=== PATIENT | female | born 1985 | race Caucasian/White ===

== ENCOUNTER 2019-12-15 17:44 | Emergency (ER) | payer MEDICARE ==
[~2019-12-15] VITALS: Ht 172.7 cm; Wt 62.8 kg
[2019-12-15] MEDS ORDERED: NAPR-885 PO (17:53)
[2019-12-15] MEDS ORDERED: CYCL-707 PO ×2 (17:53→19:42)
--- NOTE | 2019-12-15 19:26 | REPVR ---
PROCEDURE INFORMATION: Exam: CT Thoracic Spine Without Contrast Exam date and time: 12/15/2019 6:40 PM Age: 34 years old Clinical indication: Pain; Other: PT tender; Additional info: PT tender x 2mo, no miguel, neg XR initially TECHNIQUE: Imaging protocol: Computed tomography images of the thoracic spine without contrast. Radiation optimization: All CT scans at this facility use at least one of these dose optimization techniques: automated exposure control; mA and/or kV adjustment per patient size (includes targeted exams where dose is matched to clinical indication); or iterative reconstruction. COMPARISON: No relevant prior studies available. FINDINGS: Vertebrae: No acute fracture. Normal alignment. T1-T2: No significant disc protrusion. No severe spinal canal stenosis. No significant neural foraminal narrowing. T2-T3: No significant disc protrusion. No severe spinal canal stenosis. No significant neural foraminal narrowing. T3-T4: No significant disc protrusion. No severe spinal canal stenosis. No significant neural foraminal narrowing. T4-T5: No significant disc protrusion. No severe spinal canal stenosis. No significant neural foraminal narrowing. T5-T6: No significant disc protrusion. No severe spinal canal stenosis. No significant neural foraminal narrowing. T6-T7: No significant disc protrusion. No severe spinal canal stenosis. No significant neural foraminal narrowing. T7-T8: No significant disc protrusion. No severe spinal canal stenosis. No significant neural foraminal narrowing. T8-T9: No significant disc protrusion. No severe spinal canal stenosis. No significant neural foraminal narrowing. T9-T10: No significant disc protrusion. No severe spinal canal stenosis. No significant neural foraminal narrowing. T10-T11: No significant disc protrusion. No severe spinal canal stenosis. No significant neural foraminal narrowing. T11-T12: No significant disc protrusion. No severe spinal canal stenosis. No significant neural foraminal narrowing. T12-L1: No significant disc protrusion. No severe spinal canal stenosis. No significant neural foraminal narrowing. IMPRESSION: Unremarkable thoracic spine. Electronically signed by: Linnette Iglesias On 12/15/2019 19:25:51 PM
[2019-12-15 19:49] VITALS: BP 116/68
[2019-12-15] MEDS ORDERED: CYCLOBENZAPRINE 10MG TABLET PO ONE (20:00)
== END 2019-12-15 19:52 | disposition home or self-care (01) ==
LOC: M ED 17:44
DX: M54.6 Pain in thoracic spine (principal); R29.898 Other symptoms and signs involving the musculoskeletal system; M54.32 Sciatica, left side; Z88.2 Allergy status to sulfonamides; Z88.8 Allergy status to other drugs, medicaments and biological substances

== ENCOUNTER → 2020-01-07 | Outpatient (REF) | payer MEDICARE, OTHER ==
[~2020-01-07] MED LIST: AMIT24CA7; BUSP10TA PO; CYCL-707 PO; DULO1CAP4 PO; ESCITALOPRAM; HYDR50TA70; KETO10TAB PO; LINZ290C PO; MIDO5TA PO; NAPR-885 PO; TIZA4CAP PO; TIZA4TAB4; ZOLP5TAB PO
[2020-02-02 21:50] LABS: BASO % 0.3 % (0.0-1.0); EOS # 0.4 10^3/uL (0.0-0.5); EOS % 6.1 % (0.0-3.0); HEMATOCRIT 38.8 % (36.0-47.0); HEMOGLOBIN 13.1 g/dl (12.0-15.5); LYMPH # 1.4 10^3/uL (1.5-5.0); LYMPH % 23.3 % (24.0-44.0); MEAN CORPUSCULAR HEMOGLOBIN 29.7 pg (27.0-33.0); MEAN CORPUSCULAR HGB CONC 33.8 g/dl (32.0-36.5); MONO # 0.4 10^3/uL (0.0-0.8); MONO % 6.6 % (0.0-5.0); NEUTROPHILS # 3.8 10^3/uL (1.5-8.5); NEUTROPHILS % 63.2 % (36.0-66.0); PLATELET COUNT, AUTOMATED 217 10^3/uL (150-450); RED BLOOD COUNT 4.41 10^6/uL (4.00-5.40); WHITE BLOOD COUNT 5.9 10^3/uL (4.0-10.0)
[2020-02-03 10:56] LABS: BLOOD UREA NITROGEN 6 MG/DL (7-18); GLUCOSE, FASTING 75 MG/DL (70-100)
[2020-02-03 10:57] LABS: ALT/SGPT 13 IU/L (0-32); BILIRUBIN,TOTAL 0.5 MG/DL (0.2-1.0); CARBON DIOXIDE LEVEL 26 mmol/L (20-29); CHLORIDE LEVEL 106 MEQ/L (98-107); CHOLESTEROL LEVEL 174 MG/DL (<200); CHOLESTEROL RISK RATIO 3.052 (<5); CREATININE FOR GFR 0.78 MG/DL (0.55-1.30); GLOMERULAR FILTRATION RATE > 60.0 (>60); HDL CHOLESTEROL 57 MG/DL (>40); LDL CHOLESTEROL 102.6 MG/DL (<100); NON-HDL-C 117 MG/DL; SODIUM LEVEL 141 MEQ/L (136-145); TRIGLYCERIDES LEVEL 72 MG/DL (<150)
[2020-02-03 10:58] LABS: ALBUMIN 4.1 GM/DL (3.2-5.2); MAGNESIUM LEVEL 1.9 MG/DL (1.8-2.4); TOTAL PROTEIN 7.1 GM/DL (6.4-8.2)
== END ==
LOC: M LAB REF 06:35
PROVIDERS: ATTEND Nurse Practitioner Family
DX: Z79.899 Other long term (current) drug therapy (principal)

== ENCOUNTER 2020-01-10 08:50 | Emergency (ER) | payer MEDICARE, OTHER ==
[~2020-01-10 08:50] MED LIST changes: -AMIT24CA7; -BUSP10TA PO; -DULO1CAP4 PO; -ESCITALOPRAM; -HYDR50TA70; -KETO10TAB PO; -LINZ290C PO; -MIDO5TA PO; -TIZA4CAP PO; -TIZA4TAB4; -ZOLP5TAB PO
[2020-02-18 10:59] LABS: BASO % 0.4 % (0.0-1.0); EOS # 0.6 10^3/uL (0.0-0.5); EOS % 5.7 % (0.0-3.0); HEMATOCRIT 37.2 % (36.0-47.0); HEMOGLOBIN 12.9 g/dl (12.0-15.5); LYMPH # 1.6 10^3/uL (1.5-5.0); LYMPH % 14.8 % (24.0-44.0); MEAN CORPUSCULAR HEMOGLOBIN 30.1 pg (27.0-33.0); MEAN CORPUSCULAR HGB CONC 34.7 g/dl (32.0-36.5); MEAN CORPUSCULAR VOLUME 86.7 fl (80.0-96.0); MONO # 0.6 10^3/uL (0.0-0.8); MONO % 5.5 % (0.0-5.0); NEUTROPHILS # 7.7 10^3/uL (1.5-8.5); NEUTROPHILS % 73.2 % (36.0-66.0); PLATELET COUNT, AUTOMATED 231 10^3/uL (150-450); RED BLOOD COUNT 4.29 10^6/uL (4.00-5.40); WHITE BLOOD COUNT 10.5 10^3/uL (4.0-10.0)
[2020-02-18 11:11] LABS: INR 1.03; PARTIAL THROMBOPLASTIN TIME 30.3 SECONDS (25.0-38.4); PROTHROMBIN TIME 13.7 SECONDS (11.8-14.0)
[2020-02-18 11:16] LABS: APPEARANCE, URINE CLEAR (CLEAR); BACTERIA, URINE AUTO NEGATIVE (NEGATIVE); BILIRUBIN, URINE AUTO NEGATIVE (NEGATIVE); BLOOD, URINE BLOOD NEGATIVE (NEGATIVE); COLOR, URINE STRAW (YELLOW); GLUCOSE, URINE (UA) AUTO NEGATIVE (NEGATIVE); KETONE, URINE AUTO NEGATIVE (NEGATIVE); LEUKOCYTE ESTERASE, URINE AUTO NEGATIVE (NEGATIVE); NITRITE, URINE AUTO NEGATIVE (NEGATIVE); PROTEIN, URINE AUTO NEGATIVE (NEGATIVE); RBC, URINE AUTO 0 /HPF (0-3); SPECIFIC GRAVITY URINE AUTO 1.004 (1.002-1.035); SQUAMOUS EPITHELIAL CELL UR AU 4 /HPF (0-6); UROBILINOGEN, URINE AUTO 0.2 mg/dL (0.0-2.0); WBC, URINE AUTO 0 /HPF (0-3)
--- NOTE | 2020-02-24 10:18 | ECGEPIP ---
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
--- NOTE | 2020-03-02 16:02 | REP ---
CT OF THE HEAD WITHOUT CONTRAST: HISTORY: Dizziness. TECHNIQUE: Axial noncontrast images from the skull base to the vertex with coronal reformations. FINDINGS: The ventricles, sulci and cisterns are symmetric and normal. Mccoy-white differentiation is maintained. No acute intracranial hemorrhage, mass or mass effect. No extra-axial fluid collection. The calvarium is intact. The paranasal sinuses and mastoid air cells are clear. IMPRESSION: Negative noncontrast head CT. MTDD
--- NOTE | 2020-03-02 16:09 | REP ---
CONTRAST-ENHANCED CHEST CT USING ANGIOGRAPHIC TECHNIQUE: HISTORY: Chest pain. TECHNIQUE: Axial contrast-enhanced images from the thoracic inlet to the upper 0728material (followed by CT of the abdomen and pelvis). FINDINGS: The thoracic aorta is normal and without aneurysm or dissection. The pulmonary vasculature is normal and without embolus. The heart and pericardium appear normal. The bilateral lung corea are clear. No consolidation, effusion or pneumothorax. The tracheobronchial tree is patent. No adenopathy. Surrounding musculoskeletal structures are intact. IMPRESSION: Normal contrast-enhanced chest CT. Normal thoracic aorta. No acute mediastinal or pleuroparenchymal process. MTDD
--- NOTE | 2020-03-02 16:11 | REP ---
CONTRAST-ENHANCED CT OF THE ABDOMEN AND PELVIS USING ANGIOGRAPHIC TECHNIQUE: HISTORY: History of mesenteric artery repair with abdominal pain. TECHNIQUE: Axial contrast-enhanced images from the lung bases to the pubic symphysis using 100 cc Isovue 370 intravenous contrast material with multiplanar reformations. FINDINGS: The abdominal aorta and branch vessels appear relatively normal and without evidence for aneurysm or dissection. No perivascular fluid or significant inflammatory changes are appreciated. Small surgical clips in the region of the celiac axis and mesenteric artery are identified and consistent with given history of mesenteric artery repair. The liver, spleen, pancreas, bilateral adrenal glands and kidneys are normal. Evidence for prior cholecystectomy noted. The enteric system is without obstruction or acute inflammatory process. A normal terminal ileum and appendix are identified in the right lower quadrant. The pelvis demonstrates normal bladder and age appropriate uterus/left adnexa. 5.3 cm complex cystic changes to the right ovary likely physiologic and related to menstrual cycle. No pelvic free fluid or ascites. No free air. No adenopathy. Surrounding musculoskeletal structures without acute osseous abnormality. IMPRESSION: 1. Relatively normal appearance of the thoracic aorta and branch vessels without evidence for aneurysm or dissection. 2. Complex cystic changes to the right adnexa, likely physiologic and related to menstrual cycle. 3. No further acute abdominopelvic pathology appreciated. 4. No ascites, focal inflammatory stranding or adenopathy. MTDD
[2020-03-25 08:08] LABS: ACETAMINOPHEN LEVEL < 2.0 UG/ML (10.0-30.0); ALBUMIN 3.7 GM/DL (3.2-5.2); ALT/SGPT 14 U/L (12-78); BILIRUBIN,DIRECT < 0.1 MG/DL (0.0-0.2); BILIRUBIN,TOTAL 0.3 MG/DL (0.2-1.0); BLOOD UREA NITROGEN 11 MG/DL (7-18); CALCIUM LEVEL 8.8 MG/DL (8.5-10.1); CARBON DIOXIDE LEVEL 26 MEQ/L (21-32); CHLORIDE LEVEL 107 MEQ/L (98-107); CK-MB VALUE MASS < 1.0 NG/ML (<3.6); CPK CREATINE PHOSPHOKINASE 68 U/L (26-192); CREATININE FOR GFR 0.75 MG/DL (0.55-1.30); ETHYL ALCOHOL (ETHANOL) < 0.003 % (0.000-0.010); FREE T4 1.13 NG/DL (0.76-1.46); GLOMERULAR FILTRATION RATE > 60.0 (>60); GLUCOSE, FASTING 105 MG/DL (70-100); MB/CK RELATIVE INDEX 1.47 (< OR =4); POTASSIUM SERUM 4.6 MEQ/L (3.5-5.1); SALICYLATE LEVEL < 1.7 MG/DL (5.0-30.0); SODIUM LEVEL 141 MEQ/L (136-145); TOTAL PROTEIN 7.1 GM/DL (6.4-8.2); TROPONIN I < 0.02 NG/ML (< 0.10)
[2020-03-25 08:11] LABS: AMPHETAMINES LEVEL URINE NEGATIVE (NEGATIVE); BARBITURATES URINE NEGATIVE (NEGATIVE); BENZODIAZEPINES URINE POSITIVE (NEGATIVE); CANNABINOIDS URINE NEGATIVE (NEGATIVE); COCAINE METABOLITE URINE NEGATIVE (NEGATIVE); HCG, SERUM QUALITATIVE NEGATIVE (NEGATIVE); METHADONE URINE NEGATIVE (NEGATIVE); OPIATES URINE NEGATIVE (NEGATIVE); PHENCYCLIDINE URINE NEGATIVE (NEGATIVE)
[2020-03-25 08:12] LABS: CK-MB VALUE MASS < 1.0 NG/ML (<3.6); CPK CREATINE PHOSPHOKINASE 62 U/L (26-192); MB/CK RELATIVE INDEX 1.61 (< OR =4); TROPONIN I < 0.02 NG/ML (< 0.10)
== END 2020-01-10 22:14 | disposition left against medical advice (07) ==
LOC: M ED 08:50
DX: I95.1 Orthostatic hypotension (principal); F33.9 Major depressive disorder, recurrent, unspecified; F41.9 Anxiety disorder, unspecified; N80.9 Endometriosis, unspecified; K58.1 Irritable bowel syndrome with constipation; R63.0 Anorexia; F50.2 Bulimia nervosa; G89.29 Other chronic pain; M54.6 Pain in thoracic spine; Z79.899 Other long term (current) drug therapy; Z79.2 Long term (current) use of antibiotics; Z88.1 Allergy status to other antibiotic agents; Z88.2 Allergy status to sulfonamides; Z88.8 Allergy status to other drugs, medicaments and biological substances
CPT/HCPCS: 70450; 71275; 74174; 80048; 80076; 80307; 81001; 82550; 82553; 83605; 84439; 84443; 84484; 84703; 85025; 85610; 85730; 87040; 87086; 93005; 96361; 96374; 96375; 99284; G0480

== ENCOUNTER → 2020-01-27 | Outpatient (CLI) | payer MEDICARE, OTHER ==
[~2020-01-27] MED LIST changes: +AMIT24CA7; +BUSP10TA PO; +DULO1CAP4 PO; +ESCITALOPRAM; +HYDR50TA70; +KETO10TAB PO; +LINZ290C PO; +MIDO5TA PO; +PROHANCE 279.3MG/ML 15ML VIAL As Ordered ONE; +TIZA4CAP PO; +TIZA4TAB4; +ZOLP5TAB PO
== END ==
LOC: M RAD 10:30
PROVIDERS: ATTEND Orthopaedic Surgery
DX: M51.44 Schmorl's nodes, thoracic region (principal)
CPT/HCPCS: 72157; A9576

== ENCOUNTER 2020-02-25 12:58 | Emergency (ER) | payer MEDICARE, OTHER ==
[~2020-02-25] VITALS: Ht 172.7 cm; Wt 61.4 kg
[~2020-02-25 12:58] MED LIST changes: -AMIT24CA7; -BUSP10TA PO; -DULO1CAP4 PO; -ESCITALOPRAM; -HYDR50TA70; -KETO10TAB PO; -LINZ290C PO; -MIDO5TA PO; -PROHANCE 279.3MG/ML 15ML VIAL As Ordered ONE; -TIZA4CAP PO; -TIZA4TAB4; -ZOLP5TAB PO
[2020-02-25] MEDS ORDERED: BUSP10TA PO (13:09)
[2020-02-25] MEDS ORDERED: TIZA4TAB4 (13:09)
[2020-02-25] MEDS ORDERED: AMIT24CA7 (13:09)
[2020-02-25] MEDS ORDERED: ESCITALOPRAM (13:09)
[2020-02-25] MEDS ORDERED: HYDR50TA70 (13:09)
[2020-02-25] MEDS ORDERED: NS 1,000 ML IV ONE ×2 (13:30)
[2020-02-25 14:31] LABS: BASO % 0.5 % (0.0-1.0); EOS # 0.2 10^3/uL (0.0-0.5); EOS % 3.1 % (0.0-3.0); HEMATOCRIT 40.9 % (36.0-47.0); LYMPH # 1.5 10^3/uL (1.5-5.0); LYMPH % 23.7 % (24.0-44.0); MEAN CORPUSCULAR HEMOGLOBIN 29.4 pg (27.0-33.0); MEAN CORPUSCULAR HGB CONC 34.2 g/dl (32.0-36.5); MEAN CORPUSCULAR VOLUME 85.9 fl (80.0-96.0); MONO # 0.4 10^3/uL (0.0-0.8); NEUTROPHILS # 4.1 10^3/uL (1.5-8.5); NEUTROPHILS % 66.4 % (36.0-66.0); PLATELET COUNT, AUTOMATED 308 10^3/uL (150-450); RED BLOOD COUNT 4.76 10^6/uL (4.00-5.40); WHITE BLOOD COUNT 6.2 10^3/uL (4.0-10.0)
[2020-02-25 15:03] LABS: ALBUMIN 4.1 GM/DL (3.2-5.2); ALT/SGPT 15 U/L (12-78); BILIRUBIN,TOTAL 0.5 MG/DL (0.2-1.0); BLOOD UREA NITROGEN 16 MG/DL (7-18); CALCIUM LEVEL 9.6 MG/DL (8.5-10.1); CARBON DIOXIDE LEVEL 28 MEQ/L (21-32); CHLORIDE LEVEL 106 MEQ/L (98-107); CREATININE FOR GFR 0.72 MG/DL (0.55-1.30); GLOMERULAR FILTRATION RATE > 60.0 (>60); GLUCOSE, FASTING 86 MG/DL (70-100); POTASSIUM SERUM 3.8 MEQ/L (3.5-5.1); SODIUM LEVEL 137 MEQ/L (136-145); TOTAL PROTEIN 7.7 GM/DL (6.4-8.2)
[2020-02-25 15:09] LABS: HCG, SERUM QUALITATIVE NEGATIVE (NEGATIVE)
[2020-02-25] MEDS ORDERED: ACETAMINOPHEN 325 MG TAB PO ONE (15:30)
[2020-02-25 17:19] VITALS: BP 126/64
--- NOTE | 2020-02-27 08:45 | ECGEPIP ---
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
== END 2020-02-25 17:41 | disposition home or self-care (01) ==
LOC: M ED 12:58
DX: I95.1 Orthostatic hypotension (principal); Z86.79 Personal history of other diseases of the circulatory system; N80.9 Endometriosis, unspecified; Z88.2 Allergy status to sulfonamides; Z88.8 Allergy status to other drugs, medicaments and biological substances; Z88.0 Allergy status to penicillin; Z79.899 Other long term (current) drug therapy

== ENCOUNTER → 2020-03-21 | Outpatient (REF) ==
[~2020-03-21] MED LIST changes: +AMIT24CA7; +BUSP10TA PO; +DULO1CAP4 PO; +ESCITALOPRAM; +HYDR50TA70; +KETO10TAB PO; +LINZ290C PO; +MIDO5TA PO; +TIZA4CAP PO; +TIZA4TAB4; +ZOLP5TAB PO
== END ==
LOC: M LAB 09:23 → M EMPSKH 09:23
PROVIDERS: ATTEND Nurse Practitioner Adult Health
DX: Z00.00 Encounter for general adult medical examination without abnormal findings (principal)

== ENCOUNTER 2020-03-24 10:50 | Emergency (ER) | payer MEDICARE, OTHER ==
[~2020-03-24] VITALS: Ht 172.7 cm; Wt 61.0 kg
[~2020-03-24 10:50] MED LIST changes: -DULO1CAP4 PO; -KETO10TAB PO; -LINZ290C PO; -MIDO5TA PO; -TIZA4CAP PO; -ZOLP5TAB PO
[2020-03-24] MEDS ORDERED: DULO1CAP4 PO (10:57)
[2020-03-24] MEDS ORDERED: ZOLP5TAB PO (10:57)
[2020-03-24] MEDS ORDERED: LINZ290C PO (10:57)
[2020-03-24] MEDS ORDERED: MIDO5TA PO (10:57)
[2020-03-24] MEDS ORDERED: NS 1,000 ML IV ONE (11:15)
[2020-03-24 12:10] LABS: BASO % 0.3 % (0.0-1.0); EOS # 0.2 10^3/uL (0.0-0.5); EOS % 1.9 % (0.0-3.0); HEMATOCRIT 40.5 % (36.0-47.0); HEMOGLOBIN 14.1 g/dl (12.0-15.5); LYMPH # 1.6 10^3/uL (1.5-5.0); LYMPH % 20.7 % (24.0-44.0); MEAN CORPUSCULAR HEMOGLOBIN 29.3 pg (27.0-33.0); MEAN CORPUSCULAR HGB CONC 34.8 g/dl (32.0-36.5); MONO # 0.6 10^3/uL (0.0-0.8); MONO % 6.9 % (0.0-5.0); NEUTROPHILS # 5.6 10^3/uL (1.5-8.5); NEUTROPHILS % 69.9 % (36.0-66.0); PLATELET COUNT, AUTOMATED 294 10^3/uL (150-450); RED BLOOD COUNT 4.82 10^6/uL (4.00-5.40); WHITE BLOOD COUNT 7.9 10^3/uL (4.0-10.0)
--- NOTE | 2020-03-24 12:15 | ECGEPIP ---
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
[2020-03-24] MEDS ORDERED: METOCLOPRAMIDE INJ 10MG/2ML VIAL (J2765 PER 1) IV ONE (12:30)
[2020-03-24] MEDS ORDERED: KETOROLAC 30 MG/ML 1ML VIAL IV ONE (12:30)
[2020-03-24 12:37] LABS: ALBUMIN 3.9 GM/DL (3.2-5.2); BILIRUBIN,DIRECT 0.1 MG/DL (0.0-0.2); BILIRUBIN,TOTAL 0.6 MG/DL (0.2-1.0); FREE THYROXINE INDEX 2.5 % (1.3-4.8); THYROID STIMULATING HORMONE 2.69 uIU/ML (0.358-3.740); TOTAL PROTEIN 7.6 GM/DL (6.4-8.2)
[2020-03-24] MEDS ORDERED: NORCO, ANEXSIA 5/325MG TABLET (HYDROcodone/ACETAMINOPHEN) PO ONE (13:15)
--- NOTE | 2020-03-24 14:16 | REPVR ---
PROCEDURE INFORMATION: Exam: CT Abdomen And Pelvis Without Contrast Exam date and time: 03/24/2020 12:52 PM Age: 35 years old Clinical indication: Abdominal pain; Flank; Left; Additional info: Flank pain TECHNIQUE: Imaging protocol: Computed tomography of the abdomen and pelvis without contrast. Radiation optimization: All CT scans at this facility use at least one of these dose optimization techniques: automated exposure control; mA and/or kV adjustment per patient size (includes targeted exams where dose is matched to clinical indication); or iterative reconstruction. COMPARISON: CT ANGIO ABD/PEL 01/10/2020 3:47 PM FINDINGS: Lungs: The lung bases are unremarkable. Liver: There are no focal liver lesions. Gallbladder and bile ducts: Cholecystectomy. Pancreas: The pancreas is normal. Spleen: The spleen is normal. Adrenals: The adrenal glands are unremarkable. Kidneys and ureters: The kidneys are unremarkable. Stomach and bowel: There is no evidence of intestinal obstruction. Appendix: The appendix is unremarkable. Intraperitoneal space: There is a small volume of free fluid in the cul-de-sac. Vasculature: Surgical clips are again seen in the region of the celiac axis, superior mesenteric and left renal arteries but they are poorly evaluated on this noncontrast examination. Lymph nodes: Unremarkable. No enlarged lymph nodes. Urinary bladder: The bladder is unremarkable. Reproductive: There is a 4.1 x 4.5 x 4.6 cm cystic structure in the left adnexa. The previously noted large cystic structures in the right adnexa on the prior study are no longer apparent. Bones/joints: No acute fracture. Probable Schmorl's nodes in multiple lower thoracic vertebral body endplates. Soft tissues: Unremarkable. IMPRESSION: 1. No evidence of urinary tract obstruction or bowel obstruction. There is no evidence of inflammation. 2. The previous cystic structures in the right adnexa have resolved in the interim but there is now a 4.1 x 4.5 x 4.6 cm probable left ovarian cyst. There is also free fluid in the cul-de-sac which may be due to cyst rupture among other etiologies. No further imaging is recommended. (Reference: Renaldo) References: Renaldo et al. Management of Incidental Adnexal Findings on CT and MRI: A White Paper of the ACR Incidental Findings Committee, J Am Bridget Radiol. 2019;17(2):248-254. Electronically signed by: Dennise Wheeler On 03/24/2020 14:16:14 PM
[2020-03-24] MEDS ORDERED: KETO10TAB PO (14:36)
[2020-03-24 14:50] VITALS: BP 126/78
== END 2020-03-24 15:17 | disposition home or self-care (01) ==
LOC: M ED 10:50
DX: R10.11 Right upper quadrant pain (principal); R11.0 Nausea; N83.202 Unspecified ovarian cyst, left side; R94.31 Abnormal electrocardiogram [ECG] [EKG]; K58.9 Irritable bowel syndrome, unspecified; G43.909 Migraine, unspecified, not intractable, without status migrainosus; F41.9 Anxiety disorder, unspecified; Z88.1 Allergy status to other antibiotic agents; Z88.2 Allergy status to sulfonamides; Z88.8 Allergy status to other drugs, medicaments and biological substances; Z79.899 Other long term (current) drug therapy
CPT/HCPCS: 74176; 80047; 80076; 81001; 83690; 84436; 84443; 84479; 84702; 85025; 93005; 96361; 96374; 96375; 99284; J1885; J2765

== ENCOUNTER 2020-03-29 09:31 | Observation (INO) | payer MEDICARE, OTHER ==
[~2020-03-29] VITALS: Ht 172.7 cm; Wt 60.0 kg
[~2020-03-29 09:31] MED LIST changes: +DULO1CAP4 PO; +KETO10TAB PO; +LINZ290C PO; +MIDO5TA PO; +ZOLP5TAB PO
[2020-03-29] MEDS ORDERED: NS 1,000 ML IV ONE (09:45)
--- NOTE | 2020-03-29 10:21 | REPVR ---
PROCEDURE INFORMATION: Exam: XR Chest, 1 View Exam date and time: 03/29/2020 10:00 AM Age: 35 years old Clinical indication: Chest pain TECHNIQUE: Imaging protocol: XR of the chest Views: 1 view. COMPARISON: CT ANGIO CHEST 01/10/2020 3:47 PM FINDINGS: Lungs: Hyperinflation, without acute airspace disease. Pleural space: No pleural effusion. Heart/Mediastinum: No cardiomegaly. Bones/joints: Unremarkable. IMPRESSION: Hyperinflation, without acute airspace or pleural disease. Electronically signed by: Edmar Navarrete On 03/29/2020 10:21:00 AM
[2020-03-29 10:44] LABS: BASO % 0.3 % (0.0-1.0); EOS # 0.2 10^3/uL (0.0-0.5); EOS % 2.4 % (0.0-3.0); HEMATOCRIT 38.2 % (36.0-47.0); LYMPH # 1.6 10^3/uL (1.5-5.0); LYMPH % 21.1 % (24.0-44.0); MEAN CORPUSCULAR HEMOGLOBIN 28.8 pg (27.0-33.0); MEAN CORPUSCULAR VOLUME 84.7 fl (80.0-96.0); MONO # 0.4 10^3/uL (0.0-0.8); MONO % 4.9 % (0.0-5.0); NEUTROPHILS # 5.3 10^3/uL (1.5-8.5); PLATELET COUNT, AUTOMATED 250 10^3/uL (150-450); RED BLOOD COUNT 4.51 10^6/uL (4.00-5.40); WHITE BLOOD COUNT 7.5 10^3/uL (4.0-10.0)
[2020-03-29 11:27] LABS: ALBUMIN 3.7 GM/DL (3.2-5.2); BILIRUBIN,DIRECT 0.1 MG/DL (0.0-0.2); BILIRUBIN,TOTAL 0.4 MG/DL (0.2-1.0); THYROID STIMULATING HORMONE 4.53 uIU/ML (0.358-3.740); TOTAL PROTEIN 7.2 GM/DL (6.4-8.2)
[2020-03-29] MEDS ORDERED: TIZA4CAP PO (12:15)
[2020-03-29] MEDS ORDERED: KETOROLAC 30 MG/ML 1ML VIAL IV ONE (12:30)
[2020-03-29] MEDS ORDERED: tiZANidine 4 MG TAB PO PRN (14:00)
[2020-03-29] MEDS ORDERED: ACETAMINOPHEN TAB 650MG DOSE (2X325MG) PO PRN (14:00)
[2020-03-29] MEDS ORDERED: POTASSIUM CHLORIDE 10 MEQ SR TABLET PO ONE (15:30)
[2020-03-29 15:40] VITALS: BP 126/82
[2020-03-29 15:42] LABS: FREE T4 0.97 NG/DL (0.76-1.46)
--- NOTE | 2020-03-29 16:11 | HPEPDOC ---
General Date of Admission Mar 29, 2020 at 13:38 Date of Service: Mar 29, 2020 Attending Physician: GRZEGORZ STERN MD Chief Complaint The patient is a 35-year-old female admitted with a reason for visit of Syncope. Source: Patient, RN/MD Exam Limitations: No limitations Timing/Duration: Getting worse Associated Symptoms: Syncope History of Present Illness 35 yo woman with an official diagnosis of POTS on midodrine who presented to the ED reporting 3 episodes of syncope in the last 24h, in the setting of recently having been evaluated in the ED for postural symptoms +/- abdominal pain three times in the last two weeks. At that time, she was hydrated, and for the abdomin al pain, imaging showed known L ovarian simple cyst and she was discharged home. Today she returned reporting 3 syncopal episodes over the last 24h without head trauma. While in the ED, she was hemodynamically stable, afebrile, breathing comfortably on room air and complaining for LLQ pain that remitted with Ketoralac. Studies showed WBC 7.5, hgb 13, platelets 250, na 140, K 3.4, BUN 5, Cr 0.6, glucose of 90, lipase 79, TSH of 4.53, negative ddimer, EKG with NSR without evidence of ischemia, negative troponin and normal CXR without evidence of disease. She was given 1L of NS and is now being admitted to medicine under observation for syncope. On ROS she denied recent fever, chills, upper res piratory congestion, rhinorrhea, sick contacts, travel, diarrhea, constipation, chest pain or palpitations. She did report that she feels cold all the time and that sometimes her finger tips and tips of her toes are very cold and bluish. She also get episodic facial flushing and non tender, non pruritic erythematous patches of her skin without clear etiology. ROS: 10 point ROS was reviewed and negative except as noted above Home Medications Scheduled Buspirone HCl (Buspirone HCl) 10 Mg Tablet, 10 MG PO TID, (Reported) Duloxetine Hcl (Duloxetine HCl) 20 Mg Capsule.dr, 40 MG PO DAILY, (Reported) Linaclotide (Linzess) 290 Mcg Capsule, 290 MCG PO DAILY, (Reported) Midodrine HCl (Midodrine HCl) 5 Mg Tablet, 5 MG PO TID, (Reported) Zolpidem Tartrate (Zolpidem Tartrate) 5 Mg Tablet, 5 MG PO QHS, (Reported) Scheduled PRN Tizanidine HCl (Tizanidine HCl) 4 Mg Capsule, 4 MG PO Q6H PRN for SPASMS, (Reported) Allergies Coded Allergies: Sulfa (Sulfonamide Antibiotics) (Verified Allergy, Severe, swelling/anaph, 12/15/19) promethazine (Verified Allergy, Severe, anaph, 12/15/19) paroxetine (Verified Adverse Reaction, Intermediate, altered mental, 12/15/19) amoxicillin (Verified Adverse Reaction, Unknown, UNKNOWN, 03/29/20) PATIENT DOES NOT RECALL WHAT HAPPENS WHEN SHE TAKES THIS MEDICATION clavulanic acid (Verified Adverse Reaction, Unknown, UNKNOWN, 03/29/20) PATIENT DOES NOT RECALL WHAT HAPPENS WHEN SHE TAKES THIS MEDICATION Past Medical History Medical History POTS Surgical History 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 for which she had abdominal surgery cholecystectomy Family History Significant Family History: No pertinent family hx Social History * Smoker: Denies Alcohol: Denies Drugs: denies Recent Travel/Sick Contacts: Denies: Recent travel, Recent sick contacts Psychosocial History: Anxiety, Depression A-FIB/CHADSVASC A-FIB History Current/History of A-Fib/PAF?: No Current PO Anticoag Therapy: No Age/Risk Factor Scoring CHADSVASC: CHADSVASC Response (Comments) Value Age Risk Factor Age < 65 years old 0 Gender Risk Factor Female 1 Hx of CHF No 0 Hx of HTN No 0 Hx of Stroke/TIA/or VTE No 0 Hx of Diabetes No 0 Hx of Vascular Disease No 0 Total 1 Treatment Treatment ordered: NONE Reason Anticoagulant not given: Not indicated/[id number] Physical Examination General Exam: Positive: Alert, No Acute Distress, Other (flushed face) Eye Exam: Positive: PERRLA, Conjunctiva & lids normal, EOMI; Negative: Sclera icteric ENT Exam: Positive: Atraumatic, Mucous membr. moist/pink, Pharynx Normal Neck Exam: Positive: Supple; Negative: JVD, thyromegaly Chest Exam: Positive: Clear to auscultation, Normal air movement Heart Exam: Positive: Rate Normal, Regular Rhythm, Normal S1, Normal S2; Negative: Murmurs, Rubs Telemetry: Positive: No significant arrhythmia Abdomen Exam: Positive: Normal bowel sounds, Soft, Tenderness (LLQ with TTP, no reboung no guarding); Negative: Hepatospenomegaly Extremity Exam: Positive: Normal pulses; Negative: Clubbing, Cyanosis, Edema Skin Exam: Positive: Other skin issue (she has patchy erythematous regions without clear etiology or history of trauma. her face is flushed, worse centrally and spreads out, dry); Negative: Breakdown, Lesion Neuro Exam: Positive: Normal Gait, Normal Speech, Cranial Nerves 3-12 NL, Reflexes 2+ Psych Exam: Positive: Mental status NL, Oriented x 3; Negative: Mood NL (labile, at times becomes teary ) Vital Signs Vital Signs Date Time Temp Pulse Resp B/P (MAP) Pulse Ox O2 Delivery O2 Flow Rate FiO2 03/29/20 14:00 90 114/65 (81) 100 03/29/20 12:30 97.9 03/29/20 09:49 18 Room Air Laboratory Data Labs 24H Laboratory Tests 2 03/29/20 09:43: Immature Granulocyte % (Auto) 0.3, Neutrophils (%) (Auto) 71.0H, Lymphocytes (%) (Auto) 21.1L, Monocytes (%) (Auto) 4.9, Eosinophils (%) (Auto) 2.4, Basophils (%) (Auto) 0.3, Neutrophils # (Auto) 5.3, Lymphocytes # (Auto) 1.6, Monocytes # (Auto) 0.4, Eosinophils # (Auto) 0.2, Basophils # (Auto) 0.0, Nucleated Red Blood Cells % (auto) 0.0, Total Bilirubin 0.4, Direct Bilirubin 0.1, Aspartate Amino Transf (AST/SGOT) 10, Alanine Aminotransferase (ALT/SGPT) 12, Alkaline Phosphatase 81, XL-Mtl-E-Type Natriuretic Peptide 183H, Total Protein 7.2, Albumin 3.7, Albumin/Globulin Ratio 1.1L, Lipase 79, Thyroid Stimulating Hormone (TSH) 4.530H 03/29/20 09:45: D-Dimer, Quantitative < 270 03/29/20 10:32: POC Glucose (Misc Panel) 90, POC Sodium (Misc Panel) 140, POC Potassium (Misc Panel) 3.4L, POC Chloride (Misc Panel) 101, POC Total CO2 (Misc Panel) 25.0, POC Blood Urea Nitrogen (Misc Panel 5L, POC Ionized Calcium (Misc Panel) 5.0, POC Creatinine (Misc Panel) 0.6, POC Hematocrit (Misc Panel) 39.0 03/29/20 10:34: POC Beta HCG, Quantitative < 5.0 03/29/20 10:38: POC Troponin I (Misc) 0.00 CBC/BMP Laboratory Tests 03/29/20 09:43 Assessment/Plan 35 yo W with POTS on midodrine who represents to the ED reporting persistent postural orthostasis with 3 episodes of syncope in the last 24h. Syncope: -Most likely exacerbation of POTS by dehydration -s/p 1L NS bolus in the ED -c/w NS at 125cc/hr for now -telemetry -TTE -orthostatic vitals with AM vitals after hydration -PT/OT for assessment tomorrow -Nonfocal neurological exam without history of head trauma, will defer head imaging for now -For now will continue home psychotropes while giving fluids, to reduce confounders Abdominal pain with known L ovarian cyst -toradol 30mg Q8HP Depression and chronic back paun -continue home cymbalta and buspar -continue tizanidine DVT ppx: lovenox and TEDs Dispo: Obs, medsurg with tele Plan / VTE VTE Prophylaxis Ordered?: Yes GRZEGORZ STERN MD Mar 29, 2020 16:10
[2020-03-29] MEDS: MIDODRINE 5 MG TAB PO SCH ×2 (16:30→20:15)
[2020-03-29] MEDS: busPIRone 10 MG TAB PO SCH ×2 (16:31→20:13)
[2020-03-29] MEDS: NS 1,000 ML IV SCH (16:32)
[2020-03-29] MEDS ORDERED: hydrOXYzine 25 MG TAB PO PRN (16:45)
[2020-03-29] MEDS: ENOXAPARIN 40MG/0.4ML SYRINGE (J1650 PER 10MG) SC SCH (16:45)
[2020-03-29] MEDS ORDERED: ONDANSETRON 4MG/2ML VIAL IV PRN (16:45)
[2020-03-29] MEDS ORDERED: KETOROLAC 30 MG/ML 1ML VIAL IV PRN (19:00)
--- NOTE | 2020-03-29 19:29 | ECGEPIP ---
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
[2020-03-29] MEDS ORDERED: zolPIDEM TARTRATE 5 MG TAB PO SCH (21:00)
[2020-03-29 22:00] VITALS: BP 126/80
[2020-03-30] MEDS: NS 1,000 ML IV SCH (00:20)
[2020-03-30] MEDS ORDERED: RAMELTEON 8 MG TAB (ROZEREM) PO ONE (00:45)
[2020-03-30] MEDS ORDERED: ONDANSETRON 4 MG TAB PO ONE (00:45)
[2020-03-30 06:00] VITALS: BP_SYST 126; BP_SYST 128; BP_SYST 129; BP_DIAS 82; BP_DIAS 85; BP_DIAS 86
[2020-03-30 07:42] LABS: HEMATOCRIT 38.1 % (36.0-47.0); HEMOGLOBIN 12.6 g/dl (12.0-15.5); MEAN CORPUSCULAR HEMOGLOBIN 28.2 pg (27.0-33.0); MEAN CORPUSCULAR HGB CONC 33.1 g/dl (32.0-36.5); MEAN CORPUSCULAR VOLUME 85.2 fl (80.0-96.0); PLATELET COUNT, AUTOMATED 232 10^3/uL (150-450); RED BLOOD COUNT 4.47 10^6/uL (4.00-5.40); WHITE BLOOD COUNT 6.9 10^3/uL (4.0-10.0)
[2020-03-30 08:07] LABS: BLOOD UREA NITROGEN 4 MG/DL (7-18); CALCIUM LEVEL 8.5 MG/DL (8.5-10.1); CARBON DIOXIDE LEVEL 24 MEQ/L (21-32); CHLORIDE LEVEL 110 MEQ/L (98-107); CREATININE FOR GFR 0.61 MG/DL (0.55-1.30); GLOMERULAR FILTRATION RATE > 60.0 (>60); GLUCOSE, FASTING 87 MG/DL (70-100); POTASSIUM SERUM 3.8 MEQ/L (3.5-5.1); SODIUM LEVEL 140 MEQ/L (136-145)
[2020-03-30] MEDS ORDERED: LINZESS 290 MCG PO SCH (09:00)
[2020-03-30] MEDS: MIDODRINE 5 MG TAB PO SCH (09:00)
[2020-03-30] MEDS ORDERED: DULoxetine 20 MG CAP (CYMBALTA) PO SCH (09:00)
[2020-03-30] MEDS: busPIRone 10 MG TAB PO SCH (09:46)
[2020-03-30] MEDS: ENOXAPARIN 40MG/0.4ML SYRINGE (J1650 PER 10MG) SC SCH (09:46)
--- NOTE | 2020-03-30 11:19 | IPNPDOC ---
Text Note Date of Service The patient was seen on 03/30/20. NOTE General: Alert, No Acute Distress Eye: PERRLA, Conjunctiva & lids normal, EOMI, anicteric ENT: Atraumatic, Mucous membr. moist/pink, Pharynx Normal Neck: Supple, no JVD or palpable thyromegaly Chest: Clear to auscultation, Normal air movement Heart: Rate Normal, Regular Rhythm, Normal S1, Normal S2, no mrg Telemetry: No significant arrhythmia, sinus Abdomen: Normal bowel sounds, soft, mild LLQ with TTP, no rebound no guarding Extremities: Normal pulses, no edema, WWP Skin: continues to have facial flushing, mildly improved from yesterday. Dry facial skin with mild forehead skin flaking Neuro: Normal Speech, Cranial Nerves 3-12 NL, grossly nonfocal Psych: AO x 3 Laboratory Data Pending AM Assessment: 35 yo W with POTS on midodrine who represents to the ED reporting persistent postural orthostasis with 3 episodes of syncope in the last 24h. Syncope: -Most likely exacerbation of POTS by dehydration -s/p 1L NS bolus in the ED -DC NS at 125cc/hr -telemetry -TTE pending -f/u orthostatic vitals this AM vitals after hydration -PT/OT for safe home discharge -Nonfocal neurological exam without history of head trauma, will defer head imaging for now -For now will continue home psychotropes Abdominal pain with known L ovarian cyst -toradol 30mg Q8HP -K pad Depression and chronic back pain -continue home cymbalta and buspar -continue tizanidine DVT ppx: lovenox and TEDs Dispo: Obs, medsurg with tele, likely to discharge home later today VS,Fishbone, I+O VS, Fishbone, I+O Laboratory Tests 03/29/20 09:43 Vital Signs Date Time Temp Pulse Resp B/P (MAP) Pulse Ox O2 Delivery O2 Flow Rate FiO2 03/29/20 22:00 98.9 72 18 126/80 (95) 98 Room Air I&O- Last 24 Hours up to 6 AM 03/30/20 06:00 Intake Total 2055 ml Output Total 0 ml Balance 2055 ml GRZEGORZ STERN MD Mar 30, 2020 07:23
--- NOTE | 2020-03-30 11:20 | DS.PDOC ---
Discharge Summary General Date of Admission Mar 29, 2020 at 13:38 Date of Discharge 03/30/2020 Attending Physician: GRZEGORZ STERN MD Discharge Summary PROCEDURES PERFORMED DURING STAY: None ADMITTING DIAGNOSES: 1. Syncope DISCHARGE DIAGNOSES: 1. Syncope 2/2 exacerbation of POTS in the setting of dehydration 2. Dehydration 3. POTS 4. Chronic abdominal pain from L ovarian cyst COMPLICATIONS/CHIEF COMPLAINT: Syncope. HISTORY OF PRESENT ILLNESS: 35 yo woman with an official diagnosis of POTS on midodrine who presented to the ED reporting 3 episodes of syncope in 24h, in the setting of recently having been evaluated in the ED for postural symptoms +/- abdominal pain three times in the last two weeks. At that time, she was hydrated, and for the abdominal pain, imaging showed known L ovarian simple cyst and she was discharged home. During this encounter, she returned reporting 3 syncopal episodes over a 24h period without head trauma. HOSPITAL COURSE: While in the ED, she was hemodynamically stable, afebrile, breathing comfortably on room air and complaining for LLQ pain that remitted with ketoralac. Studies showed WBC 7.5, hgb 13, platelets 250, na 140, K 3.4, BUN 5, Cr 0.6, glucose of 90, lipase 79, TSH of 4.53, negative ddimer, EKG with NSR without evidence of ischemia, negative troponin and normal CXR without evidence of disease. She was given 1L of NS and admitted to medicine under observation for syncope. On ROS she denied recent fever, chills, upper respiratory congestion, rhinorrhea, sick contacts, travel, diarrhea, constipation, chest pain or palpitations. She did report that she feels cold all the time and that sometimes her finger tips and tips of her toes are very cold and bluish. She also get episodic facial flushing and non tender, non pruritic erythematous patches of her skin without clear etiology. While inpatient, I continued fluids and by day 2 AM orthostatic vitals were normal, worked with PT and cleared for home discharge with outpatient PT, while telemetry was stable and labs were stable. 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 Of note, I have also discussed with the patient, that she should discuss her cold intolerance with what sounds c/w be Raynaud's phenomenon of episodic bluish finger tips, as well as episodic flushing. She might warrant a rheumatologic workup. DISCHARGE MEDICATIONS: Please see below. ALLERGIES: Please see below. PHYSICAL EXAMINATION ON DISCHARGE: VITAL SIGNS: Please see below. General: Alert, No Acute Distress Eye: PERRLA, Conjunctiva & lids normal, EOMI, anicteric ENT: Atraumatic, Mucous membr. moist/pink, Pharynx Normal Neck: Supple, no JVD or palpable thyromegaly Chest: Clear to auscultation, Normal air movement Heart: Rate Normal, Regular Rhythm, Normal S1, Normal S2, no mrg Telemetry: No significant arrhythmia, sinus Abdomen: Normal bowel sounds, soft, mild LLQ with TTP, no rebound no guarding Extremities: Normal pulses, no edema, WWP Skin: continues to have facial flushing, mildly improved from yesterday. Dry facial skin with mild forehead skin flaking Neuro: Normal Speech, Cranial Nerves 3-12 NL, grossly nonfocal Psych: AO x 3 LABORATORY DATA: Please see below. IMAGING: CXR: Hyperinflation, without acute airspace or pleural disease. PROGNOSIS: Good ACTIVITY: As tolerated DIET: Regular. DISCHARGE PLAN: Home with PCP and cardiology follow up DISPOSITION: Home DISCHARGE INSTRUCTIONS: 1. Please remember to adequately hydrate yourself as dehydration will exacerbate POTS symptoms ITEMS TO FOLLOWUP ON ON OUTPATIENT: 1. POTS 2. Recent syncope episodes 3. Cold intolerance with history c/w episodic Raynaud's phenomenon DISCHARGE CONDITION: Stable TIME SPENT ON DISCHARGE: 36 minutes. Vital Signs/I&Os Vital Signs Date Time Temp Pulse Resp B/P (MAP) Pulse Ox O2 Delivery O2 Flow Rate FiO2 03/29/20 22:00 98.9 72 18 126/80 (95) 98 Room Air I&O- Last 24 Hours up to 6 AM 03/30/20 06:00 Intake Total 2055 ml Output Total 0 ml Balance 2055 ml Laboratory Data Labs 24H Laboratory Tests 2 03/29/20 09:43: Immature Granulocyte % (Auto) 0.3, Neutrophils (%) (Auto) 71.0H, Lymphocytes (%) (Auto) 21.1L, Monocytes (%) (Auto) 4.9, Eosinophils (%) (Auto) 2.4, Basophils (%) (Auto) 0.3, Neutrophils # (Auto) 5.3, Lymphocytes # (Auto) 1.6, Monocytes # (Auto) 0.4, Eosinophils # (Auto) 0.2, Basophils # (Auto) 0.0, Nucleated Red Blood Cells % (auto) 0.0, Total Bilirubin 0.4, Direct Bilirubin 0.1, Aspartate Amino Transf (AST/SGOT) 10, Alanine Aminotransferase (ALT/SGPT) 12, Alkaline Phosphatase 81, IE-Irt-W-Type Natriuretic Peptide 183H, Total Protein 7.2, Albumin 3.7, Albumin/Globulin Ratio 1.1L, Lipase 79, Thyroid Stimulating Hormone (TSH) 4.530H, Free Thyroxine 0.97 03/29/20 09:45: D-Dimer, Quantitative < 270 03/29/20 10:32: POC Glucose (Misc Panel) 90, POC Sodium (Misc Panel) 140, POC Potassium (Misc Panel) 3.4L, POC Chloride (Misc Panel) 101, POC Total CO2 (Misc Panel) 25.0, POC Blood Urea Nitrogen (Misc Panel 5L, POC Ionized Calcium (Misc Panel) 5.0, POC Creatinine (Misc Panel) 0.6, POC Hematocrit (Misc Panel) 39.0 03/29/20 10:34: POC Beta HCG, Quantitative < 5.0 03/29/20 10:38: POC Troponin I (Misc) 0.00 CBC/BMP Laboratory Tests 03/29/20 09:43 Discharge Medications Scheduled Buspirone HCl (Buspirone HCl) 10 Mg Tablet, 10 MG PO TID, (Reported) Duloxetine Hcl (Duloxetine HCl) 20 Mg Capsule.dr, 40 MG PO DAILY, (Reported) Linaclotide (Linzess) 290 Mcg Capsule, 290 MCG PO DAILY, (Reported) Midodrine HCl (Midodrine HCl) 5 Mg Tablet, 5 MG PO TID, (Reported) Zolpidem Tartrate (Zolpidem Tartrate) 5 Mg Tablet, 5 MG PO QHS, (Reported) Scheduled PRN Tizanidine HCl (Tizanidine HCl) 4 Mg Capsule, 4 MG PO Q6H PRN for SPASMS, (Reported) Allergies Coded Allergies: Sulfa (Sulfonamide Antibiotics) (Verified Allergy, Severe, swelling/anaph, 12/15/19) promethazine (Verified Allergy, Severe, anaph, 12/15/19) paroxetine (Verified Adverse Reaction, Intermediate, altered mental, 12/15/19) amoxicillin (Verified Adverse Reaction, Unknown, UNKNOWN, 03/29/20) PATIENT DOES NOT RECALL WHAT HAPPENS WHEN SHE TAKES THIS MEDICATION clavulanic acid (Verified Adverse Reaction, Unknown, UNKNOWN, 03/29/20) PATIENT DOES NOT RECALL WHAT HAPPENS WHEN SHE TAKES THIS MEDICATION GRZEGORZ STERN MD Mar 30, 2020 07:39
--- NOTE | 2020-04-02 13:46 | ECHO ---
DATE OF PROCEDURE: 03/29/2020 Age: 35 Gender: Female Height: 172 cm Weight: 60 kg REFERRING PHYSICIAN: Dr. Paul INDICATION: Syncope MEASUREMENTS: IVS 0.8 LV 4.1 LVPW 1.1 LA 3.0 Aorta 2.7 IVC 1.4 Mitral E wave velocity 73, A wave 66 E prime septal 5.8 E prime lateral 11.2 FINDINGS: This study is of good technical quality, even though apical views were somewhat limited. The patient is in sinus rhythm. Normal LV size with preserved left ventricular systolic function. Estimated left ventricular ejection fraction (LVEF) around 65%. Right ventricle is also normal size and systolic function. Both atria appear normal. All four cardiac valves are reasonably well seen and appear normal. No pericardial effusion is noted. Inferior vena cava is of normal size. Aortic root, aortic arch and visualized segment of abdominal aorta all appear normal. Doppler interrogation reveals competent aortic valve. There is trace mitral and trace tricuspid insufficiency. Calculated pulmonary artery pressure was in high 20s corresponding to normal values. Pulmonic valve is functionally competent. Mitral inflow pattern and tissue Doppler imaging of mitral annulus reveal normal diastolic function. CONCLUSIONS: 1. Study is of good quality. The patient is in sinus rhythm. 2. Normal LV size, systolic and diastolic function. 3. Normal RV size and systolic function. 4. No significant valvular disease. 5. Normal central venous pressure and likely normal pulmonary artery present. 6. Essentially normal echocardiogram. [facility]
== END 2020-03-30 12:08 | disposition home or self-care (01) ==
LOC: EDBD 09:31 → M ED 09:31 → M ED INP 13:38 → ENRESERV 14:42 → M MSPAV 15:39
PROVIDERS: ADMIT Internal Medicine; ATTEND Internal Medicine
DX: R55 Syncope and collapse (principal); E86.0 Dehydration; I49.8 Other specified cardiac arrhythmias; R10.9 Unspecified abdominal pain; N83.202 Unspecified ovarian cyst, left side; Z79.899 Other long term (current) drug therapy; Z88.0 Allergy status to penicillin; Z88.2 Allergy status to sulfonamides; Z88.8 Allergy status to other drugs, medicaments and biological substances; F32.9 Major depressive disorder, single episode, unspecified; M54.5 Low back pain
CPT/HCPCS: 36415; 71045; 80047; 80048; 80076; 83690; 83880; 84439; 84443; 84484; 84702; 85025; 85027; 85379; 93005; 93041; 93306; 94760; 96361; 96372; 96374; 96375; 96376; 97110; 97161; 97165; 99285; G0378; J1650; J1885; J2405

== ENCOUNTER → 2020-04-09 | Outpatient (CLI) | payer MEDICARE, OTHER ==
[~2020-04-09] MED LIST changes: +TIZA4CAP PO
[2020-04-10 13:11] LABS: ANTINUCLEAR ANTIBODIES DIRECT Negative (Negative)
== END ==
LOC: M WUC 08:28
PROVIDERS: ATTEND Nurse Practitioner Family
DX: R53.83 Other fatigue (principal)

== ENCOUNTER → 2020-04-26 | Outpatient (CLI) | payer SELFPAY | LOC: M LABSMTC 12:04 | PROVIDERS: ATTEND Pediatrics | DX: Z20.828 Contact with and (suspected) exposure to other viral communicable diseases (principal) ==

== ENCOUNTER → 2020-04-26 | Outpatient (CLI) | payer MEDICARE, OTHER ==
--- NOTE | 2020-04-26 15:29 | REP ---
INDICATION: ACUTE RESPIRATORY INFECTION PT IS IN CAR CELL. COMPARISON: Comparison portable chest x-ray March 29, 2020. TECHNIQUE: Two views.. FINDINGS: The lungs are well inflated and free of infiltrate. The pleural angles are sharp. The heart size is normal. Pulmonary vasculature is not increased. No significant bony abnormality is seen. There is a mild pectus visible on lateral radiograph. IMPRESSION: Negative chest x-ray. <Electronically signed by Tommy Samaniego > 04/26/20 [id number]
== END ==
LOC: M RAD 12:19
PROVIDERS: ATTEND Nurse Practitioner Family
DX: J06.9 Acute upper respiratory infection, unspecified (principal)

== ENCOUNTER 2020-05-03 16:09 | Emergency (ER) | payer MEDICARE, OTHER ==
[~2020-05-03] VITALS: Ht 172.7 cm; Wt 66.1 kg
[2020-05-03] MEDS ORDERED: NS 1,000 ML IV ONE (17:15)
[2020-05-03] MEDS ORDERED: MORPHINE 2 MG/ML 1ML VIAL (J2270) IV ONE ×2 (17:15→19:00)
[2020-05-03] MEDS ORDERED: ONDANSETRON 4MG/2ML VIAL IV ONE (17:15)
[2020-05-03 18:14] LABS: BASO % 0.3 % (0.0-1.0); EOS # 0.3 10^3/uL (0.0-0.5); EOS % 2.9 % (0.0-3.0); HEMATOCRIT 41.5 % (36.0-47.0); HEMOGLOBIN 13.9 g/dl (12.0-15.5); LYMPH % 20.2 % (24.0-44.0); MEAN CORPUSCULAR HGB CONC 33.5 g/dl (32.0-36.5); MEAN CORPUSCULAR VOLUME 86.5 fl (80.0-96.0); MONO # 0.5 10^3/uL (0.0-0.8); MONO % 5.4 % (0.0-5.0); NEUTROPHILS # 6.9 10^3/uL (1.5-8.5); NEUTROPHILS % 70.9 % (36.0-66.0); PLATELET COUNT, AUTOMATED 288 10^3/uL (150-450); WHITE BLOOD COUNT 9.7 10^3/uL (4.0-10.0)
[2020-05-03 18:42] LABS: BILIRUBIN,DIRECT 0.1 MG/DL (0.0-0.2); BILIRUBIN,TOTAL 0.3 MG/DL (0.2-1.0); TOTAL PROTEIN 7.8 GM/DL (6.4-8.2)
[2020-05-03] MEDS ORDERED: ISOVUE-370 76% 100ML VIAL As Ordered ONE (18:59)
[2020-05-03] MEDS ORDERED: METOCLOPRAMIDE INJ 10MG/2ML VIAL (J2765 PER 1) IV ONE (19:30)
--- NOTE | 2020-05-03 20:13 | REPVR ---
PROCEDURE INFORMATION: Exam: CT Abdomen And Pelvis With Contrast Exam date and time: 05/03/2020 7:42 PM Age: 35 years old Clinical indication: Abdominal pain; Localized; Right; Additional info: Right sided abd pain R/O infectious process TECHNIQUE: Imaging protocol: Computed tomography of the abdomen and pelvis with intravenous contrast. Radiation optimization: All CT scans at this facility use at least one of these dose optimization techniques: automated exposure control; mA and/or kV adjustment per patient size (includes targeted exams where dose is matched to clinical indication); or iterative reconstruction. Contrast material: ISOVUE 370; Contrast volume: 100 ml; Contrast route: INTRAVENOUS (IV); COMPARISON: CT ABD PELVIS W/O CONTRAST 03/24/2020 12:47 PM FINDINGS: Liver: There is heterogeneous hepatic attenuation, nonspecific. Gallbladder and bile ducts: Previous cholecystectomy with intrahepatic and extrahepatic biliary dilatation. Common bile duct measures up to 9 mm. Pancreas: Normal. No ductal dilation. Spleen: Normal. No splenomegaly. Adrenal glands: Normal. No mass. Kidneys and ureters: Normal. No hydronephrosis. Stomach and bowel: Unremarkable. No obstruction. No mucosal thickening. Appendix: Normal appendix. Intraperitoneal space: Unremarkable. No free air. No significant fluid collection. Vasculature: Aortic calcification. Lymph nodes: Unremarkable. No enlarged lymph nodes. Urinary bladder: Unremarkable as visualized. Reproductive: Left adnexal cystic lesion measures 3 cm. Bones/joints: Unremarkable. No acute fracture. Soft tissues: Small fat containing periumbilical hernia. IMPRESSION: 1. No acute inflammatory abnormality. 2. 3 cm left adnexal cystic lesion, decreased in size from prior examination. 3. Additional findings as above. Electronically signed by: Edu Maldonado On 05/03/2020 20:13:24 PM
[2020-05-03] MEDS ORDERED: GI COCKTAIL 50ML BTL(HYOSCYAMINE/MAALOX/LIDOCAINE VISCOUS)(1:3:1) PO ONE (20:30)
[2020-05-03 21:14] VITALS: BP 133/84
== END 2020-05-03 21:28 | disposition home or self-care (01) ==
LOC: M ED 16:09
DX: R10.9 Unspecified abdominal pain (principal); R11.2 Nausea with vomiting, unspecified; R50.9 Fever, unspecified; R19.7 Diarrhea, unspecified; R63.0 Anorexia; N80.9 Endometriosis, unspecified; I49.8 Other specified cardiac arrhythmias; M32.9 Systemic lupus erythematosus, unspecified; Z88.2 Allergy status to sulfonamides; Z88.0 Allergy status to penicillin; Z88.5 Allergy status to narcotic agent; Z88.8 Allergy status to other drugs, medicaments and biological substances; Z79.899 Other long term (current) drug therapy
CPT/HCPCS: 74177; 80047; 80076; 81001; 83690; 84702; 85025; 96361; 96374; 96375; 96376; 99284; J2270; J2405; J2765; Q9967

== ENCOUNTER → 2020-05-04 | Outpatient (REF) | payer MEDICARE, OTHER | LOC: M LAB REF 09:02 | PROVIDERS: ATTEND Nurse Practitioner Family | DX: R19.7 Diarrhea, unspecified (principal) ==

== ENCOUNTER → 2020-05-18 | Outpatient (CLI) | payer MEDICARE, OTHER | LOC: M WUC 15:55 | PROVIDERS: ATTEND Nurse Practitioner Family | DX: Z13.89 Encounter for screening for other disorder (principal) ==

== ENCOUNTER → 2020-06-02 | Outpatient (CLI) | payer MEDICARE, OTHER ==
[2020-06-02 13:20] LABS: ALT/SGPT 13 U/L (12-78); AMYLASE 22 U/L (25-115); BILIRUBIN,TOTAL 0.6 MG/DL (0.2-1.0); BLOOD UREA NITROGEN 7 MG/DL (7-18); CALCIUM LEVEL 9.3 MG/DL (8.5-10.1); CARBON DIOXIDE LEVEL 29 MEQ/L (21-32); CHLORIDE LEVEL 105 MEQ/L (98-107); CREATININE FOR GFR 0.72 MG/DL (0.55-1.30); GLOMERULAR FILTRATION RATE > 60.0 (>60); GLUCOSE, FASTING 74 MG/DL (70-100); LIPASE 72 U/L (73-393); SODIUM LEVEL 139 MEQ/L (136-145); TOTAL PROTEIN 7.5 GM/DL (6.4-8.2)
[2020-06-02 13:30] LABS: HEMATOCRIT 40.1 % (36.0-47.0); MEAN CORPUSCULAR HEMOGLOBIN 28.1 pg (27.0-33.0); MEAN CORPUSCULAR HGB CONC 32.4 g/dl (32.0-36.5); MEAN CORPUSCULAR VOLUME 86.6 fl (80.0-96.0); PLATELET COUNT, AUTOMATED 302 10^3/uL (150-450); RED BLOOD COUNT 4.63 10^6/uL (4.00-5.40); WHITE BLOOD COUNT 6.2 10^3/uL (4.0-10.0)
== END ==
LOC: M WUC 08:44
PROVIDERS: ATTEND Internal Medicine Gastroenterology
DX: R10.10 Upper abdominal pain, unspecified (principal)

== ENCOUNTER → 2020-06-04 | Outpatient (REF) | payer MEDICARE, OTHER | LOC: M LAB REF 16:35 | PROVIDERS: ATTEND Internal Medicine Gastroenterology | DX: R10.10 Upper abdominal pain, unspecified (principal) ==

== ENCOUNTER → 2020-06-16 | Outpatient (CLI) | payer MEDICARE, OTHER ==
[2020-06-16 18:47] LABS: BILIRUBIN,DIRECT 0.1 MG/DL (0.0-0.2); BILIRUBIN,TOTAL 0.3 MG/DL (0.2-1.0); TOTAL PROTEIN 7.2 GM/DL (6.4-8.2)
== END ==
LOC: M WUC 11:40
PROVIDERS: ATTEND Nurse Practitioner Family
DX: R10.11 Right upper quadrant pain (principal); R93.2 Abnormal findings on diagnostic imaging of liver and biliary tract; R19.4 Change in bowel habit; R63.4 Abnormal weight loss

== ENCOUNTER → 2020-06-19 | Outpatient (REF) | payer MEDICARE, OTHER | LOC: M LAB REF 16:12 | PROVIDERS: ATTEND Nurse Practitioner Family | DX: R10.11 Right upper quadrant pain (principal); R11.2 Nausea with vomiting, unspecified; R93.2 Abnormal findings on diagnostic imaging of liver and biliary tract; R19.4 Change in bowel habit; R63.4 Abnormal weight loss ==

== ENCOUNTER 2020-08-14 11:36 | Emergency (ER) | payer MEDICARE, OTHER ==
[~2020-08-14] VITALS: Ht 172.7 cm; Wt 63.6 kg
[2020-08-14] MEDS ORDERED: TIZA2TA (11:53)
[2020-08-14] MEDS ORDERED: SOMA350T PO (11:53)
[2020-08-14] MEDS ORDERED: BUPR150T5 PO (11:53)
[2020-08-14] MEDS ORDERED: NS 1,000 ML IV ONE (12:10)
[2020-08-14] MEDS ORDERED: ALPRAZolam 0.25 MG TAB PO ONE (12:10)
[2020-08-14] MEDS ORDERED: IBUPROFEN 600MG TAB PO ONE (13:00)
--- NOTE | 2020-08-14 13:39 | REP ---
INDICATION: tachycardia, eval for cardiomyopathy COMPARISON: 04/26/2020 TECHNIQUE: PA and lateral. FINDINGS: The mediastinum and cardiac silhouette are normal. The lung corea are clear and without acute consolidation, effusion, or pneumothorax. The skeletal structures are intact and normal. IMPRESSION: No acute cardiopulmonary process. <Electronically signed by Tristan Coy > 08/14/20 1310
[2020-08-14 14:28] LABS: HEMATOCRIT 36.1 % (36.0-47.0); HEMOGLOBIN 11.9 g/dl (12.0-15.5); MEAN CORPUSCULAR HEMOGLOBIN 27.9 pg (27.0-33.0); MEAN CORPUSCULAR VOLUME 84.7 fl (80.0-96.0); PLATELET COUNT, AUTOMATED 199 10^3/uL (150-450); RED BLOOD COUNT 4.26 10^6/uL (4.00-5.40); WHITE BLOOD COUNT 6.3 10^3/uL (4.0-10.0)
[2020-08-14] MEDS ORDERED: hydrOXYzine 50 MG TAB PO STA (14:52)
[2020-08-14 15:05] LABS: HCG, SERUM QUALITATIVE NEGATIVE (NEGATIVE)
[2020-08-14 15:22] LABS: ALBUMIN 3.9 GM/DL (3.2-5.2); ALT/SGPT 16 U/L (12-78); BILIRUBIN,DIRECT 0.2 MG/DL (0.0-0.2); BILIRUBIN,TOTAL 0.6 MG/DL (0.2-1.0); BLOOD UREA NITROGEN 13 MG/DL (7-18); CALCIUM LEVEL 8.5 MG/DL (8.5-10.1); CARBON DIOXIDE LEVEL 26 MEQ/L (21-32); CHLORIDE LEVEL 110 MEQ/L (98-107); CK-MB VALUE MASS < 1.0 NG/ML (<3.6); CPK CREATINE PHOSPHOKINASE 74 U/L (26-192); CREATININE FOR GFR 0.71 MG/DL (0.55-1.30); GLOMERULAR FILTRATION RATE > 60.0 (>60); GLUCOSE, FASTING 83 MG/DL (70-100); MAGNESIUM LEVEL 1.8 MG/DL (1.8-2.4); MB/CK RELATIVE INDEX 1.35 (< OR =4); POTASSIUM SERUM 3.5 MEQ/L (3.5-5.1); SODIUM LEVEL 141 MEQ/L (136-145); TOTAL PROTEIN 7.1 GM/DL (6.4-8.2); TROPONIN I < 0.02 NG/ML (< 0.10)
[2020-08-14 16:02] LABS: AMPHETAMINES LEVEL URINE NEGATIVE (NEGATIVE); BARBITURATES URINE NEGATIVE (NEGATIVE); BENZODIAZEPINES URINE POSITIVE (NEGATIVE); CANNABINOIDS URINE NEGATIVE (NEGATIVE); COCAINE METABOLITE URINE NEGATIVE (NEGATIVE); METHADONE URINE NEGATIVE (NEGATIVE); OPIATES URINE NEGATIVE (NEGATIVE); PHENCYCLIDINE URINE NEGATIVE (NEGATIVE)
[2020-08-14 16:16] VITALS: BP 135/74
--- NOTE | 2020-08-15 14:21 | ECGEPIP ---
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
== END 2020-08-14 16:47 | disposition home or self-care (01) ==
LOC: M ED 11:36
DX: F41.0 Panic disorder [episodic paroxysmal anxiety] (principal); F41.1 Generalized anxiety disorder; J45.909 Unspecified asthma, uncomplicated; R63.0 Anorexia; I49.8 Other specified cardiac arrhythmias; Z79.899 Other long term (current) drug therapy; Z88.0 Allergy status to penicillin; Z88.1 Allergy status to other antibiotic agents; Z88.2 Allergy status to sulfonamides; Z88.8 Allergy status to other drugs, medicaments and biological substances

== ENCOUNTER → 2020-11-10 | Outpatient (CLI) | payer MEDICARE, OTHER ==
[~2020-11-10] MED LIST changes: +BUPR150T5 PO; +SOMA350T PO; +TIZA2TA
--- NOTE | 2020-11-10 16:29 | REPVR ---
PROCEDURE INFORMATION: Exam: MR Lumbar Spine Without Contrast Exam date and time: 11/10/2020 4:17 PM Age: 35 years old Clinical indication: Condition or disease; Disc displacement; Lumbar region; Additional info: Intervertebral disc degeneration, R/O stenosis TECHNIQUE: Imaging protocol: Multiplanar magnetic resonance images of the lumbar spine without intravenous contrast. COMPARISON: No relevant prior studies available. FINDINGS: Lumbar vertebral body heights are maintained. No abnormal marrow signal. No cord compression. No abnormal cord signal. Conus medullaris terminates at the L1 level. Disc space heights are preserved. No significant areas of canal or foraminal narrowing. Paravertebral soft tissues are unremarkable. IMPRESSION: No acute findings in the lumbar spine. Electronically signed by: Balta Salamanca On 11/10/2020 16:29:15 PM
== END ==
LOC: M RAD 15:02
PROVIDERS: ATTEND Physician Assistant Surgical
DX: M51.36 Other intervertebral disc degeneration, lumbar region (principal)

== ENCOUNTER → 2020-12-24 | Outpatient (CLI) | payer MEDICARE, OTHER ==
--- NOTE | 2020-12-24 12:05 | REP ---
INDICATION: ABD PAIN ATTN: SMA,RAVINDER,CELIAC ART'S. Visceral arterial Doppler assessment. Epigastric abdominal pain and bloating. COMPARISON: None. TECHNIQUE: Color and pulse wave Doppler assessment of the celiac axis and SMA is performed with postprandial challenge velocities recorded. FINDINGS: Baseline resting celiac axis, proximal SMA, and mid SMA systolic velocities are all elevated. The mid and proximal SMA velocities increase 10 minutes post meal challenge and taper at 20 and 30 minutes post challenge as expected. Mesenteric arterial velocity chart: Baseline: Celiac axis PSV 243 cm/S EDV 59 cm/S, proximal SMA 285/28, mid SMA 224 10 minutes post meal challenge: Proximal SMA PSV 372 cm/S EDV 101, mid SMA 316/101 20 minutes post meal challenge: Proximal SMA PSV 267/EDV 75, mid SMA PSV 267/EDV 79 30 minutes post meal challenge: Proximal SMA PSV 256 is/EDV 73, mid SMA PSV 255/EDV 75 IMPRESSION: Baseline, resting peak systolic velocities in the celiac axis and the proximal and mid SMA are higher than normal. Etiology uncertain. Fasting peak systolic velocity greater than 200 cm/S is considered elevated in the celiac artery. Fasting SMA peak systolic velocity greater than 275 cm/S are considered elevated. Normal physiologic velocity response to meal challenge. <Electronically signed by Tommy Samaniego > 12/24/20 4200
== END ==
LOC: M RAD 09:02
PROVIDERS: ATTEND Internal Medicine Gastroenterology
DX: R10.13 Epigastric pain (principal); R14.3 Flatulence; K44.9 Diaphragmatic hernia without obstruction or gangrene; K59.00 Constipation, unspecified

== ENCOUNTER 2021-01-01 18:41 | Emergency (ER) | payer MEDICARE, OTHER ==
[~2021-01-01] VITALS: Ht 172.7 cm; Wt 61.1 kg
[2021-01-01] MEDS ORDERED: METO25TA4 (18:51)
[2021-01-01] MEDS ORDERED: DICY10CA13 (18:51)
[2021-01-01] MEDS ORDERED: LEVS0.123 PO (18:51)
[2021-01-01] MEDS ORDERED: METO5TAB2 (18:51)
[2021-01-01] MEDS ORDERED: HYDR200T3 (18:51)
[2021-01-01] MEDS ORDERED: TIZA4CAP6 PO (18:51)
[2021-01-01] MEDS ORDERED: ONDA-83 (18:51)
[2021-01-01] MEDS ORDERED: LINZ290C PO (18:51)
[2021-01-01] MEDS ORDERED: NS 1,000 ML IV ONE (20:40)
[2021-01-01] MEDS ORDERED: MORPHINE 4 MG/ML 1ML VIAL/SYRINGE (J2270) IV ONE (20:40)
[2021-01-01] MEDS ORDERED: METOCLOPRAMIDE INJ 10MG/2ML VIAL (J2765 PER 1) IV ONE (20:40)
[2021-01-01 21:07] LABS: BASO % 0.4 % (0.0-1.0); EOS # 0.2 10^3/uL (0.0-0.5); EOS % 1.9 % (0.0-3.0); HEMATOCRIT 41.2 % (36.0-47.0); HEMOGLOBIN 13.9 g/dl (12.0-15.5); LYMPH # 1.7 10^3/uL (1.5-5.0); MEAN CORPUSCULAR HEMOGLOBIN 28.5 pg (27.0-33.0); MEAN CORPUSCULAR HGB CONC 33.7 g/dl (32.0-36.5); MEAN CORPUSCULAR VOLUME 84.4 fl (80.0-96.0); MONO # 0.6 10^3/uL (0.0-0.8); MONO % 6.5 % (2.0-8.0); NEUTROPHILS # 6.9 10^3/uL (1.5-8.5); NEUTROPHILS % 72.8 % (36.0-66.0); PLATELET COUNT, AUTOMATED 274 10^3/uL (150-450); RED BLOOD COUNT 4.88 10^6/uL (4.00-5.40); WHITE BLOOD COUNT 9.5 10^3/uL (4.0-10.0)
[2021-01-01 21:36] LABS: ALBUMIN 4.4 GM/DL (3.2-5.2); BILIRUBIN,DIRECT 0.1 MG/DL (0.0-0.2); BILIRUBIN,TOTAL 0.5 MG/DL (0.2-1.0); TOTAL PROTEIN 7.8 GM/DL (6.4-8.2)
[2021-01-01] MEDS ORDERED: ISOVUE-370 76% 100ML VIAL As Ordered ONE (21:48)
--- NOTE | 2021-01-01 23:01 | REPVR ---
PROCEDURE INFORMATION: Exam: CTA Abdomen and Pelvis With Contrast Exam date and time: 01/01/2021 9:53 PM Age: 35 years old Clinical indication: Abdominal pain; Generalized; Prior surgery; Additional info: Severe abdominal pain; HX of artery stenosis TECHNIQUE: Imaging protocol: Computed tomographic angiography of the abdomen and pelvis with contrast material. 3D rendering (Not supervised by radiologist): MIP and/or 3D reconstructed images were created by the technologist. Radiation optimization: All CT scans at this facility use at least one of these dose optimization techniques: automated exposure control; mA and/or kV adjustment per patient size (includes targeted exams where dose is matched to clinical indication); or iterative reconstruction. Contrast material: ISOVUE 370; Contrast volume: 100 ml; Contrast route: INTRAVENOUS (IV); COMPARISON: CT ANGIO ABD/PEL 01/10/2020 3:47 PM FINDINGS: Aorta: Abdominal aorta is normal in caliber. No evidence of dissection or aneurysm. Linear 1 mm diameter intraluminal filling defect in the infrarenal aorta posteriorly is unchanged compared with the prior CT angiogram. Celiac trunk and mesenteric arteries: Celiac trunk and major branches and SMA and major branches are normal in luminal caliber with normal enhancement and the RAVINDER enhances normally. There are surgical clips around the celiac trunk and SMA origins, with similar appearance compared to the prior exam. Renal arteries: Right main and accessory renal arteries show normal luminal caliber and enhancement. Left main renal artery shows normal enhancement and luminal caliber. Accessory left renal artery supplying the lower pole shows normal luminal caliber and enhancement Right iliac arteries: No occlusion or significant stenosis. Left iliac arteries: No occlusion or significant stenosis. Liver: Liver appears normal with no focal abnormality. Gallbladder and bile ducts: Gallbladder is surgically absent. Prominent central bile ducts, likely postcholecystectomy capacitance effect. Pancreas: Pancreas appears normal. No focal mass or peripancreatic inflammation. Spleen: Spleen appears homogeneous without focal mass. Adrenal glands: Adrenal glands are normal in appearance. Kidneys and ureters: Kidneys appear normal, with no stone, solid mass or hydronephrosis. Stomach and bowel: No evidence of small bowel obstruction. Large volume of stool is seen throughout the colon. Appendix: Normal caliber appendix is identified, with no adjacent inflammation. Intraperitoneal space: No pneumoperitoneum. Lymph nodes: No enlarged lymph nodes. Urinary bladder: Urinary bladder appears normal. Reproductive: Right ovarian cyst measuring 4 cm is present. Uterus and left ovary are normal in size. Bones/joints: Bony structures show no acute fracture or destructive process. Soft tissues: No concerning focal abnormality of the extra-abdominal and pelvic soft tissues. IMPRESSION: 1. No evidence of aortic aneurysm, dissection or stenosis of the abdominal aortic branch vessels. 2. No concerning solid organ or bowel abnormality. 3. Right ovarian cyst measuring 4 cm without evidence of rupture. Electronically signed by: Igor Horn On 01/01/2021 23:01:02 PM
[2021-01-01 23:15] VITALS: BP 130/76
--- NOTE | 2021-01-02 05:24 | ECGEPIP ---
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
== END 2021-01-01 23:48 | disposition home or self-care (01) ==
LOC: M ED 18:41
DX: N83.201 Unspecified ovarian cyst, right side (principal); J45.909 Unspecified asthma, uncomplicated; Z87.442 Personal history of urinary calculi; F41.9 Anxiety disorder, unspecified; F33.9 Major depressive disorder, recurrent, unspecified; Z88.1 Allergy status to other antibiotic agents; Z88.2 Allergy status to sulfonamides; Z88.8 Allergy status to other drugs, medicaments and biological substances; Z79.899 Other long term (current) drug therapy
CPT/HCPCS: 74174; 80047; 80076; 83605; 83690; 84702; 85025; 93005; 96361; 96374; 96375; 99284; J2270; J2765; Q9967

== ENCOUNTER → 2021-02-14 | Outpatient (CLI) | payer MEDICARE, OTHER ==
[~2021-02-14] MED LIST changes: +DICY10CA13; +HYDR200T3; +LEVS0.123 PO; +METO25TA4; +METO5TAB2; +ONDA-83; +TIZA4CAP6 PO
[2021-02-14 12:24] LABS: BASO % 0.4 % (0.0-1.0); EOS # 0.2 10^3/uL (0.0-0.5); EOS % 2.9 % (0.0-3.0); HEMOGLOBIN 13.9 g/dl (12.0-15.5); LYMPH # 1.6 10^3/uL (1.5-5.0); LYMPH % 21.8 % (24.0-44.0); MEAN CORPUSCULAR HEMOGLOBIN 28.5 pg (27.0-33.0); MEAN CORPUSCULAR HGB CONC 33.9 g/dl (32.0-36.5); MEAN CORPUSCULAR VOLUME 84.2 fl (80.0-96.0); MONO # 0.5 10^3/uL (0.0-0.8); MONO % 6.5 % (2.0-8.0); PLATELET COUNT, AUTOMATED 262 10^3/uL (150-450); RED BLOOD COUNT 4.87 10^6/uL (4.00-5.40); WHITE BLOOD COUNT 7.3 10^3/uL (4.0-10.0)
[2021-02-14 12:34] LABS: INR 1.07; PROTHROMBIN TIME 14.3 SECONDS (12.7-14.5)
[2021-02-14 12:42] LABS: BLOOD UREA NITROGEN 10 MG/DL (7-18); CALCIUM LEVEL 9.6 MG/DL (8.5-10.1); CARBON DIOXIDE LEVEL 28 MEQ/L (21-32); CHLORIDE LEVEL 105 MEQ/L (98-107); CREATININE FOR GFR 0.86 MG/DL (0.55-1.30); GLOMERULAR FILTRATION RATE > 60.0 (>60); GLUCOSE, FASTING 84 MG/DL (70-100); POTASSIUM SERUM 3.9 MEQ/L (3.5-5.1); SODIUM LEVEL 137 MEQ/L (136-145)
== END ==
LOC: M LAB 11:07
PROVIDERS: ATTEND Surgery Vascular Surgery
DX: K55.1 Chronic vascular disorders of intestine (principal)

== ENCOUNTER → 2021-02-15 | Outpatient (CLI) | payer MEDICARE, OTHER | LOC: M LABSMTC 11:49 | PROVIDERS: ATTEND Surgery Vascular Surgery | DX: Z11.52 Encounter for screening for COVID-19 (principal) ==

== ENCOUNTER → 2021-03-20 | Outpatient (REF) | payer MEDICARE, OTHER ==
[2021-03-20 14:17] LABS: HEMATOCRIT 31.2 % (36.0-47.0); HEMOGLOBIN 10.6 g/dl (12.0-15.5); MEAN CORPUSCULAR VOLUME 85.2 fl (80.0-96.0); PLATELET COUNT, AUTOMATED 135 10^3/uL (150-450); RED BLOOD COUNT 3.66 10^6/uL (4.00-5.40); WHITE BLOOD COUNT 4.6 10^3/uL (4.0-10.0)
[2021-03-20 16:21] LABS: ALBUMIN 3.1 GM/DL (3.2-5.2); ALT/SGPT 16 U/L (12-78); BILIRUBIN,TOTAL 0.2 MG/DL (0.2-1.0); BLOOD UREA NITROGEN 14 MG/DL (7-18); CALCIUM LEVEL 8.6 MG/DL (8.5-10.1); CARBON DIOXIDE LEVEL 25 MEQ/L (21-32); CHLORIDE LEVEL 109 MEQ/L (98-107); GLOMERULAR FILTRATION RATE > 60.0 (>60); GLUCOSE, FASTING 94 MG/DL (70-100); PHOSPHORUS LEVEL 3.7 MG/DL (2.5-4.9); POTASSIUM SERUM 4.2 MEQ/L (3.5-5.1); SODIUM LEVEL 139 MEQ/L (136-145); TOTAL PROTEIN 6.1 GM/DL (6.4-8.2); TRIGLYCERIDES LEVEL 161 MG/DL (<150)
== END ==
LOC: M SHH 13:33
DX: R10.9 Unspecified abdominal pain (principal); R63.4 Abnormal weight loss; I49.8 Other specified cardiac arrhythmias

== ENCOUNTER → 2021-03-25 | Outpatient (REF) | payer MEDICARE, OTHER ==
[2021-03-25 11:48] LABS: HEMATOCRIT 32.8 % (36.0-47.0); HEMOGLOBIN 11.3 g/dl (12.0-15.5); MEAN CORPUSCULAR HEMOGLOBIN 29.2 pg (27.0-33.0); MEAN CORPUSCULAR HGB CONC 34.5 g/dl (32.0-36.5); MEAN CORPUSCULAR VOLUME 84.8 fl (80.0-96.0); PLATELET COUNT, AUTOMATED 199 10^3/uL (150-450); RED BLOOD COUNT 3.87 10^6/uL (4.00-5.40); WHITE BLOOD COUNT 6.2 10^3/uL (4.0-10.0)
[2021-03-25 12:14] LABS: ALBUMIN 3.2 GM/DL (3.2-5.2); ALT/SGPT 16 U/L (12-78); BILIRUBIN,TOTAL 0.3 MG/DL (0.2-1.0); BLOOD UREA NITROGEN 17 MG/DL (7-18); CALCIUM LEVEL 8.8 MG/DL (8.5-10.1); CARBON DIOXIDE LEVEL 27 MEQ/L (21-32); CHLORIDE LEVEL 109 MEQ/L (98-107); CREATININE FOR GFR 0.56 MG/DL (0.55-1.30); GLOMERULAR FILTRATION RATE > 60.0 (>60); GLUCOSE, FASTING 84 MG/DL (70-100); MAGNESIUM LEVEL 2.1 MG/DL (1.8-2.4); PHOSPHORUS LEVEL 3.9 MG/DL (2.5-4.9); POTASSIUM SERUM 4.3 MEQ/L (3.5-5.1); SODIUM LEVEL 139 MEQ/L (136-145); TOTAL PROTEIN 6.4 GM/DL (6.4-8.2)
== END ==
LOC: M SHH 10:27
DX: R10.9 Unspecified abdominal pain (principal); R63.4 Abnormal weight loss; I49.8 Other specified cardiac arrhythmias

== ENCOUNTER → 2021-04-01 | Outpatient (REF) | payer MEDICARE, OTHER ==
[2021-04-01 15:21] LABS: HEMATOCRIT 33.9 % (36.0-47.0); HEMOGLOBIN 11.5 g/dl (12.0-15.5); MEAN CORPUSCULAR HEMOGLOBIN 28.8 pg (27.0-33.0); MEAN CORPUSCULAR HGB CONC 33.9 g/dl (32.0-36.5); MEAN CORPUSCULAR VOLUME 84.8 fl (80.0-96.0); PLATELET COUNT, AUTOMATED 201 10^3/uL (150-450); WHITE BLOOD COUNT 6.4 10^3/uL (4.0-10.0)
[2021-04-01 15:49] LABS: ALBUMIN 3.7 GM/DL (3.2-5.2); ALT/SGPT 14 U/L (12-78); BILIRUBIN,TOTAL 0.4 MG/DL (0.2-1.0); BLOOD UREA NITROGEN 15 MG/DL (7-18); CALCIUM LEVEL 8.7 MG/DL (8.5-10.1); CARBON DIOXIDE LEVEL 25 MEQ/L (21-32); CHLORIDE LEVEL 109 MEQ/L (98-107); CREATININE FOR GFR 0.74 MG/DL (0.55-1.30); GLOMERULAR FILTRATION RATE > 60.0 (>60); GLUCOSE, FASTING 75 MG/DL (70-100); MAGNESIUM LEVEL 1.9 MG/DL (1.8-2.4); PHOSPHORUS LEVEL 3.6 MG/DL (2.5-4.9); POTASSIUM SERUM 3.8 MEQ/L (3.5-5.1); SODIUM LEVEL 140 MEQ/L (136-145); TRIGLYCERIDES LEVEL 118 MG/DL (<150)
== END ==
LOC: M SHH 14:49
PROVIDERS: ATTEND Physician Assistant
DX: R10.9 Unspecified abdominal pain (principal); R63.4 Abnormal weight loss; I49.8 Other specified cardiac arrhythmias

== ENCOUNTER → 2021-04-08 | Outpatient (REF) | payer MEDICARE, OTHER ==
[2021-04-08 14:47] LABS: HEMATOCRIT 34.8 % (36.0-47.0); HEMOGLOBIN 11.7 g/dl (12.0-15.5); MEAN CORPUSCULAR HEMOGLOBIN 28.7 pg (27.0-33.0); MEAN CORPUSCULAR HGB CONC 33.6 g/dl (32.0-36.5); MEAN CORPUSCULAR VOLUME 85.3 fl (80.0-96.0); PLATELET COUNT, AUTOMATED 219 10^3/uL (150-450); RED BLOOD COUNT 4.08 10^6/uL (4.00-5.40); WHITE BLOOD COUNT 6.2 10^3/uL (4.0-10.0)
[2021-04-08 15:15] LABS: ALBUMIN 3.9 GM/DL (3.2-5.2); ALT/SGPT 19 U/L (12-78); BILIRUBIN,TOTAL 0.5 MG/DL (0.2-1.0); BLOOD UREA NITROGEN 10 MG/DL (7-18); CALCIUM LEVEL 9.2 MG/DL (8.5-10.1); CARBON DIOXIDE LEVEL 23 MEQ/L (21-32); CHLORIDE LEVEL 108 MEQ/L (98-107); GLOMERULAR FILTRATION RATE > 60.0 (>60); GLUCOSE, FASTING 92 MG/DL (70-100); MAGNESIUM LEVEL 1.9 MG/DL (1.8-2.4); PHOSPHORUS LEVEL 3.1 MG/DL (2.5-4.9); SODIUM LEVEL 138 MEQ/L (136-145); TOTAL PROTEIN 7.2 GM/DL (6.4-8.2); TRIGLYCERIDES LEVEL 107 MG/DL (<150)
== END ==
LOC: M SHH 14:24
PROVIDERS: ATTEND Physician Assistant
DX: R10.9 Unspecified abdominal pain (principal); R63.4 Abnormal weight loss; I49.8 Other specified cardiac arrhythmias

== ENCOUNTER 2021-04-11 18:10 | Emergency (ER) | payer MEDICARE, OTHER ==
[~2021-04-11] VITALS: Ht 172.7 cm; Wt 57.0 kg
--- OUTSIDE RECORDS SUMMARY | 2021-04-11 18:20 | CCD ---
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 Name Role Phone Angela, Abeba Unavailable PROBLEMS Type Condition ICD9-CM Code [id number] Code Onset Dates Condition S tatus W/U Status Risk SNOMED Code Notes Problem Chronic pain disorder G89.4 Active confirmed 437891310 Problem Attention deficit hyperactivity disorder (ADHD), unspecified ADHD type F90.9 Active confirmed 640839583 Problem Inflammatory arthritis M19.90 Active confirmed 8478913 Problem Median arcuate ligament syndrome I77.4 Active conf irmed 7557013 Problem Anxiety with depression F41.8 Active confirmed 937248751 Problem Anxiety F41.9 Active confirmed 58042671 Problem Gastroparesis K31.84 Active confirmed 349405 006 Problem Mesenteric artery stenosis K55.1 Active confirmed 413021354 Problem POTS (postural orthostatic tachycardia syndrome) I 49.8 Active confirmed 658669580 ALLERGIES Allergen (clinical drug ingredient) Drug/Non Drug Allergy do cumented on EMR Reaction Allergy Type Onset Date Status ketorolac Ketorolac Tromethamine(ND Code:[address]-45) Unknown Drug Allergy Active Latex latex Unknown Non Drug Allergy Active amoxicillin / clavulanate Augmentin(NDC Code:[address]-39) Unkn own Drug Allergy Active paroxetine Paxil(ND Code:[address]-61) Unknown Drug Allergy Active Sulfacet-R Unknown Drug Allergy Active ENCOUNTERS from 1986 to 2021-03-29 Encounter Location Date Provider Diagnosis [address] [id number] Mar, Abeba Angela Anxiety with depression F41. 8 IMMUNIZATIONS No Information SOCIAL HISTORY Tobacco Use: Social History Observation Description Date Details (start date - stop date) Never Smoker Sex Assigned At : Social History Observation Description Sex Assigned At Unknown Tobacco Use/Smoking Question Answer Notes Are you a never smoker REASON FOR REFERRAL No Information VITAL SIGNS No information MEDICATIONS Medication SIG (Take, Route, Frequency, Duration) Notes Start Da te End Date Status HYDROcodone-Acetaminophen 7.5-325 MG 1 tablet as needed Orally e very 6 hrs PRN Active Ketoconazole 2 % 1 application Externally Once a day for 30 days Jan, Active ALPRAZolam 1 MG 1 tablet Orally every 8 hours as needed for 30 d ays MDD #3 Mar, Active Corlanor 5 MG 1 tablet with meals Orally three times a day Active Hydroxychloroquine Sulfate 200 MG as directed Orally Active Metoclopramide HCl 5 MG 1 tablet before meals Orally threentimes a d ay Active Ondansetron 4 MG 1 tablet on the tongue and a llow to dissolve Orally Once a day for 30 day(s) Active Dicyclomine HCl 10 MG 1 capsule Orally Three times a day Active Levsin 0.125 MG 1 tablet as needed Orally three times a day Active Narcan 4 MG/0.1ML as directed Nasally once for 1 days 2020 Active Midodrine HCl 5 MG 1 tablet Orally Three times a day for 30 day(s) Active Linzess 290 MCG 1 capsule at least 30 minute s before the first meal of the day on an empty stomach Orally Once a day for 30 day(s) Active Metoprolol Tartrate 25 MG 1 tablet with food Orally Twice a day for 30 day(s) Active buPROPion HCl ER (XL) 150 MG 1 tablet in the morning O rally Once a day for 30 day(s) Feb, Active tiZANidine HCl 6 MG 1 capsule as needed Orally Three times a day 8mg Active hydrOXYzine HCl 25 MG 1 tablet as needed Orally three times a day PRN Active PROCEDURES No Information RESULTS No Results REASON FOR VISIT Refill MEDICAL (GENERAL) HISTORY Type Description Date Medical History MALS Medical History POTS Medical History Anxiety Medical History Gastroparesis Medical History ADHD Medical History Inflammatory arthritis Medical History history of anorexia Surgical History Mesenteric Artery Ligament repair- Dr. Deshaun YOUNGER 08/2007 Surgical History Cholecystectomy 2009 Surgical History Laparoscopic surgery- 6 or 7 surgeries S tage 4 Endometriosis 2011,2012,2013,2014.2015,2016 Surgical History Oral surgery Hospitalization History Abdominal Pain/Abdominal Surgeries Hospitalization History mental health-panic attacks Goals Section No Information Health Concerns No Information MEDICAL EQUIPMENT No Information MENTAL STATUS No Information FUNCTIONAL STATUS No Information ASSESSMENTS Encounter Date Diagnosis Assessment Notes Treatment Notes Treatm ent Clinical Notes Mar, Anxiety with depression (ICD-10 - F41.8) PLAN OF TREATMENT Medication Medication Name Sig Start Date Stop Date ALPRAZolam 1 MG 1 tablet Orally every 8 hours as needed for 30 days Mar, buPROPion HCl ER (XL) 150 MG 1 tablet in the morning O rally Once a day for 30 day(s) Feb, Next Appt Details Provider Name:Janell Bustamante, 2021-03- 9 08:30:00 AM, [address] [place] [address], [phone], Insurance Providers Payer Name Payer Address Payer Phone Insured Name Patient Relati onship to Insured Coverage Start Date Coverage End Date [facility] [employer] [address] [facility] [id number] [place] GALAERENS,VICKIE self -[facility] c o [facility] [employer] [address] [facility] [id number] DE LAMERENS,VICKIE self [employer] [address] [facility] [id number] DE LAMERENS,VICKIE self
--- OUTSIDE RECORDS SUMMARY | 2021-04-11 18:20 | CCD ---
Author Author [facility] Organization [facility] Address Unknown Phone Unavailable Care Team Providers Care Furnace Helper Name Role Phone Janell Bustamante Unavailable PROBLEMS Type Condition ICD9-CM Code [id number] Code Onset Dates Condition S tatus W/U Status Risk SNOMED Code Notes Problem Chronic pain disorder G89.4 Active confirmed 667837514 Problem Attention deficit hyperactivity disorder (ADHD), unspecified ADHD type F90.9 Active confirmed 857581946 Problem Inflammatory arthritis M19.90 Active confirmed 5304562 Problem Median arcuate ligament syndrome I77.4 Active conf irmed 4311173 Problem Anxiety with depression F41.8 Active confirmed 430598222 Problem Anxiety F41.9 Active confirmed 36766762 Problem Gastroparesis K31.84 Active confirmed 514471 006 Problem Mesenteric artery stenosis K55.1 Active confirmed 719161312 Problem POTS (postural orthostatic tachycardia syndrome) I 49.8 Active confirmed 373323837 ALLERGIES Allergen (clinical drug ingredient) Drug/Non Drug Allergy do cumented on EMR Reaction Allergy Type Onset Date Status ketorolac Ketorolac Tromethamine(ND Code:[address]-11) Unknown Drug Allergy Active Latex latex Unknown Non Drug Allergy Active amoxicillin / clavulanate Augmentin(ND Code:[address]-54) Unkn own Drug Allergy Active paroxetine Paxil(ND Code:[address]-72) Unknown Drug Allergy Active Sulfacet-R Unknown Drug Allergy Active ENCOUNTERS from 1986 to 2021-03-21 Encounter Location Date Provider Diagnosis [address] [address] Mar, Janell Bustamante IMMUNIZATIONS No Information SOCIAL HISTORY Tobacco Use: [...] a day for 30 days Jan, Active Linzess 290 MCG 1 capsule at least 30 minute s before the first meal of the day on an empty stomach Orally Once a day for 30 day(s) Active Metoclopramide HCl 5 MG 1 tablet before meals Orally threentimes a d ay Active Ondansetron 4 MG 1 tablet on the tongue and a llow to dissolve Orally Once a day for 30 day(s) Active Hydroxychloroquine Sulfate 200 MG as directed Orally Active ALPRAZolam 1 MG 1 tablet Orally every 8 hours as needed for 30 d ays MDD #3 Feb, Active Dicyclomine HCl 10 MG 1 capsule Orally Three times a day Active Levsin 0.125 MG 1 tablet as needed Orally three times a day Active Corlanor 5 MG 1 tablet with meals Orally three times a day Active Midodrine HCl 5 MG 1 tablet Orally Three times a day for 30 day(s) Active tiZANidine HCl 6 MG 1 capsule as needed Orally Three times a day 8mg Active Metoprolol Tartrate 25 MG 1 tablet with food Orally Twice a day for 30 day(s) Active buPROPion HCl ER (XL) 150 MG 1 tablet in the morning O rally Once a day for 30 day(s) Feb, Active Narcan 4 MG/0.1ML as directed Nasally once for 1 days 2020 Active hydrOXYzine HCl 25 MG 1 tablet as needed Orally three times a day PRN Active PROCEDURES No Information RESULTS No Results REASON FOR VISIT Report MEDICAL (GENERAL) HISTORY Type Description Date Medical History MALS Medical History POTS Medical History Anxiety Medical History Gastroparesis Medical History ADHD Medical History Inflammatory arthritis Medical History history of anorexia Surgical History Mesenteric Artery Ligament repair- Dr. Deshaun calles [place] 08/2007 Surgical History Cholecystectomy 2009 Surgical History Laparoscopic surgery- 6 or 7 surgeries S tage 4 Endometriosis 2011,2012,2013,2014.2015,2016 Surgical History Oral surgery Hospitalization History Abdominal Pain/Abdominal Surgeries Hospitalization History mental health-panic attacks Goals Section No Information Health Concerns No Information MEDICAL EQUIPMENT No Information MENTAL STATUS No Information FUNCTIONAL STATUS No Information ASSESSMENTS No Information PLAN OF TREATMENT Medication Medication Name Sig Start Date Stop Date ALPRAZolam 1 MG 1 tablet Orally every 8 hours as needed for 30 days Feb, buPROPion HCl ER (XL) 150 MG 1 tablet in the morning O rally Once a day for 30 day(s) Feb, Next Appt Details Provider Name:Janell Bustamante, 2021-03- 9 08:30:00 AM, [address] [place] [address], [phone], Insurance Providers Payer Name Payer Address Payer Phone Insured Name Patient Relati onship to Insured Coverage Start Date Coverage End Date -[employer] [facility] c o PGBA [facility] TRICA RE [address] [facility] [address] DE GEOVANNY,VICKIE self [facility] - [place]IC[place] [address] [place] [address] [phone] DE GALAERENS,VICKIE self [facility] [employer] [address] [facility] 1390 DE LAMERENS,VICKIE self
--- OUTSIDE RECORDS SUMMARY | 2021-04-11 18:20 | CCD | Continuity of Care Document ---
Author Author Dee JERNIGAN Organization Unknown Address [address] [place] [address] Phone [phone] Care Team Providers Care Inspector Wire Products Name Role Phone True Pinedo M.D. AUTM [phone] Tamera Whitt M.D. AUTM [phone] [facility] Care Everywhere AUTM [facility] AUTM Janlel Bustamante N.P. AUTM [phone] Problems Active Problems Provider Date Anxiety state Dinh Jernigan M.D. Onset: 01/22/2021 Disorder of thyroid gland Dinh Jernigan M.D. Onset: 021 Social History Type Date Description Comments Sex Unknown ETOH Use Denies alcohol use Tobacco Use Reviewed: 03/06/21 Patient has never smoked Smoking Status Reviewed: 03/06/21 Patient has never smoked Allergies and adverse reactions Active Allergies Criticality Reaction | Severity Comments Date Augmentin Unable to assess criticality Anaphylaxis 01/22/2021 Duloxetine Unable to assess criticality 01/22/2021 Ketorolac Unable to assess criticality Hives 01/22/2021 Latex Unable to assess criticality Hives 01/22/2021 Paxil Unable to assess criticality Psychological impact 01/22/2021 Sulfa Unable to assess criticality Hives 01/22/2021 Ketorolac Tromethamine Unable to assess criticality 01/28/2021 Medications Active Medications SIG Qnty Indications Ordering Provide r Date Hydrocodone-Acetaminophen 7.5-325mg Tablets 1 tablet by mouth every 8 hours as needed for pain. 15tabs Dinh Jernigan M.D. 02/06/2021 Bupropion Hydrochloride ER (XL) 300mg Tablets ER 24HR 1 tab by mouth every day Unknown Dicyclomine HCL 10mg Capsules 1 by mouth 4 times a day as needed for pain Unknown 0 Hyoscyamine Sulfate 0.125mg Tablet s take one tablet by mouth every day if needed Unknown Linzess 290mcg Capsules 1 cap by mouth every day Unknown Metoprolol Tartrate 25mg Tablets tid Unknown Midodrine HCL 2.5mg Tablets 1 tab by mouth three times a day as needed Unknown Omeprazole 40mg Capsules DR 1 cap by mouth every day Unknown Ondansetron HCL 4mg Tablets take 1 tablet by mouth four times a day as needed for nausea U nknown Tizanidine HCL 4mg Tablets 1 tab by mouth every 6 to 8 hours as needed Unknown Metoclopramide HCL 5mg Tablets Dis pers tid Unknown Hydroxyzine HCL 25mg Tablets tid Unknown Hydroxychloroquine Sulfate 200mg T ablets every day Unknown Ensure Clear Liquid bid Unknown Immunizations Description No Information Available Vital Signs Date Vital Result Comment 03/06/2021 9:04am BP Systolic Left Arm 120 mmHg BP Diastolic Left Arm 80 mmHg Heart Rate 68 /min Body Temperature 96.8 F Height 68 inches 5'8" Weight 123.00 lb Weight 55.793 kg BMI (Body Mass Index) 18.7 kg/m2 01/28/2021 8:25am BP Systolic Right Arm 120 mmHg BP Diastolic Right Arm 120 mmHg BP Systolic Left Arm 108 mmHg BP Diastolic Left Arm 108 mmHg Heart Rate 60 /min Body Temperature 97.7 F Height 68 inches 5'8" Weight 126.00 lb Weight 57.154 kg BMI (Body Mass Index) 19.2 kg/m2 Results Description No Information Available Procedures Date Code Description Status 01/28/2021 47016 Office/Outpatient New Moderate M DM 45-59 Minutes Completed Medical Devices Description No Information Available Encounters Type Date Location Provider Dx Diagnosis Office Visit 01/28/2021 8:45a Main Office Dinh Jernigan M.D. K55.1 Chronic vascular disorders of intestine Assessments Date Code Description Provider 01/28/2021 K55.1 Chronic vascular disorders of in testine Dinh Jernigan M.D. Plan of Treatment 03/06/2021 - Dinh Jernigan M.D.* * New Orders:* General Surgery Referral, Ordered: 03/06/21 Functional Status Description No Information Available Mental Status Description No Information Available Referrals Description No Information Available
--- OUTSIDE RECORDS SUMMARY | 2021-04-11 18:20 | CCD | Continuity of Care Document ---
Author Author Dee JERNIGAN Organization Unknown Address [address] [place] [address] Phone [phone] Care Team Providers Care Spring Maker Name Role Phone True Pinedo M.D. AUTM [phone] Tamera Whitt M.D. AUTM [phone] [facility] Care Everywhere AUTM [phone] [facility] AUTM Janell Bustamante N.P. AUTM [phone] Elisabeth Correa M.D. AUTM Problems Active Problems Provider Date Anxiety state [...] Information Available Procedures Date Code Description Status 03/06/2021 98546 Office/Outpatient Established Mo d MDM 30-39 Min Completed 01/28/2021 33088 Office/Outpatient New Moderate M DM 45-59 Minutes Completed Medical Devices Description No Information Available Encounters Type Date Location Provider Dx Diagnosis Office Visit 03/06/2021 9:15a Main Office Dinh Jernigan M.D. R10.84 Generalized abdominal pain I77.4 Celiac artery compression sy ndrome Office Visit 01/28/2021 8:45a Main Office Dinh Jernigan M.D. 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 03/06/2021 I77.4 Celiac artery compression syndro me Dinh Jernigan M.D. 01/28/2021 K55.1 Chronic vascular disorders of in testine Dinh Jernigan M.D. Plan of Treatment No Information Available Functional Status Description No Information Available Mental Status Description No Information Available Referrals Refer to Dr Reason for Referral Status Appt Date Elisabeth Correa M.D. Dr Kumar Abdominal pain Sent [address] [place] [address] [phone]
--- OUTSIDE RECORDS SUMMARY | 2021-04-11 18:20 | CCD ---
Author Author [facility] Organization [facility] Address Unknown Phone Unavailable Care Team Providers Care Air Conditioning Insulation Installer Name Role Phone Janell Bustamante Unavailable PROBLEMS Type Condition ICD9-CM Code [id number] Code Onset Dates Condition S tatus W/U Status Risk SNOMED Code Notes Problem Chronic pain disorder G89.4 Active confirmed 147414653 Problem Attention deficit hyperactivity disorder (ADHD), unspecified ADHD type F90.9 Active confirmed 700399899 Problem Inflammatory arthritis M19.90 Active confirmed 8537434 Problem Median arcuate ligament syndrome I77.4 Active conf irmed 6444677 Problem Anxiety with depression F41.8 Active confirmed 385285313 Problem Anxiety F41.9 Active confirmed 95766728 Problem Gastroparesis K31.84 Active confirmed 384093 006 Problem Mesenteric artery stenosis K55.1 Active confirmed 921617503 Problem POTS (postural orthostatic tachycardia syndrome) I 49.8 Active confirmed 934880273 ALLERGIES Allergen (clinical drug ingredient) Drug/Non Drug Allergy do cumented on EMR Reaction Allergy Type Onset Date Status ketorolac Ketorolac Tromethamine(ND Code:[address]-05) Unknown Drug Allergy Active Latex latex Unknown Non Drug Allergy Active amoxicillin / clavulanate Augmentin(ND Code:[address]-63) Unkn own Drug Allergy Active paroxetine Paxil(ND Code:[address]-00) Unknown Drug Allergy Active Sulfacet-R Unknown Drug Allergy Active ENCOUNTERS from 1986 to 2021-03-06 Encounter Location Date Provider Diagnosis [address] [address] 16 Feb, 2021 Janell Bustamante Gastroparesis K31.84 and Anx iety with depression F41.8 IMMUNIZATIONS No Information SOCIAL HISTORY Tobacco Use: Social History Observation Description Date Details (start date - stop date) Never Smoker Sex Assigned At : Social History Observation Description Sex Assigned At Unknown Tobacco Use/Smoking Question Answer Notes Are you a never smoker REASON FOR REFERRAL from 1986 to 2021-03-06 Reason Patient with history of berry roparesis. Pending consult with [facility] in July for gastric stimulator. Currently on liquid diet. Patient interested in G-tube at this time. Previously seen by [facility] Diagnosis 1 Gastroparesis (K31.84) Referral Organization [facility] Referring Provider First Name Janell Referring Provider Last Name Robby Referring Provider Specialty Family Medicine Referred Provider [facility] Referral Priority Routine General Notes Tegan Galindo LPN 02/28 10:13:44 AM > Faxed to above provider at [phone], phone number [phone] Es Flores LPN 03/06/2021 8:48:07 AM > Reason Patient with significant his tory of anxiety and depression. Has tried multiple medications. Does well with bupropion. Has struggled with anti-anxiety medications. Has tried multiples without benefit. Complicated history of POTS and Gastroparesis Diagnosis 1 Anxiety with depression (F41 .8) Referral Organization [facility] Referring Provider First Name Janell Referring Provider Last Name Robby Referring Provider Specialty Family Medicine Referred Provider KATHY RICHARDSON Referred Provider Specialty Psychiatry Referral Priority Routine General Notes Tegan Galindo LPN 02/28 9:09:26 AM > referral faxed. VITAL SIGNS Height 68 in Feb, Weight 130.2 lbs Feb, BMI 19.79 kg/m2 Feb, Temperature 97.6 degrees Fahrenheit Feb, Heart Rate 80 /min Feb, Respiratory Rate 18 /min Feb, Oximetry 99 % Feb, Blood pressure systolic 138 mmHg Feb, Blood pressure diastolic 88 mmHg Feb, MEDICATIONS Medication SIG (Take, Route, Frequency, Duration) [...] Information RESULTS No Results REASON FOR VISIT Follow up/Medications MEDICAL (GENERAL) HISTORY Type Description Date Medical History MALS Medical History POTS Medical History Anxiety Medical History Gastroparesis Medical History ADHD Medical History Inflammatory arthritis Medical History history of anorexia Surgical History Mesenteric Artery Ligament repair- Dr. Deshaun calles [place] 08/2007 Surgical History Cholecystectomy 2009 Surgical History Laparoscopic surgery- 6 or 7 surgeries S tage 4 Endometriosis 2011,2013,2014,2015.2015,2016 Surgical History Oral surgery Hospitalization History Abdominal Pain/Abdominal Surgeries Hospitalization History mental health-panic attacks Goals Section No Information Health Concerns No Information MEDICAL EQUIPMENT No Information MENTAL STATUS No Information FUNCTIONAL STATUS No Information ASSESSMENTS Encounter Date Diagnosis Assessment Notes Treatment Notes Treatm ent Clinical Notes Feb, Gastroparesis (ICD-10 - K31.84) The patient is currently on liquid diet. She is interested in G-tube at this time. Referral sent to another GI office for further management. Weight is currently stable Feb, Anxiety with depression (ICD-10 - F41.8) Today, her PHQ-2 score is 6 which revealed mild depression and HEMA-7 score is 21 which revealed severe anxiety. Increased the dosage of alprazolam and bupropion today. Referral sent to Behavioral Health. Encouraged to find family and friend support to talk to. Pt to report to the ED immediately with any thoughts of self-harm and/or harm to others. Pt v/u and agree. Reference #[id number] Feb, Other All questions an d concerns addressed, patient understanding and agreeable to plan. Patient encouraged to follow up at the clinic for any additional or new questions or concerns. Time spent includes face to face time with patient and review of any pertinent laboratory results, consult documentation/hospital notes and diagnostic imaging. Time spent:30 mins Nohemi Chavis, scribing the following service on behalf of Janell Bustamante NP on 02/28/2021. PLAN OF TREATMENT Medication Medication Name Sig Start Date Stop Date ALPRAZolam 1 MG 1 tablet Orally every 8 hours as needed for 30 days Feb, buPROPion HCl ER (XL) 150 MG 1 tablet in the morning O rally Once a day for 30 day(s) Feb, Treatment Notes Assessment Notes Clinical Notes Gastroparesis The patient is curre ntly on liquid diet. She is interested in G- tube at this time. Referral sent to another GI office for further management.Weight is currently stable Anxiety with depression Today, her PHQ-2 score is 6 which revealed mild depression and HEMA-7 score is 21 which revealed severe anxiety. Increased the dosage of alprazolam and bupropion today. Referral sent to Behavioral Health. Encouraged to find family and friend support to talk to. Pt to report to the ED immediately with any thoughts of self-harm and/or harm to others. Pt v/u and agree. Reference #[id number] Referrals Referral Date Details Patient with history of berry roparesis. Pending consult with [facility] in July for gastric stimulator. Currently on liquid diet. Patient interested in G-tube at this time. Previously [facility] Patient with significant his tory of anxiety and depression. Has tried multiple medications. Does well with bupropion. Has struggled with anti-anxiety medications. Has tried multiples without benefit. Complicated history of POTS and Gastroparesis, KATHY RICHARDSON Next Appt Details 4 Weeks Reason:Meds Provider Name:Janell Bustamante, 2021-03-15 9 08:30:00 AM, [address] [place] [address], [phone], Follow Up:4 WeeksMeds Insurance Providers Payer Name Payer Address Payer Phone Insured Name Patient Relati onship to Insured Coverage Start Date Coverage End Date [facility] [employer] c o PGBA [facility] TRICA [address] [facility] [phone] DE LAMERENS,VICKIE self [employer] - MEDIC[place] [address] [facility] [id number] [phone] DE LAMERENS,VICKIE self [employer] [address] [facility] 1390 DE LAMERENS,VICKIE self
--- OUTSIDE RECORDS SUMMARY | 2021-04-11 18:20 | CCD ---
Author Author [facility] Organization [facility] Address Unknown Phone Unavailable Care Team Providers Care Classroom Coordinator Name Role Phone Janell Bustamante Unavailable PROBLEMS Type Condition ICD9-CM Code UMO98-BD Code Onset Dates Condition S tatus W/U Status Risk SNOMED Code Notes Problem Chronic pain disorder G89.4 Active confirmed 196505868 Problem Attention deficit hyperactivity disorder (ADHD), unspecified ADHD type F90.9 Active confirmed 237491137 Problem Inflammatory arthritis M19.90 Active confirmed 6584116 Problem Median arcuate ligament syndrome I77.4 Active conf irmed 4430505 Problem Anxiety with depression F41.8 Active confirmed 585051223 Problem Anxiety F41.9 Active confirmed 28161738 Problem Gastroparesis K31.84 Active confirmed 975651 006 Problem Mesenteric artery stenosis K55.1 Active confirmed 698149074 Problem POTS (postural orthostatic tachycardia syndrome) I 49.8 Active confirmed 505190086 ALLERGIES Allergen (clinical drug ingredient) Drug/Non Drug Allergy do cumented on EMR Reaction Allergy Type Onset Date Status ketorolac Ketorolac Tromethamine(ND Code:[address]-43) Unknown Drug Allergy Active Latex latex Unknown Non Drug Allergy Active amoxicillin / clavulanate Augmentin(ND Code:[address]-18) Unkn own Drug Allergy Active paroxetine Paxil(ND Code:[address]-36) Unknown Drug Allergy Active Sulfacet-R Unknown Drug Allergy Active ENCOUNTERS from 1986 to 2021-04-08 Encounter Location Date Provider Diagnosis [address] [address] Mar, Janell Bustamante IMMUNIZATIONS No Information SOCIAL [...] Notes Start Da te End Date Status Dicyclomine HCl 10 MG 1 capsule Orally Three times a day Active Levsin 0.125 MG 1 tablet as needed Orally three times a day Active buPROPion HCl ER (XL) 150 MG 1 tablet in the morning O rally Once a day for 30 day(s) Feb, Active ALPRAZolam 1 MG 1 tablet Orally every 8 hours as needed for 30 days M DD #3 Active tiZANidine HCl 6 MG 1 capsule as needed Orally Three times a day 8mg Active buPROPion HCl ER (XL) 450 MG 1 tablet in the morning O rally Once a day for 30 day(s) Active HYDROcodone-Acetaminophen 7.5-325 MG 1 tablet as needed Orally e very 6 hrs PRN Active hydrOXYzine HCl 25 MG 1 tablet as needed Orally three times a day PRN Not-Taking Ketoconazole 2 % 1 application Externally Once a day for 30 days Jan, Active Promethazine HCl 12.5 MG 1 tablet as needed Orally every 6 h rs for 30 day(s) 5mg tablet Active Ondansetron 4 MG 1 tablet on the tongue and a llow to dissolve Orally Once a day for 30 day(s) Active Midodrine HCl 5 MG 1 tablet Orally Three times a day for 30 day(s) Active Metoprolol Tartrate 25 MG 1 tablet with food Orally Twice a day for 30 day(s) Active Narcan 4 MG/0.1ML as directed Nasally once for 1 days 2020 Active Linzess 290 MCG 1 capsule at least 30 minute s before the first meal of the day on an empty stomach Orally Once a day for 30 day(s) Active Hydroxychloroquine Sulfate 200 MG as directed Orally Active PROCEDURES No Information RESULTS No Results REASON FOR VISIT No Information MEDICAL (GENERAL) HISTORY Type Description Date Medical History MALS Medical History POTS Medical History Anxiety Medical History Gastroparesis Medical History ADHD Medical History Inflammatory arthritis Medical History history of anorexia Surgical History Mesenteric Artery Ligament repair- Dr. Deshaun calles [place] 08/2007 Surgical History Cholecystectomy 2009 Surgical History Laparoscopic surgery- 6 or 7 surgeries S tage 4 Endometriosis 2011,2012,2013,2014.2015 Surgical History Oral surgery Surgical History PIC line placement Hospitalization History Abdominal Pain/Abdominal Surgeries Hospitalization History mental health-panic attacks Goals Section No Information Health Concerns No Information MEDICAL EQUIPMENT No Information MENTAL STATUS No Information FUNCTIONAL STATUS No Information ASSESSMENTS No Information PLAN OF TREATMENT Medication Medication Name Sig Start Date Stop Date ALPRAZolam 1 MG 1 tablet Orally every 8 hours as needed for 30 d ays buPROPion HCl ER (XL) 450 MG 1 tablet in the morning O rally Once a day for 30 day(s) Next Appt Details Provider Name:Janell Bustamante, 2020-12-2 0 08:30:00 AM, [address] [place] [address], [phone], Insurance Providers Payer Name Payer Address Payer Phone Insured Name Patient Relati onship to Insured Coverage Start Date Coverage End Date [employer] - [place]IC[place] [address] [facility] [address] DE GEOVANNYVICKIE self [facility] c o PGBA [facility] [address] [facility] [address] [place]BI[place]ICKIE self [employer] [address] [facility] 139[address] DE GEOVANNYVICKIE self
--- OUTSIDE RECORDS SUMMARY | 2021-04-11 18:20 | CCD ---
Author Author [facility] Organization [facility] Address Unknown Phone Unavailable Care Team Providers Care Commercial Cleaner Name Role Phone Janell Bustamante Unavailable PROBLEMS Type Condition ICD9-CM Code [id number] Code Onset Dates Condition S tatus W/U Status Risk SNOMED Code Notes Problem Chronic pain disorder G89.4 Active confirmed 522123283 Problem Attention deficit hyperactivity disorder (ADHD), unspecified ADHD type F90.9 Active confirmed 217099836 Problem Inflammatory arthritis M19.90 Active confirmed 6392945 Problem Median arcuate ligament syndrome I77.4 Active conf irmed 7475899 Problem Anxiety with depression F41.8 Active confirmed 654613080 Problem Anxiety F41.9 Active confirmed 54175318 Problem Gastroparesis K31.84 Active confirmed 970461 006 Problem Mesenteric artery stenosis K55.1 Active confirmed 908401447 Problem POTS (postural orthostatic tachycardia syndrome) I 49.8 Active confirmed 890653879 ALLERGIES Allergen (clinical drug ingredient) Drug/Non Drug Allergy do cumented on EMR Reaction Allergy Type Onset Date Status ketorolac Ketorolac Tromethamine(ND Code:[address]-02) Unknown Drug Allergy Active Latex latex Unknown Non Drug Allergy Active amoxicillin / clavulanate Augmentin(ND Code:[address]-63) Unkn own Drug Allergy Active paroxetine Paxil(ND Code:[address]-64) Unknown Drug Allergy Active Sulfacet-R Unknown Drug Allergy Active ENCOUNTERS from 1986 to 2021-02-28 Encounter Location Date Provider Diagnosis [address] [address] Feb, Janell Bustamante IMMUNIZATIONS No Information SOCIAL HISTORY [...] Once a day for 30 day(s) Active buPROPion HCl ER (XL) 450 MG [...] Twice a day for 30 day(s) Active ALPRAZolam 1 MG 1 tablet Orally every 8 hours as needed for 30 d ays MDD #3 Feb, Active Narcan 4 MG/0.1ML as directed Nasally once for 1 days 2020 Active hydrOXYzine HCl 25 MG 1 tablet as needed Orally three times a day PRN Active PROCEDURES No Information RESULTS No Results REASON FOR VISIT duplicate referral MEDICAL (GENERAL) HISTORY Type Description Date Medical [...] Medication Name Sig Start Date Stop Date buPROPion HCl ER (XL) 450 MG 1 tablet in the morning O rally Once a day for 30 day(s) ALPRAZolam 1 MG 1 tablet Orally every 8 hours as needed for 30 days Feb, Next Appt Details Provider Name:Janell Bustamante, 2021-03-1 9 08:30:00 AM, [address] [place] [address], [phone], Insurance Providers Payer Name Payer Address Payer Phone Insured Name Patient Relati onship to Insured Coverage Start Date Coverage End Date [employer] - [place] [address] [facility] [address] VICKIE TOBI[place] [facility] c o [facility] [address] [facility] [address] VICKIE TOBIAS [employer] - [employer] [address] [facility] [address] VICKIE TOBIAS self
--- OUTSIDE RECORDS SUMMARY | 2021-04-11 18:20 | CCD ---
Author Author [facility] Organization [facility] Address Unknown Phone Unavailable Care Team Providers Care [employer] Law Clerk Name Role Phone Janell Bustamante Unavailable PROBLEMS Type Condition ICD9-CM Code [id number] Code Onset Dates Condition S tatus W/U Status Risk SNOMED Code Notes Problem Chronic pain disorder G89.4 Active confirmed 975898177 Problem Attention deficit hyperactivity disorder (ADHD), unspecified ADHD type F90.9 Active confirmed 625626950 Problem Inflammatory arthritis M19.90 Active confirmed 3039885 Problem Median arcuate ligament syndrome I77.4 Active conf irmed 8875451 Problem Anxiety with depression F41.8 Active confirmed 513147594 Problem Anxiety F41.9 Active confirmed 59063411 Problem Gastroparesis K31.84 Active confirmed 882823 006 Problem Mesenteric artery stenosis K55.1 Active confirmed 793332519 Problem POTS (postural orthostatic tachycardia syndrome) I 49.8 Active confirmed 208648101 ALLERGIES Allergen (clinical drug ingredient) Drug/Non Drug Allergy do cumented on EMR Reaction Allergy Type Onset Date Status ketorolac Ketorolac Tromethamine(ND Code:[address]-18) Unknown Drug Allergy Active Latex latex Unknown Non Drug Allergy Active amoxicillin / clavulanate Augmentin(ND Code:[address]-25) Unkn own Drug Allergy Active paroxetine Paxil(ND Code:[address]-18) Unknown Drug Allergy Active Sulfacet-R Unknown Drug Allergy Active ENCOUNTERS from 1986 to 2021-03-06 Encounter Location Date Provider Diagnosis [address] [address] Feb, Janell Bustamante Anxiety with depression F41. 8 IMMUNIZATIONS No [...] Information RESULTS No Results REASON FOR VISIT medication conerns MEDICAL (GENERAL) HISTORY Type Description Date Medical [...] Treatment Notes Treatm ent Clinical Notes Feb, Anxiety with depression (ICD-10 - F41.8) PLAN OF TREATMENT Medication Medication Name Sig Start Date Stop Date ALPRAZolam 1 MG 1 tablet Orally every 8 hours as needed for 30 days Feb, buPROPion HCl ER (XL) 150 MG 1 tablet in the morning O rally Once a day for 30 day(s) Feb, Next Appt Details Provider Name:Janell Bustamante, 2021-03- 9 08:30:00 AM, [address] [place] [address], [phone], Insurance Providers Payer Name Payer Address Payer Phone Insured Name Patient Relati onship to Insured Coverage Start Date Coverage End Date [facility] - [employer] [address] [facility] [address] [place] GALAEREDENNY,VICKIE self -[facility] c o PG[facility] [address] [facility] [address] DE LAMERENS,VICKIE self [employer] - [place] [address] [facility] [id number] [phone] DE LAMERENS,VICKIE self
--- OUTSIDE RECORDS SUMMARY | 2021-04-11 18:20 | CCD | Continuity of Care Document ---
Author Author Dee MENDOZA MD Organization Unknown Address [address] [place] [address] Phone [phone] Care Team Providers Care Plasma Specialist Name Role Phone True Pinedo M.D. AUTM [phone] Tamera Whitt M.D. AUTM [phone] [facility] Care Everywhere AUTM [phone] [facility] AUTM [phone] Janell Bustamante N.P. AUTM [phone] Elisabeth Correa M.D. AUTM Problems Active Problems Provider Date Anxiety state Dinh Fu M.D. Onset: 01/22/2021 Disorder of thyroid gland Dinh Fu M.D. Onset: 021 Social History Type Date [...] hours as needed for pain. 15tabs Dinh Fu M.D. 02/06/2021 Bupropion Hydrochloride ER (XL) 300mg [...] Information Available Procedures Date Code Description Status 03/14/2021 83061 Hospital Initial Care Level 1 Co mpleted 03/06/2021 86200 Office/Outpatient Established Mo d MDM 30-39 Min Completed 02/20/2021 98822 Moderate Sedation Se rvices; Same Phys Intl 15 Mins; PT >= 5 Years Completed 02/20/2021 88354 Angiogram-Adominal S&I Completed 02/20/2021 89712 Catheter Introduction Aorta Comp leted 01/28/2021 69111 Office/Outpatient New Moderate M DM 45-59 Minutes Completed Medical Devices Description No Information Available Encounters Type Date Location Provider Dx Diagnosis Office Visit 03/06/2021 9:15a Main Office Dinh Fu M.D. 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 03/06/2021 R10.84 Generalized abdominal pain Dinh Fu M.D. 03/06/2021 I77.4 Celiac artery compression syndro me Dinh Fu M.D. 02/20/2021 K55.1 Chronic vascular disorders of in gina Mendoza M.D. 01/28/2021 K55.1 Chronic vascular disorders of in testine Dinh Fu M.D. Plan of Treatment No Information Available Functional Status Description No Information Available Mental Status Description No Information Available Referrals Refer to Reason for Referral Status Appt Date Elisabeth Correa M.D. Dr Kumar Abdominal pain Closed 03/25/[address] [place] [address] [phone]
--- OUTSIDE RECORDS SUMMARY | 2021-04-11 18:20 | CCD ---
Author Organization Unknown Address [address] [place] [address] Phone [phone] Care Team Providers Care Salon Professional Name Role Phone [facility] 3 [phone] Allergies Code Code System Name Reaction Severity Status Onset Toradol Rash Moderate to Severe Active 04/15/2020 806423 RxNorm Augmentin Hives Mild to Moderate Active 5396755 RxNorm Latex Hives Mild to Moderate Active 524919 RxNorm Paxil Hives Mild to Moderate Active Sulfa (Sulfonamide Antibiotics) Hives Mild to Moderate Active Medications Name Status Start Date Stop Date acetaminophen 300 mg-codeine 30 mg tablet Completed 09/11/2020 albuterol sulfate HFA 90 mcg/actuation aerosol inhaler Completed 02/14/2020 alprazolam 0.5 mg disintegrating tablet Completed 03/11/2021 alprazolam 0.5 mg tablet TAKE 1 TABLET BY MOUTH EVERY 8 HOURS NEEDED MAXIMUM DAILY DOSE IS 3 TABLETS Completed 03/11/2021 alprazolam 1 mg tablet TAKE 1 TABLET BY MOUTH EVERY 8 HOURS NEEDED MAXIMUM DAILY DOSE IS 3 TABLETS Active Not available Amitiza 24 mcg capsule 1tab BID Completed 02/14/2020 04/12/2020 Amitiza 8 mcg capsule Completed 02/14/2020 amitriptyline 10 mg tablet TAKE 1 TABLET BY MOUTH AT BEDTIME Completed 02/13 amitriptyline 25 mg tablet TAKE 1 TABLET BY MOUTH EVERY DAY Completed 2020 amoxicillin 500 mg capsule Completed 02/13 amoxicillin 500 mg tablet TAKE 1 TABLET BY MOUTH THREE TIMES DAILY Completed 09/11/2020 baclofen 10 mg tablet TAKE 1 TABLET BY MOUTH THREE TIMES DAILY Completed 10/30/2020 benzonatate 100 mg capsule Completed 02/13 bupropion HCl SR 150 mg tablet,12 hr rosalinda tained-release Take 1 tablet twice a day by oral route. Active Not available bupropion HCl XL 150 mg 24 hr tablet, ex tended release TAKE 1 TABLET BY MOUTH EVERY DAY IN THE MORNING Completed 03/11/2021 bupropion HCl XL 300 mg 24 hr tablet, ex tended release TAKE 1 TABLET BY MOUTH EVERY DAY IN THE MORNING Active Not available buspirone 10 mg tablet TK 1 T PO TID Completed 05/24/2020 carisoprodol 250 mg tablet Completed 03/09 carisoprodol 350 mg tablet TAKE ONE TABLET BY MOUTH THREE TIMES A DAY NEEDED MAXIMUM DAILY DOSE 3 TABLETS Completed 10/30/2020 clindamycin HCl 300 mg capsule TK 1 C PO QID FOR 7 DAYS Completed 02/14/2020 Corlanor 5 mg tablet Take 1 tablet twice a day by oral route. Active Not available cyclobenzaprine 10 mg tablet TAKE 1 TABLET BY MOUTH AT BEDTIME FOR 14 DAYS Completed 10/30/2020 diazepam 5 mg tablet Completed 09/11/2020 diclofenac 1 % topical gel Completed 02/13 dicyclomine 10 mg capsule TAKE 1 CAPSULE BY MOUTH FOUR TIMES DAILY NEEDED FOR PAIN Completed 12/19/2020 doxycycline hyclate 100 mg tablet Completed 02/14/2020 duloxetine 20 mg capsule,delayed release TK 1 C PO BID Completed 05/24/2020 duloxetine 30 mg capsule,delayed release Completed 02/14/2020 duloxetine 60 mg capsule,delayed release Completed 02/14/2020 escitalopram 5 mg tablet TK 1 T PO D Completed 04/12/2020 hydrocodone 5 mg-acetaminophen 300 mg tablet Completed 09/11/2020 hydrocodone 5 mg-acetaminophen 325 mg tablet Completed 02/13/2021 hydrocodone 7.5 mg-acetaminophen 325 mg tablet Take 1 tablet 3 times a day by oral route as needed. Active Not available hydroxychloroquine 200 mg tablet TAKE 1 TABLET BY MOUTH DAILY Active Not availa ble hydroxyzine HCl 25 mg tablet TAKE 1 TABLET BY MOUTH EVERY 6 HOURS FOR UP TO 10 DAYS NEEDED FOR ANXIETY Active Not available hydroxyzine HCl 50 mg tablet TK 1 T PO TID Completed 04/12/2020 ibuprofen 800 mg tablet TAKE 1 TABLET BY MOUTH EVERY 8 HOURS WITH FOOD NEEDED FOR PAIN. DO NOT TAKE FOR MORE THAN 10 CONSECUTIVE DAYS. Active Not a vailable ketoconazole 2 % topical cream APPLY TOPICALLY TO THE AFFECTED AREA EVERY DAY Active Not available ketorolac 10 mg tablet Completed 0 lactulose 10 gram/15 mL oral solution TAKE 15 ML BY MOUTH THREE TIMES DAILY DIRECTED Completed 09/11/2020 Levsin 0.125 mg tablet TAKE 1 TABLET BY MOUTH FOUR TIMES DAILY NEEDED FOR PAIN Active Not available Lidocaine Viscous 2 % mucosal solution TK 1 ML TO MUCOUS MEMBRANE BID FOR 5 DAYS Completed 02/14/2020 Linzess 290 mcg capsule Active Not avai lable meloxicam 7.5 mg tablet TAKE 1 TABLET BY MOUTH EVERY DAY FOR 20 DAYS Active Not available metaxalone 800 mg tablet Completed 020 methocarbamol 500 mg tablet TAKE 1 TABLET BY MOUTH THREE TIMES DAILY NEEDED Completed 11/15/2020 metoclopramide 5 mg tablet TAKE 1 TO 2 TABLETS BY MOUTH FOUR TIMES DAILY BEFORE MEALS NEEDED Active Not available metoprolol succinate ER 25 mg tablet,extended release 24 hr Comp leted 02/14/2020 metoprolol tartrate 25 mg tablet Active Not available metronidazole 250 mg tablet TAKE 1 TABLET BY MOUTH EVERY 8 HOURS Active No t available midodrine 10 mg tablet Take 1 tablet 3 times a day by oral route. Completed 04/12/2020 midodrine 2.5 mg tablet TK 1 T PO THREE TIMES A DAY Completed 03/09/2020 midodrine 5 mg tablet TAKE 1 TABLET BY MOUTH THREE TIMES A DAY Active Not available naproxen 500 mg tablet Completed 0 Narcan 4 mg/actuation nasal spray USE DIRECTED ONCE Active Not available zlnpwzyn-llxbegxao-viqgqukrt 3.5 mg/mL-1 0,000 unit/mL-1 % ear solution INSTILL 4 DROPS IN RIGHT EAR 4 TIMES A DAY FOR 5 DAYS Completed 05/24/2020 nitrofurantoin monohydrate/macrocrystals 100 mg capsule Complete d 02/14/2020 omeprazole 40 mg capsule,delayed release Active Not available ondansetron 8 mg disintegrating tablet Completed 05/24/2020 ondansetron HCl 4 mg tablet TAKE 1 TABLET BY MOUTH FOUR TIMES DAILY NEEDED Active Not available oxycodone-acetaminophen 5 mg-325 mg tabl et TAKE 1 TO 2 TABLETS BY MOUTH THREE TIMES DAILY NEEDED FOR PAIN MAXIMUM DAILY DOSE IS 6 TABLETS Completed 09/11/2020 penicillin V potassium 500 mg tablet TAKE 1 TABLET BY MOUTH FOUR TIMES DAILY FOR 10 DAYS Completed 09/11/2020 potassium chloride ER 20 mEq tablet,exte nded release(part/cryst) TAKE 2 TABLETS BY MOUTH TWICE DAILY FOR 2 DOSES Completed 09/11/2020 prednisone 10 mg tablet Completed 02/14/20 20 prednisone 50 mg tablet Completed 07/20/19 21 quetiapine 25 mg tablet TAKE 1 TABLET BY MOUTH TWICE DAILY NEEDED Completed 12/19/2020 quetiapine 50 mg tablet Completed 02/14/20 20 quetiapine ER 50 mg tablet,extended release 24 hr Completed 02/14/2020 ramelteon 8 mg tablet TK 1 T PO QHS FOR SLEEP Completed 05/24/2020 sucralfate 1 gram tablet TAKE 1 TABLET BY MOUTH THREE TIMES DAILY Completed 09/11/2020 sumatriptan 25 mg tablet TAKE 1 TABLET BY MOUTH NEEDED WHEN HEADACHE STARTS. MAY REPEAT EVERY 2 HOURS NEEDED IF HEADACHE CONTINUES. MAXIMUM DAILY DOSE IS 8 TAB Completed 12/19/2020 tizanidine 2 mg tablet Completed tizanidine 4 mg tablet TAKE 1 TO 2 TABLETS BY MOUTH THREE TIMES DAILY NEEDED Active Not available tramadol 50 mg tablet TAKE 1 TABLET BY MOUTH TWICE DAILY WITH FOOD. MAXIMUM DAILY DOSE IS 2 Completed 11/15/2020 trazodone 100 mg tablet Completed 02/14/20 venlafaxine ER 37.5 mg capsule,extended release 24 hr TAKE 1 CAPSULE BY MOUTH DAILY FOR 2 WEEKS THEN TAKE 2 CAPSULES BY MOUTH DAILY Completed 09/11/2020 zaleplon 5 mg capsule Completed 02/14/2020 zolpidem 5 mg tablet Completed 04/12/2020 Problems None recorded. Procedures Date Name Performed by Laparoscopic Excision of Pel narciso Endometriosis Notes: x5 Information not available Repair of Mesentery Notes: x6 in 2007 Information not available Cholecystectomy Notes: 2005 Information not available 09/11/2020 MRI, Lumbar Spine, W/o Contrast [facility] Radiology Dept [address] [place] [address] [phone] (Work [address]) Results Lab Results Date Name Specimen Result Interpretation Description Value Range Status Address 02/13/2021 [employer] Pdf Report UR No observation recorded. [employer]: [address] [place] [address] 02/13/2021 Drug Screen, Urine Urine No observation recorde d. [employer]: [address] [place] [address] 02/13/2021 Drug Screen, Urine Urine Amphetamines: negati ve Main Office: [address] [facility] [address] [facility] Urine Thc negative Main Off ice: [address], [place] Urine Cocaine: negative Main Office: [address] [place] Urine Opiates: positive Main Office: [address] [place] Urine Benzodiazepines: positive Main Office: [address], [place] Urine Barbiturates: negative Main Office: [address], [place] Urine Methamphetamine negative Main Office: [address], [place] Urine Pcp negative Main Off ice: [address] [place] Urine Mtd negative Main Off ice: [address] [place] Urine Oxy negative Main Off ice: [address], [place] 02/13/2021 Bupropion, QN, Urine U Bupropion Ur Ql Cfm >=50 NG/mL >=50 NG/mL Final [employer]: [address] [place] [address] U Bupropion Ur Cfm-mcnc 419 NG/mL >=50 NG/mL Final [employer]: [address] [place] [address] 02/13/2021 Drug Screen, Urine U Buprenorphine Ur Ql Cfm <1 NG/mL >=1 NG/mL Final [employer]: [address] [place] [address] U Alcohol Metabolites Ur Ql Cfm <200 N G/mL >=200 NG/mL Final [employer] [facility]: [address] [place] [address] U Ethyl Glucuronide Ur Cfm-mcnc <500 N G/mL >=500 NG/mL Final [employer]: [address] [place] [address] U Ethyl Sulfate Ur Cfm-mcnc <200 NG/mL >=200 NG/mL Final [employer] [facility]: [address] [place] [address] U Tapentadol Ur Ql Cfm <100 NG/mL >=10 0 NG/mL Final [employer]: [address] [place] [address] U Amphetamines Ur Ql Cfm <0 NG/mL >=0 NG/mL Final [employer] [facility]: [address] [place] [address] U Benzodiaz Ur Ql Cfm >=50 NG/mL >=50 NG/mL Final [employer] [facility]: [address] [place] [address] U A-oh Alpraz Ur Cfm-mcnc 650 NG/mL >= 50 NG/mL Final [employer] [facility]: [address] [place] [address] U Nordiazepam Ur Cfm-mcnc 119 NG/mL >= 50 NG/mL Final [employer] [facility]: [address] [place] [address] U Oxazepam Ur Cfm-mcnc 234 NG/mL >=50 NG/mL Final [employer] [facility]: [address] [place] [address] U Temazepam Ur Cfm-mcnc 219 NG/mL >=50 NG/mL Final [employer] [facility]: [address] [place] [address] U Alpraz Ur Cfm-mcnc 473 NG/mL >=50 NG /mL Final [employer] [facility]: [address] [place] [address] U Gabapentinpregabalin Ur Ql Cfm <5 mc g/mL >=5 mcg/mL Final [employer] [facility]: [address] [place] [address] U Bze Ur Ql Cfm <50 NG/mL >=50 NG/mL F inal [employer] [facility]: [address] [place] [address] U Opiates Ur Ql Cfm >=100 NG/mL >=100 NG/mL Final [employer] [facility]: [address] [place] [address] U Dhc Ur Cfm-mcnc 181 NG/mL >=100 NG/m L Final [employer] [facility]: [address] [place] [address] U Hydrocodone Ur Cfm-mcnc 193 NG/mL >= 100 NG/mL Final [employer] [facility]: [address] [place] [address] U Norhydrocodone Ur Cfm-mcnc 874 NG/mL >=100 NG/mL Final [employer] [facility]: [address] [place] [address] U 6Mam Ur Ql Cfm <10 NG/mL >=10 NG/mL Final [employer]: [address] [place] [address] U Methadone Ur Ql Cfm <200 NG/mL >=200 NG/mL Final [employer]: [address] [place] [address] U Meperidine Ur Ql Cfm <100 NG/mL >=10 0 NG/mL Final [employer] [facility]: [address] [place] [address] U Fentanyl+norfentanyl Ur Ql Cfm <5 NG /mL >=5 NG/mL Final [employer] [facility]: [address] [place] [address] U Carisoprodol+meprob Ur Ql Scn <200 N G/mL >=200 NG/mL Final [employer] [facility]: [address] [place] [address] U Tramadol Ur Ql Cfm <100 NG/mL >=100 NG/mL Final [employer] [facility]: [address] [place] [address] U Cotinine Ur Ql Cfm <125 NG/mL >=125 NG/mL Final [employer] [facility]: [address] [place] [address] U Normal pH Ur 7.18 4.5 - 9.0 Final [employer] [facility]: [address] [place] [address] U Normal Creat Ur-mcnc 124.2 mg/dL 20 - 370 m g/dL Final [employer] [facility]: [address] [place] [address] 02/13/2021 Urinary Biomarkers U Normal Biodetect expected Final [employer]: [address] [place] [address] 02/13/2021 Drug Screen, Urine UR Normal Bupropion Ur CMP 419 NG/mL >=50 NG/mL Final [employer]: [address] [place] [address] UR Normal Hydrocodone Ur CMP 1250 NG/mL >=100 NG/mL Final [employer] [facility]: [address] [place] [address] UR Normal Alpraz Ur CMP 1120 NG/mL >=50 NG/mL Final [employer] [facility]: [address] [place] [address] UR ABNORMAL Benzodiaz Ur CMP 573 NG/mL >=50 NG /mL Final [employer] [facility]: [address] [place] [address] Past Encounters 03/11/2021 Thoracic Spondylosis without Myelopathy; Myofascial Pain; Lumbosacral Spondylosis without Myelopathy; Inflammation of Sacroiliac Joint Chantal Brown, ENGINE HOUSE HELPER: [id number] [address], Ph. 02/13/2021 Thoracic Spondylosis without Myelopathy; Myofascial Pain; Lumbosacral Spondylosis without Myelopathy; Inflammation of Sacroiliac Joint; Long-term Drug Therapy Chantal Brown ENGINE HOUSE HELPER: [address] [facility], [place] [address], Ph. 12/19/2020 Thoracic Spondylosis without Myelopathy; Myofascial Pain; Lumbosacral Spondylosis without Myelopathy; Inflammation of Sacroiliac Joint Chantal Kyle Brown, ENGINE HOUSE HELPER: [address] [facility] [address] [place] [address], Ph. 11/15/2020 Thoracic Spondylosis without Myelopathy; Myofascial Pain; Lumbosacral Spondylosis without Myelopathy; Inflammation of Sacroiliac Joint; Lumbar Radiculopathy Chantal Brown, ENGINE HOUSE HELPER: [address] [facility] [address] , [place] [address], Ph. 10/15/2020 Thoracic Spondylosis without Myelopathy; Myofascial Pain; Lumbosacral Spondylosis without Myelopathy; Inflammation of Sacroiliac Joint; Lumbar Radiculopathy Chantal Brown, ENGINE HOUSE HELPER: [address] [facility] [address] , [place] [address], Ph. 09/11/2020 Thoracic Spondylosis without Myelopathy; Myofascial Pain; Lumbosacral Spondylosis without Myelopathy; Inflammation of Sacroiliac Joint; Lumbar Radiculopathy Chantal Brown, ENGINE HOUSE HELPER: [address] [address], Ph. 08/13/2020 Thoracic Spondylosis without Myelopathy; Myofascial Pain; Lumbosacral Spondylosis without Myelopathy; Inflammation of Sacroiliac Joint Chantal Kyle Vargason, ENGINE HOUSE HELPER: [address] [address], Ph. 07/20/2020 Thoracic Spondylosis without Myelopathy; Myofascial Pain; Lumbosacral Spondylosis without Myelopathy; Inflammation of Sacroiliac Joint Chantal Kyle Vargason, ENGINE HOUSE HELPER: [address] [address], [place] [address], Ph. 06/19/2020 Thoracic Spondylosis without Myelopathy; Myofascial Pain; Lumbosacral Spondylosis without Myelopathy; Inflammation of Sacroiliac Joint Chantal Eduardosong Jumalon, ENGINE HOUSE HELPER: [address] [address], [place] [address], Ph. 05/24/2020 Thoracic Spondylosis without Myelopathy; Myofascial Pain; Lumbosacral Spondylosis without Myelopathy; Inflammation of Sacroiliac Joint Chantal Brown, ENGINE HOUSE HELPER: [address] [address], [place] [address], Ph. 04/12/2020 Thoracic Spondylosis without Myelopathy; Myofascial Pain; Lumbosacral Spondylosis without Myelopathy Chantal Brown, ENGINE HOUSE HELPER: [address] [address], [place] [address], Ph. 03/09/2020 Thoracic Spondylosis without Myelopathy; Myofascial Pain; Lumbosacral Spondylosis without Myelopathy Stephen Tavarez MD: [address] [address], [place] [address], Ph. 02/14/2020 Thoracic Spondylosis without Myelopathy; Myofascial Pain Stephen Tavarez MD: [address] [address], [place] [address], Ph. Social History Tobacco Smoking Status Never Smoker Vaccine List None recorded. Plan of Care Reminders Provider Appointments None recorded. Lab None recorded. Referral None recorded. Procedures None recorded. Surgeries None recorded. Imaging None recorded. Vitals 03/11/2021 02:30PM FOLLOW-UP Height Blood Pressure 5 ft 8 in 109/59 mm[Hg] 02/13/2021 09:00AM FOLLOW-UP Height Blood Pressure 5 ft 8 in 116/89 mm[Hg] 12/19/2020 04:15PM FOLLOW-UP Height Blood Pressure 5 ft 8 in 116/75 mm[Hg] 11/15/2020 04:30PM FOLLOW-UP Height Blood Pressure 5 ft 8 in 121/77 mm[Hg] 10/15/2020 04:30PM FOLLOW-UP Height Blood Pressure 5 ft 8 in 120/84 mm[Hg] 09/11/2020 04:30PM FOLLOW-UP Height Blood Pressure 5 ft 8 in 135/79 mm[Hg] 07/20/2020 09:00AM FOLLOW-UP Height Blood Pressure 5 ft 8 in 126/75 mm[Hg] 06/19/2020 11:00AM Telehealth Height 5 ft 8 in 05/24/2020 10:30AM FOLLOW-UP Height Blood Pressure 5 ft 8 in 126/83 mm[Hg] 04/12/2020 11:00AM FOLLOW-UP Height Blood Pressure 5 ft 8 in 110/73 mm[Hg] 03/09/2020 01:00PM FOLLOW-UP Height Blood Pressure 5 ft 8 in 132/81 mm[Hg] 02/14/2020 04:30PM NEW PATIENT Height Weight BMI Blood Pressure 5 ft 8 in 136 lbs 20.7 kg/m2 119/78 mm[Hg]
--- OUTSIDE RECORDS SUMMARY | 2021-04-11 18:20 | CCD | Continuity of Care Document ---
Author Author Dee MENDOZA MD Organization Unknown Address [address] [place] [address] Phone [phone] Care Team Providers Care Roller Die Cutting Machine Operator Name Role Phone True Pinedo M.D. AUTM [phone] Tamera Whitt M.D. AUTM [phone] [facility] Care Everywhere AUTM [facility] AUTM [phone] Janell Bustamante N.P. AUTM [phone] Elisabeth Correa M.D. AUTM [phone] Problems Active Problems Provider Date Anxiety state [...] Available Procedures Date Code Description Status 03/14/2021 68058 Hospital Initial Care Level 1 Co mpleted 03/06/2021 98925 Office/Outpatient Established Mo d MDM 30-39 Min Completed 02/20/2021 27209 Moderate Sedation Se rvices; Same Phys Intl 15 Mins; PT >= 5 Years Completed 02/20/2021 09261 Angiogram-Adominal S&I Completed 02/20/2021 85440 Catheter Introduction Aorta Comp leted 01/28/2021 79865 Office/Outpatient New Moderate M DM 45-59 Minutes Completed Medical Devices Description No Information Available Encounters Type Date Location Provider Dx Diagnosis Office Visit 03/14/2021 5:00p Main Office Berry Mendoza M.D. 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 03/06/2021 R10.84 Generalized abdominal pain [...] 03/25/[address] [place] [address] [phone]
--- OUTSIDE RECORDS SUMMARY | 2021-04-11 18:21 | CCD ---
Author Organization Unknown Address [address] [place] [address] Phone [phone] Care Team Providers Care Block Operator Name Role Phone HOWIE CRUM MD 3 [phone] Allergies Code Code System Name Reaction Severity Status Onset Toradol Rash Moderate to Severe Active 1 06/15/2019 802429 RxNorm Augmentin Hives Mild to Moderate Active 4739623 RxNorm Latex Hives Mild to Moderate Active 508081 RxNorm Paxil Hives Mild to Moderate Active Sulfa (Sulfonamide Antibiotics) Hives Mild to Moderate Active Medications Name Status Start Date Stop Date acetaminophen 300 mg-codeine 30 mg tablet Completed 09/11/2020 albuterol sulfate HFA 90 mcg/actuation aerosol inhaler Completed 02/14/2020 alprazolam 0.5 mg disintegrating tablet Active Not available Amitiza 24 mcg capsule [...] 100 mg capsule Completed 02/13 bupropion HCl XL 150 mg 24 hr tablet, ex tended release once a day Completed 02/14/2020 03/09/2020 bupropion HCl XL 300 mg 24 hr [...] spray USE DIRECTED ONCE Active Not available tanymikt-wlnapoiri-bidikwvee 3.5 mg/mL-1 0,000 unit/mL-1 % ear solution [...] available 09/11/2020 MRI, Lumbar Spine, W/o Contrast [facility] Radiology Dept [address] [place] [address] (Work [address]) Results Lab Results None recorded. Past Encounters 02/13/2021 Thoracic Spondylosis without Myelopathy; Myofascial Pain; Lumbosacral Spondylosis without Myelopathy; Inflammation of Sacroiliac Joint; Long-term Drug Therapy Chantal Brown, BOAT PAINTER: [address] [address], [place] [address], Ph. 12/19/2020 Thoracic Spondylosis without Myelopathy; Myofascial Pain; Lumbosacral Spondylosis without Myelopathy; Inflammation of Sacroiliac Joint Chantal Brown, BOAT PAINTER: [address] [facility], [place] [address], Ph. 11/15/2020 Thoracic Spondylosis without Myelopathy; Myofascial Pain; Lumbosacral Spondylosis without Myelopathy; Inflammation of Sacroiliac Joint; Lumbar Radiculopathy Chantal Brown, BOAT PAINTER: [address] [address], Ph. 10/15/2020 Thoracic Spondylosis without Myelopathy; Myofascial Pain; Lumbosacral Spondylosis without Myelopathy; Inflammation of Sacroiliac Joint; Lumbar Radiculopathy Chantal Kyle Vargason, BOAT PAINTER: [address] [facility] [address] , [place] [address], Ph. 09/11/2020 Thoracic Spondylosis without Myelopathy; Myofascial Pain; Lumbosacral Spondylosis without Myelopathy; Inflammation of Sacroiliac Joint; Lumbar Radiculopathy Chantal Brown, BOAT PAINTER: [address] [address], Ph. 08/13/2020 Thoracic Spondylosis without Myelopathy; Myofascial Pain; Lumbosacral Spondylosis without Myelopathy; Inflammation of Sacroiliac Joint Chantal Kyle Vargason, BOAT PAINTER: [address] [address], Ph. 07/20/2020 Thoracic Spondylosis without Myelopathy; Myofascial Pain; Lumbosacral Spondylosis without Myelopathy; Inflammation of Sacroiliac Joint Chantal Kyle Vargason, BOAT PAINTER: [address] [address], Ph. 06/19/2020 Thoracic Spondylosis without Myelopathy; Myofascial Pain; Lumbosacral Spondylosis without Myelopathy; Inflammation of Sacroiliac Joint Chantal Kyle Vargason, BOAT PAINTER: [address] [address], Ph. 05/24/2020 Thoracic Spondylosis without Myelopathy; Myofascial Pain; Lumbosacral Spondylosis without Myelopathy; Inflammation of Sacroiliac Joint Chantal Brown, BOAT PAINTER: [address] [facility], [place] [address], Ph. 04/12/2020 Thoracic Spondylosis without Myelopathy; Myofascial Pain; Lumbosacral Spondylosis without Myelopathy Chantal Brown, BOAT PAINTER: [address] [facility] [address], [facility] [place] [address], Ph. 03/09/2020 Thoracic Spondylosis without Myelopathy; Myofascial Pain; Lumbosacral Spondylosis without Myelopathy Stephen Tavarez MD: [address] [facility] [address], [facility] [place] [address], Ph. 02/14/2020 Thoracic Spondylosis without Myelopathy; Myofascial Pain Stephen Tavarez MD: [address] [address], [place] [address], Ph. Social History Tobacco Smoking Status Never Smoker Vaccine List None recorded. Plan of Care Reminders Provider Appointments None recorded. Lab None recorded. Referral None recorded. Procedures None recorded. Surgeries None recorded. Imaging None recorded. Vitals 02/13/2021 09:00AM FOLLOW-UP Height Blood Pressure 5 [...]
--- OUTSIDE RECORDS SUMMARY | 2021-04-11 18:21 | CCD ---
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 Active confirmed 589065963 Problem POTS (postural orthostatic tachycardia syndrome) I 49.8 Active confirmed 994123657 Problem Attention deficit hyperactivity disorder (ADHD), unspecified ADHD type F90.9 Active confirmed 138461374 Problem Inflammatory arthritis M19.90 Active confirmed 9041655 ALLERGIES Allergen (clinical drug ingredient) Drug/Non Drug Allergy do cumented on EMR Reaction Allergy Type Onset Date Status latex Unknown Non Drug Allergy Active Sulfacet-R Unknown Drug Allergy Active amoxicillin / clavulanate Augmentin([facility] Code:[address]-17) Unkn own Drug Allergy Active paroxetine Paxil([facility] Code:[address]-32) Unknown Drug Allergy Active ketorolac Ketorolac Tromethamine([facility] Code:[address]-05) Unknown Drug Allergy Active ENCOUNTERS from 1985 to 2021-02-07 Encounter Location Date Provider Diagnosis [address] [address] Jan, Janellquentin Bustamante Anxiety F41.9 IMMUNIZATIONS No Information SOCIAL HISTORY Tobacco Use: [...] capsule Orally Three times a day Active Narcan 4 MG/0.1ML as directed Nasally once for 1 days 2020 Active Ketoconazole 2 % 1 application Externally Once a day for 30 days Jan, Active tiZANidine HCl 6 MG 1 capsule as needed Orally Three times a day Active hydrOXYzine HCl 25 MG 1 tablet as needed Orally three times a day Active Corlanor 5 MG 1 tablet with meals Orally three times a day Active Metoprolol Tartrate 25 MG 1 tablet with food Orally Twice a day for 30 day(s) Active buPROPion HCl ER (XL) 300 MG 1 tablet in the morning O rally Once a day for 30 day(s) Active Metoclopramide HCl 5 MG 1 tablet before meals Orally threentimes a d ay Active Midodrine HCl 5 MG 1 tablet Orally Three times a day for 30 day(s) Active Linzess 290 MCG 1 capsule at least 30 minute s before the first meal of the day on an empty stomach Orally Once a day for 30 day(s) Active Hydroxychloroquine Sulfate 200 MG as directed Orally Active Levsin 0.125 MG 1 tablet as needed Orally three times a day Active ALPRAZolam 0.5 MG 1 tablet Orally every 8 hours as needed for 14 days Jan, Active HYDROcodone-Acetaminophen 7.5-325 MG 1 tablet as needed Orally ever y 6 hrs Active Ondansetron 4 MG 1 tablet on the tongue and a llow to dissolve Orally Once a day for 30 day(s) Active PROCEDURES No Information RESULTS No Results REASON FOR VISIT script MEDICAL (GENERAL) HISTORY Type Description Date Medical [...] Notes Treatment Notes Treatm ent Clinical Notes Jan, Anxiety (ICD-10 - F41.9) PLAN OF TREATMENT Medication Medication Name Sig Start Date Stop Date Ketoconazole 2 % 1 application Externally Once a day for 30 days Jan, ALPRAZolam 0.5 MG 1 tablet Orally every 8 hours as needed for 14 days Jan, Narcan 4 MG/0.1ML as directed Nasally once for 1 days Jan, buPROPion HCl ER (XL) 300 MG 1 tablet in the morning O rally Once a day for 30 day(s) Next Appt Details Provider Name:Janell Bustamante, 2021-02- 7 07:50:00 AM, [address] [place] [address], [phone], Insurance Providers Payer Name Payer Address Payer Phone Insured Name Patient Relati onship to Insured Coverage Start Date Coverage End Date [facility] [employer] [address] [facility] [address] [place] GEOVANNY,VICKIE self [employer] - [place]IC[place] [address] [facility] [address] [address] GEOVANNY,VICKIE self -[facility] c o [employer] [facility] [place] [address] [facility] [address] DE LAMERENS,VICKIE self
--- OUTSIDE RECORDS SUMMARY | 2021-04-11 18:21 | CCD ---
Continuity of Care Document (CCD) Created on: 01/28/2021 Dee Byrd External Reference #: [id number] : 1985 Sex: Female Author Author Dee JERNIGAN Organization Unknown Address [address] [place] [address] Phone [phone] Care Team Providers Care Hoop Punch Operator Helper Name Role Phone True Pinedo M.D. AUTM [phone] Tamera Whitt M.D. AUTM [phone] Problems Active Problems Provider Date Anxiety state Dinh Jernigan M.D. Onset: 01/22/2021 Disorder of thyroid gland Dinh Jernigan M.D. Onset: 021 Social History Type Date Description Comments Sex Unknown ETOH Use Denies alcohol use Tobacco Use Reviewed: 01/28/21 Patient has never smoked Smoking Status Reviewed: 01/28/21 Patient has never smoked Allergies, Adverse Reactions, Alerts Active Allergies Reaction Severity Comments Date Augmentin Anaphylaxis 01/22/2021 Duloxetine 01/22/2021 Ketorolac Hives 01/22/2021 Latex Hives 01/22/2021 Paxil Psychological impact 021 Sulfa Hives 01/22/2021 Ketorolac Tromethamine 01/28 Medications Active Medications SIG Qnty Indications Ordering Provide r Date Bupropion Hydrochloride ER (XL) 300mg Tablets ER [...] Sulfate 200mg T ablets every day Unknown Hydrocodone-Acetaminophen 5-325mg Tablets prn Unknown Ensure Clear Liquid bid Unknown Immunizations Description No Information Available Vital Signs Date Vital Result Comment 01/28/2021 8:25am BP Systolic Right Arm 120 mmHg BP Diastolic Right Arm 120 mmHg BP Systolic Left Arm 108 mmHg BP Diastolic Left Arm 108 mmHg Heart Rate 60 /min Body Temperature 97.7 F Height 68 inches 5'8" Weight 126.00 lb Weight 57.154 kg BMI (Body Mass Index) 19.2 kg/m2 Results Description No Information Available Procedures Description No Information Available Medical Devices Description No Information Available Encounters Description No Information Available Assessments Description No Information Available Plan of Treatment 01/28/2021 - Dinh Jernigan M.D.* * Follow up:* will call pt Functional Status Description No Information Available Mental Status Description No Information Available Referrals Description No Information Available
--- OUTSIDE RECORDS SUMMARY | 2021-04-11 18:21 | CCD ---
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 Active conf irmed 7797268 Problem Chronic pain disorder G89.4 Active confirmed 871225424 Problem Attention deficit hyperactivity disorder (ADHD), unspecified ADHD type F90.9 Active confirmed 704126597 Problem Inflammatory arthritis M19.90 Active confirmed 5030565 ALLERGIES Allergen (clinical drug ingredient) Drug/Non Drug Allergy do cumented on EMR Reaction Allergy Type Onset Date Status ketorolac Ketorolac Tromethamine([facility] Code:[address]-60) Unknown Drug Allergy Active Latex latex Unknown Non Drug Allergy Active amoxicillin / clavulanate Augmentin([facility] Code:[address]-52) Unkn own Drug Allergy Active paroxetine Paxil([facility] Code:[address]-38) Unknown Drug Allergy Active Sulfacet-R Unknown Drug Allergy Active ENCOUNTERS from 1985 to 2021-02-12 Encounter Location Date Provider Diagnosis [address] [address] Jan, Abeba Ashton IMMUNIZATIONS No Information SOCIAL HISTORY Tobacco Use: [...] Orally three times a day PRN Active Corlanor 5 MG 1 tablet with [...] 8 hours as needed for 14 days MDD #3 Jan, Active HYDROcodone-Acetaminophen 7.5-325 MG 1 tablet as needed Orally e very 6 hrs PRN Active Ondansetron 4 MG 1 tablet on the tongue and a llow to dissolve Orally Once a day for 30 day(s) Active PROCEDURES No Information RESULTS No Results REASON FOR VISIT Questions MEDICAL (GENERAL) HISTORY Type Description Date Medical History MALS Medical History POTS Medical History Anxiety Medical History Gastroparesis Medical History ADHD Medical History Inflammatory arthritis Medical History history of anorexia Surgical History Mesenteric Artery Ligament repair- Dr. Deshaun YOUNGER 08/2007 Surgical History Cholecystectomy 2009 Surgical History Laparoscopic surgery- 6 or 7 surgeries S tage 4 Endometriosis 2011,2012,2013,2015.2015,2016 Surgical History Oral surgery Hospitalization History Abdominal [...] day(s) Next Appt Details Provider Name:Janell Bustamante, 2021-02-13 6 08:30:00 AM, [address] [place] [address], [phone], Insurance Providers Payer Name Payer Address Payer Phone Insured Name Patient Relati onship to Insured Coverage Start Date Coverage End Date [employer] - [place]IC[place] [address] [facility] [address] VICKIE TOBIAS self [facility] [employer] [address] [facility] [address] VICKIE [facility] c o [facility] [place] [address] [facility] [address] VICKIE TOBIAS self
--- OUTSIDE RECORDS SUMMARY | 2021-04-11 18:21 | CCD | Continuity of Care Document ---
Author Author Dee JERNIGAN Organization Unknown Address [address] [place] [address] Phone [phone] Care Team Providers Care Personal Loan Specialist Name Role Phone True Pinedo M.D. AUTM [phone] Tamera Whitt M.D. AUTM [phone] [facility] Care Everywhere AUTM [phone] Problems Active Problems Provider Date Anxiety state [...] 1 tab by mouth every day Unknown 00 Dicyclomine HCL 10mg Capsules 1 by mouth [...] testine Dinh Jernigan M.D. Plan of Treatment Future Appointment(s):* 03/06/2021 9:15 am - Dinh Jernigan M.D. 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
--- OUTSIDE RECORDS SUMMARY | 2021-04-11 18:21 | CCD ---
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 Name Role Phone [place], Janell Unavailable PROBLEMS Type Condition ICD9-CM Code BEV38-JK Code Onset Dates Condition S tatus W/U Status Risk SNOMED Code Notes Problem Mesenteric artery stenosis K55.1 Active confirmed 191808462 Problem POTS (postural orthostatic tachycardia syndrome) I 49.8 Active confirmed 010762424 Problem Anxiety F41.9 Active confirmed 96388951 Problem Gastroparesis K31.84 Active confirmed 511076 006 Problem Median arcuate ligament syndrome I77.4 Active conf irmed 5271717 Problem Chronic pain disorder G89.4 Active confirmed 819441355 Problem Attention deficit hyperactivity disorder (ADHD), unspecified ADHD type F90.9 Active confirmed 252898778 Problem Inflammatory arthritis M19.90 Active confirmed 2559275 ALLERGIES Allergen (clinical drug ingredient) Drug/Non Drug Allergy do cumented on EMR Reaction Allergy Type Onset Date Status ketorolac Ketorolac Tromethamine([facility] Code:[address]-87) Unknown Drug Allergy Active Latex latex Unknown Non Drug Allergy Active amoxicillin / clavulanate Augmentin(ND Code:[address]-28) Unkn own Drug Allergy Active paroxetine Paxil(ND Code:[address]-43) Unknown Drug Allergy Active Sulfacet-R Unknown Drug Allergy Active ENCOUNTERS from 1986 to 2021-02-20 Encounter Location Date Provider Diagnosis [address] [address] Jan, Janell Bustamante Encounter to establish care Z76.89 ; Anxiety F41.9 ; Attention deficit hyperactivity disorder (ADHD), unspecified ADHD type F90.9 ; POTS (postural orthostatic tachycardia syndrome) I49.8 ; Median arcuate ligament syndrome I77.4 ; Inflammatory arthritis M19.90 ; Gastroparesis K31.84 ; Tinea versicolor B36.0 ; Medication refill Z76.0 ; At risk for substance overdose Z91.89 ; Controlled substance agreement signed Z79.899 and Chronic pain disorder G89.4 IMMUNIZATIONS No Information SOCIAL HISTORY Tobacco Use: Social History Observation Description Date Details (start date - stop date) Never Smoker Sex Assigned At : Social History Observation Description Sex Assigned At Unknown Tobacco Use/Smoking Question Answer Notes Are you a never smoker REASON FOR REFERRAL from 1986 to 2021-02-20 Reason The patient is a 35-year-old female with a history of anxiety. Her PHQ-9 score is 27 which revealed severe depression and HEMA-7 score is 21 which revealed severe anxiety. [facility]. Please evaluate and treat as needed. Thank you. Diagnosis 1 Anxiety (F41.9) Referral Organization [facility] Referring Provider First Name Janell Referring Provider Last Name Robby Referring Provider Specialty Family Medicine Referred Organization [facility] Pro gram Referred Provider Vickie Mary Referred Address [address] [place] [address],[place],[address] Referred Provider Specialty Psychiatry Referral Priority Routine General Notes Tegan Galindo LPN 02/07 11:48:29 AM >Es King LPN 02/07/2021 2:09:00 PM > Please update office with appt date/time. Thanks! VITAL SIGNS Height 68 in Jan, Weight 130 lbs Jan, BMI 19.76 kg/m2 Jan, Temperature 97.8 degrees Fahrenheit Jan, Heart Rate 80 /min Jan, Respiratory Rate 18 /min Jan, Oximetry 98 % Jan, Blood pressure systolic 100 mmHg Jan, Blood pressure diastolic 60 mmHg Jan, MEDICATIONS Medication SIG (Take, Route, Frequency, Duration) [...] as needed for 14 days MDD #3 Feb, Active HYDROcodone-Acetaminophen 7.5-325 MG 1 tablet as needed Orally e very 6 hrs PRN Active Ondansetron 4 MG 1 tablet on the tongue and a llow to dissolve Orally Once a day for 30 day(s) Active PROCEDURES No Information RESULTS No Results REASON FOR VISIT EST.CARE MEDICAL (GENERAL) HISTORY Type Description Date Medical History MALS Medical History POTS Medical History Anxiety Medical History Gastroparesis Medical History ADHD Medical History Inflammatory arthritis Medical History history of anorexia Surgical History Mesenteric Artery Ligament repair- Dr. Deshaun calles [place] 08/2007 Surgical History Cholecystectomy 2008 Surgical History Laparoscopic surgery- 6 or 7 surgeries S tage 4 Endometriosis 2011,2012,2013,2015.2015,2016 Surgical History Oral surgery Hospitalization History Abdominal Pain/Abdominal Surgeries Hospitalization History mental health-panic attacks Goals Section No Information Health Concerns No Information MEDICAL EQUIPMENT No Information MENTAL STATUS No Information FUNCTIONAL STATUS No Information ASSESSMENTS Encounter Date Diagnosis Assessment Notes Treatment Notes Treatm ent Clinical Notes Jan, Encounter to establish care (ICD-10 - Z76.89) - Follow up yearly for annual PE - Follow up as directed for routine condition monitoring - Follow up as needed for acute injury/illness/questions/concerns Health Maintenance: - Ensure diet high in fruits, vegetables, lean protein - Moderate alcohol, caffiene - Avoid tobacco - Obtain at least 120 mins of heart raising physical activity a week - Wear seatbelt - Use CO and smoke detectors in home Screenings: - Start colonoscopy at age 50 unless otherwise directed - Obtain yearly fasting labs - Start yearly mammograms at age 40 unless otherwise directed - Obtain yearly pelvic exams and every 3 years pap smear starting at age 21 unless otherwise directed Jan, Anxiety (ICD-10 - F41.9) Today, her PHQ-9 score is 27 which revealed severe depression and HEMA-7 score is 21 which revealed severe anxiety. Referral entered for [facility] today. Alprazolam restarted, but at lower dose than previous experience. Encouraged to find family and friend support to talk to. Pt to report to the ED immediately with any thoughts of self-harm and/or harm to others. Pt v/u and agree. Reviewed medication with patient including dose, administration, frequency and possible side effects. Reviewed warning s/s that warrant follow up with clinic v. when to seek ED evaluation. Psychiatric records requested from previous provided. Patient reports she was previous on 2mg of Xanax TID. Discussed priorities in her treatment from a primary care standpoint and controlling her anxiety was her main concern. Restarted Alprazolam, but at much lower dose. A prescription for Narcan also provided due to also being on opoids at this time and the associated risk of being on both a benzodiazepam and a opoid narcotic. She will have close follow up until seen by [facility].Spent 30 mins discussing case scenario w/[facility] provider and RN. Patient provided resource information from [facility] RN during this appointment Jan, Attention deficit hyperactiv ity disorder (ADHD), unspecified ADHD type (ICD-10 - F90.9) Discussed with her that her combination of physical health problems and mental well being that I would defer this to psychiatric provider to determine the need and appropriateness for her to go back on a ADHD medication Jan, POTS (postural orthostatic tachycardia s yndrome) (ICD-10 - I49.8) Keep appointments with Dr. Pinedo, Cardiology. Records release signed for this office Jan, Median arcuate ligament syndrome (ICD-10 - I77.4 ) Keep appointments with Dr. Fu Records requested from this office Jan, Inflammatory arthritis (ICD-10 - M19.90) Keep appointments with Rheumatology Records requested from this office Jan, Gastroparesis (ICD-10 - K31.84) Keep appointments with Dr. Tamera Whitt, GI Patient reports pending appointment with [facility] to assess possibility of gastric stimulator. Records requested from GI Jan, Tinea versicolor (ICD-10 - B36.0) She had previously used this. Refill provided today Jan, Medication refill (ICD-10 - Z76.0) Refill provided today Jan, At risk for substance overdose (ICD-10 - Z91.89) Provided Narcan prescription today due to associated risks. [facility] drug screen completed Jan, Controlled substance agreement signed (ICD-10 - Z79.899) Completed the controlled substance agreement. Provided short supply as we assess how she is doing. Will review prior records and result from [facility]. Confidential Drug Utilization Report Search Terms: vickie tobias, 1985Search Date: 02/07/2021 11:34:42 AMSearching on behalf of: [id number] Eleazar Rangel Drug Utilization Report below displays all of the controlled substance prescriptions, if any, that your patient has filled in the last twelve months. The information displayed on this report is compiled from pharmacy submissions to the Department, and accurately reflects the information as submitted by the pharmacies. This report was requested by: Tegan Galindo | Reference #: [id number] Others' Prescriptions Patient Name: Vickie ByrdBirth Date: 1985Address: [address] [place], [place] [address]Nhv: FemaleRx WrittenRx DispensedDrugQuantityDays SupplyPrescriber NamePrescriber Rosalva #Payment MethodDispenser /arisoprodol 350 mg npdwzv397Tldzeik, AdejjfXY6080684RbxryteufLkfslb Drugs #30 Patient Name: Vickie ByrdBirth Date: 1985Address: [address] [place], [place] [address]Zie: FemaleRx WrittenRx DispensedDrugQuantityDays SupplyPrescriber NamePrescriber Rosalva #Payment MethodDispenser /hydrocodone-acetaminophen 5-325 mg kinmlh753Ekzld, Heather XPE5963989BligcmwevZeqqygajf #82787 /10/2020hydrocodone-acetaminophen 5-325 mg phtjbz27Yjuh-YcwmqzyzLevy CastorenaVnfbufxCA9847606ZmiidvtjjNpxcmumjb #73867 /tramadol hcl 50 mg tnfeji035Kdylflm, Douglas Balbir SRF7599185Dv suranceWalgreens #63493 /hydrocodone-acetaminophen 5-325 mg uyxmnu681Rsqkiu, PveylEQ9204357MudqmrfqeAtmstsiee #45853 /04/2021oxycodone-acetaminophen 5-325 mg owb842OxecfkqvTamera Whitt M, YDS8015539JzptevocnSnilxkqmu #00994 /arisoprodol 350 mg ocvhlh477Pyvrmel, SizaauWX4378191FpxuysvwdMlskdmgwq #73843 /iazepam 5 mg bkrmmn83Qudslm, ZpbwdyahqpnOH7903253ZfaeuqcnbZgwlrxduf #28400 /10/2020hydrocodone-acetaminophen 5-300 mg jurnmf667Aernwn, Itagegnehou (DMD)CI4986495PffarfyciSakjztddz #43957 /cetaminophen-cod #3 enrppf450Lxjmrz, Edious, K DMDFE67 28835VaepgxztmTpidhrxpe #20225 /cetaminophen-cod #3 ljhutc491Vvitpf, Bilal (DMD)MD5030070GwsarfrefDgpwfdoxm #45078 /1diazepam 5 mg oggpjo68Npokfy, Itagegnehou (DMD)BB6028340YjafsmrkjQinvqiikd #96115 oxycodone-acetaminophen 5-325 mg ozo1596WrxypllgTamera Whitt M, VZVV8140670HsmyjoylhTfdjnlmah #65630 zolpidem tartrate 5 mg gggrcw6560AxbtjanzzElias MIC3681086EkvbiwoyeHbmyadrsg #47155 carisoprodol 250 mg pbdive816Jvbbl, Edmar LIMMFO7557448IthqhyavyRuhkzknym #64155 carisoprodol 250 mg iifiqw503Kswkz, Edmar LIMMTW1481764JxyooeyjdAuwnrgqds #62662 Jan, Chronic pain disorder (ICD-10 - G89.4) Discussed I would not be taking this over. Records requested from Pain Management. Review of [facility] SPECIALIST raises some concerns over multiple providers prescribing Jan, Other All questions an d concerns addressed, patient understanding and agreeable to plan. Patient encouraged to follow up at the clinic for any additional or new questions or concerns. Time spent includes face to face time with patient and review of any pertinent laboratory results, consult documentation/hospital notes and diagnostic imaging. Time spent: 60 mins Nohemi Chavis, scribing the following service on behalf of Janell Bustamante NP on 02/06/2021. PLAN OF TREATMENT Medication Medication Name Sig Start Date Stop Date Ketoconazole 2 % 1 application Externally Once a day for 30 days Jan, ALPRAZolam 0.5 MG 1 tablet Orally every 8 hours as needed for 14 days Feb, Narcan 4 MG/0.1ML as directed Nasally once for 1 days Jan, buPROPion HCl ER (XL) 300 MG 1 tablet in the morning O rally Once a day for 30 day(s) Treatment Notes Assessment Notes Clinical Notes Encounter to establish care - Follow up yearly for [facility] PE - Follow up as directed for routine condition monitoring - Follow up as needed for acute injury/illness/questions/concerns Health Maintenance: - Ensure diet high in frui ts, vegetables, lean protein - Moderate alcohol, caffiene - Avoid tobacco - Obtain at least 120 mins of heart raising physical activity a week - Wear seatbelt - Use CO and smoke detectors in home Screenings: - Start colonoscopy at age 50 unless otherwise directed - Obtain yearly fasting labs - Start yearly mammograms at age 40 unless otherwise directed - Obtain yearly pelvic exams and every 3 years pap smear starting at age 21 unless otherwise directed Anxiety Today, her PHQ-9 score is 27 which revealed severe depression and HEMA-7 score is 21 which revealed severe anxiety.Referral entered for [facility] today. Alprazolam restarted, but at lower dose than previous experience.Encouraged to find family and friend support to talk to. Pt to report to the ED immediately with any thoughts of self-harm and/or harm to others. Pt v/u and agree.Reviewed medication with patient including dose, administration, frequency and possible side effects. Reviewed warning s/s that warrant follow up with clinic v. when to seek ED evaluation. Psychiatric records requested from previ ous provided. Patient reports she was previous on 2mg of Xanax TID. Discussed priorities in her treatment from a primary care standpoint and controlling her anxiety was her main concern. Restarted Alprazolam, but at much lower dose. A prescription for Narcan also provided due to also being on opoids at this time and the associated risk of being on both a benzodiazepam and a opoid narcotic. She will have close follow up until seen by [facility].Spent 30 mins discussing case scenario w/[facility] provider and RN. Patient provided resource information from [facility] RN during this appointment Attention deficit hyperactivity disorder (ADHD), unspecified ADHD type Discussed with her that her combination of physical health problems and mental well being that I would defer this to psychiatric provider to determine the need and appropriateness for her to go back on a ADHD medication POTS (postural orthostatic tachycardia syndrome) Keep appointments with Dr. Pinedo, Cardiology. Records release signed for this office Median arcuate ligament syndrome Keep appointments with Dr. Fu Records requested from this office Inflammatory arthritis Keep appointments with Rheumatology R ecords requested from this office Gastroparesis Keep appointments with Dr. Tamera Whitt , GI Patient reports pending appointment with [facility] to assess possibility of gastric stimulator. Records requested from GI Tinea versicolor She had previously u sed this. Refill provided today Medication refill Refill provided today At risk for substance overdose Provided Narcan prescri ption today due to associated risks.[facility] drug screen completed Chronic pain disorder Discussed I would not be taking this over. Records requested from Pain Management. Review of [facility] SPECIALIST raises some concerns over multiple providers prescribing Controlled substance agreement signed Completed the co ntrolled substance agreement. Provided short supply as we assess how she is doing. Will review prior records and result from [facility]. Confidential Drug Utilization ReportSear ch Terms: vickie tobias, 1985Search Date: 02/07/2021 11:34:42 AMSearching on behalf of: [id number] Eleazar Rangel Drug Utilization Report below displays all of the controlled substance prescriptions, if any, that your patient has filled in the last twelve months. The information displayed on this report is compiled from pharmacy submissions to the Department, and accurately reflects the information as submitted by the pharmacies.This report was requested by: Tegan Galindo | Reference #: [id number]' PrescriptionsPatient Name: Vickie ByrdBirth Date: 1985Address: [address] [place], [place] [address]Rny: FemaleRx WrittenRx DispensedDrugQuantityDays SupplyPrescriber NamePrescriber Rosalva #Payment WumvvfSbkvvwknp47/03//arisoprodol 350 mg vumshg920Umqhpgn, GooqqrAU6975334BgyhehupuOlynrq Drugs #30Patient Name: Vickie ByrdBirth Date: 1985Address: [address] [place], [place] [address]Gmg: Fema leRx WrittenRx DispensedDrugQuantity SupplyPrescriber NamePrescriber Rosalva #Payment WcdhbyIvacrbque80/16/202108/hydrocodone-acetaminophen 5-325 mg lukpkv771PnrpgKaroline gonzalez AMVPB4920516DwrlpfkghQjrmmaegz #9062637/10/2020hydrocodone-acetaminophen 5-325 mg ptijqc62YoocLevy SiuRbqjuilKF0174976KgokquiqpBgmcbuaqr #2355096/26//tramadol hcl 50 mg dalhzs247JzruwbaDouglas Steven TNQ9483761RkqelfxrkIurjfojtz #8511967/25//hydrocodone-acetaminophen 5-325 mg uaurkj920Osasyf, ApfmfUM0224357IbqknmmhyBqwixrixf #3818408/04/2021oxycodone- acetaminophen 5-325 mg qsm344VhvhfrkoTamera Whitt M, WOI8504631HejkpisdqYtwzyocyx #8255828//097954/arisoprodol 350 mg ackfsz321DthpsffChaseUhypqtGH5393867LzaungcgwDadmgdbxk #9575589//278573//1diazepam 5 mg jqhffr29Cvkgcy, EyhaodkmjbiXQ5872765UsbrzlmocKyiaehueb #2205460///10/2020hydrocodone-acetaminophen 5-300 mg tcylyq206Ibogdq, Montrell (DMD)CX5526485FzuqnpoakSzqevhuau #1690138///1acetaminophen-cod #3 tisrnz220SevgrsElmerAlban zambrano LBFFW2512450VjwryoghnYjkvkmppl #7643006//1acetaminophen-cod #3 ujtvpt378Vfgspd, Bilal (DMD)ZU3892367PquditxgkBrhqxlqfl #7565796/923045//1diazepam 5 mg iysjem92Nnyagr, Itdeb (DMD)WN0494621GunallwbtGzouumaou #8512451/20190616//2019oxycodone- acetaminophen 5-325 mg opj4328YrotfeosTamera Whitt M, SOKZ2539789OrdoxoiecIqkvfefnh #1465442//147421/12/2019zolpidem tartrate 5 mg tcrkeb4603Hxnmdihti, John BKP8946216MeknuisldUawubdvgn #2671418//04/2020carisoprodol 250 mg tkrmjc942LmqgjEdmarYUS6765834YtptlyodrRzkxneljd #6655273///carisoprodol 250 mg nmngsk980Iazar, Edmar SHAHHTT5773780UgdwjyfglHotqpjzzw #51818 Treatment Notes Test Name Order Date Urine toxicology-Aeg 2021-02-07 Referrals Referral Date Details The patient is a 35-year-old female with a history of anxiety. Her PHQ-9 score is 27 which revealed severe depression and HEMA-7 score is 21 which revealed severe anxiety. Referral sent to [facility] for further management. Please evaluate and treat as needed. Thank you., Vickie Mary, [address] [place], [address], Next Appt Details 2 Weeks Reason:Meds/Anxiety/Record Revie w Provider Name:Janell Bustamante, 2021-02-13 6 08:30:00 AM, [address] [place] [address], [phone], Follow Up:2 WeeksMeds/Anxiety/Record Review Insurance Providers Payer Name Payer Address Payer Phone Insured Name Patient Relati onship to Insured Coverage Start Date Coverage End Date [employer] - [place]IC[place] [address] [facility] [id number] [place],VICKIE self [employer] - [place] [employer] [address] [facility] [address],VICKIE self [facility] c o [employer] [facility] [place] [address] [facility] [phone] [place] LAMERENS,VICKIE self"
--- OUTSIDE RECORDS SUMMARY | 2021-04-11 18:21 | CCD ---
Author Author [facility] Organization [facility] Address Unknown Phone Unavailable Care Team Providers Care Managed Care Provider Name Role Phone Abeba Ashton Unavailable PROBLEMS Type Condition ICD9-CM Code PPE88-FZ Code Onset Dates Condition S tatus W/U Status Risk SNOMED Code Notes Problem Mesenteric artery stenosis K55.1 Active confirmed 905639758 Problem POTS (postural orthostatic tachycardia syndrome) I 49.8 Active confirmed 167984016 Problem Anxiety F41.9 Active confirmed 89980102 Problem Gastroparesis K31.84 Active confirmed 716790 006 Problem Median arcuate ligament syndrome I77.4 Active conf irmed 2730264 Problem Chronic pain disorder G89.4 Active confirmed 775490913 Problem Attention deficit hyperactivity disorder (ADHD), unspecified ADHD type F90.9 Active confirmed 244901279 Problem Inflammatory arthritis M19.90 Active confirmed 9883777 ALLERGIES Allergen (clinical drug ingredient) Drug/Non Drug Allergy do cumented on EMR Reaction Allergy Type Onset Date Status ketorolac Ketorolac Tromethamine(ND Code:[address]-50) Unknown Drug Allergy Active Latex latex Unknown Non Drug Allergy Active amoxicillin / clavulanate Augmentin(ND Code:[address]-51) Unkn own Drug Allergy Active paroxetine Paxil(ND Code:[address]-62) Unknown Drug Allergy Active Sulfacet-R Unknown Drug Allergy Active ENCOUNTERS from 1985 to 2021-02-19 Encounter Location Date Provider Diagnosis [address] [address] Feb, Abeba Ashton Anxiety F41.9 IMMUNIZATIONS No Information SOCIAL HISTORY [...] Information RESULTS No Results REASON FOR VISIT refill MEDICAL (GENERAL) HISTORY Type Description Date Medical [...] Notes Treatm ent Clinical Notes Feb, Anxiety (ICD-10 - F41.9) PLAN OF TREATMENT [...] Provider Name:Janell Bustamante, 2021-02-13 6 08:30:00 AM, [address] [place] [address], [phone], Insurance Providers Payer Name Payer Address Payer Phone Insured Name Patient Relati onship to Insured Coverage Start Date Coverage End Date [facility] [employer] [employer] [address] [facility] [address] [place]ERENS,VICKIE self [employer] [place]IC[place] [address] [facility] [id number] [address] [place]ER[place],VICKIE self [facility] c o [employer] [facility] [place] [address] [facility] [phone] [place] LAMERENS,VICKIE self
--- OUTSIDE RECORDS SUMMARY | 2021-04-11 18:21 | CCD | Summary of Care ---
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 Name Role Phone Pcp, No PCP Unavailable Reason for Visit * Reason Comments Abdominal Pain * Auth/Cert Referred By Contact Referred To Contact Status Reason Specialty Diagnoses / Procedures Diagnoses Abdominal pain Encounter Details Care Team Description Date Type Department Xavi Christie MD [address] [place] [address] [phone] Bruce Navarrete MD [address] [place] [address] [phone] 01/17/2021 Emergency [address] [place] [address] Allergies Comments Active Allergy Reactions Severity Noted Date Amoxicillin-Pot Anaphylaxis High 01/11/2020 Clavulanate Duloxetine 05/24/2020 Latex Anaphylaxis High 01/11/2020 Paroxetine Hcl 01/11/2020 Sulfa Antibiotics Anaphylaxis High 01/11/2020 Ketorolac Tromethamine Rash High 020 Sertraline Hcl 05/24/2020 documented as of this encounter (statuses as of 01/17/2021) Medications End Date Status Medication Sig Dispensed Refills Start Date Active Albuterol Sulfate HFA 108 Inhale 1-2 0 (90 Base) MCG/ACT puffs into Inhalation Aerosol the lungs Solution (PROVENTIL HFA) every 4 (four) hours as needed for Wheezing Active Midodrine HCl 2.5 MG Oral Take 5 mg by 0 01/13 Tablet (PROAMATINE) mouth After 0 Meals In 8 am 5 -10 mg, depending on bp, At noon 5 mg and 4pm 2.5mg Active linaCLOtide 290 MCG Oral Take by mouth 0 Capsule (LINZESS) Daily Active Ibuprofen 800 MG Oral Take 800 mg 0 04/30/20 2 Tablet (MOTRIN) by mouth 0 every 8 (eight) hours as needed Active Ondansetron HCl 4 MG Oral 4 mg 0 04/16 Tablet (ZOFRAN) 0 Active tiZANidine HCl 4 MG Oral Take by mouth 0 05/22 Tablet (ZANAFLEX) Four times 0 daily Taking 4 or 8 mg Active Omeprazole 40 MG Oral Take 40 mg by 0 Capsule Delayed Release mouth daily (PRILOSEC) Active Hyoscyamine Sulfate 0.125 Take 0.125 mg 0 MG Sublingual Tablet by mouth Sublingual (LEVSIN/SL) every 4 (four) hours as needed for Cramping Active QUEtiapine Fumarate Take by mouth 0 (SEROQUEL PO) Active buPROPion HCl ER (XL) 300 TAKE 1 TABLET 0 08/14 MG Oral Tablet Extended BY MOUTH 1 Release 24 Hour EVERY (WELLBUTRIN XL) MORNING. START AM OF 3.27.202009/25/2021 Active Hydroxychloroquine Take 1 tablet 30 tablet 11 09/26 Sulfate 200 MG Oral by mouth 1 Tablet daily (Plaquenil)Indications: SLE (systemic lupus erythematosus related syndrome) Active Ondansetron 4 MG Oral Take 4 mg by 0 Tablet Disintegrating mouth every 8 (ZOFRAN-ODT) (eight) hours as needed for Nausea Active Metoclopramide HCl 10 MG Take 10 mg by 0 Oral Tablet (REGLAN) mouth Four times daily Active Hyoscyamine Sulfate 0.125 Take 0.125 mg 0 MG Sublingual Tablet by mouth Sublingual (LEVSIN/SL) every 4 (four) hours as needed for Cramping 01/20/2021 Active HYDROcodone-Acetaminophen Take 1 tablet 9 tablet 0 5-325 MG Oral Tablet by mouth 1 (LORTAB) every 8 (eight) hours as needed for up to 3 days, Max Daily Dose: 3 tablets 01/27/2021 Active hydrOXYzine HCl 25 MG Take 1 tablet 30 tablet 0 Oral Tablet (ATARAX) by mouth 1 every 6 (six) hours as needed for Anxiety for up to 10 days 02/14/2021 Active Ensure Clear Oral Liquid Take 198 mLs 31139 mL 1 by mouth Four 1 times daily as needed (nutritional supplementati on) documented as of this encounter (statuses as of 01/17/2021) Active Problems Patient Care Coordination Note No show letter #1 sent 08/22/20 Problem Noted Date Abdominal pain 01/17/2021 Anorexia 05/25/2020 Anxiety 05/25/2020 Insomnia 05/25/2020 Endometriosis 05/24/2020 POTS (postural orthostatic tachycardia syndrome) 06/2019 Tachycardia 01/11/2020 Hypotension 01/11/2020 documented as of this encounter (statuses as of 01/17/2021) Social History Date Tobacco Use Types Packs/Day Years Used Never Smoker Smokeless Tobacco: Never Used Comments Alcohol Use Standard Drinks/Week Never 0 (1 standard drink = 0.6 o z pure alcohol) Alcohol Habits Answer Date Recorded How often do you have a drink containing alcohol? Never 05/24/2020 How many drinks containing alcohol do you have on Not aske d 05/24/2020 a typical day when you are drinking? How often do you have six or more drinks on one Never 05/24/2020 occasion? Sex Assigned at Date Recorded Not on file Date Recorded COVID-19 Exposure Response 01/16/2021 1:25 PM EDT In the last month, have you been in contact with No / Unsure someone who was confirmed or suspected to have Coronavirus / COVID-19? documented as of this encounter Last Filed Vital Signs Reading Time Taken Comments Vital Sign 122/73 01/17/2021 3:21 PM EDT Blood Pressure 89 01/17/2021 3:21 PM EDT Pulse 36.7 C (98.1 F) 01/17/2021 3:21 PM EDT Temperature 16 01/17/2021 3:21 PM EDT Respiratory Rate 97% 01/17/2021 3:21 PM EDT Oxygen Saturation - - Inhaled Oxygen Concentration 56.7 kg (125 lb) 01/16/2021 1:53 PM EDT Weight 172.7 cm (5' 8") 01/16/2021 1:53 PM EDT Height 19.01 01/16/2021 1:53 PM EDT Body Mass Index documented in this encounter Discharge Instructions * Instructions* Annie Castorena NP - 01/17/2021 3:32 PM EDT Make your healthcare team aware of this hospitalization. Call the GI office from which you receive care and make them aware of this hospi talization. You were prescribed an opiate pain medication side effects include constipation. Be sure you are having formed regular bowel movements while taking this medicat ion. Do not drive or operate machinery while taking this medication. documented in this encounter Progress Notes * Stefanie Byrnes, SEBASTIÁN - 01/17/2021 5:15 PM EDT Discharge paperwork given and reviewed. Pt. Has no questions at this time. [facility] band waiting in [place] to take pt. Home. Pt. Taken out via wheelchair and pt. Ambulated into 's truck with no issues. documented in this encounter H&P Notes * Brad Sánchez MC - 01/17/2021 5:58 AM EDT History & Physical Patient Dee Byrd PCP No Pcp Admission Date 01/17/2021 Chief Complaint/Reason for Admission: Dee is coming in today from home , for nausea and vomit Subjective History of Presenting Illness 35-year-old female with PMH most significant for anorexia, chronic abdominal nash n, inflammatory arthtritis, SMA sp surgery, POTS, denies drug use Endometriosis . Coming in today with abdominal pain. Complains of abdominal pain since April 2020 however for the last 4 to 5 week s he has been progressively worsening and is associated with nausea and vomit. At the ED she has received ondansetron metoclopramide 1 L IVF, fentanyl 75 MCG. She is not tolerating p.o. CT A abdomen does not show any evidence of bowel ischemia vascular compromise or any acute abnormality Active Ambulatory Problems Diagnosis Date Noted Tachycardia 01/11/2020 Hypotension 01/11/2020 Endometriosis 05/24/2020 Anorexia 05/25/2020 Anxiety 05/25/2020 Insomnia 05/25/2020 POTS (postural orthostatic tachycardia syndrome) 02/14/2020 Resolved Ambulatory Problems Diagnosis Date Noted No Resolved Ambulatory Problems Past Medical History: Diagnosis Date Allergy Asthma Low back pain Lupus Thyroid disease Vision abnormalities Past Surgical History CHOLECYSTECTOMY mesentaric artery ERCP Social History She is . She lives with their family. She reports that she has never smo ked. She has never used smokeless tobacco. She reports that she does not drink a lcohol and does not use drugs. Travel: No recent history of long distance travel. Family History Her family history includes Asthma in her maternal grandmother; COPD in her mate rnal grandmother; Heart disease in her maternal grandfather and mother; Hyperten fredrick in her mother; No Known Problems in her brother, father, sister, and sister . Home Medications Medication Sig Hyoscyamine Sulfate 0.125 MG Sublingual Tablet Sublingual (LEVSIN/SL) Take 0.125 mg by mouth every 4 (four) hours as needed for Cramping Metoclopramide HCl 10 MG Oral Tablet (REGLAN) Take 10 mg by mouth Four times he ly Ondansetron 4 MG Oral Tablet Disintegrating (ZOFRAN-ODT) Take 4 mg by mouth ever y 8 (eight) hours as needed for Nausea Albuterol Sulfate HFA 108 (90 Base) MCG/ACT Inhalation Aerosol Solution (PROVENT IL HFA) Inhale 1-2 puffs into the lungs every 4 (four) hours as needed for Whee zing buPROPion HCl ER (XL) 300 MG Oral Tablet Extended Release 24 Hour (WELLBUTRIN XL ) TAKE 1 TABLET BY MOUTH EVERY MORNING. START AM OF 3.27.2020 Hydroxychloroquine Sulfate 200 MG Oral Tablet (Plaquenil) Take 1 tablet by mouth daily Hyoscyamine Sulfate 0.125 MG Sublingual Tablet Sublingual (LEVSIN/SL) Take 0.125 mg by mouth every 4 (four) hours as needed for Cramping Patient not taking: Reported on 09/26/2020 Ibuprofen 800 MG Oral Tablet (MOTRIN) Take 800 mg by mouth every 8 (eight) hours as needed linaCLOtide 290 MCG Oral Capsule (LINZESS) Take by mouth Daily Midodrine HCl 2.5 MG Oral Tablet (PROAMATINE) Take 5 mg by mouth After Meals In 8 am 5 -10 mg, depending on bp, At noon 5 mg and 4pm 2.5mg Omeprazole 40 MG Oral Capsule Delayed Release (PRILOSEC) Take 40 mg by mouth he ly Ondansetron HCl 4 MG Oral Tablet (ZOFRAN) 4 mg QUEtiapine Fumarate (SEROQUEL PO) Take by mouth tiZANidine HCl 4 MG Oral Tablet (ZANAFLEX) Take by mouth Four times daily Taking 4 or 8 mg Allergies: Augmentin [amoxicillin-pot clavulanate], Latex, Sulfa antibiotics, To radol [ketorolac tromethamine], Duloxetine, Paxil [paroxetine hcl], and Zoloft [ sertraline hcl] Review of Systems Constitutional: Negative for activity change, appetite change and fever. HENT: Negative for sore throat. Eyes: Negative for discharge and redness. Respiratory: Negative for apnea, cough, chest tightness and shortness of breath. Cardiovascular: Negative for chest pain and palpitations. Gastrointestinal: Positive for abdominal distention, abdominal pain, diarrhea, n ausea and vomiting. Musculoskeletal: Negative for arthralgias and back pain. Skin: Negative for color change and pallor. Neurological: Negative for dizziness and facial asymmetry. Psychiatric/Behavioral: Negative for agitation and behavioral problems. Objective Temp: [36.8 C (98.2 F)-37.5 C (99.5 F)] 36.8 C (98.2 F) Pulse: [85-106] 93 Resp: [16-19] 18 BP: (108-142)/(66-91) 108/66 SpO2: [97 %-100 %] 97 % O2 Therapy: Room air Physical Exam Constitutional: She is oriented to person, place, and time. HENT: Head: Normocephalic and atraumatic. Nose: Nose normal. Mouth/Throat: Mucous membranes are dry. Oropharynx is clear. Eyes: Pupils are equal, round, and reactive to light. Conjunctivae are normal. Cardiovascular: Normal rate, regular rhythm, normal heart sounds and normal puls es. Pulmonary/Chest: Effort normal and breath sounds normal. Abdominal: Normal appearance. Musculoskeletal: General: Normal range of motion. Cervical back: Normal range of motion and neck supple. Neurological: She is alert and oriented to person, place, and time. Skin: Skin is warm and dry. Psychiatric: Her behavior is normal. Mood normal. Nursing note and vitals reviewed. Laboratory Data (Most Recent over Past 3 Years) Lab 03/04/04 120208/22/20 12009/04/2075509/04/2075501/17/2156 WBC 8.1 < > 7.6 < > 10.3* HGB 12.7 < > 13.5 < > 13.2 HCT 38.0 < > 40.6 < > 38.6 MCV 84.6 < > 83.6 < > 82.9 PLT 368 -- 317 -- 295 < > = values in this interval not displayed. Lab 08/22/20120108/22/20120109/04/206 09/04/206 01/17/2156 NA 136 < > 141 < > 138 K 2.9* < > 3.4 < > 3.2* CL 98 < > 109* < > 104 BICARBONATE 26 < > 21* < > 19* GLUCOSE 91 < > 99 < > 89 BUN 7 < > 9 < > 6 CREATININE 0.65 -- 0.74 -- 0.68 < > = values in this interval not displayed. Lab 01/17/2156 LIPASE 16 Lab 08/22/20120108/22/20 12009/04/20 0756 09/04/2075501/17/21 005 NEUTOPHILPCT 77 < > 76 < > 80 LYMPHOPCT 17 < > 16 < > 12 MONOPCT 5 < > 6 < > 7 EOSPCT 1 -- 2 -- 1 < > = values in this interval not displayed. Lab 08/22/20120108/22/20 12009/04/206 09/04/2075501/17/21 005 PROT 7.5 < > 7.6 < > 7.6 ALBUMIN 4.7 < > 4.7 < > 4.5 AST 13 < > 13 < > 15 ALT 8 < > 7 < > 22 TBILI 0.5 < > 0.3 < > 0.5 ALKPHOS 88 -- 76 -- 83 < > = values in this interval not displayed. Lab 01/11/20 115 INR 1.03 Lab 01/11/20 1156 08/22/20 1202 01/17/21 005 TSH 6.100* < > 3.660 [id number] 7.6 -- -- < > = values in this interval not displayed. CT Angiography Abdomen and Pelvis ; Emergent exam: waive labs Result Date: 01/17/2021 PROCEDURE INFORMATION: Exam: CTA Abdomen and Pelvis Without And With Contrast Ex am date and time: 01/17/2021 2:05 AM Age: 35 years old Clinical indication: Other: HX sma syndrome, concern for mesenteric ischemia TECHNIQUE: Imaging protocol: C omputed tomographic angiography of the abdomen and pelvis without and with contr ast. 3D rendering (Not supervised by radiologist): MIP and/or 3D reconstructed i mages were created by the technologist. Radiation optimization: All CT scans at this facility use at least one of these dose optimization techniques: automated exposure control; mA and/or kV adjustment per patient size (includes targeted ex ams where dose is matched to clinical indication); or iterative reconstruction. Contrast material: 350; Contrast volume: 100 ml; Contrast route: INTRAVENOUS (IV ); COMPARISON: CT ABDOMEN PELVIS WITH CONTRAST [id number] 09/04/2020 8:28 AM FINDINGS : Aorta: No aortic aneurysm. No aortic dissection. Celiac trunk and mesenteric a rteries: No occlusion or significant stenosis. Renal arteries: No occlusion or s ignificant stenosis. Right iliac arteries: No occlusion or significant stenosis. Left iliac arteries: No occlusion or significant stenosis. Liver: No mass. Gall bladder and bile ducts: The patient is status post cholecystectomy. There is pro minence of the common bile duct measuring 9 mm. Pancreas: Unremarkable. No mass. No ductal dilation. Spleen: Unremarkable. No splenomegaly. Adrenal glands: Unre markable. No mass. Kidneys and ureters: Unremarkable. No solid mass. No hydronep hrosis. Stomach and bowel: Unremarkable. No obstruction. No mucosal thickening. Appendix: No evidence of appendicitis. Intraperitoneal space: Unremarkable. No f ree air. No significant fluid collection. Retroperitoneal space: Multiple surgic al clips are seen in the upper retroperitoneum. Lymph nodes: Unremarkable. No en larged lymph nodes. Urinary bladder: Unremarkable. No mass. Reproductive: Unrema rkable as visualized. Bones/joints: No acute fracture. No dislocation. Soft tiss ues: Unremarkable. IMPRESSION: 1. No evidence of bowel ischemia, vascular compro mise or other acute abnormality. 2. Postsurgical changes in the upper retroperit oneum. THIS DOCUMENT HAS BEEN ELECTRONICALLY SIGNED BY IMAN RAM MD Assessment & Plan 35-year-old female with PMH most significant for anorexia, chronic abdominal nash n, inflammatory arthtritis, SMA sp surgery, POTS, endometriosis.coming in today with abdominal pain. Vomit diarrhea can teat cant keep anything down since April, past 4 days no eat anuything Pain is RUQ, sharp stabing,constat, worsened by eating and drinki ng, 2-02/22. Abdominal pain Intractable vomit - Unsure of etiology, could be SMA, endometriosis - Present since April 2020 however for the last 4 to 5 weeks he has been pro gressively worsening and is associated with nausea and vomit. Denied drugs, Alcohol, tobacco use - CTA abdomen unremarkable - s/p metoclopramide, zofra, droperidol, morphine - has received two different anti dopaminergic will abstain from further use to avoid toxicity - Will try IV benadryl - IV omeprazole - Pain managemetn with tylenol standing, as needed fentanyl 12.5 - IVF -Utox Inflammatory arthritis - c/w plaquenil POTS - C/w midodrine Depression ?? Anorexia??? - pt on bupropion, generally contraindicated in anorexia pts - will hold for now DVT Prophylaxis: SCD's while in bed GI Prophylaxis: PPi Reason: GERD Disposition: Will place her under observation. Code Status: Full Code The patient was discussed with Dr. Byrd who agrees with the assessment an d plan as noted above. Signature: Brad Sánchez Date/Time: January 17, 2021 5:58 AM Associated attestation - Bruce Navarrete MD - 01/17/2021 4:07 PM EDT Hospitalist Attending: Admission Note Dee was seen and examined on admission date at bedside. I discussed the patient's health issues with the resident. I agree with the findings and plan as outlined in the resident note. I independently reviewed all data, notes and orders as well as the overall manag ement and care plan. Principal Problem: Abdominal pain Active Problems: Endometriosis POTS (postural orthostatic tachycardia syndrome) History of chronic abdominal pain Evaluated for vascular anomaly Appointment next week Came in with acute worsening from [place] On IV fluids with minimal relief Unable to take p.o. adequately for discharge Acute issues noted Begin support on acute floor Therapy & plan per resident provider Discussed with staff Total Time of Visit: 50 mins ++++++++++++++++++++++++++++ Bruce Navarrete MD Hospitalist Service, Observation Team [facility] @ [facility] documented in this encounter ED Notes * Socorro Frost, RN - 01/16/2021 1:51 PM EDT To ED for abd pain x 3 days. States she has a history of celiac and mesenteric a rtery stenosis, surgery completed on 2007. Over past few days she reports nausea , vomiting and increased pain. Denies blood in stool. GI told her to come to ED documented in this encounter Miscellaneous Notes * [place] Patient Instructions - Annie Castorena NP - 01/17/2021 3:32 PM EDT 3726 Hydrocodone-APAP Oral Tablet 5 mg/325 mg Uses For pain. Instructions This medicine may be taken with or without food. Keep the medicine at room temperature. Avoid heat and direct light. To reduce constipation, eat high fiber foods, drink plenty of water and exercise . Please tell your doctor and pharmacist about all the medicines you take. Include both prescription and [id number] medicines. Also tell them about any harper mins, herbal medicines, or anything else you take for your health. It is very important that you follow your doctor's instructions for all blood te sts. Do not take more than 8 pills in a day. Cautions This medicine contains an opioid. Though it helps many people, this medicine may sometimes cause addiction, especially if it is used for a long time. This risk for addiction may be higher if you have a substance use disorder - such as overu se of or addiction to drugs or alcohol. Speak with your doctor about the benefit s and risks of using this medicine. Ask your doctor or pharmacist if you should have naloxone on hand to treat opioi d overdose. Teach your family or household members about the signs of an opioid overdose and how to treat it. Tell your doctor and pharmacist if you ever had an allergic reaction to a medici ne. Symptoms of an allergic reaction can include trouble breathing, skin rash, i tching, swelling, or severe dizziness. Do not use the medication any more than instructed. If possible, avoid using with marijuana or other medicines that can cause dizzin ess or drowsiness. These include allergy/cold products, muscle relaxers, sleep a ids, and pain relievers. Your ability to stay alert or to react quickly may be impaired by this medicine. Do not operate machinery or drive while on this medicine. Do not drink beverages with alcohol while on this medicine. Tell the doctor or pharmacist if you are , planning to be , or b reastfeeding. This medicine can hurt a new baby in the womb. If you become while on t his medicine, tell your doctor immediately. Your doctor may switch you to a diff erent medicine. Ask your pharmacist if this medicine can interact with any of your other medicin es. Be sure to tell them about all the medicines you take. Please tell all your doctors and dentists that you are on this medicine before t hey provide care. Do not start or stop any other medicines without first speaking to your doctor o r pharmacist. This medicine should be used with caution in patients with breathing difficultie s. Call your doctor right away if you notice slow or shallow breathing. Do not share this medicine with anyone who has not been prescribed this medicine . This medicine contains acetaminophen. There are many medicines with acetaminophe n. Taking these medicines together can cause you to get too much acetaminophen. This can cause serious liver problems. Look carefully on the package of all your medicines to see if acetaminophen is included. Ask your pharmacist which medici willis you can take safely. Side Effects The following is a list of some common side effects from this medicine. Please s peak with your doctor about what you should do if you experience these or other side effects. constipation dizziness drowsiness or sedation lack of energy and tiredness itching liver problems nausea skin irritation such as redness, itching, rash, or burning stomach upset or abdominal pain sweating vomiting If you have any of the following side effects, you may be getting too much medic ine. Please contact your doctor to let them know about these side effects. changes in memory, mood, or thinking difficulty concentrating confusion fainting slow heartbeat low blood pressure muscle weakness cold, moist skin blurring or changes of vision Call your doctor or get medical help right away if you notice any of these more serious side effects: decreased awareness or responsiveness breathing interruption during sleep shallow, irregular breathing chest pain hallucinations (unusual thoughts, seeing or hearing things that are not re al) symptoms of liver damage (such as yellowing of skin or eyes, dark urine, u nusual tiredness or weakness; severe stomach or back pain) pale or blue skin, lips or fingernails seizures shortness of breath light colored stool difficulty or discomfort urinating severe or persistent vomiting A few people may have an allergic reaction to this medicine. Symptoms can includ e difficulty breathing, skin rash, itching, swelling, or severe dizziness. If yo u notice any of these symptoms, seek medical help quickly. Extra Please speak with your doctor, nurse, or pharmacist if you have any questions ab out this medicine. [email or web address] IMPORTANT NOTE: This document tells you briefly how to take your medicine, but i t does not tell you all there is to know about it.Your doctor or pharmacist may give you other documents about your medicine. Please talk to them if you have an y questions.Always follow their advice. There is a more complete description of this medicine available in [place].Scan this code on your smartphone or tablet o r use the web address below. You can also ask your pharmacist for a printout. If you have any questions, please ask your pharmacist. 2020 [employer]. * Plan of Care - Suzan Rudd RN - 01/17/2021 7:05 AM EDT Problem: Pain Goal: Pain is controlled to patient's desired goal Outcome: Progressing documented in this encounter Plan of Treatment Care Team Description Date Type Specialty Sharon Lee MBBS [address] [facility] 2nd Floor [address] [place] [address] [phone] 03/27/2021 Office Visit Rheumatology Order Schedule Name Type Priority Associated Diag noses AM Draw for 2 Occurrences starting 01/18 until 01/19/2021 Basic Metabolic Panel Lab Routine AM Draw for 1 Occurrences starting 01/18 until 01/18/2021 Magnesium Level Lab Routine AM Draw for 1 Occurrences starting 01/18 until 01/18/2021 Phosphorus Level Lab Routine AM Draw for 2 Occurrences starting 01/18 until 01/19/2021 CBC and Differential Lab Routine Health Maintenance Due Date Last Done Comments MMR Vaccines (1 of 1 - 1987 Standard series) Varicella Vaccines (1 of 1987 2 - 2-dose childhood series) DTaP,Tdap,and Td Vaccines 1993 (1 - Tdap) Cervical Cancer Screening 2007 5 years Influenza Vaccine 03/15/2021 Pneumococcal Vaccine: 65+ 2051 Years (1 of 1 - PPSV23) HIV Screening Completed 01/12/2020 HIB Vaccines Aged Out No longer eligible based on patient's age to complete this topic Hepatitis A Vaccines Aged Out No longer eligibl e based on patient's age to complete this topic Hepatitis B Vaccines Aged Out No longer eligibl e based on patient's age to complete this topic IPV Vaccines Aged Out No longer eligible based on patient's age to complete this topic Pneumococcal Vaccine: Aged Out No longer eligib le based on patient's age to Pediatrics (0 to 5 Years) complete this topic and At-Risk Patients (6 to 64 Years) documented as of this encounter Procedures Comments Procedure Name Priority Date/Time Associated Diag nosis POTASSIUM Routine 01/17/2021 1:35 PM EDT DRUGS OF ABUSE, URINE Routine 01/17/2021 4:24 AM EDT URINALYSIS WITH STAT 01/17/2021 MICROSCOPIC 4:[address] ANGIOGRAPHY ABDOMEN CODE 01/17/2021 AND PELVIS [id number] 2:24 AM EDT POCT ISTAT BHCG Routine 01/17/2021 1:02 AM EDT RESPIRATORY PATHOGEN Routine 01/17/2021 PANEL 12:58 AM EDT COVID-19 PCR Routine 01/17/2021 12:58 AM EDT CBC AND DIFFERENTIAL Routine 01/17/2021 12:57 AM EDT TSH Routine 01/17/2021 12:57 AM EDT LIPASE LEVEL STAT 01/17/2021 12:57 AM EDT BILIRUBIN, DIRECT Routine 01/17/2021 12:57 AM EDT COMPREHENSIVE METABOLIC STAT 01/17/2021 PANEL 12:57 AM EDT documented in this encounter Results * Potassium (01/17/2021 1:35 PM EDT) Potassium 3.7 3.4 - 5.1 mmol/L [facility] Clin Pathology Specimen Plasma Performing Organization Address City/State/ZIP Code P aramis Number [facility] [address] [place], [place] [address] PATHOLOGY [facility] [address] [place], [place] [address] Clin Pathology * Drugs Of Abuse, Urine (01/17/2021 4:24 AM EDT) Amphetamine Negative Negative Cutoff [facility] Benzodiazepine Negative Negative Cutoff 300 [facility] Cannabinoids Negative Negative Cutoff 50 [facility] Cocaine Negative Negative Cutoff 300 [facility] Methadone Negative Negative Cutoff 300 [facility] (Doloph[facility]) [facility]ology Opiates Negative Negative Cutoff 300 [facility] Oxycodone Negative Negative Cutoff 100 [facility] Fentanyl Positive (A) Negative Cutoff 1 [facility] Comment: [facility] (NOTE) Pathology Positive results are presumptive and unconfirmed;confirmatory testing can be ordered at the [facility] at [phone] or [facility] at [phone] within 5 days of collection. Drug (NOTE) [facility] Interpretation Comment: [facility] Results below the indicated Pathology cutoff (ng/mL), are reported as "Negative." Note: for medical purposes only; not valid for legal or employment testing. Specimen Urine Performing Organization Address City/State/ZIP Code P aramis Number [facility] [address] [place], [place] [address] [address] Clin Pathology * Urinalysis with microscopic (01/17/2021 4:24 AM EDT) Color Colorless [facility] Pathology Clarity Clear [facility] Pathology Specific 1.055 (H) 1.003 - 1.030 [facility] Gum Spring [facility] Univ Clin Pathology PH Urine 7.0 5.0 - 8.0 [facility] Pathology Total Protein Negative Negative mg/dL [facility] Clin Pathology Glucose UA Negative Negative mg/dL [facility] Pathology Ketone Urine 5 (A) Negative mg/dL [facility] Pathology Bilirubin Negative Negative [facility] Pathology Hemoglobin, Negative Negative [facility] Urine [facility] Clin Pathology Leukocyte Negative Negative Matheus/uL [facility] Esterase [facility] Clin Pathology Nitrite Negative Negative [facility] Pathology WBC <1 0 - 5 /HPF [facility] Pathology RBC 1 0 - 3 /HPF [facility] Pathology Squam Epithel, 1 (A) None /HPF [facility] Clin Pathology Specimen Urine Performing Organization Address City/[facility]/ZIP Code P aramis Number [facility] [address] [place], [place] [address] [address] Clin Pathology * CT Angiography Abdomen and Pelvis ; Emergent exam: waive labs (01/17/2021 2:24 AM EDT) Specimen Narrative Performed At PROCEDURE INFORMATION: [facility] Exam: CTA Abdomen and Pelvis Without An d With Contrast Exam date and time: 01/17/2021 2:05 AM Age: 35 years old Clinical indication: Other: HX sma synd filiberto, concern for mesenteric ischemia TECHNIQUE: Imaging protocol: Computed tomographic angiography of the abdomen and pelvis without and with contrast. 3D rendering (Not supervised by radiolo gist): MIP and/or 3D reconstructed images were created by the technologist . Radiation optimization: All CT scans at this facility use at least one of these dose optimization techniques: automated exposure control; mA and/or kV adjustment per patient size (includes t argeted exams where dose is matched to clinical indication); or iterative nelson nstruction. Contrast material: 350; Contrast volume : 100 ml; Contrast route: INTRAVENOUS (IV); COMPARISON: CT ABDOMEN PELVIS WITH CONTRAST [id number] 8:28 AM FINDINGS: Aorta: No aortic aneurysm. No aortic di ssection. Celiac trunk and mesenteric arteries: N o occlusion or significant stenosis. Renal arteries: No occlusion or signifi cant stenosis. Right iliac arteries: No occlusion or s ignificant stenosis. Left iliac arteries: No occlusion or si gnificant stenosis. Liver: No mass. Gallbladder and bile ducts: The patient is status post cholecystectomy. There is prominence of the common bile duct m easuring 9 mm. Pancreas: Unremarkable. No mass. No avel lexii dilation. Spleen: Unremarkable. No splenomegaly. Adrenal glands: Unremarkable. No mass. Kidneys and ureters: Unremarkable. No s olid mass. No hydronephrosis. Stomach and bowel: Unremarkable. No obs truction. No mucosal thickening. Appendix: No evidence of appendicitis. Intraperitoneal space: Unremarkable. No free air. No significant fluid collection. Retroperitoneal space: Multiple surgica l clips are seen in the upper retroperitoneum. Lymph nodes: Unremarkable. No enlarged lymph nodes. Urinary bladder: Unremarkable. No mass. Reproductive: Unremarkable as visualize d. Bones/joints: No acute fracture. No dis location. Soft tissues: Unremarkable. IMPRESSION: 1. No evidence of bowel ischemia, vascu lar compromise or other acute abnormality. 2. Postsurgical changes in the upper re troperitoneum. THIS DOCUMENT HAS BEEN ELECTRONICALLY S IGNED BY IMAN RAM MD Procedure Note Interface, Received Via [facility] - 01/17/2021 4:19 AM EDT PROCEDURE INFORMATION: Exam: CTA Abdomen and Pelvis Without And With Contrast Exam date and time: 01/17/2021 2:05 AM Age: 35 years old Clinical indication: Other: HX sma syndrome, concern for mesenteric ischemia TECHNIQUE: Imaging protocol: Computed tomographic angiography of the abdomen and pelvis without and with contrast. 3D rendering (Not supervised by radiolog ist): MIP and/or 3D reconstructed images were created by the technologist. Radiation optimization: All CT scans at this facility use at least one of these dose optimization techniques: automated exposure control; mA and/or kV adjustment per patient size (includes targeted exams where dose is matched to clinical indication); or iterative reconstruction. Contrast material: 350; Contrast volume: 100 ml; Contrast route: INTRAVENOUS (IV); COMPARISON: CT ABDOMEN PELVIS WITH CONTRAST [id number] 09/04/2020 8:28 AM FINDINGS: Aorta: No aortic aneurysm. No aortic dissection. Celiac trunk and mesenteric arteries: No occlusion or significant stenosis. Renal arteries: No occlusion or significant stenosis. Right iliac arteries: No occlusion or significant stenosis. Left iliac arteries: No occlusion or significant stenosis. Liver: No mass. Gallbladder and bile ducts: The patient is status post cholecystectomy. There is prominence of the common bile duct measuring 9 mm. Pancreas: Unremarkable. No mass. No ductal dilation. Spleen: Unremarkable. No splenomegaly. Adrenal glands: Unremarkable. No mass. Kidneys and ureters: Unremarkable. No solid mass. No hydronephrosis. Stomach and bowel: Unremarkable. No obstruction. No mucosal thickening. Appendix: No evidence of appendicitis. Intraperitoneal space: Unremarkable. No free air. No significant fluid collection. Retroperitoneal space: Multiple surgical clips are seen in the upper retroperitoneum. Lymph nodes: Unremarkable. No enlarged lymph nodes. Urinary bladder: Unremarkable. No mass. Reproductive: Unremarkable as visualized. Bones/joints: No acute fracture. No dislocation. Soft tissues: Unremarkable. IMPRESSION: 1. No evidence of bowel ischemia, vascul ar compromise or other acute abnormality. 2. Postsurgical changes in the upper ret roperitoneum. THIS DOCUMENT HAS BEEN ELECTRONICALLY SIGNED BY IMAN RAM MD Performing Organization Address City/[facility]/ZIP Code P aramis Number [facility] [address] [place] [address] * POCT i-STAT BHCG (01/17/2021 1:02 AM EDT) i-STAT BHCG <5 <5 [IU]/L [facility] Comment: Hospital POC (NOTE) Levels between 5 and 25 [IU]/L may indicate early and should be repeated after 48 hours. Specimen Whole Blood Performing Organization Address [place]/[facility] P aramis Number POINT OF CARE TEST [address] POC [address] [place] [address] * Respiratory Pathogen Panel (01/17/2021 12:58 AM EDT) Special Request None [facility] CLINICAL PATHOLOGY Respiratory PCR PCR Results [facility] Panel CLINICAL PATHOLOGY Culture/Results See Labs Tab for 2019 nCoV [facility] te RT-PCR results [facility] Pathology Adenovirus Not Detected [facility] Clin Pathology Coronavirus Not Detected [facility] 229E [facility] Pathology Coronavirus Not Detected [facility] HKU1 [facility] Pathology Coronavirus Not Detected [facility] NL63 [facility] Pathology Coronavirus Not Detected [facility] OC43 [facility] Pathology Human Not Detected [facility] Metapneumovirus [facility] Pathology Rhinovirus/ Not Detected [facility] Enterovirus [facility] Pathology Influenza A Not Detected [facility] Clin Pathology Influenza B Not Detected [facility] Clin Pathology Parainfluenza Not Detected [facility] virus 1 [facility] Pathology Parainfluenza Not Detected [facility] virus 2 [facility] Pathology Parainfluenza Not Detected [facility] virus 3 [facility] Pathology Parainfluenza Not Detected [facility] virus 4 [facility] Pathology RSV Not Detected [facility] Pathology Bordetella Not Detected [facility] pertussis [facility] Pathology Chlamydia Not Detected [facility] pneumoniae [facility] Pathology Mycoplasma Not Detected [facility] pneumoniae [facility] Pathology Bordetella Not Detected [facility] parapertussis [facility] Clin Pathology Specimen Nasopharyngeal Swab Performing Organization Address City/State/ZIP Code P aramis Number [facility] [address] [place], [place] [address] PATHOLOGY [facility] [address] [place], [place] [address] Clin Pathology * COVID-19 PCR (01/17/2021 12:58 AM EDT) Specimen Nasopharyngeal Swab [facility] Description CLINICAL PATHOLOGY SARS CoV-2 2019 nCoV Real-Time RT-PCR: 2019 nCoV Real-Victorino e [facility] NOT DETECTED RT-PCR: NOT DETECTED [facility] Clin Pathology Assay performed Test performed using [facility] Res[facility]. Med [facility] Clin Pathology First COVID-19 UNKNOWN [facility] Test? CLINICAL PATHOLOGY Employed in UNKNOWN [facility] CLINICAL setting? PATHOLOGY Symptomatic for UNKNOWN [facility] COVID-19 as CLINICAL defined by CDC? PATHOLOGY Date of symptom UNKNOWN [facility] onset? CLINICAL ([id number]) PATHOLOGY Hospitalized UNKNOWN [facility] for COVID-19? CLINICAL PATHOLOGY Admitted to ICU UNKNOWN [facility] for COVID-19? CLINICAL PATHOLOGY Resident in a UNKNOWN [facility] CLINICAL (group) care PATHOLOGY setting? ? UNKNOWN [facility] CLINICAL PATHOLOGY Specimen Nasopharyngeal Swab Performing Organization Address [place]/[facility]/ZIP Code P aramis Number [address] [address] Clin Pathology * Bilirubin, direct (01/17/2021 12:57 AM EDT) Bilirubin, <0.2 <0.3 mg/dL [facility] Direct [facility] Clin Pathology Specimen Plasma Performing Organization Address [place]/[facility]/ZIP Code P aramis Number [address] [address] Clin Pathology * TSH (01/17/2021 12:57 AM EDT) TSH 3.660 0.27 - 4.20 u[IU]/mL [facility] Pathology Specimen Plasma Performing Organization Address City/[facility]/ZIP [facility] P aramis Number [address] [address] Clin Pathology * Lipase Level (01/17/2021 12:57 AM EDT) Lipase 16 13 - 60 U/L [facility] Pathology Specimen Plasma Performing Organization Address [facility] P aramis Number [address] [address] Clin Pathology * Comprehensive Metabolic Panel (01/17/2021 12:57 AM EDT) Albumin 4.5 3.5 - 5.2 g/dL [facility] Pathology Bilirubin, 0.5 <1.2 mg/dL [facility] Total [facility] Clin Pathology Calcium 9.3 8.6 - 10.0 mg/dL [facility] Pathology Chloride 104 98 - 107 mmol/L [facility] Pathology Creatinine 0.68 0.50 - 0.90 mg/dL [facility] Pathology Glucose 89 70 - 140 mg/dL [facility] Pathology Alkaline 83 35 - 104 U/L [facility] Clin Pathology Potassium 3.2 (L) 3.4 - 5.1 mmol/L [facility] Pathology Total Protein 7.6 6.4 - 8.3 g/dL [facility] Pathology Sodium 138 136 - 145 mmol/L [facility] Pathology AST/SGO 15 <32 U/L [facility] Pathology Blood Urea 6 6 - 20 mg/dL [facility] Nitrogen [facility] Clin Pathology Osmolality, Roger 283 275.0 - 300.0 [facility] mosm/kg [facility] Pathology BUN/Cre Ratio 9 [facility] Pathology Bicarbonate 19 (L) 22 - 29 mmol/L [facility] Pathology ALT/SGP 22 <33 U/L [facility] Pathology Anion Gap 15 8 - 15 mmol/L [facility] Pathology GFR Non >90 >60 mL/min/1.73m2 [facility] e Kazakh 2008 [facility] Clin CDK-EPI Pathology GFR >90 >60 mL/min/1.73m2 [facility] 2008 [facility] CKD-EPI Pathology Specimen Plasma Performing Organization Address City/State/ZIP Code P aramis Number [facility] [address] [place] [address] PATHOLOGY [facility] [address] [place], [place] [address] Clin Pathology * CBC and Differential (01/17/2021 12:57 AM EDT) White Blood 10.3 (H) 4.00 - 10.00 10*3/uL [facility] ate Cell [facility] Clin Pathology Red Blood Cell 4.66 4.10 - 5.30 10*6/uL [facility] te [facility] Clin Pathology Hemoglobin 13.2 11.5 - 15.5 g/dL [facility] Pathology Hematocrit 38.6 36.0 - 45.0 % [facility] Pathology Mean Cell 82.9 80.0 - 96.0 fL [facility] Volume [facility] Univ Clin Pathology Mean Cell 28.4 27.0 - 33.0 pg [facility] Hemoglobin [facility] Clin Pathology Mean Cell Hgb 34.3 32 - 36 g/dL [facility] Clin Pathology Red Cell Dist 13.5 11.5 - 14.5 % [facility] Width [facility] Clin Pathology Platelet Count 295 150 - 400 10*3/uL [facility] Pathology Differential Automated Diff [facility] Type [facility] Pathology Neutrophil 80 % [facility] Pathology Lymphocyte 12 % [facility] Pathology Monocyte 7 % [facility] Pathology Eosinophil 1 % [facility] Pathology Basophil 0 % [facility] Pathology Abs Neutrophil 8.19 (H) 1.80 - 7.00 10*3/uL [facility] Clin Pathology Abs Lymphocyte 1.28 1.20 - 4.00 10*3/uL [facility] Clin Pathology Abs Monocyte 0.76 0.00 - 0.80 10*3/uL [facility] Clin Pathology Abs Eosinophil 0.09 0.00 - 0.50 10*3/uL [facility] Clin Pathology Abs Basophil 0.02 0.00 - 0.20 10*3/uL [facility] Clin Pathology Nucleated Red 0 0 - 0 /100{WBCs} [facility] Blood Cells [facility] Clin Pathology Specimen EDTA Whole Blood Performing Organization Address City/State/ZIP Code P aramis Number [facility] [address] [place], [place] 1321 PATHOLOGY [facility] [address] [place], [place] [address] Clin Pathology documented in this encounter Visit Diagnoses Diagnosis Abdominal pain - Primary Abdominal pain, unspecified site Endometriosis Endometriosis, site unspecified POTS (postural orthostatic tachycardia syndrome) Tachycardia, unspecified documented in this encounter Administered Medications Action Date Dose Rate Site Medication Order MAR Action 01/17/2021 1:32 PM EDT 650 mg acetaminophen (TYLENOL) tablet 650 mg Given 650 mg, Oral, Four Times Daily Standard, First dose on Kathy 01/17/21 at 0900, For 30 days, Maximum daily dose o f acetaminophen is 3,000 mg from all sources in 24 hours. 650 mg Given 01/17/2021 8:41 AM EDT 01/17/2021 2:03 PM EDT 0.5 tablets HYDROcodone-acetaminophen (LORTAB) 5-325 Given MG per tablet 0.5 tablet 0.5 tablet, Oral, Every 4 hours PRN, Moderate Pain (Pain Scale Score 4-6), Starting on Kathy 01/17/21 at 1345, For 71 hours, Maximum daily dose of acetaminophen is 3,000 mg from all sources in 24 hours. 01/17/2021 8:42 AM EDT 200 mg hydroxychloroquine (PLAQUENIL) tablet Given 200 mg 200 mg, Oral, Daily Standard, First dose on Kathy 01/17/21 at 0900, For 30 days 01/17/2021 2:03 PM EDT 25 mg hydrOXYzine (ATARAX) tablet 25 mg Given 25 mg, Oral, Every 6 hours PRN, Anxiety, Starting on Kathy 01/17/21 at 1334 , For 30 days 01/17/2021 8:44 AM EDT 40 mg pantoprazole (PROTONIX) injection 40 mg Given by IV 40 mg, Intravenous, Daily Standard, push First dose on Kathy 01/17/21 at 0900, For 3 0 days Action Date Dose Rate Site Medication Order MAR Action 01/17/2021 5:17 AM EDT 1.25 mg droperidol (INAPSINE) injection 1.25 mg New Bag 1.25 mg, Intravenous, Once, On Kathy 01/17/21 at 0515, For 1 dose 01/17/2021 8:42 AM EDT 12.5 mcg fentaNYL (SUBLIMAZE) (PF) injection 12.5 Given by IV mcg push 12.5 mcg, Intravenous, Every 3 hours PRN, Severe Pain (Pain Scale Score 7-10), Starting on Kathy 01/17/21 at 0629, For 1 day 01/17/2021 5:20 AM EDT 25 mcg fentaNYL (SUBLIMAZE) (PF) injection 25 Given by IV mcg push 25 mcg, Intravenous, Once, On Kathy 1 at 0515, For 1 dose 01/17/2021 1:07 AM EDT 50 mcg fentaNYL (SUBLIMAZE) (PF) injection 50 New Bag mcg 50 mcg, Intravenous, Once, On Kathy at 0100, For 1 dose fentaNYL (SUBLIMAZE) 100 MCG/2ML (PF) injection Starting on Kathy 01/17/21 at 0510, For 1 dose, Domenica Lobato: bouchra override 01/17/2021 2:14 AM EDT 100 mLs iohexol (OMNIPAQUE) 350 MG/ML contrast Given injection 100 mL 100 mL, Given by IV, 1 TIME IMAGING, On Kathy 01/17/21 at 0215, For 1 dose 01/17/2021 1:08 AM EDT 1,000 mLs 999 mL/hr lactated ringers bolus 1,000 mL New Bag 1,000 mL, Intravenous, Once, On Kathy 01/17/21 at 0100, For 1 dose 01/17/2021 4:47 AM EDT 1,000 mLs 999 mL/hr lactated ringers bolus 1,000 mL New Bag 1,000 mL, Intravenous, Once, On Kathy 01/17/21 at 0445, For 1 dose 01/17/2021 5:58 AM EDT 0.5 mg LORazepam (ATIVAN) injection 0.5 mg New Bag 0.5 mg, Intravenous, Once, On [facility] 1 at 0600, For 1 dose 01/17/2021 4:22 AM EDT 10 mg metoclopramide (REGLAN) injection 10 mg New Bag 10 mg, Intravenous, Once, On Kathy 01/17/21 at 0345, For 1 dose 01/17/2021 7:03 AM EDT 100 mL/hr NaCl infusion 0.9 % New Bag at 100 mL/hr, Intravenous, Continuous, Starting on Kathy 01/17/21 at 0645, For 12 hours 01/17/2021 1:06 AM EDT 4 mg ondansetron (ZOFRAN) injection 4 mg Given 4 mg, Given by IV, Once, On Kathy 01/17/21 at 0100, For 1 dose 01/17/2021 10:56 AM EDT 10 mEq 100 mL/hr potassium chloride 10 mEq in 100 mL IVPB New Bag (premix) 10 mEq, Intravenous, Administer over 60 Minutes, Every 1 hour, First dose on Kathy 01/17/21 at 0815, For 4 doses 10 mEq 100 mL/hr New Bag 01/17/2021 10:00 AM EDT 10 mEq 100 mL/hr New Bag 01/17/2021 8:49 AM EDT documented in this encounter Active and Recently Administered Medications Times are shown in EDT. 01/16/2021 01/17/2021 Medication Order 01/15/2021 0841 (Given - Provider: Molly elliott RN)1332 (Given - Provider: Molly Dobbs RN)1700 (Due)2100 (Due) acetaminophen (TYLENOL) tablet 650 mg 650 mg, Oral, Four Times Daily Standard, First dose on Kathy 01/17/21 at 0900, For 30 days, Maximum daily dose o f acetaminophen is 3,000 mg from all sources in 24 hours. 0635 (Not Given - Provider: Domenica drew RN - Reason: Contraindicated) diphenhydrAMINE (BENADRYL) injection 25 mg 25 mg, Intravenous, Once, On Kathy 01/17/21 at 0615, For 1 dose 0517 (New Bag - Provider: Domenica Lobato RN)0538 (Stopped - All Meds - Provider: Domenica Lobato RN) droperidol (INAPSINE) injection 1.25 mg (COMPLETED) 1.25 mg, Intravenous, Once, On Kathy 01/17/21 at 0515, For 1 dose 0520 (Given by IV push - Provider: Domenica Lobato RN) fentaNYL (SUBLIMAZE) (PF) injection 25 mcg (COMPLETED) 25 mcg, Intravenous, Once, On Kathy 1 at 0515, For 1 dose 0107 (New Bag - Provider: Domenica Lobato RN)0112 (Stopped - All Meds - Provider: Domenica Lobato RN) fentaNYL (SUBLIMAZE) (PF) injection 50 mcg (COMPLETED) 50 mcg, Intravenous, Once, On Kathy 1 at 0100, For 1 dose 0501 (Not Given - Provider: Domenica drew RN - Reason: Nausea/Vomitting) HYDROcodone-acetaminophen (LORTAB) 5-32 5 MG per tablet 1 tablet 1 tablet, Oral, Once, On Kathy 01/17/21 at 0415, For 1 dose, Maximum daily dose of acetaminophen is 3,000 mg from all sources in 24 hours. 0842 (Given - Provider: Molly elliott RN) hydroxychloroquine (PLAQUENIL) tablet 200 mg 200 mg, Oral, Daily Standard, First dose on Kathy 01/17/21 at 0900, For 30 days 0214 (Given - Provider: Morris salinas, RT) iohexol (OMNIPAQUE) 350 MG/ML contrast injection 100 mL (COMPLETED) 100 mL, Given by IV, 1 TIME IMAGING, On Kathy 01/17/21 at 0215, For 1 dose 0108 (New Bag - Provider: Domenica Lobato RN)0217 (Stopped - All Meds - Provider: Domenica Lobato RN) lactated ringers bolus 1,000 mL (COMPLETED) 1,000 mL, Intravenous, Once, On Kathy 01/17/21 at 0100, For 1 dose 0447 (New Bag - Provider: Domenica Lobato RN)0559 (Stopped - All Meds - Provider: Domenica Lobato RN) lactated ringers bolus 1,000 mL (COMPLETED) 1,000 mL, Intravenous, Once, On Kathy 01/17/21 at 0445, For 1 dose 0558 (New Bag - Provider: Domenica Lobato RN)0621 (Stopped - All Meds - Provider: Domenica Lobato RN) LORazepam (ATIVAN) injection 0.5 mg (COMPLETED) 0.5 mg, Intravenous, Once, On Kathy 1 at 0600, For 1 dose 0422 (New Bag - Provider: Domenica Lobato RN)0441 (Stopped - All Meds - Provider: Domenica Lobato RN) metoclopramide (REGLAN) injection 10 mg (COMPLETED) 10 mg, Intravenous, Once, On Kathy 01/17/21 at 0345, For 1 dose 0851 (Not Given - Provider: Molly higuera RN - Reason: Patient/family refused)1331 (Not Given - Provider: Molly Dobbs RN - Reason: Patient/family refused)1800 (Due) midodrine (PROAMATINE) tablet 5 mg 5 mg, Oral, Three Times Daily - Midodrine, First dose on Kathy 01/17/21 at 0900, For 30 days 0106 (Given - Provider: Domenica Lobato RN) ondansetron (ZOFRAN) injection 4 mg (COMPLETED) 4 mg, Given by IV, Once, On Kathy 01/17/21 at 0100, For 1 dose 0844 (Given by IV push - Provider: Osbaldo Dobbs RN) pantoprazole (PROTONIX) injection 40 mg 40 mg, Intravenous, Daily Standard, First dose on Kathy 01/17/21 at 0900, For 3 0 days 0849 (New Bag - Provider: Molly rangel RN)0949 (Stopped - All Meds - Provider: Marietta Colmenares RN)1000 (New Bag - Provider: Molly Dobbs RN)1055 (Stopped - All Meds - Provider: Marietta Colmenares, SEBASTIÁN)1056 (New Bag - Provider: Marietta Colmenares RN)1224 (Not Given - Provider: Molly Dobbs RN - Reason: Other - Comment: per Creamjenny do not give at this time if pt tolerating PO)1225 (Stopped - All Meds - Provider: Molly Dobsb RN) potassium chloride 10 mEq in 100 mL IVP B (premix) (CANCELED) 10 mEq, Intravenous, Administer over 60 Minutes, Every 1 hour, First dose on Kathy 01/17/21 at 0815, For 4 doses 01/16/2021 01/17/2021 Medication Order 01/15/2021 0703 (New Bag - Provider: Suzan castellanos RN)1419 (Stopped - All Meds - Provider: Molly Dobbs RN) NaCl infusion 0.9 % (CANCELED) at 100 mL/hr, Intravenous, Continuous, Starting on Kathy 01/17/21 at 0645, For 12 hours 01/16/2021 01/17/2021 Medication Order 01/15/2021 0842 (Given by IV push - Provider: Osbaldo Dobbs RN) fentaNYL (SUBLIMAZE) (PF) injection 12. 5 mcg (CANCELED) 12.5 mcg, Intravenous, Every 3 hours PRN, Severe Pain (Pain Scale Score 7-10), Starting on Kathy 01/17/21 at 0629, For 1 day 1403 (Given - Provider: Molly elliott RN) HYDROcodone-acetaminophen (LORTAB) 5-32 5 MG per tablet 0.5 tablet 0.5 tablet, Oral, Every 4 hours PRN, Moderate Pain (Pain Scale Score 4-6), Starting on Kathy 01/17/21 at 1345, For 71 hours, Maximum daily dose of acetaminophen is 3,000 mg from all sources in 24 hours. 1403 (Given - Provider: Molly elliott RN) hydrOXYzine (ATARAX) tablet 25 mg 25 mg, Oral, Every 6 hours PRN, Anxiety, Starting on Kathy 01/17/21 at 1334 , For 30 days hyoscyamine (LEVSIN/SL) SL tablet 125 mcg 125 mcg, Oral, Every 4 hours PRN, Cramping, Starting on Kathy 01/17/21 at 0609, For 30 days documented in this encounter Additional Health Concerns Last Indicated Resolved Time Infection Onset Date 01/17/2021 01/17/2021 2:57 AM EDT COVID-19 Rule-Out 01/17/2021 01/17/2021 01/17/2021 2:57 AM EDT Respiratory Rule-Out 01/17/2021 documented as of this encounter
[2021-04-11] MEDS ORDERED: MORPHINE 4 MG/ML 1ML VIAL/SYRINGE (J2270) IV ONE ×2 (21:30→23:00)
[2021-04-11] MEDS ORDERED: ONDANSETRON 4MG/2ML VIAL IV ONE (21:30)
[2021-04-11] MEDS ORDERED: NS 1,000 ML IV ONE (21:55)
[2021-04-11 22:07] LABS: BASO % 0.2 % (0.0-1.0); EOS # 0.1 10^3/uL (0.0-0.5); EOS % 1.5 % (0.0-3.0); HEMATOCRIT 33.1 % (36.0-47.0); HEMOGLOBIN 11.2 g/dl (12.0-15.5); LYMPH # 1.3 10^3/uL (1.5-5.0); LYMPH % 21.6 % (24.0-44.0); MEAN CORPUSCULAR HEMOGLOBIN 30.4 pg (27.0-33.0); MEAN CORPUSCULAR HGB CONC 33.8 g/dl (32.0-36.5); MEAN CORPUSCULAR VOLUME 89.9 fl (80.0-96.0); MONO # 0.5 10^3/uL (0.0-0.8); MONO % 8.8 % (2.0-8.0); NEUTROPHILS # 4.2 10^3/uL (1.5-8.5); NEUTROPHILS % 67.7 % (36.0-66.0); PLATELET COUNT, AUTOMATED 211 10^3/uL (150-450); RED BLOOD COUNT 3.68 10^6/uL (4.00-5.40); WHITE BLOOD COUNT 6.2 10^3/uL (4.0-10.0)
--- NOTE | 2021-04-11 22:10 | REPVR ---
PROCEDURE INFORMATION: Exam: XR Chest Exam date and time: 04/11/2021 9:41 PM Age: 36 years old Clinical indication: Other: Fever uko TECHNIQUE: Imaging protocol: XR of the chest. Views: 1 view. COMPARISON: CR Chest, 2 view PA, Lat 08/14/2020 1:21 PM FINDINGS: Tubes, catheters and devices: PICC line demonstrated on the right with the tip of the catheter in the right atrium. Lungs: Unremarkable. No consolidation. Pleural spaces: Unremarkable. No pleural effusion. No pneumothorax. Heart/Mediastinum: Unremarkable. No cardiomegaly. Bones/joints: Unremarkable. IMPRESSION: No acute findings. Electronically signed by: Varun Jenkins On 04/11/2021 22:09:46 PM
[2021-04-11 22:20] LABS: INR 1.27; PROTHROMBIN TIME 16.4 SECONDS (12.7-14.5)
[2021-04-11 22:21] LABS: PARTIAL THROMBOPLASTIN TIME 37.9 SECONDS (25.9-37.0)
[2021-04-11 22:23] LABS: D-DIMER QUANT 616.29 ng/ml (<500)
[2021-04-11 22:27] LABS: ERYTHROCYTE SEDIMENTATION RATE 12 mm/hr (0-20)
[2021-04-11 22:46] LABS: ACETONE/KETONE 0.47 MG/DL (<2.81); ALBUMIN 1.3 GM/DL (3.2-5.2); ALT/SGPT 10 U/L (12-78); BILIRUBIN,DIRECT < 0.1 MG/DL (0.0-0.2); BILIRUBIN,TOTAL 0.3 MG/DL (0.2-1.0); BLOOD UREA NITROGEN 5 MG/DL (7-18); CARBON DIOXIDE LEVEL 12 MEQ/L (21-32); CHLORIDE LEVEL 130 MEQ/L (98-107); CREATININE FOR GFR 0.19 MG/DL (0.55-1.30); GLOMERULAR FILTRATION RATE > 60.0 (>60); GLUCOSE, FASTING 379 MG/DL (70-100); LIPASE 30 U/L (73-393); POTASSIUM SERUM 2.4 MEQ/L (3.5-5.1); SODIUM LEVEL 148 MEQ/L (136-145)
[2021-04-11 22:48] LABS: CALCIUM LEVEL < 5.0 MG/DL (8.5-10.1)
[2021-04-11 23:56] LABS: VENOUS BASE EXCESS -4.5 (-2.0-2.0); VENOUS HCO3 22.6 MEQ/L (23.0-27.0); VENOUS O2 SATURATION 39.4 % (60.0-80.0); VENOUS PARTIAL PRESSURE CO2 49.4 mmHg (38.0-50.0); VENOUS PARTIAL PRESSURE O2 23.3 mmHg (30.0-50.0); VENOUS PH 7.278 UNITS (7.330-7.430); VENOUS STANDARD HCO3 19.5 MEQ/L; VENOUS TOTAL CO2 24.1 MEQ/L (24.0-28.0)
[2021-04-12 00:32] LABS: BLOOD UREA NITROGEN 9 MG/DL (7-18); CARBON DIOXIDE LEVEL 29 MEQ/L (21-32); CHLORIDE LEVEL 110 MEQ/L (98-107); CREATININE FOR GFR 0.74 MG/DL (0.55-1.30); GLOMERULAR FILTRATION RATE > 60.0 (>60); GLUCOSE, FASTING 110 MG/DL (70-100); POTASSIUM SERUM 3.9 MEQ/L (3.5-5.1); SODIUM LEVEL 140 MEQ/L (136-145)
--- NOTE | 2021-04-12 00:42 | REPVR ---
PROCEDURE INFORMATION: Exam: US Duplex Lower Extremity Veins, Bilateral Exam date and time: 04/11/2021 11:34 PM Age: 36 years old Clinical indication: Pain; Leg, lower; Bilateral; Additional info: Bilat leg pain, elev d dimer TECHNIQUE: Imaging protocol: Real-time duplex ultrasound of the extremities with 2-D randall scale, color Doppler flow and spectral waveform analysis with image documentation. Complete exam focused on the bilateral lower extremity veins. COMPARISON: No relevant prior studies available. FINDINGS: There is spontaneous, phasic color flow and compressibility of the deep veins. Augmentation to flow is noted. There is no evidence of DVT in the evaluated bilateral lower extremities. The visualized proximal greater saphenous veins are patent. No perivenous soft tissue fluid collection seen within the visualized field of view. IMPRESSION: No evidence of DVT in either lower extremity. Findings discussed above in detail. Electronically signed by: Jean Blanco On 04/12/2021 00:42:09 AM
--- NOTE | 2021-04-12 00:51 | REPVR ---
PROCEDURE INFORMATION: Exam: US Duplex Right Upper Extremity Veins, Limited Exam date and time: 04/11/2021 11:34 PM Age: 36 years old Clinical indication: Pain; Arm, upper; Right; Additional info: Swelling, picc line, pain TECHNIQUE: Imaging protocol: Real-time Duplex ultrasound of the Right Upper Extremity with 2-D randall scale, color Doppler flow and spectral waveform analysis with image documentation. Limited exam focused on the right upper extremity veins. COMPARISON: CT ANGIO CHEST 01/10/2020 3:47 PM FINDINGS: DEEP The visualized right internal jugular vein is compressible and demonstrates unremarkable color flow and spectral waveforms. The visualized right subclavian vein demonstrates unremarkable color flow and spectral waveforms. Intraluminal linear echoes are seen within the subclavian vein, consistent with PICC line catheter. Positioning of the catheter and catheter tip are not evaluated by this technique. The right axillary vein is compressible and demonstrates unremarkable color flow and spectral waveforms. The right brachial veins are patent with unremarkable color flow and spectral waveforms. SUPERFICIAL Intraluminal linear echogenicity is seen within the basilic vein, consistent with the patient's PICC line catheter. The proximal to mid basilic vein is incompressible and demonstrates intraluminal echogenicity with slight vessel expansion, and absent color flow consistent with occlusive thrombosis. The distal basilic vein is compressible and demonstrates unremarkable color flow. The right cephalic vein is not identified. SOFT TISSUES No perivenous soft tissue fluid collections seen within the visualized field of view. IMPRESSION: A PICC line catheter is partially visualized within the right basilic vein and right subclavian vein. There is occlusive superficial venous thrombosis of the basilic vein. The cephalic vein could not be identified. No evidence of deep venous thrombosis is seen. Electronically signed by: Jean Blanco On 04/12/2021 00:51:12 AM
[2021-04-12] MEDS ORDERED: PERCOCET 5MG/325MG TAB PO ONE (01:20)
[2021-04-12 01:33] LABS: ABG BASE EXCESS -3.5 (-2.0-2.0); ABG O2 SATURATION 96.9 % (95.0-99.0); ABG PARTIAL PRESSURE CO2 36.1 mmHg (35.0-45.0); ABG PARTIAL PRESSURE O2 95.2 mmHg (75.0-100.0); ABG STANDARD HCO3 21.5 MEQ/L (22.0-26.0); ABG TOTAL CO2 22.1 MEQ/L (22.0-29.0); ABG pH (ARTERIAL) 7.382 UNITS (7.350-7.450)
[2021-04-12 03:00] VITALS: BP 126/77
== END 2021-04-12 03:06 | disposition home or self-care (01) ==
LOC: M ED 18:10
DX: I82.611 Acute embolism and thrombosis of superficial veins of right upper extremity (principal); J45.909 Unspecified asthma, uncomplicated; N80.9 Endometriosis, unspecified; Z79.899 Other long term (current) drug therapy; Z88.1 Allergy status to other antibiotic agents; Z88.2 Allergy status to sulfonamides; Z88.0 Allergy status to penicillin; Z88.8 Allergy status to other drugs, medicaments and biological substances
CPT/HCPCS: 36415; 71045; 80047; 80048; 80076; 81001; 82010; 82550; 82803; 83036; 83605; 83690; 85025; 85379; 85610; 85652; 85730; 86140; 87040; 87077; 87186; 87798; 93970; 93971; 96361; 96374; 96375; 96376; 99284; J2270; J2405

== ENCOUNTER → 2021-04-16 | Outpatient (REF) | payer MEDICARE, OTHER ==
[2021-04-16 15:59] LABS: HEMATOCRIT 31.2 % (36.0-47.0); MEAN CORPUSCULAR HEMOGLOBIN 29.7 pg (27.0-33.0); MEAN CORPUSCULAR HGB CONC 35.3 g/dl (32.0-36.5); MEAN CORPUSCULAR VOLUME 84.3 fl (80.0-96.0); PLATELET COUNT, AUTOMATED 169 10^3/uL (150-450); WHITE BLOOD COUNT 5.3 10^3/uL (4.0-10.0)
[2021-04-16 16:27] LABS: ALBUMIN 3.7 GM/DL (3.2-5.2); ALT/SGPT 16 U/L (12-78); BILIRUBIN,TOTAL 0.4 MG/DL (0.2-1.0); BLOOD UREA NITROGEN 14 MG/DL (7-18); CALCIUM LEVEL 8.8 MG/DL (8.5-10.1); CARBON DIOXIDE LEVEL 25 MEQ/L (21-32); CHLORIDE LEVEL 109 MEQ/L (98-107); CREATININE FOR GFR 0.74 MG/DL (0.55-1.30); GLOMERULAR FILTRATION RATE > 60.0 (>60); GLUCOSE, FASTING 105 MG/DL (70-100); IRON (FE) 23 UG/DL (50-170); MAGNESIUM LEVEL 1.9 MG/DL (1.8-2.4); PERCENT SATURATION 6.3 % (13.2-45.0); PHOSPHORUS LEVEL 2.5 MG/DL (2.5-4.9); POTASSIUM SERUM 4.5 MEQ/L (3.5-5.1); SODIUM LEVEL 138 MEQ/L (136-145); TOTAL IRON BINDING CAPACITY 367 UG/DL (250-450); TOTAL PROTEIN 6.8 GM/DL (6.4-8.2); TRIGLYCERIDES LEVEL 111 MG/DL (<150)
[2021-04-16 16:42] LABS: TOTAL 25(OH) VITAMIN D 12.6 NG/ML (30.0-100.0)
== END ==
LOC: M SHH 15:09 → M LAB REF 15:09
PROVIDERS: ATTEND Internal Medicine Gastroenterology
DX: I49.8 Other specified cardiac arrhythmias (principal); R10.9 Unspecified abdominal pain; R63.4 Abnormal weight loss

== ENCOUNTER 2021-04-18 15:32 | Inpatient (IN) | payer MEDICARE, OTHER ==
[~2021-04-18] VITALS: Ht 172.7 cm; Wt 59.5 kg
[~2021-04-18 15:32] MED LIST changes: +TIZA10TA; -TIZA4TAB4
[2021-04-18] MEDS ORDERED: MORPHINE 2 MG/ML 1ML VIAL (J2270) IV PRN (16:15)
[2021-04-18] MEDS ORDERED: ACETAMINOPHEN 500 MG TAB PO ONE (16:15)
[2021-04-18] MEDS ORDERED: NS 1,000 ML IV SCH (16:15)
[2021-04-18 16:36] LABS: VENOUS BASE EXCESS -3.3 (-2.0-2.0); VENOUS HCO3 20.2 MEQ/L (23.0-27.0); VENOUS O2 SATURATION 89.4 % (60.0-80.0); VENOUS PARTIAL PRESSURE CO2 31.5 mmHg (38.0-50.0); VENOUS PARTIAL PRESSURE O2 53.8 mmHg (30.0-50.0); VENOUS PH 7.424 UNITS (7.330-7.430); VENOUS STANDARD HCO3 21.5 MEQ/L; VENOUS TOTAL CO2 21.1 MEQ/L (24.0-28.0)
[2021-04-18] MEDS ORDERED: ONDANSETRON 4MG/2ML VIAL IV ONE (16:40)
[2021-04-18 16:44] LABS: BASO % 0.1 % (0.0-1.0); HEMOGLOBIN 11.5 g/dl (12.0-15.5); LYMPH # 0.3 10^3/uL (1.5-5.0); MEAN CORPUSCULAR HGB CONC 34.8 g/dl (32.0-36.5); MEAN CORPUSCULAR VOLUME 83.3 fl (80.0-96.0); MONO # 0.4 10^3/uL (0.0-0.8); MONO % 4.9 % (2.0-8.0); NEUTROPHILS # 7.6 10^3/uL (1.5-8.5); NEUTROPHILS % 90.6 % (36.0-66.0); PLATELET COUNT, AUTOMATED 126 10^3/uL (150-450); RED BLOOD COUNT 3.96 10^6/uL (4.00-5.40); WHITE BLOOD COUNT 8.3 10^3/uL (4.0-10.0)
[2021-04-18 17:01] LABS: ERYTHROCYTE SEDIMENTATION RATE 31 mm/hr (0-20)
[2021-04-18 17:13] LABS: ALBUMIN 3.6 GM/DL (3.2-5.2); ALT/SGPT 26 U/L (12-78); BILIRUBIN,DIRECT 0.2 MG/DL (0.0-0.2); BILIRUBIN,TOTAL 0.7 MG/DL (0.2-1.0); BLOOD UREA NITROGEN 16 MG/DL (7-18); C REACTIVE PROTEIN QUANTITATIV 2.44 MG/DL (0.00-0.30); CALCIUM LEVEL 8.9 MG/DL (8.5-10.1); CARBON DIOXIDE LEVEL 22 MEQ/L (21-32); CHLORIDE LEVEL 103 MEQ/L (98-107); CK-MB VALUE MASS < 1.0 NG/ML (<3.6); CPK CREATINE PHOSPHOKINASE 44 U/L (26-192); CREATININE FOR GFR 0.96 MG/DL (0.55-1.30); GLOMERULAR FILTRATION RATE > 60.0 (>60); GLUCOSE, FASTING 115 MG/DL (70-100); MB/CK RELATIVE INDEX 2.27 (< OR =4); POTASSIUM SERUM 3.6 MEQ/L (3.5-5.1); SODIUM LEVEL 134 MEQ/L (136-145); TOTAL PROTEIN 7.2 GM/DL (6.4-8.2); TROPONIN I < 0.02 NG/ML (< 0.10)
[2021-04-18 17:17] LABS: HCG, SERUM QUALITATIVE NEGATIVE (NEGATIVE)
[2021-04-18] MEDS ORDERED: ALPR1TAB3 PO (17:18)
[2021-04-18] MEDS ORDERED: ONDA-84 PO (17:18)
[2021-04-18] MEDS ORDERED: ASPI81TA26 PO (17:18)
[2021-04-18] MEDS ORDERED: MIDO5TA PO (17:18)
[2021-04-18] MEDS ORDERED: TIZA10TA PO (17:18)
[2021-04-18] MEDS ORDERED: HYDR200T3 PO (17:18)
[2021-04-18] MEDS ORDERED: BUPR300T92 PO (17:18)
[2021-04-18] MEDS ORDERED: HEPA1INJ8 IV (17:18)
[2021-04-18] MEDS ORDERED: HYDR-4517 PO (17:18)
[2021-04-18] MEDS ORDERED: TPNINJ3 IV (17:18)
[2021-04-18] MEDS ORDERED: PROM25TA12 PO (17:18)
[2021-04-18] MEDS ORDERED: METO25TA4 PO (17:18)
[2021-04-18] MEDS ORDERED: BUPR150T12 PO (17:18)
[2021-04-18] MEDS ORDERED: HOME MED LIST COMPLETE! XX SCH (17:20)
[2021-04-18] MEDS ORDERED: MOM 30ML SUSPENSION UDC PO PRN (17:20)
[2021-04-18] MEDS ORDERED: VANCOMYCIN HCL 500 MG in D5W MINI-BAG PLUS 100 ML IV SCH (17:20)
[2021-04-18] MEDS ORDERED: MAALOX 30 ML SUSP *UDC PO PRN (17:20)
[2021-04-18] MEDS ORDERED: MIDODRINE 5 MG TAB PO PRN (17:20)
[2021-04-18] MEDS ORDERED: ISOVUE-370 76% 100ML VIAL As Ordered ONE (18:24)
[2021-04-18] MEDS ORDERED: CEFEPIME HCL 1 GM in D5W MINI-BAG PLUS 50 ML IV SCH (20:00)
[2021-04-18] MEDS: DOCUSATE SODIUM 100MG CAPSULE PO SCH (21:00)
[2021-04-18] MEDS: MORPHINE 2 MG/ML 1ML VIAL (J2270) IV PRN (21:40)
[2021-04-18] MEDS: ONDANSETRON 4MG/2ML VIAL IV PRN (21:41)
[2021-04-18] MEDS: HEPARIN SOD (PORCINE) 5000UNITS/ML 1ML VIAL/SYRINGE SC SCH (22:00)
[2021-04-18] MEDS ORDERED: VANCOMYCIN HCL 750 MG, VIAL MATE ADAPTER 1 EACH in NS 250 ML IV ONE (22:00)
[2021-04-18] MEDS: NS 1,000 ML IV SCH (22:06)
[2021-04-18] MEDS ORDERED: VANCOMYCIN HCL 750 MG, VIAL MATE ADAPTER 1 EACH in NS 250 ML IV SCH (23:00)
[2021-04-18] MEDS ORDERED: [UNRECOGNIZED DRUG - OTHER] IV SCH (23:00)
[2021-04-18] MEDS: METOPROLOL TART 25 MG TABLET PO SCH (23:01)
[2021-04-19] MEDS: ACETAMINOPHEN TAB 650MG DOSE (2X325MG) PO PRN ×2 (00:01→17:12)
[2021-04-19] MEDS: ALPRAZolam 0.5 MG TAB PO PRN ×3 (00:02→18:37)
[2021-04-19] MEDS: PANTOPRAZOLE 40MG VIAL (C9113 PER 1) IV SCH ×2 (00:03→20:47)
[2021-04-19] MEDS: metroNIDAZOLE 500 MG in IV 1 EA IV SCH ×2 (00:04→05:50)
[2021-04-19] MEDS: tiZANidine 4 MG TAB PO PRN ×2 (00:23→18:37)
[2021-04-19] MEDS: MORPHINE 2 MG/ML 1ML VIAL (J2270) IV PRN ×5 (02:21→21:20)
[2021-04-19] MEDS: NS 1,000 ML IV SCH ×3 (03:20→23:50)
[2021-04-19] MEDS ORDERED: diphenhydrAMINE 50MG/ML VIAL (J1200) IV ONE (05:45)
[2021-04-19] MEDS: CEFEPIME HCL 1 GM in D5W MINI-BAG PLUS 50 ML IV SCH ×3 (07:47→20:47)
[2021-04-19] MEDS: ONDANSETRON 4MG/2ML VIAL IV PRN ×2 (07:47→17:30)
[2021-04-19] MEDS: HEPARIN SOD (PORCINE) 5000UNITS/ML 1ML VIAL/SYRINGE SC SCH ×3 (07:49→20:48)
[2021-04-19] MEDS ORDERED: buPROPion **XL** TABLET 150MG (WELLBUTRIN XL) PO SCH (09:00)
[2021-04-19] MEDS: buPROPion **XL** TABLET 150MG (WELLBUTRIN XL) PO SCH (09:00)
[2021-04-19] MEDS: METOPROLOL TART 25 MG TABLET PO SCH ×2 (09:38→20:48)
[2021-04-19] MEDS: DOCUSATE SODIUM 100MG CAPSULE PO SCH ×2 (09:38→20:48)
[2021-04-19] MEDS: ASPIRIN 81MG ENTERIC TABLET PO SCH (09:38)
[2021-04-19] MEDS: HYDROXYCHLOROQUINE 200 MG TAB PO SCH (09:40)
[2021-04-19 11:46] LABS: HEMATOCRIT 30.6 % (36.0-47.0); HEMOGLOBIN 10.3 g/dl (12.0-15.5); MEAN CORPUSCULAR HEMOGLOBIN 28.6 pg (27.0-33.0); MEAN CORPUSCULAR HGB CONC 33.7 g/dl (32.0-36.5); PLATELET COUNT, AUTOMATED 128 10^3/uL (150-450); WHITE BLOOD COUNT 4.7 10^3/uL (4.0-10.0)
[2021-04-19] MEDS: VANCOMYCIN HCL 750 MG, VIAL MATE ADAPTER 1 EACH in NS 250 ML IV SCH ×4 (12:00→23:50)
[2021-04-19 12:04] LABS: BLOOD UREA NITROGEN 10 MG/DL (7-18); C REACTIVE PROTEIN QUANTITATIV 6.38 MG/DL (0.00-0.30); CALCIUM LEVEL 8.3 MG/DL (8.5-10.1); CARBON DIOXIDE LEVEL 22 MEQ/L (21-32); CHLORIDE LEVEL 110 MEQ/L (98-107); CREATININE FOR GFR 0.66 MG/DL (0.55-1.30); GLOMERULAR FILTRATION RATE > 60.0 (>60); GLUCOSE, FASTING 123 MG/DL (70-100); MAGNESIUM LEVEL 1.9 MG/DL (1.8-2.4); POTASSIUM SERUM 3.7 MEQ/L (3.5-5.1); SODIUM LEVEL 140 MEQ/L (136-145)
[2021-04-19 12:56] LABS: ATYPICAL LYMPH 1 % (0-5); EOSINOPHILS 2 % (0-3); LYMPHOCYTES 13 % (16-44); MONOCYTES 6 % (0-5); NEUTROPHILS 78 % (28-66)
[2021-04-19] MEDS: [UNRECOGNIZED DRUG - OTHER] IV SCH (12:56)
[2021-04-19 12:57] LABS: PLATELET ESTIMATE DECREASED (NORMAL)
[2021-04-19 15:50] VITALS: BP 114/62
[2021-04-19 20:00] VITALS: BP 90/54
[2021-04-19] MEDS: DAPTOmycin 500 MG in NS 50 ML IV SCH (23:49)
[2021-04-20] VITALS: BP 123/64
[2021-04-20] MEDS: HEPARIN SOD (PORCINE) 5000UNITS/ML 1ML VIAL/SYRINGE SC SCH ×3 (01:12→22:12)
[2021-04-20] MEDS: ONDANSETRON 4MG/2ML VIAL IV PRN ×3 (01:39→18:35)
[2021-04-20] MEDS: MORPHINE 2 MG/ML 1ML VIAL (J2270) IV PRN (01:40)
[2021-04-20 04:00] VITALS: BP 122/65
[2021-04-20] MEDS: tiZANidine 4 MG TAB PO PRN ×2 (04:18→19:47)
[2021-04-20] MEDS: ACETAMINOPHEN TAB 650MG DOSE (2X325MG) PO PRN ×3 (04:19→22:31)
[2021-04-20] MEDS: ALPRAZolam 0.5 MG TAB PO PRN ×2 (04:19→19:48)
[2021-04-20 05:30] LABS: BASO % 0.2 % (0.0-1.0); EOS % 0.5 % (0.0-3.0); HEMOGLOBIN 10.2 g/dl (12.0-15.5); LYMPH # 0.7 10^3/uL (1.5-5.0); LYMPH % 11.2 % (24.0-44.0); MEAN CORPUSCULAR HEMOGLOBIN 28.7 pg (27.0-33.0); MEAN CORPUSCULAR VOLUME 84.5 fl (80.0-96.0); MONO # 0.6 10^3/uL (0.0-0.8); MONO % 9.4 % (2.0-8.0); NEUTROPHILS # 4.7 10^3/uL (1.5-8.5); NEUTROPHILS % 78.4 % (36.0-66.0); PLATELET COUNT, AUTOMATED 142 10^3/uL (150-450); RED BLOOD COUNT 3.55 10^6/uL (4.00-5.40)
[2021-04-20] MEDS: CEFEPIME HCL 1 GM in D5W MINI-BAG PLUS 50 ML IV SCH ×3 (05:31→22:23)
[2021-04-20 05:53] LABS: BLOOD UREA NITROGEN 9 MG/DL (7-18); C REACTIVE PROTEIN QUANTITATIV 3.64 MG/DL (0.00-0.30); CALCIUM LEVEL 8.4 MG/DL (8.5-10.1); CARBON DIOXIDE LEVEL 23 MEQ/L (21-32); CHLORIDE LEVEL 109 MEQ/L (98-107); GLOMERULAR FILTRATION RATE > 60.0 (>60); GLUCOSE, FASTING 119 MG/DL (70-100); MAGNESIUM LEVEL 2.1 MG/DL (1.8-2.4); POTASSIUM SERUM 3.5 MEQ/L (3.5-5.1); SODIUM LEVEL 140 MEQ/L (136-145)
[2021-04-20 08:00] VITALS: BP 98/54
[2021-04-20] MEDS: METOPROLOL TART 25 MG TABLET PO SCH ×2 (09:00→20:35)
[2021-04-20] MEDS: buPROPion **XL** TABLET 150MG (WELLBUTRIN XL) PO SCH (10:00)
[2021-04-20] MEDS: HYDROXYCHLOROQUINE 200 MG TAB PO SCH (10:00)
[2021-04-20] MEDS: DOCUSATE SODIUM 100MG CAPSULE PO SCH ×2 (10:49→20:35)
[2021-04-20] MEDS: ASPIRIN 81MG ENTERIC TABLET PO SCH (10:50)
[2021-04-20 12:00] VITALS: BP 119/63
[2021-04-20] MEDS: NS 1,000 ML IV SCH (13:08)
[2021-04-20] MEDS: MORPHINE 4 MG/ML 1ML VIAL/SYRINGE (J2270) IV PRN ×3 (13:11→22:29)
[2021-04-20] MEDS: [UNRECOGNIZED DRUG - OTHER] IV SCH (13:55)
[2021-04-20 16:00] VITALS: BP 121/71
[2021-04-20 19:35] VITALS: BP 132/61
[2021-04-20] MEDS: PANTOPRAZOLE 40MG VIAL (C9113 PER 1) IV SCH (19:47)
[2021-04-20] MEDS: DAPTOmycin 500 MG in NS 50 ML IV SCH (23:25)
[2021-04-21] VITALS: BP 106/58
[2021-04-21] MEDS: ONDANSETRON 4MG/2ML VIAL IV PRN ×3 (01:11→17:38)
[2021-04-21] MEDS: NS 1,000 ML IV SCH ×3 (01:35→16:57)
[2021-04-21] MEDS: MORPHINE 4 MG/ML 1ML VIAL/SYRINGE (J2270) IV PRN ×4 (02:43→18:36)
[2021-04-21] MEDS: ALPRAZolam 0.5 MG TAB PO PRN ×3 (03:50→20:26)
[2021-04-21] MEDS: tiZANidine 4 MG TAB PO PRN ×3 (03:50→20:26)
[2021-04-21 04:00] VITALS: BP 105/60
[2021-04-21] MEDS: ACETAMINOPHEN TAB 650MG DOSE (2X325MG) PO PRN ×2 (05:46→14:10)
[2021-04-21] MEDS: HEPARIN SOD (PORCINE) 5000UNITS/ML 1ML VIAL/SYRINGE SC SCH ×3 (05:47→22:00)
[2021-04-21] MEDS: CEFEPIME HCL 1 GM in D5W MINI-BAG PLUS 50 ML IV SCH (05:47)
[2021-04-21 06:55] LABS: BASO % 0.2 % (0.0-1.0); EOS % 0.5 % (0.0-3.0); HEMATOCRIT 27.4 % (36.0-47.0); HEMOGLOBIN 9.3 g/dl (12.0-15.5); LYMPH # 0.7 10^3/uL (1.5-5.0); LYMPH % 12.4 % (24.0-44.0); MEAN CORPUSCULAR HEMOGLOBIN 28.9 pg (27.0-33.0); MEAN CORPUSCULAR HGB CONC 33.9 g/dl (32.0-36.5); MEAN CORPUSCULAR VOLUME 85.1 fl (80.0-96.0); MONO # 0.6 10^3/uL (0.0-0.8); MONO % 11.3 % (2.0-8.0); NEUTROPHILS # 4.3 10^3/uL (1.5-8.5); NEUTROPHILS % 75.2 % (36.0-66.0); PLATELET COUNT, AUTOMATED 121 10^3/uL (150-450); RED BLOOD COUNT 3.22 10^6/uL (4.00-5.40); WHITE BLOOD COUNT 5.7 10^3/uL (4.0-10.0)
[2021-04-21 07:23] LABS: BLOOD UREA NITROGEN 10 MG/DL (7-18); CARBON DIOXIDE LEVEL 24 MEQ/L (21-32); CHLORIDE LEVEL 109 MEQ/L (98-107); CREATININE FOR GFR 0.66 MG/DL (0.55-1.30); GLOMERULAR FILTRATION RATE > 60.0 (>60); GLUCOSE, FASTING 111 MG/DL (70-100); MAGNESIUM LEVEL 1.9 MG/DL (1.8-2.4); POTASSIUM SERUM 3.6 MEQ/L (3.5-5.1); SODIUM LEVEL 138 MEQ/L (136-145)
[2021-04-21 07:42] VITALS: BP 114/57
[2021-04-21] MEDS: DOCUSATE SODIUM 100MG CAPSULE PO SCH ×2 (08:53→20:33)
[2021-04-21] MEDS: buPROPion **XL** TABLET 150MG (WELLBUTRIN XL) PO SCH (08:55)
[2021-04-21] MEDS: ASPIRIN 81MG ENTERIC TABLET PO SCH (09:03)
[2021-04-21] MEDS: METOPROLOL TART 25 MG TABLET PO SCH ×2 (09:05→20:33)
[2021-04-21] MEDS: HYDROXYCHLOROQUINE 200 MG TAB PO SCH (09:05)
[2021-04-21 12:00] VITALS: BP 121/69
[2021-04-21] MEDS: [UNRECOGNIZED DRUG - OTHER] IV SCH (12:00)
[2021-04-21 16:00] VITALS: BP 109/57
[2021-04-21 20:00] VITALS: BP 115/59
[2021-04-21] MEDS: PANTOPRAZOLE 40MG VIAL (C9113 PER 1) IV SCH (20:28)
[2021-04-22] VITALS (7 sets, daily range): BP systolic 84–128; BP diastolic 44–71
[2021-04-22] MEDS: DAPTOmycin 500 MG in NS 50 ML IV SCH ×2 (00:52→23:24)
[2021-04-22] MEDS: ACETAMINOPHEN TAB 650MG DOSE (2X325MG) PO PRN (01:00)
[2021-04-22] MEDS: MORPHINE 4 MG/ML 1ML VIAL/SYRINGE (J2270) IV PRN ×5 (01:01→20:05)
[2021-04-22] MEDS: NS 1,000 ML IV SCH (01:08)
[2021-04-22] MEDS: ALPRAZolam 0.5 MG TAB PO PRN ×3 (04:51→21:40)
[2021-04-22] MEDS: tiZANidine 4 MG TAB PO PRN ×3 (04:51→21:40)
[2021-04-22] MEDS: HEPARIN SOD (PORCINE) 5000UNITS/ML 1ML VIAL/SYRINGE SC SCH ×3 (05:03→20:04)
[2021-04-22 05:46] LABS: HEMATOCRIT 28.8 % (36.0-47.0); HEMOGLOBIN 9.8 g/dl (12.0-15.5); MEAN CORPUSCULAR HEMOGLOBIN 28.6 pg (27.0-33.0); PLATELET COUNT, AUTOMATED 129 10^3/uL (150-450); RED BLOOD COUNT 3.43 10^6/uL (4.00-5.40); WHITE BLOOD COUNT 3.4 10^3/uL (4.0-10.0)
[2021-04-22 05:54] LABS: BLOOD UREA NITROGEN 8 MG/DL (7-18); C REACTIVE PROTEIN QUANTITATIV 3.27 MG/DL (0.00-0.30); CARBON DIOXIDE LEVEL 25 MEQ/L (21-32); CHLORIDE LEVEL 110 MEQ/L (98-107); GLOMERULAR FILTRATION RATE > 60.0 (>60); GLUCOSE, FASTING 95 MG/DL (70-100); MAGNESIUM LEVEL 1.8 MG/DL (1.8-2.4); POTASSIUM SERUM 3.3 MEQ/L (3.5-5.1); SODIUM LEVEL 142 MEQ/L (136-145)
[2021-04-22] MEDS ORDERED: POTASSIUM CHLORIDE 10MEQ SR TABLET PO ONE (06:50)
[2021-04-22 07:56] LABS: EOSINOPHILS 2 % (0-3); LYMPHOCYTES 40 % (16-44); MONOCYTES 2 % (0-5); NEUTROPHILS 53 % (28-66); PLATELET ESTIMATE DECREASED (NORMAL)
[2021-04-22] MEDS: METOPROLOL TART 25 MG TABLET PO SCH (08:02)
[2021-04-22] MEDS: DOCUSATE SODIUM 100MG CAPSULE PO SCH ×2 (08:03→20:04)
[2021-04-22] MEDS: ASPIRIN 81MG ENTERIC TABLET PO SCH (08:04)
[2021-04-22] MEDS: buPROPion **XL** TABLET 150MG (WELLBUTRIN XL) PO SCH (08:04)
[2021-04-22] MEDS: HYDROXYCHLOROQUINE 200 MG TAB PO SCH (08:06)
[2021-04-22] MEDS: PROMETHAZINE INJ 25 MG/ML VIAL (J2550) IV PRN (09:53)
[2021-04-22] MEDS: [UNRECOGNIZED DRUG - OTHER] IV SCH (12:00)
[2021-04-22] MEDS: MIDODRINE 5 MG TAB PO SCH ×2 (13:03→17:23)
[2021-04-22] MEDS: PANTOPRAZOLE 40MG VIAL (C9113 PER 1) IV SCH (20:05)
[2021-04-23] MEDS: MORPHINE 4 MG/ML 1ML VIAL/SYRINGE (J2270) IV PRN ×2 (00:21→06:11)
[2021-04-23] MEDS: PROMETHAZINE INJ 25 MG/ML VIAL (J2550) IV PRN ×2 (03:07→13:14)
[2021-04-23] MEDS: HEPARIN SOD (PORCINE) 5000UNITS/ML 1ML VIAL/SYRINGE SC SCH ×3 (05:12→19:33)
[2021-04-23 06:00] VITALS: BP 101/59
[2021-04-23 06:27] LABS: HEMATOCRIT 27.2 % (36.0-47.0); HEMOGLOBIN 9.2 g/dl (12.0-15.5); MEAN CORPUSCULAR HEMOGLOBIN 28.3 pg (27.0-33.0); MEAN CORPUSCULAR HGB CONC 33.8 g/dl (32.0-36.5); MEAN CORPUSCULAR VOLUME 83.7 fl (80.0-96.0); PLATELET COUNT, AUTOMATED 186 10^3/uL (150-450); RED BLOOD COUNT 3.25 10^6/uL (4.00-5.40); WHITE BLOOD COUNT 3.8 10^3/uL (4.0-10.0)
[2021-04-23 06:43] LABS: BLOOD UREA NITROGEN 10 MG/DL (7-18); C REACTIVE PROTEIN QUANTITATIV 1.73 MG/DL (0.00-0.30); CALCIUM LEVEL 8.7 MG/DL (8.5-10.1); CARBON DIOXIDE LEVEL 25 MEQ/L (21-32); CHLORIDE LEVEL 109 MEQ/L (98-107); GLOMERULAR FILTRATION RATE > 60.0 (>60); GLUCOSE, FASTING 90 MG/DL (70-100); MAGNESIUM LEVEL 2.1 MG/DL (1.8-2.4); POTASSIUM SERUM 3.5 MEQ/L (3.5-5.1); SODIUM LEVEL 142 MEQ/L (136-145)
[2021-04-23] MEDS: tiZANidine 4 MG TAB PO PRN ×2 (06:55→16:13)
[2021-04-23] MEDS: ALPRAZolam 0.5 MG TAB PO PRN ×2 (07:00→16:13)
[2021-04-23] MEDS: ASPIRIN 81MG ENTERIC TABLET PO SCH (07:59)
[2021-04-23] MEDS: buPROPion **XL** TABLET 150MG (WELLBUTRIN XL) PO SCH (07:59)
[2021-04-23 08:00] LABS: ATYPICAL LYMPH 1 % (0-5); BASOPHILS 1 % (0-1); EOSINOPHILS 3 % (0-3); LYMPHOCYTES 31 % (16-44); MONOCYTES 11 % (0-5); NEUTROPHILS 53 % (28-66); PLATELET ESTIMATE NORMAL (NORMAL)
[2021-04-23] MEDS: MIDODRINE 5 MG TAB PO SCH ×3 (08:00→16:00)
[2021-04-23] MEDS: HYDROXYCHLOROQUINE 200 MG TAB PO SCH (08:00)
[2021-04-23] MEDS: DOCUSATE SODIUM 100MG CAPSULE PO SCH ×2 (08:00→20:38)
[2021-04-23 08:15] LABS: OVALOCYTES 1+
[2021-04-23] MEDS ORDERED: HYDROcodone/APAP LIQUID 7.5-325MG 15ML UDC (LORTAB ELIXIR) PO PRN (11:10)
[2021-04-23] MEDS: [UNRECOGNIZED DRUG - OTHER] IV SCH (11:40)
[2021-04-23] MEDS: NORCO, ANEXSIA 5/325MG TABLET (HYDROcodone/ACETAMINOPHEN) PO PRN ×3 (13:07→21:56)
[2021-04-23 14:00] VITALS: BP 107/68
[2021-04-23 19:42] LABS: CPK CREATINE PHOSPHOKINASE 24 U/L (26-192)
[2021-04-23] MEDS: PANTOPRAZOLE 40MG VIAL (C9113 PER 1) IV SCH (20:38)
[2021-04-23 22:00] VITALS: BP 106/59
[2021-04-23] MEDS: DAPTOmycin 500 MG in NS 50 ML IV SCH (22:22)
[2021-04-23] MEDS ORDERED: RAMELTEON 8 MG TAB (ROZEREM) PO PRN (22:45)
[2021-04-24] MEDS: ALPRAZolam 0.5 MG TAB PO PRN ×2 (00:21→10:35)
[2021-04-24] MEDS: tiZANidine 4 MG TAB PO PRN ×2 (00:21→10:35)
[2021-04-24] MEDS: HEPARIN SOD (PORCINE) 5000UNITS/ML 1ML VIAL/SYRINGE SC SCH ×2 (05:00→14:00)
[2021-04-24] MEDS: NORCO, ANEXSIA 5/325MG TABLET (HYDROcodone/ACETAMINOPHEN) PO PRN ×3 (05:33→17:07)
[2021-04-24 06:00] VITALS: BP 102/57
[2021-04-24] MEDS: PROMETHAZINE INJ 25 MG/ML VIAL (J2550) IV PRN (06:27)
[2021-04-24 06:47] LABS: BLOOD UREA NITROGEN 12 MG/DL (7-18); CALCIUM LEVEL 8.5 MG/DL (8.5-10.1); CARBON DIOXIDE LEVEL 26 MEQ/L (21-32); CHLORIDE LEVEL 107 MEQ/L (98-107); CREATININE FOR GFR 0.52 MG/DL (0.55-1.30); GLOMERULAR FILTRATION RATE > 60.0 (>60); GLUCOSE, FASTING 101 MG/DL (70-100); POTASSIUM SERUM 3.3 MEQ/L (3.5-5.1); SODIUM LEVEL 139 MEQ/L (136-145)
[2021-04-24 06:53] LABS: HEMATOCRIT 26.1 % (36.0-47.0); HEMOGLOBIN 8.8 g/dl (12.0-15.5); MEAN CORPUSCULAR HEMOGLOBIN 28.6 pg (27.0-33.0); MEAN CORPUSCULAR HGB CONC 33.7 g/dl (32.0-36.5); MEAN CORPUSCULAR VOLUME 84.7 fl (80.0-96.0); PLATELET COUNT, AUTOMATED 205 10^3/uL (150-450); RED BLOOD COUNT 3.08 10^6/uL (4.00-5.40); WHITE BLOOD COUNT 3.2 10^3/uL (4.0-10.0)
[2021-04-24 07:54] LABS: ATYPICAL LYMPH 1 % (0-5); EOSINOPHILS 2 % (0-3); LYMPHOCYTES 31 % (16-44); METAMYELOCYTES 1 % (0-0); MONOCYTES 4 % (0-5); NEUTROPHILS 61 % (28-66); PLATELET ESTIMATE NORMAL (NORMAL)
[2021-04-24] MEDS: MIDODRINE 5 MG TAB PO SCH ×3 (08:00→16:00)
[2021-04-24] MEDS: DOCUSATE SODIUM 100MG CAPSULE PO SCH (08:04)
[2021-04-24] MEDS: HYDROXYCHLOROQUINE 200 MG TAB PO SCH (08:04)
[2021-04-24] MEDS: ASPIRIN 81MG ENTERIC TABLET PO SCH (08:04)
[2021-04-24] MEDS: buPROPion **XL** TABLET 150MG (WELLBUTRIN XL) PO SCH (08:05)
[2021-04-24] MEDS ORDERED: LORazepam 2 MG/ML VIAL IV ONE (11:00)
[2021-04-24] MEDS: [UNRECOGNIZED DRUG - OTHER] IV SCH (12:00)
[2021-04-24] MEDS ORDERED: LORazepam 2 MG/ML VIAL As Ordered ONE (12:15)
[2021-04-24] MEDS ORDERED: LIDOCAINE 1% MDV 20ML VIAL As Ordered ONE (14:28)
[2021-04-24] MEDS ORDERED: ISOVUE-300 61% 50ML VIAL As Ordered ONE (14:54)
[2021-04-24 15:30] VITALS: BP 108/70
[2021-04-24] MEDS: DAPTOmycin 500 MG in NS 50 ML IV SCH (17:07)
== END 2021-04-24 19:07 | disposition home health service (06) | DRG 314 ==
LOC: M ED 15:32 → M ED INP 17:20 → ENRESERV 04-19 15:09 → M PCU 04-19 15:57 → M MSPAV 04-22 15:44
PROVIDERS: ADMIT Internal Medicine; ATTEND Family Medicine
PROC: 02HV33Z Insertion of Infusion Device into Superior Vena Cava, Percutaneous Approach (ICD-10-PCS; principal; 2021-04-24 13:30)
DX: T82.7XXA Infection and inflammatory reaction due to other cardiac and vascular devices, implants and grafts, initial encounter (principal); A41.9 Sepsis, unspecified organism; K55.1 Chronic vascular disorders of intestine; I77.4 Celiac artery compression syndrome; I82.611 Acute embolism and thrombosis of superficial veins of right upper extremity; I49.8 Other specified cardiac arrhythmias; I10 Essential (primary) hypertension; M06.4 Inflammatory polyarthropathy; K58.1 Irritable bowel syndrome with constipation; F32.A Depression, unspecified; F41.9 Anxiety disorder, unspecified; Y83.1 Surgical operation with implant of artificial internal device as the cause of abnormal reaction of the patient, or of later complication, without mention of misadventure at the time of the procedure; Z79.82 Long term (current) use of aspirin; Z79.899 Other long term (current) drug therapy; Z88.2 Allergy status to sulfonamides; Z88.0 Allergy status to penicillin; Z88.8 Allergy status to other drugs, medicaments and biological substances

== ENCOUNTER → 2021-05-20 | Outpatient (REF) | payer MEDICARE, OTHER ==
[~2021-05-20] MED LIST changes: +ALPR1TAB3 PO; +ASPI81TA26 PO; +BUPR150T12 PO; +BUPR300T92 PO; +HEPA1INJ8 IV; +HYDR-4517 PO; +HYDR200T3 PO; +METO25TA4 PO; +ONDA8TAB10 PO; +PROM25TA12 PO; -TIZA10TA; +TIZA4TAB4; +TIZA4TAB4 PO; +TPNINJ3 IV
[2021-05-20 17:50] LABS: HEMATOCRIT 32.8 % (36.0-47.0); HEMOGLOBIN 10.6 g/dl (12.0-15.5); MEAN CORPUSCULAR HEMOGLOBIN 28.3 pg (27.0-33.0); MEAN CORPUSCULAR HGB CONC 32.3 g/dl (32.0-36.5); MEAN CORPUSCULAR VOLUME 87.5 fl (80.0-96.0); PLATELET COUNT, AUTOMATED 162 10^3/uL (150-450); RED BLOOD COUNT 3.75 10^6/uL (4.00-5.40); WHITE BLOOD COUNT 6.3 10^3/uL (4.0-10.0)
[2021-05-20 18:17] LABS: ALBUMIN 3.6 GM/DL (3.2-5.2); ALT/SGPT 15 U/L (12-78); BILIRUBIN,TOTAL 0.2 MG/DL (0.2-1.0); BLOOD UREA NITROGEN 14 MG/DL (7-18); CALCIUM LEVEL 8.8 MG/DL (8.5-10.1); CARBON DIOXIDE LEVEL 24 MEQ/L (21-32); CHLORIDE LEVEL 108 MEQ/L (98-107); GLOMERULAR FILTRATION RATE > 60.0 (>60); GLUCOSE, FASTING 74 MG/DL (70-100); MAGNESIUM LEVEL 2.1 MG/DL (1.8-2.4); PHOSPHORUS LEVEL 3.6 MG/DL (2.5-4.9); POTASSIUM SERUM 4.2 MEQ/L (3.5-5.1); SODIUM LEVEL 141 MEQ/L (136-145)
== END ==
LOC: M LAB REF 16:44
PROVIDERS: ATTEND Internal Medicine Gastroenterology
DX: Z78.9 Other specified health status (principal); R63.4 Abnormal weight loss; R10.13 Epigastric pain

== ENCOUNTER → 2021-05-27 | Outpatient (REF) | payer MEDICARE, OTHER ==
[~2021-05-27] MED LIST changes: +LEVS0.123; +MULTTAB20 PO; +ONDA-84 PO; -ONDA8TAB10 PO; +TIZA10TA; +TIZA10TA PO; -TIZA4TAB4; -TIZA4TAB4 PO
[2021-05-27 12:15] LABS: HEMATOCRIT 32.1 % (36.0-47.0); HEMOGLOBIN 10.6 g/dl (12.0-15.5); MEAN CORPUSCULAR HEMOGLOBIN 28.5 pg (27.0-33.0); MEAN CORPUSCULAR VOLUME 86.3 fl (80.0-96.0); PLATELET COUNT, AUTOMATED 215 10^3/uL (150-450); RED BLOOD COUNT 3.72 10^6/uL (4.00-5.40); WHITE BLOOD COUNT 7.9 10^3/uL (4.0-10.0)
[2021-05-27 14:10] LABS: ALBUMIN 3.8 GM/DL (3.2-5.2); ALT/SGPT 17 U/L (12-78); BILIRUBIN,TOTAL 0.3 MG/DL (0.2-1.0); BLOOD UREA NITROGEN 14 MG/DL (7-18); CALCIUM LEVEL 8.9 MG/DL (8.5-10.1); CARBON DIOXIDE LEVEL 22 MEQ/L (21-32); CHLORIDE LEVEL 109 MEQ/L (98-107); CREATININE FOR GFR 0.66 MG/DL (0.55-1.30); GLOMERULAR FILTRATION RATE > 60.0 (>60); GLUCOSE, FASTING 91 MG/DL (70-100); MAGNESIUM LEVEL 2.2 MG/DL (1.8-2.4); PHOSPHORUS LEVEL 3.3 MG/DL (2.5-4.9); POTASSIUM SERUM 4.2 MEQ/L (3.5-5.1); SODIUM LEVEL 138 MEQ/L (136-145); TOTAL PROTEIN 7.5 GM/DL (6.4-8.2)
== END ==
LOC: M LAB REF 11:43
PROVIDERS: ATTEND Internal Medicine Gastroenterology
DX: R10.13 Epigastric pain (principal); R63.4 Abnormal weight loss; Z78.9 Other specified health status

== ENCOUNTER → 2021-06-04 | Outpatient (REF) | payer MEDICARE, OTHER ==
[~2021-06-04] MED LIST changes: -LEVS0.123; -MULTTAB20 PO; -ONDA-84 PO; +ONDA8TAB10 PO; -TIZA10TA; -TIZA10TA PO; +TIZA4TAB4; +TIZA4TAB4 PO
[2021-06-04 17:54] LABS: HEMATOCRIT 30.7 % (36.0-47.0); HEMOGLOBIN 10.1 g/dl (12.0-15.5); MEAN CORPUSCULAR HEMOGLOBIN 28.2 pg (27.0-33.0); MEAN CORPUSCULAR HGB CONC 32.9 g/dl (32.0-36.5); MEAN CORPUSCULAR VOLUME 85.8 fl (80.0-96.0); PLATELET COUNT, AUTOMATED 233 10^3/uL (150-450); RED BLOOD COUNT 3.58 10^6/uL (4.00-5.40); WHITE BLOOD COUNT 6.3 10^3/uL (4.0-10.0)
[2021-06-04 18:13] LABS: ALBUMIN 3.9 GM/DL (3.2-5.2); ALT/SGPT 19 U/L (12-78); BILIRUBIN,TOTAL 0.5 MG/DL (0.2-1.0); BLOOD UREA NITROGEN 18 MG/DL (7-18); CALCIUM LEVEL 8.7 MG/DL (8.5-10.1); CARBON DIOXIDE LEVEL 24 MEQ/L (21-32); CHLORIDE LEVEL 108 MEQ/L (98-107); CREATININE FOR GFR 0.92 MG/DL (0.55-1.30); GLOMERULAR FILTRATION RATE > 60.0 (>60); GLUCOSE, FASTING 86 MG/DL (70-100); MAGNESIUM LEVEL 2.1 MG/DL (1.8-2.4); PHOSPHORUS LEVEL 4.1 MG/DL (2.5-4.9); POTASSIUM SERUM 3.6 MEQ/L (3.5-5.1); SODIUM LEVEL 139 MEQ/L (136-145); TOTAL PROTEIN 7.2 GM/DL (6.4-8.2)
== END ==
LOC: M LAB REF 17:25
PROVIDERS: ATTEND Internal Medicine Gastroenterology
DX: R63.4 Abnormal weight loss (principal); R10.13 Epigastric pain; Z78.9 Other specified health status

== ENCOUNTER → 2021-06-04 | Outpatient (REF) | payer MEDICARE, OTHER ==
[~2021-06-04] MED LIST changes: +LEVS0.123; +MULTTAB20 PO; +ONDA-84 PO; -ONDA8TAB10 PO; +TIZA10TA; +TIZA10TA PO; -TIZA4TAB4; -TIZA4TAB4 PO
[2021-06-04 18:21] LABS: FREE T4 0.87 NG/DL (0.76-1.46); FREE THYROXINE INDEX 2.2 % (1.3-4.8); THYROID STIMULATING HORMONE 3.09 uIU/ML (0.358-3.740)
== END ==
LOC: M LAB REF 17:21
PROVIDERS: ATTEND Nurse Practitioner Family
DX: R79.89 Other specified abnormal findings of blood chemistry (principal); Z79.899 Other long term (current) drug therapy

== ENCOUNTER → 2021-06-11 | Outpatient (REF) | payer MEDICARE, OTHER ==
[2021-06-11 13:31] LABS: HEMATOCRIT 31.3 % (36.0-47.0); HEMOGLOBIN 10.3 g/dl (12.0-15.5); MEAN CORPUSCULAR HEMOGLOBIN 27.7 pg (27.0-33.0); MEAN CORPUSCULAR HGB CONC 32.9 g/dl (32.0-36.5); MEAN CORPUSCULAR VOLUME 84.1 fl (80.0-96.0); PLATELET COUNT, AUTOMATED 178 10^3/uL (150-450); RED BLOOD COUNT 3.72 10^6/uL (4.00-5.40); WHITE BLOOD COUNT 8.2 10^3/uL (4.0-10.0)
[2021-06-11 14:07] LABS: ALBUMIN 3.8 GM/DL (3.2-5.2); ALT/SGPT 14 U/L (12-78); BILIRUBIN,TOTAL 0.3 MG/DL (0.2-1.0); BLOOD UREA NITROGEN 13 MG/DL (7-18); CARBON DIOXIDE LEVEL 23 MEQ/L (21-32); CHLORIDE LEVEL 109 MEQ/L (98-107); CREATININE FOR GFR 0.64 MG/DL (0.55-1.30); GLOMERULAR FILTRATION RATE > 60.0 (>60); GLUCOSE, FASTING 86 MG/DL (70-100); MAGNESIUM LEVEL 2.1 MG/DL (1.8-2.4); PHOSPHORUS LEVEL 3.2 MG/DL (2.5-4.9); SODIUM LEVEL 139 MEQ/L (136-145)
== END ==
LOC: M LAB REF 13:13
PROVIDERS: ATTEND Internal Medicine Gastroenterology
DX: Z78.9 Other specified health status (principal); R63.4 Abnormal weight loss; R10.13 Epigastric pain

== ENCOUNTER → 2021-06-18 | Outpatient (REF) | payer MEDICARE, OTHER ==
[~2021-06-18] MED LIST changes: -LEVS0.123; -MULTTAB20 PO; -ONDA-84 PO; +ONDA8TAB10 PO; -TIZA10TA; -TIZA10TA PO; +TIZA4TAB4; +TIZA4TAB4 PO
[2021-06-18 16:21] LABS: MEAN CORPUSCULAR HEMOGLOBIN 27.2 pg (27.0-33.0); MEAN CORPUSCULAR HGB CONC 32.3 g/dl (32.0-36.5); MEAN CORPUSCULAR VOLUME 84.5 fl (80.0-96.0); PLATELET COUNT, AUTOMATED 184 10^3/uL (150-450); RED BLOOD COUNT 3.67 10^6/uL (4.00-5.40); WHITE BLOOD COUNT 5.3 10^3/uL (4.0-10.0)
[2021-06-18 16:51] LABS: ALBUMIN 3.5 GM/DL (3.2-5.2); ALT/SGPT 16 U/L (12-78); BILIRUBIN,TOTAL 0.3 MG/DL (0.2-1.0); BLOOD UREA NITROGEN 9 MG/DL (7-18); CALCIUM LEVEL 8.6 MG/DL (8.5-10.1); CARBON DIOXIDE LEVEL 22 MEQ/L (21-32); CHLORIDE LEVEL 111 MEQ/L (98-107); CREATININE FOR GFR 0.59 MG/DL (0.55-1.30); GLOMERULAR FILTRATION RATE > 60.0 (>60); GLUCOSE, FASTING 75 MG/DL (70-100); MAGNESIUM LEVEL 1.9 MG/DL (1.8-2.4); PHOSPHORUS LEVEL 3.4 MG/DL (2.5-4.9); POTASSIUM SERUM 4.2 MEQ/L (3.5-5.1); SODIUM LEVEL 141 MEQ/L (136-145); TOTAL PROTEIN 6.6 GM/DL (6.4-8.2)
== END ==
LOC: M LAB REF 15:46
PROVIDERS: ATTEND Internal Medicine Gastroenterology
DX: R63.4 Abnormal weight loss (principal); Z78.9 Other specified health status; R10.13 Epigastric pain

== ENCOUNTER → 2021-07-02 | Outpatient (REF) | payer MEDICARE, OTHER ==
[~2021-07-02] MED LIST changes: +ONDA-84 PO; -ONDA8TAB10 PO; +TIZA10TA; +TIZA10TA PO; -TIZA4TAB4; -TIZA4TAB4 PO
[2021-07-02 18:07] LABS: HEMATOCRIT 32.3 % (36.0-47.0); HEMOGLOBIN 10.4 g/dl (12.0-15.5); MEAN CORPUSCULAR HEMOGLOBIN 26.9 pg (27.0-33.0); MEAN CORPUSCULAR HGB CONC 32.2 g/dl (32.0-36.5); MEAN CORPUSCULAR VOLUME 83.5 fl (80.0-96.0); PLATELET COUNT, AUTOMATED 243 10^3/uL (150-450); RED BLOOD COUNT 3.87 10^6/uL (4.00-5.40); WHITE BLOOD COUNT 5.8 10^3/uL (4.0-10.0)
[2021-07-02 18:40] LABS: ALBUMIN 3.6 GM/DL (3.2-5.2); ALT/SGPT 18 U/L (12-78); BILIRUBIN,TOTAL 0.3 MG/DL (0.2-1.0); BLOOD UREA NITROGEN 11 MG/DL (7-18); CARBON DIOXIDE LEVEL 25 MEQ/L (21-32); CHLORIDE LEVEL 110 MEQ/L (98-107); CREATININE FOR GFR 0.68 MG/DL (0.55-1.30); GLOMERULAR FILTRATION RATE > 60.0 (>60); GLUCOSE, FASTING 89 MG/DL (70-100); PHOSPHORUS LEVEL 3.5 MG/DL (2.5-4.9); POTASSIUM SERUM 4.1 MEQ/L (3.5-5.1); SODIUM LEVEL 140 MEQ/L (136-145); TOTAL PROTEIN 6.8 GM/DL (6.4-8.2)
== END ==
LOC: M LAB REF 17:35
PROVIDERS: ATTEND Internal Medicine Gastroenterology
DX: Z78.9 Other specified health status (principal); R63.4 Abnormal weight loss; R10.13 Epigastric pain

== ENCOUNTER → 2021-07-08 | Outpatient (REF) | payer MEDICARE, OTHER ==
[2021-07-08 15:09] LABS: HEMATOCRIT 31.3 % (36.0-47.0); HEMOGLOBIN 9.9 g/dl (12.0-15.5); MEAN CORPUSCULAR HEMOGLOBIN 26.7 pg (27.0-33.0); MEAN CORPUSCULAR HGB CONC 31.6 g/dl (32.0-36.5); MEAN CORPUSCULAR VOLUME 84.4 fl (80.0-96.0); PLATELET COUNT, AUTOMATED 182 10^3/uL (150-450); RED BLOOD COUNT 3.71 10^6/uL (4.00-5.40); WHITE BLOOD COUNT 6.3 10^3/uL (4.0-10.0)
[2021-07-08 15:35] LABS: ALBUMIN 3.4 GM/DL (3.2-5.2); ALT/SGPT 17 U/L (12-78); BILIRUBIN,TOTAL 0.4 MG/DL (0.2-1.0); BLOOD UREA NITROGEN 14 MG/DL (7-18); CALCIUM LEVEL 8.6 MG/DL (8.5-10.1); CARBON DIOXIDE LEVEL 25 MEQ/L (21-32); CHLORIDE LEVEL 108 MEQ/L (98-107); CREATININE FOR GFR 0.62 MG/DL (0.55-1.30); GLOMERULAR FILTRATION RATE > 60.0 (>60); GLUCOSE, FASTING 83 MG/DL (70-100); PHOSPHORUS LEVEL 2.9 MG/DL (2.5-4.9); POTASSIUM SERUM 4.4 MEQ/L (3.5-5.1); SODIUM LEVEL 139 MEQ/L (136-145); TOTAL PROTEIN 6.3 GM/DL (6.4-8.2)
== END ==
LOC: M LAB REF 14:42
PROVIDERS: ATTEND Internal Medicine Gastroenterology
DX: Z78.9 Other specified health status (principal); R63.4 Abnormal weight loss; R10.13 Epigastric pain

== ENCOUNTER → 2021-07-16 | Outpatient (REF) | payer MEDICARE, OTHER | LOC: M LAB REF 13:54 | PROVIDERS: ATTEND Internal Medicine Gastroenterology | DX: R10.13 Epigastric pain (principal); R11.2 Nausea with vomiting, unspecified; B95.8 Unspecified staphylococcus as the cause of diseases classified elsewhere; R19.7 Diarrhea, unspecified; R50.9 Fever, unspecified ==

== ENCOUNTER 2021-07-20 17:13 | Emergency (ER) | payer MEDICARE, OTHER ==
[~2021-07-20] VITALS: Ht 172.7 cm; Wt 59.1 kg
[2021-07-20] MEDS ORDERED: LEVS0.123 (17:28)
[2021-07-20] MEDS ORDERED: MULTTAB20 PO (17:28)
[2021-07-20] MEDS: NS 1,000 ML IV SCH ×4 (19:20→22:39)
[2021-07-20] MEDS ORDERED: SODIUM CHLORIDE 0.9% INJ 10 ML SYR IV PRN (19:20)
[2021-07-20] MEDS ORDERED: PROMETHAZINE INJ 25 MG/ML VIAL (J2550) IV ONE (19:20)
[2021-07-20] MEDS ORDERED: MORPHINE 4 MG/ML 1ML VIAL/SYRINGE (J2270) IV ONE ×2 (19:20→22:20)
[2021-07-20 20:23] LABS: BASO % 0.2 % (0.0-1.0); EOS % 0.6 % (0.0-3.0); HEMATOCRIT 28.6 % (36.0-47.0); HEMOGLOBIN 9.5 g/dl (12.0-15.5); LYMPH # 1.2 10^3/uL (1.5-5.0); LYMPH % 18.7 % (24.0-44.0); MEAN CORPUSCULAR HEMOGLOBIN 26.9 pg (27.0-33.0); MEAN CORPUSCULAR HGB CONC 33.2 g/dl (32.0-36.5); MONO # 0.4 10^3/uL (0.0-0.8); MONO % 6.5 % (2.0-8.0); NEUTROPHILS # 4.7 10^3/uL (1.5-8.5); NEUTROPHILS % 73.5 % (36.0-66.0); PLATELET COUNT, AUTOMATED 191 10^3/uL (150-450); RED BLOOD COUNT 3.53 10^6/uL (4.00-5.40); WHITE BLOOD COUNT 6.4 10^3/uL (4.0-10.0)
[2021-07-20] MEDS: GASTROGRAFIN SOLUTION 30ML PO SCH ×2 (20:30→21:18)
[2021-07-20 20:42] LABS: HCG, SERUM QUALITATIVE NEGATIVE (NEGATIVE)
[2021-07-20 20:43] LABS: ALBUMIN 3.7 GM/DL (3.2-5.2); ALT/SGPT 16 U/L (12-78); BILIRUBIN,DIRECT < 0.1 MG/DL (0.0-0.2); BILIRUBIN,TOTAL 0.2 MG/DL (0.2-1.0); BLOOD UREA NITROGEN 9 MG/DL (7-18); CALCIUM LEVEL 8.7 MG/DL (8.5-10.1); CARBON DIOXIDE LEVEL 22 MEQ/L (21-32); CHLORIDE LEVEL 112 MEQ/L (98-107); CREATININE FOR GFR 0.68 MG/DL (0.55-1.30); GLOMERULAR FILTRATION RATE > 60.0 (>60); GLUCOSE, FASTING 88 MG/DL (70-100); LIPASE 102 U/L (73-393); POTASSIUM SERUM 3.6 MEQ/L (3.5-5.1); SODIUM LEVEL 142 MEQ/L (136-145); TOTAL PROTEIN 7.4 GM/DL (6.4-8.2)
[2021-07-20 20:45] LABS: ERYTHROCYTE SEDIMENTATION RATE 32 mm/hr (0-20)
[2021-07-20] MEDS: SODIUM CHLORIDE 0.9% INJ 10 ML SYR IV SCH ×2 (20:57→22:39)
[2021-07-20] MEDS ORDERED: ISOVUE-370 76% 100ML VIAL As Ordered ONE (22:18)
[2021-07-20 23:26] VITALS: BP 115/55
[2021-07-21] MEDS ORDERED: PROMETHAZINE 25MG SUPP PR ONE (00:25)
[2021-07-21 00:36] LABS: MONO REFLEX EBV COMP NEGATIVE (NEGATIVE)
[2021-07-23 16:09] LABS: EBV VIRAL CAPSID AG IgM <36.0 U/mL (0.0-35.9); Lyme Disease IgG/IgM Antibodie <0.91 ISR (0.00-0.90); Lyme Disease IgM Ab Quantitati <0.80 index (0.00-0.79)
== END 2021-07-21 00:59 | disposition home or self-care (01) ==
LOC: M ED 17:13
DX: R10.84 Generalized abdominal pain (principal); R11.2 Nausea with vomiting, unspecified; R50.9 Fever, unspecified; Z88.1 Allergy status to other antibiotic agents; Z88.2 Allergy status to sulfonamides; Z88.8 Allergy status to other drugs, medicaments and biological substances; Z91.040 Latex allergy status
CPT/HCPCS: 71045; 74177; 80048; 80076; 83605; 83690; 84703; 85025; 85652; 86140; 86308; 86617; 86664; 86665; 87040; 87798; 96361; 96374; 96375; 96376; 99283; J1642; J2270; Q9963; Q9967

== ENCOUNTER → 2021-07-23 | Outpatient (REF) | payer MEDICARE, OTHER ==
[~2021-07-23] MED LIST changes: +LEVS0.123; +MED REC COMMENT; +MIDO2.5T PO; +MULTTAB20 PO; +OXYC10TA3 PO; +PRED20TA PO
[2021-07-23 12:55] LABS: HEMATOCRIT 29.3 % (36.0-47.0); HEMOGLOBIN 9.4 g/dl (12.0-15.5); MEAN CORPUSCULAR HEMOGLOBIN 26.3 pg (27.0-33.0); MEAN CORPUSCULAR HGB CONC 32.1 g/dl (32.0-36.5); MEAN CORPUSCULAR VOLUME 81.8 fl (80.0-96.0); PLATELET COUNT, AUTOMATED 221 10^3/uL (150-450); RED BLOOD COUNT 3.58 10^6/uL (4.00-5.40); WHITE BLOOD COUNT 6.1 10^3/uL (4.0-10.0)
[2021-07-23 13:16] LABS: ALBUMIN 3.6 GM/DL (3.2-5.2); ALT/SGPT 15 U/L (12-78); BILIRUBIN,TOTAL 0.3 MG/DL (0.2-1.0); BLOOD UREA NITROGEN 10 MG/DL (7-18); CALCIUM LEVEL 8.7 MG/DL (8.5-10.1); CARBON DIOXIDE LEVEL 22 MEQ/L (21-32); CHLORIDE LEVEL 112 MEQ/L (98-107); CREATININE FOR GFR 0.67 MG/DL (0.55-1.30); GLOMERULAR FILTRATION RATE > 60.0 (>60); GLUCOSE, FASTING 90 MG/DL (70-100); PHOSPHORUS LEVEL 3.5 MG/DL (2.5-4.9); POTASSIUM SERUM 3.8 MEQ/L (3.5-5.1); SODIUM LEVEL 142 MEQ/L (136-145); TOTAL PROTEIN 6.9 GM/DL (6.4-8.2)
[2021-07-23 21:46] LABS: MAGNESIUM LEVEL 1.6 MG/DL (1.7-2.2)
== END ==
LOC: M LAB REF 12:06
PROVIDERS: ATTEND Internal Medicine Cardiovascular Disease
DX: R63.4 Abnormal weight loss (principal); R10.13 Epigastric pain; R50.9 Fever, unspecified; Z78.9 Other specified health status

== ENCOUNTER → 2021-07-23 | Outpatient (REF) | payer MEDICARE, OTHER ==
[~2021-07-23] MED LIST changes: -MED REC COMMENT; -MIDO2.5T PO; -OXYC10TA3 PO; -PRED20TA PO
[2021-07-24 10:55] LABS: APPEARANCE, URINE CLEAR (CLEAR); BACTERIA, URINE AUTO NEGATIVE (NEGATIVE); BILIRUBIN, URINE AUTO NEGATIVE (NEGATIVE); BLOOD, URINE BLOOD NEGATIVE (NEGATIVE); CALCIUM OXALATE CRYSTALS SMALL; COLOR, URINE YELLOW (YELLOW); GLUCOSE, URINE (UA) AUTO NEGATIVE (NEGATIVE); KETONE, URINE AUTO NEGATIVE (NEGATIVE); LEUKOCYTE ESTERASE, URINE AUTO NEGATIVE (NEGATIVE); MUCUS, URINE SMALL (NEGATIVE); NITRITE, URINE AUTO NEGATIVE (NEGATIVE); PROTEIN, URINE AUTO NEGATIVE (NEGATIVE); RBC, URINE AUTO 2 /HPF (0-3); SPECIFIC GRAVITY URINE AUTO 1.014 (1.002-1.035); SQUAMOUS EPITHELIAL CELL UR AU 1 /HPF (0-6); WBC, URINE AUTO 1 /HPF (0-3)
== END ==
LOC: M LAB REF 14:55
PROVIDERS: ATTEND Internal Medicine Infectious Disease
DX: R50.9 Fever, unspecified (principal)

== ENCOUNTER → 2021-07-31 | Outpatient (REF) | payer MEDICARE, OTHER | LOC: M LAB REF 14:02 | PROVIDERS: ATTEND Internal Medicine Infectious Disease | DX: R50.9 Fever, unspecified (principal); R63.4 Abnormal weight loss; R10.13 Epigastric pain ==

== ENCOUNTER → 2021-07-31 | Outpatient (REF) | payer MEDICARE, OTHER ==
[2021-07-31 14:23] LABS: HEMATOCRIT 32.5 % (36.0-47.0); HEMOGLOBIN 10.5 g/dl (12.0-15.5); MEAN CORPUSCULAR HEMOGLOBIN 25.7 pg (27.0-33.0); MEAN CORPUSCULAR HGB CONC 32.3 g/dl (32.0-36.5); MEAN CORPUSCULAR VOLUME 79.5 fl (80.0-96.0); PLATELET COUNT, AUTOMATED 288 10^3/uL (150-450); RED BLOOD COUNT 4.09 10^6/uL (4.00-5.40); WHITE BLOOD COUNT 8.1 10^3/uL (4.0-10.0)
[2021-07-31 14:49] LABS: ALBUMIN 4.1 GM/DL (3.2-5.2); ALT/SGPT 29 U/L (12-78); BILIRUBIN,TOTAL 0.4 MG/DL (0.2-1.0); BLOOD UREA NITROGEN 12 MG/DL (7-18); CALCIUM LEVEL 9.4 MG/DL (8.5-10.1); CARBON DIOXIDE LEVEL 22 MEQ/L (21-32); CHLORIDE LEVEL 107 MEQ/L (98-107); CREATININE FOR GFR 0.71 MG/DL (0.55-1.30); GLOMERULAR FILTRATION RATE > 60.0 (>60); GLUCOSE, FASTING 86 MG/DL (70-100); MAGNESIUM LEVEL 2.1 MG/DL (1.8-2.4); PHOSPHORUS LEVEL 4.2 MG/DL (2.5-4.9); POTASSIUM SERUM 3.6 MEQ/L (3.5-5.1); SODIUM LEVEL 139 MEQ/L (136-145); TOTAL PROTEIN 7.9 GM/DL (6.4-8.2)
== END ==
LOC: M LAB REF 13:59
PROVIDERS: ATTEND Internal Medicine Gastroenterology
DX: R63.4 Abnormal weight loss (principal); R10.13 Epigastric pain

== ENCOUNTER → 2021-07-31 | Outpatient (CLI) | payer MEDICARE, OTHER | LOC: M PLAIMG 09:43 | PROVIDERS: ATTEND Internal Medicine Infectious Disease | DX: R50.9 Fever, unspecified (principal); R63.4 Abnormal weight loss; R10.13 Epigastric pain ==

== ENCOUNTER → 2021-08-14 | Outpatient (REF) | payer MEDICARE, OTHER ==
[2021-08-14 18:55] LABS: ALBUMIN 3.4 GM/DL (3.2-5.2); ALT/SGPT 24 U/L (12-78); BILIRUBIN,TOTAL 0.3 MG/DL (0.2-1.0); BLOOD UREA NITROGEN 15 MG/DL (7-18); C REACTIVE PROTEIN QUANTITATIV 1.93 MG/DL (0.00-0.30); CALCIUM LEVEL 8.8 MG/DL (8.5-10.1); CARBON DIOXIDE LEVEL 23 MEQ/L (21-32); CHLORIDE LEVEL 109 MEQ/L (98-107); CREATININE FOR GFR 0.58 MG/DL (0.55-1.30); GLOMERULAR FILTRATION RATE > 60.0 (>60); GLUCOSE, FASTING 81 MG/DL (70-100); POTASSIUM SERUM 4.2 MEQ/L (3.5-5.1); SODIUM LEVEL 139 MEQ/L (136-145); TOTAL PROTEIN 7.2 GM/DL (6.4-8.2)
[2021-08-14 19:01] LABS: BASO % 0.5 % (0.0-1.0); EOS # 0.6 10^3/uL (0.0-0.5); EOS % 10.1 % (0.0-3.0); HEMATOCRIT 28.1 % (36.0-47.0); HEMOGLOBIN 8.7 g/dl (12.0-15.5); LYMPH # 1.5 10^3/uL (1.5-5.0); LYMPH % 25.7 % (24.0-44.0); MEAN CORPUSCULAR VOLUME 80.7 fl (80.0-96.0); MONO # 0.4 10^3/uL (0.0-0.8); NEUTROPHILS # 3.3 10^3/uL (1.5-8.5); NEUTROPHILS % 56.5 % (36.0-66.0); PLATELET COUNT, AUTOMATED 250 10^3/uL (150-450); RED BLOOD COUNT 3.48 10^6/uL (4.00-5.40); WHITE BLOOD COUNT 5.8 10^3/uL (4.0-10.0)
[2021-08-14 20:49] LABS: ERYTHROCYTE SEDIMENTATION RATE 45 mm/hr (0-20)
== END ==
LOC: M LAB REF 17:32
PROVIDERS: ATTEND Internal Medicine Infectious Disease
DX: T80.219D Unspecified infection due to central venous catheter, subsequent encounter (principal)

== ENCOUNTER 2021-08-17 18:42 | Inpatient (IN) | payer MEDICARE, OTHER ==
[~2021-08-17] VITALS: Ht 167.6 cm; Wt 62.8 kg
[2021-08-17] MEDS ORDERED: NALOXONE INJ 0.4MG/1ML VIAL (J2310 PER 1MG) IV PRN (19:00)
[2021-08-17 19:14] LABS: BASO % 0.2 % (0.0-1.0); EOS % 0.2 % (0.0-3.0); HEMATOCRIT 30.4 % (36.0-47.0); HEMOGLOBIN 9.5 g/dl (12.0-15.5); LYMPH # 0.4 10^3/uL (1.5-5.0); LYMPH % 2.7 % (24.0-44.0); MEAN CORPUSCULAR HEMOGLOBIN 25.1 pg (27.0-33.0); MEAN CORPUSCULAR HGB CONC 31.3 g/dl (32.0-36.5); MEAN CORPUSCULAR VOLUME 80.2 fl (80.0-96.0); MONO # 0.4 10^3/uL (0.0-0.8); MONO % 3.1 % (2.0-8.0); NEUTROPHILS # 13.1 10^3/uL (1.5-8.5); NEUTROPHILS % 93.1 % (36.0-66.0); PLATELET COUNT, AUTOMATED 235 10^3/uL (150-450); RED BLOOD COUNT 3.79 10^6/uL (4.00-5.40); WHITE BLOOD COUNT 14.1 10^3/uL (4.0-10.0)
[2021-08-17 19:52] LABS: ACETAMINOPHEN LEVEL < 2.0 UG/ML (10.0-30.0); ALBUMIN 3.4 GM/DL (3.2-5.2); ALT/SGPT 20 U/L (12-78); BILIRUBIN,DIRECT 0.2 MG/DL (0.0-0.2); BILIRUBIN,TOTAL 0.5 MG/DL (0.2-1.0); BLOOD UREA NITROGEN 19 MG/DL (7-18); CALCIUM LEVEL 8.7 MG/DL (8.5-10.1); CARBON DIOXIDE LEVEL 22 MEQ/L (21-32); CHLORIDE LEVEL 105 MEQ/L (98-107); ETHYL ALCOHOL (ETHANOL) < 0.003 % (0.000-0.010); GLOMERULAR FILTRATION RATE > 60.0 (>60); GLUCOSE, FASTING 221 MG/DL (70-100); POTASSIUM SERUM 4.4 MEQ/L (3.5-5.1); SALICYLATE LEVEL < 1.7 MG/DL (5.0-30.0); SODIUM LEVEL 136 MEQ/L (136-145); TOTAL PROTEIN 7.3 GM/DL (6.4-8.2)
[2021-08-17 20:04] LABS: OSMOLALITY SERUM 295 MOSM/KG (275-295)
[2021-08-17] MEDS ORDERED: MORPHINE 4 MG/ML 1ML VIAL/SYRINGE (J2270) IV ONE (22:10)
[2021-08-17] MEDS ORDERED: ISOVUE-370 76% 100ML VIAL As Ordered ONE (22:12)
[2021-08-17] MEDS ORDERED: PRED20TA PO (22:32)
[2021-08-17] MEDS ORDERED: OXYC10TA3 PO (22:34)
[2021-08-17] MEDS ORDERED: HOME MED LIST COMPLETE! XX SCH (22:35)
[2021-08-17] MEDS ORDERED: MED REC COMMENT (22:37)
[2021-08-17 23:02] LABS: AMPHETAMINES LEVEL URINE NEGATIVE (NEGATIVE); BARBITURATES URINE NEGATIVE (NEGATIVE); BENZODIAZEPINES URINE POSITIVE (NEGATIVE); CANNABINOIDS URINE NEGATIVE (NEGATIVE); COCAINE METABOLITE URINE NEGATIVE (NEGATIVE); METHADONE URINE NEGATIVE (NEGATIVE); OPIATES URINE POSITIVE (NEGATIVE); PHENCYCLIDINE URINE NEGATIVE (NEGATIVE)
[2021-08-17 23:18] LABS: RSV AMPLIFICATION NEGATIVE (NEGATIVE)
[2021-08-18] VITALS (12 sets, daily range): BP systolic 109–123; BP diastolic 53–76; O2SAT 95–99
[2021-08-18 00:29] LABS: ABG BASE EXCESS -4.4 (-2.0-2.0); ABG HCO3 18.9 MEQ/L (22.0-26.0); ABG O2 SATURATION 99.1 % (95.0-99.0); ABG PARTIAL PRESSURE CO2 28.2 mmHg (35.0-45.0); ABG PARTIAL PRESSURE O2 195.4 mmHg (75.0-100.0); ABG STANDARD HCO3 20.8 MEQ/L (22.0-26.0); ABG TOTAL CO2 19.7 MEQ/L (22.0-29.0); ABG pH (ARTERIAL) 7.443 UNITS (7.350-7.450)
[2021-08-18] MEDS ORDERED: IPRATROPIUM 0.5MG/ALBUTEROL 2.5MG INH SOL UD 3ML (DUONEB) NEB PRN (00:55)
[2021-08-18] MEDS ORDERED: DAPTOmycin 500 MG in NS 50 ML IV SCH (02:00)
[2021-08-18] MEDS ORDERED: ACETAMINOPHEN TAB 650MG DOSE (2X325MG) PO PRN (02:05)
[2021-08-18] MEDS ORDERED: CHLORASEPTIC SPRAY MT PRN (02:05)
[2021-08-18] MEDS ORDERED: METOPROLOL TART 25 MG TABLET PO PRN (03:35)
[2021-08-18] MEDS ORDERED: MORPHINE 4 MG/ML 1ML VIAL/SYRINGE (J2270) IV ONE ×2 (03:35→11:00)
[2021-08-18] MEDS ORDERED: SODIUM CHLORIDE 0.9% INJ 10 ML SYR IV PRN (03:40)
[2021-08-18] MEDS: SODIUM CHLORIDE 0.9% INJ 10 ML SYR IV SCH ×2 (04:57→17:17)
[2021-08-18] MEDS: LevoFLOXacin IV 750 MG in IV 1 EA IV SCH (06:01)
[2021-08-18] MEDS: ALPRAZolam 0.5 MG TAB PO PRN ×3 (06:04→21:59)
[2021-08-18] MEDS: BUDESONIDE 0.25 MG/2 ML INHALATION SUSPENSION INH SCH ×2 (07:11→17:44)
[2021-08-18] MEDS ORDERED: PERCOCET 5MG/325MG TAB PO PRN (07:40)
[2021-08-18] MEDS: LINEZOLID 600 MG in IV 1 EA IV SCH ×2 (08:05→19:43)
[2021-08-18] MEDS: buPROPion **XL** TABLET 150MG (WELLBUTRIN XL) PO SCH (08:05)
[2021-08-18 08:38] LABS: HEMATOCRIT 25.8 % (36.0-47.0); HEMOGLOBIN 8.3 g/dl (12.0-15.5); MEAN CORPUSCULAR HEMOGLOBIN 25.5 pg (27.0-33.0); MEAN CORPUSCULAR HGB CONC 32.2 g/dl (32.0-36.5); MEAN CORPUSCULAR VOLUME 79.1 fl (80.0-96.0); PLATELET COUNT, AUTOMATED 182 10^3/uL (150-450); RED BLOOD COUNT 3.26 10^6/uL (4.00-5.40); WHITE BLOOD COUNT 10.6 10^3/uL (4.0-10.0)
[2021-08-18] MEDS ORDERED: SODIUM CHLORIDE 0.9% INJ 10 ML SYR IV SCH (09:00)
[2021-08-18] MEDS ORDERED: LevoFLOXacin 750 MG TABLET PO ONE (09:00)
[2021-08-18 09:05] LABS: ALBUMIN 3.2 GM/DL (3.2-5.2); ALT/SGPT 20 U/L (12-78); BILIRUBIN,TOTAL 0.6 MG/DL (0.2-1.0); BLOOD UREA NITROGEN 15 MG/DL (7-18); CALCIUM LEVEL 8.7 MG/DL (8.5-10.1); CARBON DIOXIDE LEVEL 24 MEQ/L (21-32); CHLORIDE LEVEL 109 MEQ/L (98-107); GLOMERULAR FILTRATION RATE > 60.0 (>60); GLUCOSE, FASTING 91 MG/DL (70-100); POTASSIUM SERUM 3.4 MEQ/L (3.5-5.1); SODIUM LEVEL 143 MEQ/L (136-145); TOTAL PROTEIN 7.2 GM/DL (6.4-8.2)
[2021-08-18] MEDS: HEPARIN SOD (PORCINE) 5000UNITS/ML 1ML VIAL/SYRINGE SQ SCH ×3 (10:00→22:00)
[2021-08-18 11:15] LABS: C REACTIVE PROTEIN QUANTITATIV 6.32 MG/DL (0.00-0.30)
[2021-08-18] MEDS: NS 1,000 ML IV SCH (12:00)
[2021-08-18] MEDS: SODIUM CHLORIDE 0.9% INJ 10 ML SYR IV PRN (12:01)
[2021-08-18] MEDS: PERCOCET 5MG/325MG TAB PO PRN ×2 (15:38→22:00)
[2021-08-18] MEDS: HumaLOG INSULIN (NovoLOG) PER UNIT SC SCH ×2 (17:16→23:40)
[2021-08-18] MEDS ORDERED: MULTIVITAMIN -ADULT INJECTION 10 ML, ZINC/COPPER/MANGANESE/SELENIUM 1 ML in AMINO AC/EL... IV SCH (18:00)
[2021-08-18] MEDS ORDERED: FAT EMULSION IV 20% 500 ML IV SCH (18:00)
[2021-08-18] MEDS ORDERED: AMINO AC/ELECTROLYTE/DEX/CALC 2,000 ML IV SCH (18:00)
[2021-08-18] MEDS ORDERED: ONDANSETRON 4MG/2ML VIAL IV SCH (18:30)
[2021-08-18] MEDS ORDERED: ONDANSETRON 4MG/2ML VIAL IV PRN (18:35)
[2021-08-19] VITALS: BP 113/60
[2021-08-19] MEDS: NS 1,000 ML IV SCH ×2 (02:00→13:55)
[2021-08-19 04:00] VITALS: BP 111/66
[2021-08-19] MEDS: LevoFLOXacin IV 750 MG in IV 1 EA IV SCH (05:01)
[2021-08-19] MEDS: HEPARIN SOD (PORCINE) 5000UNITS/ML 1ML VIAL/SYRINGE SQ SCH ×3 (05:43→21:17)
[2021-08-19] MEDS: SODIUM CHLORIDE 0.9% INJ 10 ML SYR IV SCH ×2 (05:43→17:38)
[2021-08-19] MEDS: HumaLOG INSULIN (NovoLOG) PER UNIT SC SCH ×3 (06:00→17:36)
[2021-08-19] MEDS: ALPRAZolam 0.5 MG TAB PO PRN ×2 (06:17→22:48)
[2021-08-19] MEDS: PERCOCET 5MG/325MG TAB PO PRN (06:18)
[2021-08-19 06:26] LABS: HEMATOCRIT 25.7 % (36.0-47.0); HEMOGLOBIN 8.1 g/dl (12.0-15.5); MEAN CORPUSCULAR HEMOGLOBIN 25.4 pg (27.0-33.0); MEAN CORPUSCULAR HGB CONC 31.5 g/dl (32.0-36.5); MEAN CORPUSCULAR VOLUME 80.6 fl (80.0-96.0); PLATELET COUNT, AUTOMATED 194 10^3/uL (150-450); RED BLOOD COUNT 3.19 10^6/uL (4.00-5.40); WHITE BLOOD COUNT 6.7 10^3/uL (4.0-10.0)
[2021-08-19 06:39] LABS: BLOOD UREA NITROGEN 9 MG/DL (7-18); CALCIUM LEVEL 8.4 MG/DL (8.5-10.1); CARBON DIOXIDE LEVEL 28 MEQ/L (21-32); CHLORIDE LEVEL 108 MEQ/L (98-107); CREATININE FOR GFR 0.59 MG/DL (0.55-1.30); GLOMERULAR FILTRATION RATE > 60.0 (>60); GLUCOSE, FASTING 107 MG/DL (70-100); POTASSIUM SERUM 3.4 MEQ/L (3.5-5.1); SODIUM LEVEL 140 MEQ/L (136-145)
[2021-08-19 08:00] VITALS: BP 111/70
[2021-08-19] MEDS: buPROPion **XL** TABLET 150MG (WELLBUTRIN XL) PO SCH (08:03)
[2021-08-19] MEDS: LINEZOLID 600 MG in IV 1 EA IV SCH ×2 (08:03→20:12)
[2021-08-19] MEDS ORDERED: MORPHINE 4 MG/ML 1ML VIAL/SYRINGE (J2270) IV ONE (09:55)
[2021-08-19] MEDS: BUDESONIDE 0.25 MG/2 ML INHALATION SUSPENSION INH SCH (12:25)
[2021-08-19] MEDS: PROMETHAZINE 25 MG TAB PO SCH ×3 (12:40→21:16)
[2021-08-19] MEDS: tiZANidine 4 MG TAB PO PRN (13:54)
[2021-08-19] MEDS: oxyCODONE 5MG TAB PO PRN ×2 (13:54→21:16)
[2021-08-19 16:00] VITALS: BP 96/54
[2021-08-19] MEDS ORDERED: FAT EMULSION IV 20% 500 ML IV SCH (18:00)
[2021-08-19] MEDS ORDERED: AMINO AC/ELECTROLYTE/DEX/CALC 2,000 ML IV SCH (18:00)
[2021-08-19] MEDS ORDERED: MIDO2.5T PO (18:15)
[2021-08-19] MEDS: MIDODRINE 2.5 MG TAB PO SCH (18:50)
[2021-08-19 19:44] VITALS: BP 106/55
[2021-08-19] MEDS ORDERED: LIDOCAINE 5% (LIDODERM) PATCH TD ONE (23:10)
[2021-08-20] VITALS (8 sets, daily range): BP systolic 105–125; BP diastolic 53–70; O2SAT 98–99
[2021-08-20] MEDS: NS 1,000 ML IV SCH ×2 (01:06→12:42)
[2021-08-20 05:50] LABS: HEMATOCRIT 26.1 % (36.0-47.0); HEMOGLOBIN 8.3 g/dl (12.0-15.5); MEAN CORPUSCULAR HEMOGLOBIN 25.5 pg (27.0-33.0); MEAN CORPUSCULAR HGB CONC 31.8 g/dl (32.0-36.5); MEAN CORPUSCULAR VOLUME 80.1 fl (80.0-96.0); PLATELET COUNT, AUTOMATED 225 10^3/uL (150-450); RED BLOOD COUNT 3.26 10^6/uL (4.00-5.40); WHITE BLOOD COUNT 6.5 10^3/uL (4.0-10.0)
[2021-08-20] MEDS: HumaLOG INSULIN (NovoLOG) PER UNIT SC SCH ×4 (06:00→19:04)
[2021-08-20] MEDS: HEPARIN SOD (PORCINE) 5000UNITS/ML 1ML VIAL/SYRINGE SQ SCH ×3 (06:00→22:00)
[2021-08-20 06:16] LABS: BLOOD UREA NITROGEN 10 MG/DL (7-18); CALCIUM LEVEL 8.4 MG/DL (8.5-10.1); CARBON DIOXIDE LEVEL 28 MEQ/L (21-32); CHLORIDE LEVEL 108 MEQ/L (98-107); CREATININE FOR GFR 0.56 MG/DL (0.55-1.30); GLOMERULAR FILTRATION RATE > 60.0 (>60); GLUCOSE, FASTING 105 MG/DL (70-100); POTASSIUM SERUM 3.8 MEQ/L (3.5-5.1); SODIUM LEVEL 139 MEQ/L (136-145)
[2021-08-20] MEDS: SODIUM CHLORIDE 0.9% INJ 10 ML SYR IV PRN (06:24)
[2021-08-20] MEDS: SODIUM CHLORIDE 0.9% INJ 10 ML SYR IV SCH ×2 (06:25→17:41)
[2021-08-20] MEDS: LINEZOLID 600 MG in IV 1 EA IV SCH ×2 (07:57→20:19)
[2021-08-20] MEDS: buPROPion **XL** TABLET 150MG (WELLBUTRIN XL) PO SCH (07:58)
[2021-08-20] MEDS: MIDODRINE 2.5 MG TAB PO SCH ×3 (07:59→17:41)
[2021-08-20] MEDS: ALPRAZolam 0.5 MG TAB PO PRN ×2 (07:59→20:21)
[2021-08-20] MEDS: oxyCODONE 5MG TAB PO PRN (07:59)
[2021-08-20] MEDS: PROMETHAZINE 25 MG TAB PO SCH ×3 (08:10→21:00)
[2021-08-20] MEDS ORDERED: **NOTE PATIENT COMMENT** MISC XX SCH (11:00)
[2021-08-20] MEDS ORDERED: NALOXONE INJ 0.4MG/1ML VIAL (J2310 PER 1MG) IV PRN (11:45)
[2021-08-20] MEDS: tiZANidine 4 MG TAB PO PRN (12:40)
[2021-08-20] MEDS: HYDROMORPHONE HCL 0.5 MG/ 0.5 ML SYRINGE (J1170 PER 1) IV PRN ×2 (12:41→18:53)
[2021-08-20] MEDS ORDERED: MIDAZOLAM INJ 2MG/2ML VIAL (J2250 PER 1MG) As Ordered ONE ×3 (15:24→16:04)
[2021-08-20] MEDS ORDERED: propofoL 200 MG/20 ML VIAL As Ordered ONE (16:04)
[2021-08-20] MEDS ORDERED: fentaNYL 100 MCG/2 ML INJECTION As Ordered ONE (16:04)
[2021-08-20] MEDS ORDERED: LIDOCAINE 2% 100MG/5ML SDV (FOR ANES.) As Ordered ONE (16:04)
[2021-08-20] MEDS ORDERED: PHENYLephrine 500MCG 5ML (100MCG/ML) SYRINGE As Ordered ONE (16:15)
[2021-08-20] MEDS ORDERED: AMINO AC/ELECTROLYTE/DEX/CALC 2,000 ML IV SCH (18:00)
[2021-08-20] MEDS ORDERED: FAT EMULSION IV 20% 500 ML IV SCH (18:00)
[2021-08-21] VITALS (11 sets, daily range): BP systolic 104–107; BP diastolic 56–58; O2SAT 95–100
[2021-08-21] MEDS: HYDROMORPHONE HCL 0.5 MG/ 0.5 ML SYRINGE (J1170 PER 1) IV PRN ×2 (01:19→08:45)
[2021-08-21] MEDS: SODIUM CHLORIDE 0.9% INJ 10 ML SYR IV SCH (05:43)
[2021-08-21] MEDS: HEPARIN SOD (PORCINE) 5000UNITS/ML 1ML VIAL/SYRINGE SQ SCH ×2 (05:44→13:23)
[2021-08-21] MEDS: NS 1,000 ML IV SCH (05:49)
[2021-08-21] MEDS: HumaLOG INSULIN (NovoLOG) PER UNIT SC SCH ×3 (06:00→12:00)
[2021-08-21] MEDS: buPROPion **XL** TABLET 150MG (WELLBUTRIN XL) PO SCH (08:43)
[2021-08-21] MEDS: PROMETHAZINE 25 MG TAB PO SCH (08:43)
[2021-08-21] MEDS: MIDODRINE 2.5 MG TAB PO SCH ×2 (08:43→12:12)
[2021-08-21] MEDS: LINEZOLID 600 MG in IV 1 EA IV SCH (08:44)
[2021-08-21 08:55] LABS: HEMATOCRIT 26.9 % (36.0-47.0); HEMOGLOBIN 8.5 g/dl (12.0-15.5); MEAN CORPUSCULAR HEMOGLOBIN 25.4 pg (27.0-33.0); MEAN CORPUSCULAR HGB CONC 31.6 g/dl (32.0-36.5); MEAN CORPUSCULAR VOLUME 80.5 fl (80.0-96.0); PLATELET COUNT, AUTOMATED 230 10^3/uL (150-450); RED BLOOD COUNT 3.34 10^6/uL (4.00-5.40); WHITE BLOOD COUNT 5.8 10^3/uL (4.0-10.0)
[2021-08-21 09:27] LABS: BLOOD UREA NITROGEN 13 MG/DL (7-18); CALCIUM LEVEL 8.5 MG/DL (8.5-10.1); CARBON DIOXIDE LEVEL 30 MEQ/L (21-32); CHLORIDE LEVEL 106 MEQ/L (98-107); CREATININE FOR GFR 0.59 MG/DL (0.55-1.30); GLOMERULAR FILTRATION RATE > 60.0 (>60); GLUCOSE, FASTING 99 MG/DL (70-100); POTASSIUM SERUM 3.8 MEQ/L (3.5-5.1); SODIUM LEVEL 140 MEQ/L (136-145)
[2021-08-21] MEDS ORDERED: [UNRECOGNIZED DRUG - CODE] IV (10:41)
== END 2021-08-21 14:53 | disposition home health service (06) | DRG 306 ==
LOC: M ED 18:42 → EDBD 18:42 → M ED INP 18:43 → ENRESERV 08-18 01:04 → M PCU 08-18 02:22 → OBSVTOIN 08-18 08:21
PROVIDERS: ADMIT Family Medicine; ATTEND Internal Medicine
PROC: B246ZZ4 Ultrasonography of Right and Left Heart, Transesophageal (ICD-10-PCS; principal; 2021-08-20 20:00)
DX: I34.8 Other nonrheumatic mitral valve disorders (principal); G92.8 Other toxic encephalopathy; I77.4 Celiac artery compression syndrome; E87.2 Acidosis; K90.89 Other intestinal malabsorption; R50.9 Fever, unspecified; F32.A Depression, unspecified; F41.9 Anxiety disorder, unspecified; I10 Essential (primary) hypertension; R09.02 Hypoxemia; I49.8 Other specified cardiac arrhythmias; T38.0X5A Adverse effect of glucocorticoids and synthetic analogues, initial encounter; Z79.52 Long term (current) use of systemic steroids; Z79.899 Other long term (current) drug therapy; Z20.822 Contact with and (suspected) exposure to COVID-19; Z88.2 Allergy status to sulfonamides; Z88.0 Allergy status to penicillin; Z88.1 Allergy status to other antibiotic agents; Z88.8 Allergy status to other drugs, medicaments and biological substances; Z91.040 Latex allergy status

== ENCOUNTER → 2021-08-27 | Outpatient (REF) | payer MEDICARE, OTHER ==
[~2021-08-27] MED LIST changes: +MED REC COMMENT; +MIDO2.5T PO; +OXYC10TA3 PO; +PRED20TA PO; +[UNRECOGNIZED DRUG - CODE] IV
[2021-08-27 17:58] LABS: BASO % 0.3 % (0.0-1.0); EOS # 0.4 10^3/uL (0.0-0.5); EOS % 5.9 % (0.0-3.0); HEMATOCRIT 30.1 % (36.0-47.0); HEMOGLOBIN 9.3 g/dl (12.0-15.5); LYMPH # 1.5 10^3/uL (1.5-5.0); LYMPH % 23.6 % (24.0-44.0); MEAN CORPUSCULAR HGB CONC 30.9 g/dl (32.0-36.5); MEAN CORPUSCULAR VOLUME 80.9 fl (80.0-96.0); MONO # 0.4 10^3/uL (0.0-0.8); MONO % 6.7 % (2.0-8.0); NEUTROPHILS # 4.1 10^3/uL (1.5-8.5); NEUTROPHILS % 63.2 % (36.0-66.0); PLATELET COUNT, AUTOMATED 294 10^3/uL (150-450); RED BLOOD COUNT 3.72 10^6/uL (4.00-5.40); WHITE BLOOD COUNT 6.4 10^3/uL (4.0-10.0)
[2021-08-27 18:28] LABS: ALBUMIN 3.8 GM/DL (3.2-5.2); ALT/SGPT 23 U/L (12-78); BILIRUBIN,TOTAL 0.3 MG/DL (0.2-1.0); BLOOD UREA NITROGEN 13 MG/DL (7-18); CALCIUM LEVEL 8.8 MG/DL (8.5-10.1); CARBON DIOXIDE LEVEL 27 MEQ/L (21-32); CHLORIDE LEVEL 104 MEQ/L (98-107); CREATININE FOR GFR 0.68 MG/DL (0.55-1.30); GLOMERULAR FILTRATION RATE > 60.0 (>60); GLUCOSE, FASTING 76 MG/DL (70-100); POTASSIUM SERUM 4.2 MEQ/L (3.5-5.1); SODIUM LEVEL 136 MEQ/L (136-145); TOTAL PROTEIN 7.3 GM/DL (6.4-8.2)
[2021-08-27 20:45] LABS: ERYTHROCYTE SEDIMENTATION RATE 25 mm/hr (0-20)
== END ==
LOC: M LAB REF 16:29
PROVIDERS: ATTEND Internal Medicine Infectious Disease
DX: I34.8 Other nonrheumatic mitral valve disorders (principal)

== ENCOUNTER → 2021-08-27 | Outpatient (REF) | payer MEDICARE, OTHER ==
[~2021-08-27] MED LIST changes: +CETI-24 PO; +DOCU100C16 PO; +LORA1TAB4 PO; +NS10IV IV; +OMEP40CA5 PO; +ONDA-83 PO; +PROM25SU3 PR; +tpn
[2021-08-27 17:58] LABS: HEMOGLOBIN 9.3 g/dl (12.0-15.5); MEAN CORPUSCULAR VOLUME 80.6 fl (80.0-96.0); PLATELET COUNT, AUTOMATED 287 10^3/uL (150-450); RED BLOOD COUNT 3.72 10^6/uL (4.00-5.40); WHITE BLOOD COUNT 6.6 10^3/uL (4.0-10.0)
== END ==
LOC: M LAB REF 16:36
PROVIDERS: ATTEND Nurse Practitioner Family
DX: D64.9 Anemia, unspecified (principal)

== ENCOUNTER → 2021-08-27 | Outpatient (REF) | payer MEDICARE, OTHER ==
[2021-08-27 18:29] LABS: ALBUMIN 3.8 GM/DL (3.2-5.2); ALT/SGPT 22 U/L (12-78); BILIRUBIN,TOTAL 0.6 MG/DL (0.2-1.0); BLOOD UREA NITROGEN 12 MG/DL (7-18); CALCIUM LEVEL 8.7 MG/DL (8.5-10.1); CARBON DIOXIDE LEVEL 27 MEQ/L (21-32); CHLORIDE LEVEL 104 MEQ/L (98-107); CREATININE FOR GFR 0.69 MG/DL (0.55-1.30); GLOMERULAR FILTRATION RATE > 60.0 (>60); GLUCOSE, FASTING 75 MG/DL (70-100); PHOSPHORUS LEVEL 3.6 MG/DL (2.5-4.9); POTASSIUM SERUM 4.1 MEQ/L (3.5-5.1); SODIUM LEVEL 135 MEQ/L (136-145); TOTAL PROTEIN 7.4 GM/DL (6.4-8.2)
== END ==
LOC: M LAB REF 16:34
PROVIDERS: ATTEND Internal Medicine Gastroenterology
DX: R63.4 Abnormal weight loss (principal); Z78.9 Other specified health status; R10.13 Epigastric pain; I34.8 Other nonrheumatic mitral valve disorders; D64.9 Anemia, unspecified

== ENCOUNTER 2021-09-01 21:39 | Inpatient (IN) | payer MEDICARE, OTHER ==
[~2021-09-01] VITALS: Ht 172.7 cm; Wt 62.1 kg
[~2021-09-01 21:39] MED LIST changes: -CETI-24 PO; -DOCU100C16 PO; -LORA1TAB4 PO; -NS10IV IV; -OMEP40CA5 PO; -ONDA-83 PO; -PROM25SU3 PR; -tpn
[2021-09-01 23:34] LABS: BASO % 0.2 % (0.0-1.0); EOS # 0.3 10^3/uL (0.0-0.5); EOS % 3.1 % (0.0-3.0); HEMATOCRIT 28.9 % (36.0-47.0); HEMOGLOBIN 8.9 g/dl (12.0-15.5); LYMPH # 0.8 10^3/uL (1.5-5.0); LYMPH % 8.2 % (24.0-44.0); MEAN CORPUSCULAR HEMOGLOBIN 24.9 pg (27.0-33.0); MEAN CORPUSCULAR HGB CONC 30.8 g/dl (32.0-36.5); MEAN CORPUSCULAR VOLUME 80.7 fl (80.0-96.0); MONO # 0.5 10^3/uL (0.0-0.8); MONO % 5.2 % (2.0-8.0); NEUTROPHILS # 8.3 10^3/uL (1.5-8.5); PLATELET COUNT, AUTOMATED 207 10^3/uL (150-450); RED BLOOD COUNT 3.58 10^6/uL (4.00-5.40)
[2021-09-01 23:45] LABS: INR 1.16; PROTHROMBIN TIME 15.2 SECONDS (12.7-14.5)
[2021-09-01] MEDS ORDERED: ONDANSETRON 4MG/2ML VIAL IV ONE (23:45)
[2021-09-01] MEDS ORDERED: MORPHINE 4 MG/ML 1ML VIAL/SYRINGE (J2270) IV ONE (23:45)
[2021-09-02 00:06] LABS: CK-MB VALUE MASS < 1.0 NG/ML (<3.6); CPK CREATINE PHOSPHOKINASE 77 U/L (26-192)
[2021-09-02 00:06] LABS: CK-MB VALUE MASS < 1.0 NG/ML (<3.6); CPK CREATINE PHOSPHOKINASE 77 U/L (26-192)
[2021-09-02 00:12] LABS: ALBUMIN 3.9 GM/DL (3.2-5.2); ALT/SGPT 21 U/L (12-78); AMYLASE 42 U/L (25-115); BILIRUBIN,DIRECT < 0.1 MG/DL (0.0-0.2); BILIRUBIN,TOTAL 0.2 MG/DL (0.2-1.0); BLOOD UREA NITROGEN 8 MG/DL (7-18); CALCIUM LEVEL 8.7 MG/DL (8.5-10.1); CARBON DIOXIDE LEVEL 23 MEQ/L (21-32); CHLORIDE LEVEL 114 MEQ/L (98-107); CREATININE FOR GFR 0.82 MG/DL (0.55-1.30); GLOMERULAR FILTRATION RATE > 60.0 (>60); GLUCOSE, FASTING 79 MG/DL (70-100); LIPASE 444 U/L (73-393); POTASSIUM SERUM 3.4 MEQ/L (3.5-5.1); SODIUM LEVEL 142 MEQ/L (136-145); TOTAL PROTEIN 7.8 GM/DL (6.4-8.2)
[2021-09-02] MEDS ORDERED: ISOVUE-370 76% 100ML VIAL As Ordered ONE (00:25)
[2021-09-02] MEDS ORDERED: HYDROMORPHONE HCL 0.5 MG/ 0.5 ML SYRINGE (J1170 PER 1) IV ONE (00:55)
[2021-09-02] MEDS ORDERED: NS 1,000 ML IV ONE (01:35)
[2021-09-02] MEDS ORDERED: LORA1TAB4 PO (02:03)
[2021-09-02] MEDS ORDERED: OMEP40CA5 PO (02:03)
[2021-09-02] MEDS ORDERED: DOCU100C16 PO (02:20)
[2021-09-02] MEDS ORDERED: PROM25SU3 PR (02:20)
[2021-09-02] MEDS ORDERED: ASPI81TA26 PO (02:20)
[2021-09-02] MEDS ORDERED: CETI-24 PO (02:20)
[2021-09-02] MEDS ORDERED: HYDR200T3 PO (02:20)
[2021-09-02] MEDS ORDERED: ONDA-83 PO (02:20)
[2021-09-02] MEDS ORDERED: tpn (02:22)
[2021-09-02] MEDS ORDERED: [UNRECOGNIZED DRUG - CODE] IV (02:25)
[2021-09-02] MEDS ORDERED: NS10IV IV (02:25)
[2021-09-02] MEDS ORDERED: HOME MED LIST COMPLETE! XX SCH (02:30)
[2021-09-02] MEDS ORDERED: tiZANidine 4 MG TAB PO PRN (02:45)
[2021-09-02] MEDS ORDERED: ALPRAZolam 0.5 MG TAB PO PRN (02:45)
[2021-09-02] MEDS ORDERED: HYDROMORPHONE HCL 0.5 MG/ 0.5 ML SYRINGE (J1170 PER 1) IV PRN ×2 (02:45→15:00)
[2021-09-02] MEDS ORDERED: MOM 30ML SUSPENSION UDC PO PRN (02:45)
[2021-09-02] MEDS ORDERED: METOPROLOL TART 25 MG TABLET PO PRN (02:45)
[2021-09-02] MEDS ORDERED: MIDODRINE 2.5 MG TAB PO PRN (02:45)
[2021-09-02] MEDS: NS 1,000 ML IV SCH ×3 (03:26→22:45)
[2021-09-02] MEDS: HYDROmorphone HCL 2MG/ML 1ML VIAL IV PRN ×5 (04:23→20:29)
[2021-09-02] MEDS ORDERED: DEXTROSE 50% 50 ML SYRINGE IV PRN (04:55)
[2021-09-02] MEDS ORDERED: GLUCAGON INJ 1MG VIAL SC PRN (04:55)
[2021-09-02] MEDS ORDERED: GLUCOSE 4GM CHEW TABLET PO PRN (04:55)
[2021-09-02] MEDS: HumaLOG INSULIN (NovoLOG) PER UNIT SC SCH ×4 (06:30→23:57)
[2021-09-02 06:45] LABS: HEMATOCRIT 25.6 % (36.0-47.0); HEMOGLOBIN 7.9 g/dl (12.0-15.5); MEAN CORPUSCULAR HEMOGLOBIN 25.1 pg (27.0-33.0); MEAN CORPUSCULAR HGB CONC 30.9 g/dl (32.0-36.5); MEAN CORPUSCULAR VOLUME 81.3 fl (80.0-96.0); PLATELET COUNT, AUTOMATED 158 10^3/uL (150-450); RED BLOOD COUNT 3.15 10^6/uL (4.00-5.40); WHITE BLOOD COUNT 7.7 10^3/uL (4.0-10.0)
[2021-09-02] MEDS: ONDANSETRON 4MG/2ML VIAL IV PRN ×2 (07:21→13:57)
[2021-09-02 07:23] LABS: BLOOD UREA NITROGEN 6 MG/DL (7-18); CARBON DIOXIDE LEVEL 22 MEQ/L (21-32); CHLORIDE LEVEL 116 MEQ/L (98-107); CREATININE FOR GFR 0.69 MG/DL (0.55-1.30); GLOMERULAR FILTRATION RATE > 60.0 (>60); GLUCOSE, FASTING 85 MG/DL (70-100); LIPASE 170 U/L (73-393); MAGNESIUM LEVEL 1.9 MG/DL (1.8-2.4); POTASSIUM SERUM 3.5 MEQ/L (3.5-5.1); SODIUM LEVEL 144 MEQ/L (136-145)
[2021-09-02] MEDS ORDERED: LINEZOLID IV SCH (08:00)
[2021-09-02] MEDS ORDERED: PROMETHAZINE 25 MG TAB PO SCH (09:00)
[2021-09-02] MEDS ORDERED: ACETAMINOPHEN TAB 650MG DOSE (2X325MG) PO PRN (09:10)
[2021-09-02] MEDS: LINEZOLID 600 MG in IV 1 EA IV SCH ×2 (09:30→21:45)
[2021-09-02] MEDS: ASPIRIN 81MG ENTERIC TABLET PO SCH (09:39)
[2021-09-02] MEDS: CETIRIZINE (ZyrTEC) 10 MG TAB PO SCH (09:39)
[2021-09-02] MEDS: DOCUSATE SODIUM 100MG CAPSULE PO SCH (09:39)
[2021-09-02] MEDS: ENOXAPARIN 40MG/0.4ML SYRINGE (J1650 PER 10MG) SC SCH (09:39)
[2021-09-02] MEDS: HYDROXYCHLOROQUINE 200 MG TAB PO SCH (09:39)
[2021-09-02] MEDS: buPROPion **XL** TABLET 150MG (WELLBUTRIN XL) PO SCH (09:39)
[2021-09-02] MEDS: PROMETHAZINE 25MG SUPP PR PRN ×2 (09:43→17:06)
[2021-09-02] MEDS: PANTOPRAZOLE 40MG VIAL (C9113 PER 1) IV SCH (09:43)
[2021-09-02 14:52] VITALS: BP 132/81
[2021-09-02] MEDS ORDERED: ENTER DRUG NAME HERE (PATIENT'S OWN MED) IV SCH (15:05)
[2021-09-02] MEDS ORDERED: SODIUM CHLORIDE 0.9% INJ 10 ML SYR IV PRN (18:00)
[2021-09-02] MEDS ORDERED: [UNRECOGNIZED DRUG - OTHER] IV SCH (18:00)
[2021-09-02 20:30] VITALS: BP 129/79
[2021-09-03] MEDS: ONDANSETRON 4MG/2ML VIAL IV PRN (01:45)
[2021-09-03] MEDS: HYDROmorphone HCL 2MG/ML 1ML VIAL IV PRN ×2 (01:45→05:28)
[2021-09-03] MEDS: NS 1,000 ML IV SCH (04:47)
[2021-09-03] MEDS: PROMETHAZINE 25MG SUPP PR PRN (05:27)
[2021-09-03 06:00] VITALS: BP 110/63
[2021-09-03] MEDS: HumaLOG INSULIN (NovoLOG) PER UNIT SC SCH ×2 (06:00→12:00)
[2021-09-03 07:06] LABS: HEMATOCRIT 25.6 % (36.0-47.0); HEMOGLOBIN 7.9 g/dl (12.0-15.5); MEAN CORPUSCULAR HEMOGLOBIN 24.9 pg (27.0-33.0); MEAN CORPUSCULAR HGB CONC 30.9 g/dl (32.0-36.5); MEAN CORPUSCULAR VOLUME 80.8 fl (80.0-96.0); PLATELET COUNT, AUTOMATED 180 10^3/uL (150-450); RED BLOOD COUNT 3.17 10^6/uL (4.00-5.40); WHITE BLOOD COUNT 5.9 10^3/uL (4.0-10.0)
[2021-09-03 07:31] LABS: ERYTHROCYTE SEDIMENTATION RATE 29 mm/hr (0-20)
[2021-09-03 07:32] LABS: BLOOD UREA NITROGEN 11 MG/DL (7-18); CALCIUM LEVEL 8.1 MG/DL (8.5-10.1); CARBON DIOXIDE LEVEL 26 MEQ/L (21-32); CHLORIDE LEVEL 109 MEQ/L (98-107); CREATININE FOR GFR 0.73 MG/DL (0.55-1.30); GLOMERULAR FILTRATION RATE > 60.0 (>60); GLUCOSE, FASTING 74 MG/DL (70-100); MAGNESIUM LEVEL 1.8 MG/DL (1.8-2.4); POTASSIUM SERUM 3.7 MEQ/L (3.5-5.1); SODIUM LEVEL 140 MEQ/L (136-145)
[2021-09-03] MEDS: HYDROXYCHLOROQUINE 200 MG TAB PO SCH (08:25)
[2021-09-03] MEDS: ENOXAPARIN 40MG/0.4ML SYRINGE (J1650 PER 10MG) SC SCH ×2 (08:25→08:54)
[2021-09-03] MEDS: PANTOPRAZOLE 40MG VIAL (C9113 PER 1) IV SCH (08:25)
[2021-09-03] MEDS: LINEZOLID 600 MG in IV 1 EA IV SCH (08:26)
[2021-09-03] MEDS: buPROPion **XL** TABLET 150MG (WELLBUTRIN XL) PO SCH ×2 (08:26→08:53)
[2021-09-03] MEDS: CETIRIZINE (ZyrTEC) 10 MG TAB PO SCH (08:26)
[2021-09-03] MEDS: DOCUSATE SODIUM 100MG CAPSULE PO SCH (08:26)
[2021-09-03] MEDS: ASPIRIN 81MG ENTERIC TABLET PO SCH (08:26)
[2021-09-03] MEDS ORDERED: SODIUM CHLORIDE 0.9% INJ 10 ML SYR IV SCH (09:00)
[2021-09-03] MEDS ORDERED: oxyCODONE 5MG TAB PO PRN ×2 (09:15→18:00)
[2021-09-03 14:00] VITALS: BP 88/41
[2021-09-03 14:41] VITALS: BP 93/51
[2021-09-03] MEDS ORDERED: LIDOCAINE 1% MDV 20ML VIAL As Ordered ONE (15:03)
[2021-09-03 15:15] VITALS: BP 102/54
[2021-09-03 15:23] LABS: PHOSPHORUS LEVEL 3.9 MG/DL (2.5-4.9)
[2021-09-03] MEDS ORDERED: OXYC10TA3 PO (17:12)
== END 2021-09-03 18:33 | disposition home health service (06) | DRG 391 ==
LOC: M ED 21:39 → M ED INP 09-02 02:45 → ENRESERV 09-02 13:59 → M MSPAV 09-02 14:52
PROVIDERS: ADMIT Internal Medicine; ATTEND Internal Medicine
PROC: 02HV33Z Insertion of Infusion Device into Superior Vena Cava, Percutaneous Approach (ICD-10-PCS; principal; 2021-09-03 16:00)
DX: I77.4 Celiac artery compression syndrome (principal); I33.0 Acute and subacute infective endocarditis; I49.8 Other specified cardiac arrhythmias; F32.A Depression, unspecified; F41.9 Anxiety disorder, unspecified; M06.4 Inflammatory polyarthropathy; Z79.82 Long term (current) use of aspirin; Z79.899 Other long term (current) drug therapy; Z88.2 Allergy status to sulfonamides; Z88.0 Allergy status to penicillin; Z88.1 Allergy status to other antibiotic agents; Z88.8 Allergy status to other drugs, medicaments and biological substances; Z91.040 Latex allergy status

== ENCOUNTER → 2021-09-05 | Outpatient (REF) | payer MEDICARE, OTHER ==
[~2021-09-05] MED LIST changes: +CETI-24 PO; +DOCU100C16 PO; +LORA1TAB4 PO; +NS10IV IV; +OMEP40CA5 PO; +ONDA-83 PO; +PROM25SU3 PR; +tpn
[2021-09-05 19:25] LABS: HEMATOCRIT 26.8 % (36.0-47.0); HEMOGLOBIN 8.4 g/dl (12.0-15.5); MEAN CORPUSCULAR HGB CONC 31.3 g/dl (32.0-36.5); MEAN CORPUSCULAR VOLUME 79.8 fl (80.0-96.0); PLATELET COUNT, AUTOMATED 203 10^3/uL (150-450); RED BLOOD COUNT 3.36 10^6/uL (4.00-5.40); WHITE BLOOD COUNT 7.3 10^3/uL (4.0-10.0)
[2021-09-05 19:36] LABS: ALBUMIN 3.8 GM/DL (3.2-5.2); ALT/SGPT 17 U/L (12-78); BILIRUBIN,TOTAL 0.3 MG/DL (0.2-1.0); BLOOD UREA NITROGEN 16 MG/DL (7-18); CALCIUM LEVEL 8.5 MG/DL (8.5-10.1); CARBON DIOXIDE LEVEL 25 MEQ/L (21-32); CHLORIDE LEVEL 109 MEQ/L (98-107); CREATININE FOR GFR 0.71 MG/DL (0.55-1.30); GLOMERULAR FILTRATION RATE > 60.0 (>60); GLUCOSE, FASTING 57 MG/DL (70-100); MAGNESIUM LEVEL 2.1 MG/DL (1.8-2.4); PHOSPHORUS LEVEL 2.8 MG/DL (2.5-4.9); POTASSIUM SERUM 3.8 MEQ/L (3.5-5.1); SODIUM LEVEL 139 MEQ/L (136-145); TOTAL PROTEIN 7.2 GM/DL (6.4-8.2)
== END ==
LOC: M LAB REF 18:47
PROVIDERS: ATTEND Internal Medicine Gastroenterology
DX: Z78.9 Other specified health status (principal); R63.4 Abnormal weight loss; R10.13 Epigastric pain

== ENCOUNTER 2021-09-10 17:30 | Observation (INO) | payer MEDICARE, OTHER ==
[~2021-09-10] VITALS: Ht 172.7 cm; Wt 59.1 kg
[2021-09-10 20:10] LABS: BASO % 0.1 % (0.0-1.0); EOS % 0.2 % (0.0-3.0); HEMATOCRIT 28.2 % (36.0-47.0); HEMOGLOBIN 8.8 g/dl (12.0-15.5); LYMPH # 0.7 10^3/uL (1.5-5.0); MEAN CORPUSCULAR HEMOGLOBIN 24.2 pg (27.0-33.0); MEAN CORPUSCULAR HGB CONC 31.2 g/dl (32.0-36.5); MEAN CORPUSCULAR VOLUME 77.7 fl (80.0-96.0); MONO # 0.5 10^3/uL (0.0-0.8); MONO % 5.1 % (2.0-8.0); NEUTROPHILS # 7.5 10^3/uL (1.5-8.5); NEUTROPHILS % 86.4 % (36.0-66.0); PLATELET COUNT, AUTOMATED 158 10^3/uL (150-450); RED BLOOD COUNT 3.63 10^6/uL (4.00-5.40); WHITE BLOOD COUNT 8.7 10^3/uL (4.0-10.0)
[2021-09-10 20:29] LABS: HCG, SERUM QUALITATIVE NEGATIVE (NEGATIVE)
[2021-09-10 20:37] LABS: ALBUMIN 3.8 GM/DL (3.2-5.2); ALT/SGPT 18 U/L (12-78); BILIRUBIN,DIRECT 0.2 MG/DL (0.0-0.2); BILIRUBIN,TOTAL 0.6 MG/DL (0.2-1.0); BLOOD UREA NITROGEN 9 MG/DL (7-18); CALCIUM LEVEL 8.8 MG/DL (8.5-10.1); CARBON DIOXIDE LEVEL 22 MEQ/L (21-32); CHLORIDE LEVEL 110 MEQ/L (98-107); CREATININE FOR GFR 0.75 MG/DL (0.55-1.30); GLOMERULAR FILTRATION RATE > 60.0 (>60); GLUCOSE, FASTING 92 MG/DL (70-100); LIPASE 126 U/L (73-393); SODIUM LEVEL 144 MEQ/L (136-145); TOTAL PROTEIN 7.6 GM/DL (6.4-8.2)
[2021-09-10] MEDS ORDERED: ISOVUE-370 76% 100ML VIAL As Ordered ONE ×2 (21:18→23:09)
[2021-09-10] MEDS ORDERED: MORPHINE 4 MG/ML 1ML VIAL/SYRINGE IV ONE ×2 (22:10→23:40)
[2021-09-10] MEDS ORDERED: NS 1,000 ML IV ONE (22:10)
[2021-09-10] MEDS ORDERED: ONDANSETRON 4MG/2ML VIAL IV ONE (22:10)
[2021-09-11] MEDS ORDERED: fentaNYL 100 MCG/2 ML INJECTION IV ONE (00:20)
[2021-09-11] MEDS ORDERED: PROMETHAZINE 25MG/ML 1ML VIAL IV ONE (00:20)
[2021-09-11] MEDS ORDERED: HYDROMORPHONE HCL 0.5 MG/ 0.5 ML SYRINGE (J1170 PER 1) IV ONE (01:55)
[2021-09-11] MEDS ORDERED: ACETAMINOPHEN TAB 650MG DOSE (2X325MG) PO PRN (05:10)
[2021-09-11] MEDS: NS 1,000 ML IV SCH ×2 (05:15→15:15)
[2021-09-11] MEDS ORDERED: WELLTAB40 PO (05:25)
[2021-09-11] MEDS ORDERED: PERC10TA26 PO (05:25)
[2021-09-11] MEDS ORDERED: PROMETHAZINE 25 MG TAB PO PRN (05:30)
[2021-09-11] MEDS ORDERED: ONDANSETRON 4MG TAB PO PRN (05:30)
[2021-09-11] MEDS ORDERED: LINEZOLID IV SCH (05:30)
[2021-09-11] MEDS ORDERED: HOME MED LIST COMPLETE! XX SCH (05:30)
[2021-09-11] MEDS ORDERED: PROMETHAZINE 25MG SUPP PR PRN (05:30)
[2021-09-11] MEDS ORDERED: tiZANidine 4 MG TAB PO PRN (05:30)
[2021-09-11] MEDS ORDERED: METOPROLOL TART 25 MG TABLET PO PRN (05:30)
[2021-09-11] MEDS ORDERED: MIDODRINE 2.5 MG TAB PO PRN (05:30)
[2021-09-11] MEDS ORDERED: ACETAMINOPHEN 650 MG SUPP PR PRN (05:45)
[2021-09-11] MEDS: METOCLOPRAMIDE 5 MG TAB PO SCH ×3 (07:30→17:07)
[2021-09-11] MEDS ORDERED: oxyCODONE 5MG TAB PO PRN ×2 (07:45→11:35)
[2021-09-11 08:00] VITALS: BP 133/81
[2021-09-11] MEDS: buPROPion **XL** TABLET 150MG (WELLBUTRIN XL) PO SCH (09:00)
[2021-09-11] MEDS ORDERED: buPROPion **XL** TABLET 150MG (WELLBUTRIN XL) PO SCH ×2 (09:00)
[2021-09-11] MEDS: ENOXAPARIN 30MG/0.3ML SYRINGE (J1650 PER 10MG) SC SCH (09:00)
[2021-09-11] MEDS: ASPIRIN 81MG ENTERIC TABLET PO SCH (09:39)
[2021-09-11] MEDS: HYDROXYCHLOROQUINE 200 MG TAB PO SCH (09:40)
[2021-09-11] MEDS: DOCUSATE SODIUM 100MG CAPSULE PO SCH (09:40)
[2021-09-11] MEDS: LINEZOLID 600 MG in IV 1 EA IV SCH ×2 (09:41→20:46)
[2021-09-11] MEDS ORDERED: HYDROcodone/APAP LIQUID 7.5-325MG 15ML UDC (LORTAB ELIXIR) PO PRN (11:30)
[2021-09-11] MEDS: ALPRAZolam 0.5 MG TAB PO PRN (13:30)
[2021-09-11 14:00] VITALS: BP 120/58
[2021-09-11 21:15] VITALS: BP 121/69
[2021-09-11] MEDS ORDERED: SODIUM CHLORIDE 0.9% INJ 10 ML SYR IV PRN (22:05)
[2021-09-12] MEDS: oxyCODONE 5MG TAB PO PRN ×2 (00:59→10:03)
[2021-09-12 05:15] VITALS: BP 113/69
[2021-09-12] MEDS: SODIUM CHLORIDE 0.9% INJ 10 ML SYR IV SCH ×2 (05:22→05:44)
[2021-09-12 05:53] LABS: HEMATOCRIT 25.6 % (36.0-47.0); MEAN CORPUSCULAR HEMOGLOBIN 24.7 pg (27.0-33.0); MEAN CORPUSCULAR HGB CONC 31.3 g/dl (32.0-36.5); PLATELET COUNT, AUTOMATED 171 10^3/uL (150-450); RED BLOOD COUNT 3.24 10^6/uL (4.00-5.40); WHITE BLOOD COUNT 6.2 10^3/uL (4.0-10.0)
[2021-09-12 06:24] LABS: BLOOD UREA NITROGEN 11 MG/DL (7-18); CALCIUM LEVEL 8.5 MG/DL (8.5-10.1); CARBON DIOXIDE LEVEL 27 MEQ/L (21-32); CHLORIDE LEVEL 113 MEQ/L (98-107); CREATININE FOR GFR 0.66 MG/DL (0.55-1.30); GLOMERULAR FILTRATION RATE > 60.0 (>60); GLUCOSE, FASTING 97 MG/DL (70-100); MAGNESIUM LEVEL 1.8 MG/DL (1.8-2.4); POTASSIUM SERUM 3.9 MEQ/L (3.5-5.1); SODIUM LEVEL 143 MEQ/L (136-145)
[2021-09-12] MEDS: METOCLOPRAMIDE 5 MG TAB PO SCH ×2 (07:30→11:49)
[2021-09-12] MEDS: DOCUSATE SODIUM 100MG CAPSULE PO SCH (09:00)
[2021-09-12] MEDS: ASPIRIN 81MG ENTERIC TABLET PO SCH (09:00)
[2021-09-12] MEDS: ENOXAPARIN 30MG/0.3ML SYRINGE (J1650 PER 10MG) SC SCH (09:00)
[2021-09-12] MEDS: HYDROXYCHLOROQUINE 200 MG TAB PO SCH (09:00)
[2021-09-12] MEDS: buPROPion **XL** TABLET 150MG (WELLBUTRIN XL) PO SCH (09:00)
[2021-09-12] MEDS: LINEZOLID 600 MG in IV 1 EA IV SCH (09:57)
[2021-09-12] MEDS: ALPRAZolam 0.5 MG TAB PO PRN (10:04)
== END 2021-09-12 14:55 | disposition home health service (06) ==
LOC: M ED 17:30 → M ED INP 09-11 04:30 → ENRESERV 09-11 07:00 → M MS4PR 09-11 07:28 → M 4MAIN 09-11 16:18
PROVIDERS: ADMIT Family Medicine; ATTEND Family Medicine
DX: I77.4 Celiac artery compression syndrome (principal); K31.84 Gastroparesis; I05.9 Rheumatic mitral valve disease, unspecified; I49.8 Other specified cardiac arrhythmias; M06.4 Inflammatory polyarthropathy; F32.9 Major depressive disorder, single episode, unspecified; F41.9 Anxiety disorder, unspecified; R50.9 Fever, unspecified; R63.4 Abnormal weight loss; D64.9 Anemia, unspecified; K58.1 Irritable bowel syndrome with constipation; N80.9 Endometriosis, unspecified; Z79.899 Other long term (current) drug therapy; Z79.82 Long term (current) use of aspirin; Z88.8 Allergy status to other drugs, medicaments and biological substances; Z88.2 Allergy status to sulfonamides; Z91.040 Latex allergy status; Z88.5 Allergy status to narcotic agent; Z88.1 Allergy status to other antibiotic agents; Z88.0 Allergy status to penicillin
CPT/HCPCS: 36415; 71045; 74177; 80048; 80076; 83690; 83735; 84703; 85025; 85027; 86140; 87040; 87798; 96361; 96365; 96366; 96375; 96376; 99284; G0378; J1170; J1642; J2020; J2270; J2405; J2550; J3010; Q9967

== ENCOUNTER → 2021-10-03 | Outpatient (CLI) | payer MEDICARE, OTHER ==
[~2021-10-03] MED LIST changes: +BUPR-71 PO; -BUPR150T5 PO; +PERC10TA26 PO; +WELLTAB40 PO
[2021-10-03 14:11] LABS: HEMATOCRIT 31.1 % (36.0-47.0); HEMOGLOBIN 9.6 g/dl (12.0-15.5); MEAN CORPUSCULAR HEMOGLOBIN 23.5 pg (27.0-33.0); MEAN CORPUSCULAR HGB CONC 30.9 g/dl (32.0-36.5); MEAN CORPUSCULAR VOLUME 76.2 fl (80.0-96.0); PLATELET COUNT, AUTOMATED 261 10^3/uL (150-450); RED BLOOD COUNT 4.08 10^6/uL (4.00-5.40); WHITE BLOOD COUNT 8.1 10^3/uL (4.0-10.0)
[2021-10-03 14:46] LABS: ALBUMIN 4.3 GM/DL (3.2-5.2); ALT/SGPT 58 U/L (12-78); BILIRUBIN,TOTAL 0.4 MG/DL (0.2-1.0); BLOOD UREA NITROGEN 13 MG/DL (7-18); CALCIUM LEVEL 9.2 MG/DL (8.5-10.1); CARBON DIOXIDE LEVEL 25 MEQ/L (21-32); CHLORIDE LEVEL 108 MEQ/L (98-107); CREATININE FOR GFR 0.79 MG/DL (0.55-1.30); GLOMERULAR FILTRATION RATE > 60.0 (>60); GLUCOSE, FASTING 82 MG/DL (70-100); MAGNESIUM LEVEL 2.1 MG/DL (1.8-2.4); PHOSPHORUS LEVEL 3.5 MG/DL (2.5-4.9); POTASSIUM SERUM 3.5 MEQ/L (3.5-5.1); SODIUM LEVEL 139 MEQ/L (136-145); TOTAL PROTEIN 8.2 GM/DL (6.4-8.2)
== END ==
LOC: M LAB 13:19
PROVIDERS: ATTEND Internal Medicine Gastroenterology
DX: R10.13 Epigastric pain (principal); R63.4 Abnormal weight loss; R19.7 Diarrhea, unspecified; R19.4 Change in bowel habit; Z78.9 Other specified health status

== ENCOUNTER → 2021-10-17 | Outpatient (CLI) | payer MEDICARE, OTHER ==
[2021-10-17 18:01] LABS: HEMATOCRIT 31.2 % (36.0-47.0); HEMOGLOBIN 9.3 g/dl (12.0-15.5); MEAN CORPUSCULAR HEMOGLOBIN 22.8 pg (27.0-33.0); MEAN CORPUSCULAR HGB CONC 29.8 g/dl (32.0-36.5); MEAN CORPUSCULAR VOLUME 76.5 fl (80.0-96.0); PLATELET COUNT, AUTOMATED 308 10^3/uL (150-450); RED BLOOD COUNT 4.08 10^6/uL (4.00-5.40); WHITE BLOOD COUNT 6.8 10^3/uL (4.0-10.0)
[2021-10-17 19:06] LABS: ALBUMIN 4.3 GM/DL (3.2-5.2); ALT/SGPT 38 U/L (12-78); BILIRUBIN,TOTAL 0.3 MG/DL (0.2-1.0); BLOOD UREA NITROGEN 15 MG/DL (7-18); CALCIUM LEVEL 9.6 MG/DL (8.5-10.1); CARBON DIOXIDE LEVEL 26 MEQ/L (21-32); CHLORIDE LEVEL 107 MEQ/L (98-107); CREATININE FOR GFR 0.63 MG/DL (0.55-1.30); GLOMERULAR FILTRATION RATE > 60.0 (>60); GLUCOSE, FASTING 95 MG/DL (70-100); MAGNESIUM LEVEL 2.1 MG/DL (1.8-2.4); PHOSPHORUS LEVEL 3.4 MG/DL (2.5-4.9); POTASSIUM SERUM 3.9 MEQ/L (3.5-5.1); SODIUM LEVEL 139 MEQ/L (136-145); TOTAL PROTEIN 8.1 GM/DL (6.4-8.2)
== END ==
LOC: M WUC 13:03
PROVIDERS: ATTEND Internal Medicine Gastroenterology
DX: Z95.828 Presence of other vascular implants and grafts (principal); R10.13 Epigastric pain; R25.2 Cramp and spasm; R63.4 Abnormal weight loss; Z78.9 Other specified health status; R19.4 Change in bowel habit; R19.7 Diarrhea, unspecified

== ENCOUNTER 2021-10-30 08:44 | Inpatient (IN) | payer MEDICARE, OTHER ==
[~2021-10-30] VITALS: Ht 172.7 cm; Wt 59.2 kg
[2021-10-30] MEDS ORDERED: NS 1,000 ML IV ONE ×2 (10:40→22:50)
[2021-10-30] MEDS ORDERED: MORPHINE 4 MG/ML 1ML VIAL/SYRINGE IV ONE (10:40)
[2021-10-30] MEDS ORDERED: ONDANSETRON 4MG/2ML VIAL IV ONE ×2 (10:40→12:25)
[2021-10-30] MEDS ORDERED: PANTOPRAZOLE 40MG VIAL IV ONE (10:50)
[2021-10-30 11:00] LABS: BASO % 0.3 % (0.0-1.0); HEMATOCRIT 31.2 % (36.0-47.0); HEMOGLOBIN 9.7 g/dl (12.0-15.5); LYMPH # 0.6 10^3/uL (1.5-5.0); LYMPH % 4.9 % (24.0-44.0); MEAN CORPUSCULAR HEMOGLOBIN 22.7 pg (27.0-33.0); MEAN CORPUSCULAR HGB CONC 31.1 g/dl (32.0-36.5); MEAN CORPUSCULAR VOLUME 73.1 fl (80.0-96.0); MONO # 0.4 10^3/uL (0.0-0.8); MONO % 3.6 % (2.0-8.0); NEUTROPHILS # 10.5 10^3/uL (1.5-8.5); NEUTROPHILS % 90.9 % (36.0-66.0); PLATELET COUNT, AUTOMATED 250 10^3/uL (150-450); RED BLOOD COUNT 4.27 10^6/uL (4.00-5.40); WHITE BLOOD COUNT 11.5 10^3/uL (4.0-10.0)
[2021-10-30 11:24] LABS: ALBUMIN 4.4 GM/DL (3.2-5.2); ALT/SGPT 30 U/L (12-78); BILIRUBIN,DIRECT 0.1 MG/DL (0.0-0.2); BILIRUBIN,TOTAL 0.3 MG/DL (0.2-1.0); BLOOD UREA NITROGEN 13 MG/DL (7-18); CALCIUM LEVEL 9.4 MG/DL (8.5-10.1); CARBON DIOXIDE LEVEL 22 MEQ/L (21-32); CHLORIDE LEVEL 111 MEQ/L (98-107); CREATININE FOR GFR 0.68 MG/DL (0.55-1.30); GLOMERULAR FILTRATION RATE > 60.0 (>60); GLUCOSE, FASTING 88 MG/DL (70-100); LIPASE 134 U/L (73-393); POTASSIUM SERUM 3.5 MEQ/L (3.5-5.1); SODIUM LEVEL 141 MEQ/L (136-145); TOTAL PROTEIN 8.1 GM/DL (6.4-8.2)
[2021-10-30] MEDS ORDERED: NS IV ONE (13:00)
[2021-10-30] MEDS ORDERED: KETAMINE HCL IV ONE (13:00)
[2021-10-30] MEDS ORDERED: ISOVUE-370 76% 100ML VIAL As Ordered ONE (15:09)
[2021-10-30] MEDS: HYDROMORPHONE HCL 0.5 MG/ 0.5 ML SYRINGE (J1170 PER 1) IV PRN ×2 (16:04→17:31)
[2021-10-30] MEDS ORDERED: traMADol 50 MG TAB PO PRN (16:50)
[2021-10-30] MEDS ORDERED: ACETAMINOPHEN TAB 650MG DOSE (2X325MG) PO PRN (16:50)
[2021-10-30] MEDS ORDERED: METOCLOPRAMIDE INJ 10MG/2ML VIAL (J2765 PER 1) IV PRN (16:50)
[2021-10-30] MEDS ORDERED: TRAN1DIS4 TOP (17:13)
[2021-10-30] MEDS ORDERED: BUPR5DIS3 TOP (17:13)
[2021-10-30] MEDS ORDERED: DRON5CAP13 PO (17:13)
[2021-10-30] MEDS ORDERED: PATIENT COMMENT (17:13)
[2021-10-30] MEDS ORDERED: HOME MED LIST COMPLETE! XX SCH (17:15)
[2021-10-30 18:16] LABS: INR 1.2; PROTHROMBIN TIME 15.6 SECONDS (12.7-14.5)
[2021-10-30 18:17] LABS: PARTIAL THROMBOPLASTIN TIME 29.3 SECONDS (25.9-37.0)
[2021-10-30] MEDS ORDERED: ALPRAZolam 0.5 MG TAB PO PRN (19:20)
[2021-10-30] MEDS ORDERED: tiZANidine 4 MG TAB PO PRN (19:20)
[2021-10-30] MEDS: MORPHINE 4 MG/ML 1ML VIAL/SYRINGE IV PRN (20:39)
[2021-10-30] MEDS ORDERED: SCOPOLAMINE 1MG TRANSDERMAL PATCH TOP SCH (21:00)
[2021-10-30] MEDS: diphenhydrAMINE 50MG/ML VIAL (J1200) IV PRN (21:54)
[2021-10-30 22:16] VITALS: BP 130/70
[2021-10-30] MEDS ORDERED: MORPHINE 2 MG/ML 1ML VIAL IV ONE (23:30)
[2021-10-30] MEDS: PANTOPRAZOLE 40MG VIAL IV SCH (23:54)
[2021-10-30] MEDS: ONDANSETRON 4MG/2ML VIAL IV PRN (23:55)
[2021-10-30] MEDS: SODIUM CHLORIDE 0.9% INJ 10 ML SYR IV PRN (23:55)
[2021-10-30] MEDS: NS 1,000 ML IV SCH (23:55)
[2021-10-31] MEDS: NS 1,000 ML IV SCH ×2 (01:11→13:34)
[2021-10-31 01:16] VITALS: BP 141/77
[2021-10-31] MEDS ORDERED: LORazepam 2 MG/ML VIAL As Ordered ONE (01:58)
[2021-10-31] MEDS ORDERED: diphenhydrAMINE 50MG/ML VIAL (J1200) IV ONE (02:00)
[2021-10-31] MEDS ORDERED: LORazepam 2 MG/ML VIAL IV ONE (02:00)
[2021-10-31] MEDS: MORPHINE 4 MG/ML 1ML VIAL/SYRINGE IV PRN ×2 (02:05→06:32)
[2021-10-31] MEDS: SODIUM CHLORIDE 0.9% INJ 10 ML SYR IV PRN ×2 (02:05→02:49)
[2021-10-31 03:51] LABS: HEMATOCRIT 28.2 % (36.0-47.0); HEMOGLOBIN 8.8 g/dl (12.0-15.5); MEAN CORPUSCULAR HEMOGLOBIN 22.8 pg (27.0-33.0); MEAN CORPUSCULAR HGB CONC 31.2 g/dl (32.0-36.5); MEAN CORPUSCULAR VOLUME 73.1 fl (80.0-96.0); PLATELET COUNT, AUTOMATED 220 10^3/uL (150-450); RED BLOOD COUNT 3.86 10^6/uL (4.00-5.40)
[2021-10-31 04:12] LABS: BLOOD UREA NITROGEN 10 MG/DL (7-18); CARBON DIOXIDE LEVEL 23 MEQ/L (21-32); CHLORIDE LEVEL 112 MEQ/L (98-107); CREATININE FOR GFR 0.76 MG/DL (0.55-1.30); GLOMERULAR FILTRATION RATE > 60.0 (>60); GLUCOSE, FASTING 92 MG/DL (70-100); POTASSIUM SERUM 3.4 MEQ/L (3.5-5.1); SODIUM LEVEL 144 MEQ/L (136-145)
[2021-10-31 04:56] VITALS: BP 136/79
[2021-10-31] MEDS: SODIUM CHLORIDE 0.9% INJ 10 ML SYR IV SCH ×2 (06:31→17:45)
[2021-10-31] MEDS: ONDANSETRON 4MG/2ML VIAL IV PRN ×3 (06:32→21:57)
[2021-10-31] MEDS: KCL 10MEQ/100ML SWI (KRUN) 10 MEQ in IV 1 EA IV SCH ×3 (06:33→09:58)
[2021-10-31] MEDS ORDERED: METOPROLOL TART 25 MG TABLET PO PRN (08:20)
[2021-10-31] MEDS ORDERED: HYDROMORPHONE HCL 0.5 MG/ 0.5 ML SYRINGE (J1170 PER 1) IV PRN (08:50)
[2021-10-31] MEDS: buPROPion **XL** TABLET 150MG (WELLBUTRIN XL) PO SCH (09:00)
[2021-10-31] MEDS ORDERED: ENTER DRUG NAME HERE (PATIENT'S OWN MED) IV SCH (09:00)
[2021-10-31] MEDS ORDERED: buPROPion **XL** TABLET 150MG (WELLBUTRIN XL) PO SCH (09:00)
[2021-10-31] MEDS: HYDROXYCHLOROQUINE 200 MG TAB PO SCH (09:00)
[2021-10-31] MEDS: ENOXAPARIN 40MG/0.4ML SYRINGE (J1650 PER 10MG) SC SCH ×2 (09:00→09:47)
[2021-10-31] MEDS: CETIRIZINE (ZyrTEC) 10 MG TAB PO SCH (09:00)
[2021-10-31] MEDS: PANTOPRAZOLE 40MG VIAL IV SCH ×2 (09:47→21:23)
[2021-10-31] MEDS: ASPIRIN 81MG ENTERIC TABLET PO SCH (09:49)
[2021-10-31] MEDS: DOCUSATE SODIUM 100MG CAPSULE PO SCH (09:49)
[2021-10-31] MEDS: HYDROMORPHONE HCL 0.5 MG/ 0.5 ML SYRINGE (J1170 PER 1) IV PRN ×4 (10:04→22:00)
[2021-10-31 12:58] LABS: HEMATOCRIT 29.4 % (36.0-47.0); HEMOGLOBIN 8.8 g/dl (12.0-15.5); MEAN CORPUSCULAR HEMOGLOBIN 22.1 pg (27.0-33.0); MEAN CORPUSCULAR HGB CONC 29.9 g/dl (32.0-36.5); MEAN CORPUSCULAR VOLUME 73.7 fl (80.0-96.0); PLATELET COUNT, AUTOMATED 220 10^3/uL (150-450); RED BLOOD COUNT 3.99 10^6/uL (4.00-5.40); WHITE BLOOD COUNT 6.9 10^3/uL (4.0-10.0)
[2021-10-31 13:35] LABS: BLOOD UREA NITROGEN 9 MG/DL (7-18); CALCIUM LEVEL 9.2 MG/DL (8.5-10.1); CARBON DIOXIDE LEVEL 25 MEQ/L (21-32); CHLORIDE LEVEL 108 MEQ/L (98-107); CREATININE FOR GFR 0.84 MG/DL (0.55-1.30); FERRITIN 6 NG/ML (8-252); GLOMERULAR FILTRATION RATE > 60.0 (>60); GLUCOSE, FASTING 88 MG/DL (70-100); IRON (FE) 20 UG/DL (50-170); LDH LACTATE DEHYDROGENASE 169 U/L (84-246); PERCENT SATURATION 4.5 % (13.2-45.0); POTASSIUM SERUM 3.6 MEQ/L (3.5-5.1); SODIUM LEVEL 140 MEQ/L (136-145); TOTAL IRON BINDING CAPACITY 440 UG/DL (250-450)
[2021-10-31 14:00] VITALS: BP 149/78
[2021-10-31] MEDS: diphenhydrAMINE 50MG/ML VIAL (J1200) IV PRN (15:28)
[2021-10-31] MEDS ORDERED: [UNRECOGNIZED DRUG - OTHER] IV SCH (18:00)
[2021-10-31] MEDS ORDERED: RAMELTEON 8 MG TAB (ROZEREM) PO SCH (21:00)
[2021-10-31 22:00] VITALS: BP 110/74
[2021-10-31 22:03] VITALS: BP 134/58
[2021-11-01] MEDS: HYDROMORPHONE HCL 0.5 MG/ 0.5 ML SYRINGE (J1170 PER 1) IV PRN ×3 (02:51→11:45)
[2021-11-01] MEDS: SODIUM CHLORIDE 0.9% INJ 10 ML SYR IV SCH (05:30)
[2021-11-01] MEDS: NS 1,000 ML IV SCH (05:33)
[2021-11-01 06:00] VITALS: BP 125/80
[2021-11-01] MEDS: ONDANSETRON 4MG/2ML VIAL IV PRN (06:35)
[2021-11-01 06:37] VITALS: BP 125/80
[2021-11-01 07:38] LABS: HEMATOCRIT 28.6 % (36.0-47.0); HEMOGLOBIN 8.7 g/dl (12.0-15.5); MEAN CORPUSCULAR HEMOGLOBIN 22.7 pg (27.0-33.0); MEAN CORPUSCULAR HGB CONC 30.4 g/dl (32.0-36.5); MEAN CORPUSCULAR VOLUME 74.5 fl (80.0-96.0); PLATELET COUNT, AUTOMATED 195 10^3/uL (150-450); RED BLOOD COUNT 3.84 10^6/uL (4.00-5.40); WHITE BLOOD COUNT 6.2 10^3/uL (4.0-10.0)
[2021-11-01 07:59] LABS: BLOOD UREA NITROGEN 13 MG/DL (7-18); CALCIUM LEVEL 8.3 MG/DL (8.5-10.1); CARBON DIOXIDE LEVEL 28 MEQ/L (21-32); CHLORIDE LEVEL 104 MEQ/L (98-107); CREATININE FOR GFR 0.73 MG/DL (0.55-1.30); GLOMERULAR FILTRATION RATE > 60.0 (>60); GLUCOSE, FASTING 96 MG/DL (70-100); POTASSIUM SERUM 3.7 MEQ/L (3.5-5.1); SODIUM LEVEL 138 MEQ/L (136-145)
[2021-11-01] MEDS ORDERED: PERCOCET 5MG/325MG TAB PO PRN (08:20)
[2021-11-01] MEDS: ENOXAPARIN 40MG/0.4ML SYRINGE (J1650 PER 10MG) SC SCH (09:00)
[2021-11-01] MEDS: ASPIRIN 81MG ENTERIC TABLET PO SCH (09:58)
[2021-11-01] MEDS: buPROPion **XL** TABLET 150MG (WELLBUTRIN XL) PO SCH (09:58)
[2021-11-01] MEDS: HYDROXYCHLOROQUINE 200 MG TAB PO SCH (09:58)
[2021-11-01] MEDS: DOCUSATE SODIUM 100MG CAPSULE PO SCH (09:58)
[2021-11-01] MEDS: PANTOPRAZOLE 40MG VIAL IV SCH (09:59)
[2021-11-01] MEDS: CETIRIZINE (ZyrTEC) 10 MG TAB PO SCH (09:59)
[2021-11-01] MEDS ORDERED: PERCOCET PO ×2 (12:53→13:00)
[2021-11-01] MEDS ORDERED: SCOPOLAMINE 1MG TRANSDERMAL PATCH TOP SCH (21:00)
== END 2021-11-01 14:46 | disposition home health service (06) | DRG 392 ==
LOC: M ED 08:44 → M ED INP 16:43 → M MSPAV 22:28
PROVIDERS: ADMIT Internal Medicine; ATTEND Internal Medicine
DX: R11.2 Nausea with vomiting, unspecified (principal); I77.4 Celiac artery compression syndrome; I49.8 Other specified cardiac arrhythmias; K31.84 Gastroparesis; K58.1 Irritable bowel syndrome with constipation; F41.9 Anxiety disorder, unspecified; F32.A Depression, unspecified; E86.0 Dehydration; D50.9 Iron deficiency anemia, unspecified; Z90.49 Acquired absence of other specified parts of digestive tract; Z79.82 Long term (current) use of aspirin; Z79.899 Other long term (current) drug therapy; Z88.2 Allergy status to sulfonamides; Z88.0 Allergy status to penicillin; Z88.1 Allergy status to other antibiotic agents; Z88.8 Allergy status to other drugs, medicaments and biological substances; Z91.040 Latex allergy status

== ENCOUNTER → 2021-11-13 | Outpatient (CLI) | payer MEDICARE, OTHER ==
[~2021-11-13] MED LIST changes: +BUPR5DIS3 TOP; +DRON5CAP13 PO; +PATIENT COMMENT; +PERCOCET PO; +TRAN1DIS4 TOP
[2021-11-13 19:51] LABS: HEMATOCRIT 29.4 % (36.0-47.0); HEMOGLOBIN 8.6 g/dl (12.0-15.5); MEAN CORPUSCULAR HEMOGLOBIN 22.1 pg (27.0-33.0); MEAN CORPUSCULAR HGB CONC 29.3 g/dl (32.0-36.5); MEAN CORPUSCULAR VOLUME 75.4 fl (80.0-96.0); PLATELET COUNT, AUTOMATED 241 10^3/uL (150-450); WHITE BLOOD COUNT 4.5 10^3/uL (4.0-10.0)
[2021-11-13 20:27] LABS: ALBUMIN 3.9 GM/DL (3.2-5.2); ALT/SGPT 16 U/L (12-78); BILIRUBIN,TOTAL 0.3 MG/DL (0.2-1.0); BLOOD UREA NITROGEN 12 MG/DL (7-18); CARBON DIOXIDE LEVEL 27 MEQ/L (21-32); CHLORIDE LEVEL 109 MEQ/L (98-107); CREATININE FOR GFR 0.71 MG/DL (0.55-1.30); GLOMERULAR FILTRATION RATE > 60.0 (>60); GLUCOSE, FASTING 81 MG/DL (70-100); MAGNESIUM LEVEL 2.1 MG/DL (1.8-2.4); PHOSPHORUS LEVEL 2.9 MG/DL (2.5-4.9); POTASSIUM SERUM 3.8 MEQ/L (3.5-5.1); SODIUM LEVEL 142 MEQ/L (136-145); TOTAL PROTEIN 7.7 GM/DL (6.4-8.2)
== END ==
LOC: M WUC 15:11
PROVIDERS: ATTEND Internal Medicine Gastroenterology
DX: Z95.828 Presence of other vascular implants and grafts (principal); R10.13 Epigastric pain; R25.2 Cramp and spasm; R63.4 Abnormal weight loss; Z78.9 Other specified health status; R19.4 Change in bowel habit

== ENCOUNTER 2021-11-17 21:42 | Inpatient (IN) | payer MEDICARE, OTHER ==
[~2021-11-17] VITALS: Ht 172.7 cm; Wt 57.1 kg
[2021-11-18] MEDS ORDERED: HYDROMORPHONE HCL 0.5 MG/ 0.5 ML SYRINGE (J1170 PER 1) IV ONE ×2 (04:45→06:25)
[2021-11-18] MEDS ORDERED: ONDANSETRON 4MG/2ML VIAL IV ONE (05:00)
[2021-11-18 05:05] LABS: BASO % 0.1 % (0.0-1.0); EOS # 0.1 10^3/uL (0.0-0.5); EOS % 0.8 % (0.0-3.0); HEMATOCRIT 26.7 % (36.0-47.0); HEMOGLOBIN 8.2 g/dl (12.0-15.5); LYMPH # 0.9 10^3/uL (1.5-5.0); LYMPH % 12.6 % (24.0-44.0); MEAN CORPUSCULAR HEMOGLOBIN 22.7 pg (27.0-33.0); MEAN CORPUSCULAR HGB CONC 30.7 g/dl (32.0-36.5); MONO # 0.6 10^3/uL (0.0-0.8); MONO % 7.4 % (2.0-8.0); NEUTROPHILS # 5.8 10^3/uL (1.5-8.5); NEUTROPHILS % 78.8 % (36.0-66.0); PLATELET COUNT, AUTOMATED 235 10^3/uL (150-450); RED BLOOD COUNT 3.61 10^6/uL (4.00-5.40); WHITE BLOOD COUNT 7.4 10^3/uL (4.0-10.0)
[2021-11-18 05:27] LABS: ALT/SGPT 21 U/L (12-78); BILIRUBIN,DIRECT 0.1 MG/DL (0.0-0.2); BILIRUBIN,TOTAL 0.3 MG/DL (0.2-1.0); BLOOD UREA NITROGEN 11 MG/DL (7-18); CALCIUM LEVEL 9.2 MG/DL (8.5-10.1); CARBON DIOXIDE LEVEL 24 MEQ/L (21-32); CHLORIDE LEVEL 111 MEQ/L (98-107); CREATININE FOR GFR 0.64 MG/DL (0.55-1.30); GLOMERULAR FILTRATION RATE > 60.0 (>60); GLUCOSE, FASTING 90 MG/DL (70-100); LIPASE 277 U/L (73-393); MAGNESIUM LEVEL 2.1 MG/DL (1.8-2.4); POTASSIUM SERUM 3.7 MEQ/L (3.5-5.1); SODIUM LEVEL 143 MEQ/L (136-145)
[2021-11-18] MEDS ORDERED: HYOS1TAB PO (06:49)
[2021-11-18] MEDS ORDERED: HOME MED LIST COMPLETE! XX SCH (06:50)
[2021-11-18] MEDS ORDERED: ONDANSETRON 4MG/2ML VIAL IV PRN (08:35)
[2021-11-18] MEDS ORDERED: METOPROLOL TART 25 MG TABLET PO PRN (08:50)
[2021-11-18] MEDS ORDERED: MIDODRINE 2.5 MG TAB PO PRN (08:50)
[2021-11-18] MEDS ORDERED: PERCOCET 5MG/325MG TAB PO PRN (08:50)
[2021-11-18] MEDS ORDERED: tiZANidine 4 MG TAB PO PRN (08:50)
[2021-11-18] MEDS ORDERED: ENTER DRUG NAME HERE (PATIENT'S OWN MED) TD SCH (08:50)
[2021-11-18] MEDS ORDERED: ONDANSETRON 4MG TAB PO PRN (08:50)
[2021-11-18] MEDS ORDERED: HYOSCYAMINE SULFATE 0.125 MG SUBL TABLET PO PRN (08:50)
[2021-11-18] MEDS ORDERED: SCOPOLAMINE 1MG TRANSDERMAL PATCH TOP SCH (09:00)
[2021-11-18] MEDS ORDERED: buPROPion **XL** TABLET 150MG (WELLBUTRIN XL) PO SCH (09:00)
[2021-11-18] MEDS ORDERED: ENOXAPARIN 30MG/0.3ML SYRINGE (J1650 PER 10MG) SC SCH (09:00)
[2021-11-18 10:26] LABS: INR 1.15; PROTHROMBIN TIME 15.1 SECONDS (12.7-14.5)
[2021-11-18 10:30] LABS: D-DIMER QUANT 271.89 ng/ml (<500)
[2021-11-18 10:31] LABS: C REACTIVE PROTEIN QUANTITATIV < 0.30 MG/DL (0.00-0.30); FERRITIN 4 NG/ML (8-252); LDH LACTATE DEHYDROGENASE 167 U/L (84-246); NT-PRO BNP 180 PG/ML (<125)
[2021-11-18 11:01] VITALS: BP 127/82; O2SAT 97
[2021-11-18] MEDS ORDERED: REMDESIVIR 200 MG in NS 250 ML IV ONE (12:00)
[2021-11-18] MEDS: ENOXAPARIN 40MG/0.4ML SYRINGE (J1650 PER 10MG) SC SCH (12:42)
[2021-11-18] MEDS: DOCUSATE SODIUM 100MG CAPSULE PO SCH (12:42)
[2021-11-18] MEDS: ASPIRIN 81MG ENTERIC TABLET PO SCH (12:43)
[2021-11-18] MEDS: OMEPRAZOLE 20MG CAP PO SCH (12:43)
[2021-11-18] MEDS ORDERED: SODIUM CHLORIDE 0.9% INJ 10 ML SYR IV PRN (13:15)
[2021-11-18] MEDS ORDERED: SODIUM CHLORIDE 0.9% INJ 10 ML SYR IV ONE (14:00)
[2021-11-18 14:45] LABS: APPEARANCE, URINE CLEAR (CLEAR); BACTERIA, URINE AUTO NEGATIVE (NEGATIVE); BILIRUBIN, URINE AUTO NEGATIVE (NEGATIVE); BLOOD, URINE BLOOD NEGATIVE (NEGATIVE); COLOR, URINE STRAW (YELLOW); GLUCOSE, URINE (UA) AUTO NEGATIVE (NEGATIVE); KETONE, URINE AUTO NEGATIVE (NEGATIVE); LEUKOCYTE ESTERASE, URINE AUTO NEGATIVE (NEGATIVE); NITRITE, URINE AUTO NEGATIVE (NEGATIVE); PROTEIN, URINE AUTO NEGATIVE (NEGATIVE); RBC, URINE AUTO 1 /HPF (0-3); SPECIFIC GRAVITY URINE AUTO 1.008 (1.002-1.035); SQUAMOUS EPITHELIAL CELL UR AU 0 /HPF (0-6); UROBILINOGEN, URINE AUTO 0.2 mg/dL (0.0-2.0); WBC, URINE AUTO 0 /HPF (0-3)
[2021-11-18] MEDS: HYDROXYCHLOROQUINE 200 MG TAB PO SCH (14:45)
[2021-11-18] MEDS: buPROPion **XL** TABLET 150MG (WELLBUTRIN XL) PO SCH (14:46)
[2021-11-18] MEDS: NS 1,000 ML IV SCH (14:46)
[2021-11-18] MEDS ORDERED: [UNRECOGNIZED DRUG - OTHER] IV ONE (18:00)
[2021-11-18] MEDS: SODIUM CHLORIDE 0.9% INJ 10 ML SYR IV SCH (18:00)
[2021-11-18] MEDS: PERCOCET 5MG/325MG TAB PO PRN (18:26)
[2021-11-18] MEDS: FAMOTIDINE 20MG/2ML VIAL IV SCH (19:00)
[2021-11-18 20:00] VITALS: BP 132/85; O2SAT 98
[2021-11-18] MEDS ORDERED: diphenhydrAMINE 50MG/ML VIAL (J1200) IV ONE (21:15)
[2021-11-18] MEDS ORDERED: carisoprodoL 350 MG TAB PO ONE (21:15)
[2021-11-19] MEDS: NS 1,000 ML IV SCH ×2 (00:28→09:53)
[2021-11-19 04:19] VITALS: O2SAT 98
[2021-11-19] MEDS: SODIUM CHLORIDE 0.9% INJ 10 ML SYR IV SCH (05:01)
[2021-11-19] MEDS: FAMOTIDINE 20MG/2ML VIAL IV SCH (05:34)
[2021-11-19 06:00] VITALS: BP 132/56
[2021-11-19] MEDS: PERCOCET 5MG/325MG TAB PO PRN ×2 (06:04→12:24)
[2021-11-19 06:08] LABS: BASO % 0.4 % (0.0-1.0); EOS # 0.2 10^3/uL (0.0-0.5); EOS % 3.4 % (0.0-3.0); HEMATOCRIT 27.1 % (36.0-47.0); HEMOGLOBIN 8.1 g/dl (12.0-15.5); LYMPH # 1.4 10^3/uL (1.5-5.0); LYMPH % 24.8 % (24.0-44.0); MEAN CORPUSCULAR HEMOGLOBIN 22.1 pg (27.0-33.0); MEAN CORPUSCULAR HGB CONC 29.9 g/dl (32.0-36.5); MONO # 0.6 10^3/uL (0.0-0.8); MONO % 10.3 % (2.0-8.0); NEUTROPHILS # 3.4 10^3/uL (1.5-8.5); NEUTROPHILS % 60.9 % (36.0-66.0); PLATELET COUNT, AUTOMATED 230 10^3/uL (150-450); RED BLOOD COUNT 3.66 10^6/uL (4.00-5.40); WHITE BLOOD COUNT 5.6 10^3/uL (4.0-10.0)
[2021-11-19 06:33] LABS: ALBUMIN 3.5 GM/DL (3.2-5.2); ALT/SGPT 15 U/L (12-78); BILIRUBIN,DIRECT < 0.1 MG/DL (0.0-0.2); BILIRUBIN,TOTAL 0.4 MG/DL (0.2-1.0); BLOOD UREA NITROGEN 13 MG/DL (7-18); CALCIUM LEVEL 8.8 MG/DL (8.5-10.1); CARBON DIOXIDE LEVEL 28 MEQ/L (21-32); CHLORIDE LEVEL 110 MEQ/L (98-107); CREATININE FOR GFR 0.65 MG/DL (0.55-1.30); GLOMERULAR FILTRATION RATE > 60.0 (>60); GLUCOSE, FASTING 95 MG/DL (70-100); POTASSIUM SERUM 4.2 MEQ/L (3.5-5.1); SODIUM LEVEL 141 MEQ/L (136-145); TOTAL PROTEIN 7.3 GM/DL (6.4-8.2)
[2021-11-19] MEDS: buPROPion **XL** TABLET 150MG (WELLBUTRIN XL) PO SCH (09:00)
[2021-11-19] MEDS: DOCUSATE SODIUM 100MG CAPSULE PO SCH (09:52)
[2021-11-19] MEDS: ASPIRIN 81MG ENTERIC TABLET PO SCH (09:52)
[2021-11-19] MEDS: OMEPRAZOLE 20MG CAP PO SCH (09:52)
[2021-11-19] MEDS: ENOXAPARIN 40MG/0.4ML SYRINGE (J1650 PER 10MG) SC SCH (09:52)
[2021-11-19] MEDS: HYDROXYCHLOROQUINE 200 MG TAB PO SCH (09:52)
[2021-11-19 12:00] VITALS: BP 119/73
[2021-11-19] MEDS ORDERED: REMDESIVIR 100 MG in NS 250 ML IV SCH (12:00)
[2021-11-19] MEDS ORDERED: SODIUM CHLORIDE 0.9% INJ 10 ML SYR IV SCH (13:00)
[2021-11-19] MEDS ORDERED: ENTER DRUG NAME HERE (PATIENT'S OWN MED) IV SCH (18:00)
== END 2021-11-19 14:20 | disposition home or self-care (01) | DRG 178 ==
LOC: M ED 21:42 → M ED INP 11-18 08:47 → ENRESERV 11-18 10:02 → M 4MAIN 11-18 11:01
PROVIDERS: ADMIT Internal Medicine; ATTEND Internal Medicine
PROC: XW033E5 Introduction of Remdesivir Anti-infective into Peripheral Vein, Percutaneous Approach, New Technology Group 5 (ICD-10-PCS; principal; 2021-11-18)
DX: U07.1 COVID-19 (principal); I77.4 Celiac artery compression syndrome; R10.9 Unspecified abdominal pain; R19.7 Diarrhea, unspecified; K58.1 Irritable bowel syndrome with constipation; I49.8 Other specified cardiac arrhythmias; M19.90 Unspecified osteoarthritis, unspecified site; F32.A Depression, unspecified; G89.29 Other chronic pain; F41.9 Anxiety disorder, unspecified; K31.84 Gastroparesis; Z79.899 Other long term (current) drug therapy; Z90.49 Acquired absence of other specified parts of digestive tract; Z88.0 Allergy status to penicillin; Z88.2 Allergy status to sulfonamides; Z88.1 Allergy status to other antibiotic agents; Z88.8 Allergy status to other drugs, medicaments and biological substances; Z91.040 Latex allergy status; Z79.82 Long term (current) use of aspirin

== ENCOUNTER 2021-11-29 01:37 | Emergency (ER) | payer MEDICARE, OTHER ==
[~2021-11-29] VITALS: Ht 172.7 cm; Wt 54.5 kg
[~2021-11-29 01:37] MED LIST changes: +HYOS1TAB PO
[2021-11-29] MEDS ORDERED: PANTOPRAZOLE 40MG VIAL IV ONE (06:25)
[2021-11-29] MEDS ORDERED: NS 1,000 ML IV ONE (06:25)
[2021-11-29] MEDS ORDERED: ONDANSETRON 4MG/2ML VIAL IV ONE (07:00)
[2021-11-29 07:08] LABS: BASO % 0.2 % (0.0-1.0); EOS % 0.5 % (0.0-3.0); HEMATOCRIT 27.5 % (36.0-47.0); HEMOGLOBIN 8.3 g/dl (12.0-15.5); LYMPH % 15.3 % (24.0-44.0); MEAN CORPUSCULAR HEMOGLOBIN 21.7 pg (27.0-33.0); MEAN CORPUSCULAR HGB CONC 30.2 g/dl (32.0-36.5); MEAN CORPUSCULAR VOLUME 71.8 fl (80.0-96.0); MONO # 0.6 10^3/uL (0.0-0.8); MONO % 8.9 % (2.0-8.0); NEUTROPHILS # 4.6 10^3/uL (1.5-8.5); NEUTROPHILS % 74.6 % (36.0-66.0); PLATELET COUNT, AUTOMATED 235 10^3/uL (150-450); RED BLOOD COUNT 3.83 10^6/uL (4.00-5.40); WHITE BLOOD COUNT 6.2 10^3/uL (4.0-10.0)
[2021-11-29 07:18] LABS: INR 1.18; PROTHROMBIN TIME 15.4 SECONDS (12.7-14.5)
[2021-11-29 07:29] LABS: ALT/SGPT 16 U/L (12-78); BILIRUBIN,DIRECT 0.2 MG/DL (0.0-0.2); BILIRUBIN,TOTAL 0.6 MG/DL (0.2-1.0); BLOOD UREA NITROGEN 9 MG/DL (7-18); CALCIUM LEVEL 8.7 MG/DL (8.5-10.1); CARBON DIOXIDE LEVEL 25 MEQ/L (21-32); CHLORIDE LEVEL 109 MEQ/L (98-107); CREATININE FOR GFR 0.62 MG/DL (0.55-1.30); GLOMERULAR FILTRATION RATE > 60.0 (>60); GLUCOSE, FASTING 85 MG/DL (70-100); LIPASE 120 U/L (73-393); POTASSIUM SERUM 3.4 MEQ/L (3.5-5.1); SODIUM LEVEL 142 MEQ/L (136-145); TOTAL PROTEIN 7.4 GM/DL (6.4-8.2)
[2021-11-29] MEDS: MORPHINE 4 MG/ML 1ML VIAL/SYRINGE IV PRN ×2 (07:36→09:20)
[2021-11-29] MEDS ORDERED: ISOVUE-370 76% 100ML VIAL As Ordered ONE (07:47)
[2021-11-29 08:14] LABS: HCG, SERUM QUALITATIVE NEGATIVE (NEGATIVE)
[2021-11-29 12:15] VITALS: BP 143/87
== END 2021-11-29 12:22 | disposition home or self-care (01) ==
LOC: M ED 01:37
DX: R11.10 Vomiting, unspecified (principal); R10.9 Unspecified abdominal pain; J45.909 Unspecified asthma, uncomplicated; I49.8 Other specified cardiac arrhythmias; Z87.19 Personal history of other diseases of the digestive system; Z86.16 Personal history of COVID-19; Z88.0 Allergy status to penicillin; Z88.1 Allergy status to other antibiotic agents; Z88.2 Allergy status to sulfonamides; Z88.8 Allergy status to other drugs, medicaments and biological substances; Z91.040 Latex allergy status; Z79.899 Other long term (current) drug therapy; Z79.82 Long term (current) use of aspirin
CPT/HCPCS: 74177; 80048; 80076; 83690; 83735; 84703; 85025; 85610; 86850; 86900; 86901; 96361; 96374; 96375; 96376; 99285; C9113; J2270; J2405; Q9967

== ENCOUNTER → 2021-11-30 | Outpatient (REF) | payer MEDICARE, OTHER | LOC: M LAB REF 09:49 | PROVIDERS: ATTEND Internal Medicine Gastroenterology | DX: R19.7 Diarrhea, unspecified (principal); R11.2 Nausea with vomiting, unspecified; R63.4 Abnormal weight loss ==

== ENCOUNTER → 2025-04-18 | Outpatient (RCR) ==
[~2025-04-18] MED LIST changes: -AMIT24CA7; +BUPR-766 PO; -BUPR300T92 PO; +DICY-61; -DICY10CA13; -DRON5CAP13 PO; +DRON5CAP19 PO; -HYDR200T3; -HYDR200T3 PO; +HYDR200T46; +HYDR200T46 PO; +LORA1TAB23 PO; -LORA1TAB4 PO; +LUBI24CA32; -MIDO2.5T PO; +MIDO2.5T3 PO; +TIZA4CAP3 PO; -TIZA4CAP6 PO; -ZOLP5TAB PO; +ZOLP5TAB9 PO
== END ==
LOC: M EMPSKH 04-09 13:24
PROVIDERS: ATTEND Family Medicine
DX: Z20.828 Contact with and (suspected) exposure to other viral communicable diseases (principal)